=== PATIENT | female | born 1965 | race Caucasian/White ===

== ENCOUNTER 2023-03-13 06:22 | Outpatient (OUT) | payer OTHER, SELFPAY ==
[2023-03-13 07:55] LABS: INR 0.93; Partial Thromboplastin Time 28.5 sec (22.3-36.2); Prothrombin Time 9.9 sec (9.0-11.6)
[2023-03-13 08:41] LABS: Alanine Aminotransferase 38 U/L (14-59); Albumin Globulin Ratio 0.9; Albumin Level 3.8 g/dL (3.4-5.0); Alkaline Phosphatase 109 U/L (46-116); Anion Gap 8.1; Aspartate Amino Transferase 30 U/L (15-37); BUN Creatinine Ratio 15.8; Bilirubin Total 0.5 mg/dL (0.2-1.0); Calcium 9.6 mg/dL (8.5-10.1); Carbon Dioxide 31.3 mmol/L (21.0-32.0); Chloride 104 mmol/L (98-107); Cholesterol 208 mg/dL (<=200); Estimated GFR (African America >60 (>=60); Estimated GFR (Non-African Ame >60 (>=60); Free T3 3.13 pg/mL (2.18-3.98); Globulin 4.2 g/dL; Glucose 91 mg/dL (74-106); HDL Cholesterol 64 mg/dL (40-60); Potassium 4.4 mmol/L (3.5-5.1); Sodium 139 mmol/L (136-145); Thyroid Stimulating Hormone 0.858 uIU/mL (0.358-3.740); Triglycerides 60 mg/dL (<=150)
[2023-03-13 08:44] LABS: Chol HDL Ratio 3.3
[2023-03-13 09:00] LABS: Estimated Average Glucose 94 mg/dL; Glycohemoglobin A1C 4.9 % (4.5-6.2)
[2023-03-13 15:51] LABS: Occult Blood Negative
[2023-03-14 11:09] LABS: Insulin 5.7 uIU/mL (2.6-24.9)
== END 2023-03-13 06:23 | disposition home or self-care (01) ==
LOC: LAB 06:27
PROVIDERS: PCP Family Medicine; Visit Provider Family Medicine
DX: E78.5 Hyperlipidemia, unspecified (principal); R73.09 Other abnormal glucose; Z12.12 Encounter for screening for malignant neoplasm of rectum; D64.9 Anemia, unspecified; E55.9 Vitamin D deficiency, unspecified; R23.8 Other skin changes; M25.50 Pain in unspecified joint
CPT/HCPCS: 36415; 80053; 80061; 82306; 83036; 83525; 83540; 84436; 84443; 84481; 85002; 85610; 85730; G0328

== ENCOUNTER 2023-05-07 10:40 | Outpatient (OUT) | payer OTHER, SELFPAY ==
[2023-05-07 11:00] LABS: Bilirubin Urine NEGATIVE (NEGATIVE); Blood Urine NEGATIVE (NEGATIVE); Clarity Urine CLEAR (CLEAR); Color Urine DK. YELLOW (YELLOW); Glucose Urine UA NEGATIVE (NEGATIVE); Ketones Urine NEGATIVE (NEGATIVE); Leukocyte Esterase Urine NEGATIVE (NEGATIVE); Nitrite Urine NEGATIVE (NEGATIVE); Protein Urine NEGATIVE (NEG/TRACE); Specific Gravity Urine 1.015 (1.005-1.025); Urobilinogen Urine 0.2 EU/dL (0.2-1.0)
== END 2023-05-07 10:41 | disposition home or self-care (01) ==
LOC: LAB 10:43
PROVIDERS: PCP Family Medicine; Visit Provider Family Medicine
DX: R30.0 Dysuria (principal)
CPT/HCPCS: 81003; 87086

== ENCOUNTER 2023-05-20 15:07 | Outpatient (OUT) | payer OTHER, SELFPAY ==
[2023-05-20 15:30] LABS: Bilirubin Urine NEGATIVE (NEGATIVE); Blood Urine TRACE-I (NEGATIVE); Clarity Urine CLEAR (CLEAR); Color Urine LT. YELLOW (YELLOW); Glucose Urine UA NEGATIVE (NEGATIVE); Ketones Urine NEGATIVE (NEGATIVE); Leukocyte Esterase Urine NEGATIVE (NEGATIVE); Nitrite Urine NEGATIVE (NEGATIVE); Protein Urine NEGATIVE (NEG/TRACE); Specific Gravity Urine <=1.005 (1.005-1.025); Urobilinogen Urine 0.2 EU/dL (0.2-1.0)
[2023-05-20 15:36] LABS: WBC Urine NONE SEEN #/HPF (NONE SEEN)
[2023-05-20 15:37] LABS: Bacteria Urine NONE SEEN #/HPF (NONE SEEN); Cast Seen? NONE SEEN #/LPF (NONE SEEN); Crystals Seen? None Seen #/HPF (None Seen); Mucus Urine NONE SEEN (NONE SEEN); RBC Urine 0-2 #/HPF (0-2); Squamous Epithelial Cell Urine RARE #/LPF (NONE/RARE)
== END 2023-05-20 15:08 | disposition home or self-care (01) ==
PROVIDERS: PCP Family Medicine; Visit Provider Family Medicine
DX: R35.0 Frequency of micturition (principal)
CPT/HCPCS: 81001; 87086

== ENCOUNTER 2023-10-21 10:37 | Outpatient (OUT) | payer OTHER, SELFPAY ==
--- OUTSIDE RECORDS SUMMARY | 2023-10-21 10:47 | XMS_ITS | CCD ---
Author Organization [facility] Care Team Providers Care Measuring Machine Tender Name Role Phone Joycelyn Elena Unavailable Unavailable Donald Obando Unavailable Unavailable Denise Atkinson Unavailable Unavailable Donald Obando Unavailable Unavailable Unavailable DR DONALD OBANDO Attending Unavailable DR DONALD OBANDO Consulting Unavailable DR DONALD OBANDO Admitting Unavailable Maikol Roca Unavailable Natdeara, Louann Admitting Unavailable Holly, Louann Attending Unavailable DONALD OBANDO Primary Care Unavailable Nataprlulara, DO Louann Attending Provider MD Donald Obando Primary Care Provider [phone] Donald Obando MD Primary Care Provider [phone] MEÑO GILLESPIE Attending Unavailable DONALD OBANDO Primary Care Unavailable HOLLY, LOUANN Oconnor Attending Unavailable HOLLY, LOUANN Oconnor Attending Unavailable HOLLY, LOUANN Oconnor Attending Unavailable Donald Obando MD Primary Care Provider Donald Obando Primary Care Unavailable Nataprawira, Louann Attending Unavailable Nataprawira, Louann Admitting Unavailable Nataprawira, Louann Attending Unavailable Nataprawira, Louann Admitting Unavailable YANETH, ALEJANDRA Attending Unavailable DONALD OBANDO Referring Unavailable DONALD OBANDO Primary Care Unavailable VARGHESE SHARMA Attending Unavailable DONALD OBANDO Referring Unavailable DONALD OBANDO Primary Care Unavailable YANETH, ALEJANDRA Attending Unavailable DONALD OBANDO Referring Unavailable DONALD OBANDO Primary Care Unavailable YANETH, ALEJANDRA Attending Unavailable DONALD OBANDO Referring Unavailable DONALD OBANDO Primary Care Unavailable Allergies Allergy Classification Reported Allergen(s) Allergy Type Date of Onset Reaction(s) Facility Sulfamethoxazole / Trimethoprim (1 source) Sulfamethoxazole / Trimethoprim; Translations: [Bactrim] Drug Allergy DM-Dss[facility] [place] [address] Work Phone: (6 sources) Sulfamethoxazole / Trimethoprim; Translations: [Bactrim] Drug Allergy 013 [facility] Repository (6 sources) Erythromycin Derivatives; Translations: [Erythromycin Derivatives] drug allergy MG-Otolaryngol ogyLety Work Phone: (3 sources) Codeine; Translations: [codeine] Drug Allergy 013 [facility] Repository (2 sources) Erythromycin; Translations: [ERYTHROMYCIN BASE] Drug Allergy 013 [facility] Repository (2 sources) predniSONE; Translations: [PREDNISONE] Drug Allergy 013 [facility] Repository (1 source) Corticosteroids Propensity to adverse reactions agitation, severe Performance Indicator Other (6 sources) Erythromycin; Translations: [erythromycin] Drug Allergy 023 Unknown [facility] Repository (4 sources) Sulfamethoxazole / Trimethoprim Drug Allergy 023 Unknown Performance Indicator Other (3 sources) Corticosteroids; Translations: [corticosteroids] Propensity to adverse reactions to drug (disorder) [facility] Repository (3 sources) Sulfamethoxazole / Trimethoprim; Translations: [sulfamethoxazole-t rimethoprim] Drug Allergy 019 [facility] Repository (1 source) Corticosteroids Drug allergy (disorder) [facility] Repository (1 source) Erythromycin Drug Allergy [address] [facility] Repository (1 source) Sulfamethoxazole Drug Allergy [address] [facility] Repository (1 source) Trimethoprim Drug Allergy [address] [facility] Repository Medications Current Medications Medication Drug Class(es) Dates Sig (Normalized) Sig (Original) cetirizine hydrochloride 10 mg disintegrating oral tablet (9 sources) Histamine-1 Receptor Antagonist Start: 09-04-2017 cetirizine (ZyrTEC) 10 mg tablet,disintegra ting Take by mouth. 0 09/04/2017 Active cetirizine (ZyrT EC ALLERGY) 10 MG tablet 1 (one) time each day at the same time. 0 Active citalopram 10 mg oral tablet (6 sources) Serotonin Reuptake Inhibitor Start: 11-28-2022 take 1 tablet by mouth once daily citalopram (CeleXA) 10 mg tablet Take 1 tablet (10 mg) by mouth once daily. 0 11/28/2022 Active Start: 01-05-2019 CeleXA 10 MG O ral Tablet Quantity: 0 Refills: 0 Ordered: 05-Jan-2019 DO Start : 05-Jan-2019 Active Start: 01-05-2019 CeleXA 10 MG O ral Tablet Refills: 0 Start : 05-Jan-2019 Active citalopram (Marielena XA) 10 MG tablet 15 mg 0 Active CeleXA Active fluticasone propionate 0.05 mg/actuat metered dose nasal spray (6 sources) Corticosteroid Start: 06-23-2023 take 2 spray(s) nasal route once daily fluticasone (Flonase) 50 mcg/actuation nasal spray Indications: Nasal drainage Administer 2 sprays into each nostril once daily. 16 g 1 06/23/2023 Active Start: 01-05-2019 take 1 spray(s) nasa l route once daily Flonase Allergy Relief 50 MCG/ACT Nasal Suspension USE 1 SPRAY IN EACH NOSTRIL ONCE DAILY. Quantity: 0 Refills: 0 Ordered: 05-Jan-2019 DO Start : 05-Jan-2019 Active fluticasone (Kodi nase Allergy Relief) 50 MCG/ACT nasal spray every 12 (twelve) hours. 0 Active take 1 spray(s) nasa l route twice daily Flonase Allergy Relief 50 MCG/ACT 1 spray in each nostril Nasally bid Not-Taking meclizine hydrochloride 12.5 mg oral tablet (8 sources) Antiemetic Start: 02-26-2018 End: 06-23-2023 meclizine (Antivert) 12.5 mg tablet Indications: Dizziness and giddiness Take 1 tablet every 8 hours as needed for dizziness. 30 tablet 0 06/23/2023 Active Completed/Discontinued Medications Medication Drug Class(es) Dates Sig (Normalized) Sig (Original) ALPRAZolam 0.5 mg oral tablet (6 sources) Benzodiazepine Start: 10-14-2018 ALPRAZolam 0.5 MG Oral Tablet Quantity: 90 Refills: 0 Ordered: 14-Oct-2018 DO Start : 14-Oct-2018 Active Start: 10-14-2018 ALPRAZolam 0.5 MG Oral Tablet Quantity: 90 Refills: 0 Start : 14-Oct-2018 Active Start: 06-11-2018 take 0.5-1 tablets b y mouth three times daily as needed ALPRAZolam (Xanax) 0.25 mg tablet 1/2-1 tablet Orally 3 times a day prn 0 06/11/2018 Active temazepam 15 mg oral capsule (1 source) Benzodiazepine take 1-2 capsules by mouth at bedtime as needed Restoril 15 mg 1-2 capsules at bedtime as needed Orally Not-Taking Problems Active Problems Problem Classification Problem Date Documented Da te Episodic/Chronic Abdominal pain (1 source) Pelvic and perineal pain; Translations: [Pelvic and perineal pain] Onset: 07-04-2023 Episodic Anxiety disorders (14 sources) Anxiety; Translations: [Anxiety state, unspecified] Onset: 12-21-2018 06-17-2023 Chronic Conditions associated with dizziness or vertigo (10 sources) Dizziness; Translations: [Dizziness and giddiness] Onset: 06-20-2023 06-23-2023 Episodic Osteoarthritis (2 sources) Osteoarthritis of finger joint; Translations: [Primary osteoarthritis, unspecified hand] Onset: 06-17-2023 06-17-2023 Chronic Other aftercare (2 sources) Surgical follow-up; Translations: [Encounter for follow-up examination after completed treatment for conditions other than malignant neoplasm] 08-07-2023 Episodic Other connective tissue disease (6 sources) H/O: musculoskeletal disease; Translations: [Personal history of other musculoskeletal disorders] Episodic Other connective tissue disease (2 sources) Hand pain; Translations: [Pain in unspecified hand] Onset: 06-17-2023 06-17-2023 Episodic Other connective tissue disease (2 sources) Pain of left hand; Translations: [Pain in left hand] Onset: 06-17-2023 06-17-2023 Episodic Other ear and sense organ disorders (1 source) Mixed conductive AND sensorineural hearing loss; Translations: [Mixed conductive and sensorineural hearing loss of left ear with unrestricted hearing of right ear] Chronic Other ear and sense organ disorders (11 sources) Conductive hearing loss, unilateral, left ear, with unrestricted hearing on the contralateral side; Translations: [Conductive hearing loss of left ear with unrestricted hearing of right ear] Onset: 06-17-2023 06-20-2023 Chronic Other ear and sense organ disorders (8 sources) Conductive hearing loss; Translations: [Conductive hearing loss, unspecified] Onset: 06-20-2023 06-20-2023 Chronic Other ear and sense organ disorders (5 sources) Mixed conductive and sensorineural hearing loss, unilateral, left ear, with unrestricted hearing on the contralateral side; Translations: [Mixed conductive and sensorineural hearing loss of left ear with unrestricted hearing of right ear] Chronic Other ear and sense organ disorders (2 sources) Bilateral hearing loss; Translations: [Conductive hearing loss, unilateral, left ear with restricted hearing on the contralateral side] Onset: 06-17-2023 06-17-2023 Chronic Other ear and sense organ disorders (4 sources) Otorrhea; Translations: [Otorrhea, unspecified] Episodic Other female genital disorders (4 sources) Polyp of corpus uteri; Translations: [Polyp of corpus uteri] Onset: 06-17-2023 06-17-2023 Episodic Other gastrointestinal disorders (1 source) Irritable bowel syndrome; Translations: [Irritable bowel syndrome] Chronic Other gastrointestinal disorders (1 source) Swollen abdomen; Translations: [Bloating] Episodic Other gastrointestinal disorders (1 source) Constipation; Translations: [Constipation] Episodic Other gastrointestinal disorders (1 source) Diarrhea; Translations: [Diarrhea] Episodic Other nutritional; endocrine; and metabolic disorders (3 sources) Body mass index 25-29 - overweight; Translations: [Body Mass Index 29.0-29.9, adult] Episodic Other upper respiratory disease (1 source) Nasal discharge; Translations: [Other specified disorders of nose and nasal sinuses] 06-23-2023 Episodic Other upper respiratory disease (2 sources) Other specified disorders of nose and nasal sinuses; Translations: [Other specified disorders of nose and nasal sinuses] Onset: 06-23-2023 Episodic Otitis media and related conditions (7 sources) Otosclerosis; Translations: [Otosclerosis, unspecified] Onset: 06-20-2023 3 Episodic Prolapse of female genital organs (3 sources) Herniation of rectum into vagina; Translations: [Rectocele] Onset: 06-17-2023 06-17-2023 Chronic Residual codes; unclassified (2 sources) History of bilateral salpingo-oophorectomy ; Translations: [Acquired absence of ovaries, bilateral] 08-07-2023 Episodic Screening and history of mental health and substance abuse codes (6 sources) H/O: depression; Translations: [Personal history of other mental disorders] Episodic Superficial injury; contusion (1 source) Abrasion of left forearm, initial encounter Episodic Unclassified (3 sources) COUGH, UNSPECIFIED; Translations: [COUGH, UNSPECIFIED] Onset: 06-26-2022 Unclassified (1 source) Encounter for other preprocedural examination; Translations: [Encounter for other preprocedural examination] Onset: 06-20-2023 Viral infection (1 source) COVID-19; Translations: [COVID-19] Onset: 06-26-2022 Past or Other Problems Problem Classification Problem Date Documented Da te Episodic/Chronic Blindness and vision defects (2 sources) Amblyopia of right eye; Translations: [Unspecified amblyopia, right eye] Onset: 12-21-2018 06-17-2023 Episodic Other eye disorders (2 sources) Tear film insufficiency; Translations: [Dry eye syndrome of bilateral lacrimal glands] Onset: 12-21-2018 06-17-2023 Episodic Residual codes; unclassified (1 source) Preoperative state; Translations: [Preoperative clearance] Episodic Unclassified (1 source) COUGH, UNSPECIFIED; Translations: [COUGH, UNSPECIFIED] Onset: 06-24-2022 Unclassified (1 source) Onset: 06-23-2023 06-23-2023 NEGATED: Highlighted row has not occurred!Residual codes; unclassified (9 sources) Disease Episodic Results Test Name Value Interpretation Reference Range [facility] 07-04-2023 --- Specimen: [id number] Received: 07/04/23 Status: PRASANTH Moramary Num: [id number] Spec Type: Surgical Subm Dr: LOUANN BARRERA DO Tissues: A Uterus w/ or w/o tubes ovaries except neoplastic or prolap (CERVIX, DOC TU Procedures: , Gross/Micro L5 Age/ Patient Sex Location Account Attending Physician Reba Kendrick 57/F DC [id number] LOUANN BARRERA DO SPEC NUM: [id number] RECD: 07/04/23 STATUS: PRASANTH GATO NUM: [id number] DELMAR: 07/04/[address]: LOUANN BARRERA DO ENTERED: 07/04/[address]: Param [facility] SPEC TYPE: Surgical DEPT: S ORDERED: Gross/Micro L5 ORDERED: , Gross/Micro L5 Pathological Diagnosis Uterus, Bilateral Ovaries and Tubes, Hystrectomy: Uterus: Adenomyosis. Cervix: Unremarkable. Ovaries: Unremarkable. Fallopian Tubes: Paratubal cysts. Clinical Information Pelvic pain, abdominal pain, 50 g Gross Description Received in formalin labeled with the patient's name, date of and uterus, cervix, bilateral fallopian tubes and ovaries is a 50 g, 5.7 x 4.7 x 2.3 cm uterus with attached bilateral adnexa. The uterine serosa is mantilla garza, focally hyperemic with purple-hancock fibrous adhesions along the anterior aspect. The exocervix is purple-hancock with a central 0.5 cm patent os. The endocervix is mantilla-red, glistening. Sectioning reveals multiple smooth-walled mucus filled cysts measuring up to 0.6 cm. The mantilla-red endometrium averages 0.1 cm in thickness and displays scarring. The pink-mantilla, trabecular myometrium measures up to 1.2 cm in thickness. No myometrial lesions are identified. The right mantilla-hancock, rubbery ovary measures 3.0 x 1.2 x 1.0 cm and has a rubbery, mantilla-hancock, focally hyperemic cut surface. The right fimbriated fallopian tube measures 4.5 x 0.4 cm and has attached paratubal cyst measuring up to 0.3 cm. Sectioning reveals a pinpoint lumen the left mantilla- Specimen: [id number] Received: 07/04/23 Status: PRASANTH Malik Num: [id number] Spec Type: Surgical Subm Dr: LOUANN BARRERA DO Tissues: A Uterus w/ or w/o tubes ovaries except neoplastic or prolap (CERVIX, DOC TU Procedures: , Gross/Micro L5 Patient: Reba Kendrick [id number] (Continued) Specimen: [id number] Received: 07/04/23 (Continued) Gross Description (Continued) Signed (signature on file) Bobbi Burton MD 07/08/232202 Specimen: [id number] Received: 07/04/23 Status: PRASANTH Malik Num: [id number] Spec Type: Surgical Subm Dr: LOUANN BARRERA DO Tissues: A Uterus w/ or w/o tubes ovaries except neoplastic or prolap (CERVIX, DOC TU Procedures: , Gross/Micro L5 Patient: Reba Kendrick [id number] (Continued) Specimen: [id number] Received: 07/04/23 (Continued) Gross Description (Continued) hancock, rubbery ovary measures 3.2 x 1.3 x 0.7 cm and has a rubbery, mantilla-pink, focally hyperemic cut surface. The left fimbriated fallopian tube measures 4.5 x 0.5 cm and has a pinpoint lumen on cut section. There is an attached paratubal cyst measuring 0.3 cm. Lead Web Application Developer sections are submitted in 7 cassettes as follows: A1 - Anterior cervix A2 - Posterior cervix A3 - Anterior endomyometrium A4 - Posterior endomyometrium A5 - Serosal adhesions and hyperemia A6 - Right adnexa A7 - Left adnexa Microscopic Description Seven H E slides reviewed. The microscopic examination confirms the diagnosis. CPT Codes 60845 Specimen: [id number] Received: 07/04/23 Status: PRASANTH Malik Num: [id number] Spec Type: Surgical Subm Dr: NATAPRAWIRA,LOUANN DO Tissues: A Uterus w/ or w/o tubes ovaries except neoplastic or prolap (CERVIX, DOC TU Procedures: , Gross/Micro L5 (more content not included)... Normal [facility] Alanine aminotransferase [En zymatic activity/volume] in Serum or PlasmaOrdered By: LOUANN BARRERA on 06-20-2023 ALT [Catalytic activity/Vol] 27 U/L 7-[address] [facility] Albumin [Mass/volume] in Ser um or Plasma by Bromocresol green (BCG) dye binding methoOrdered By: LOUANN BARRERA on 06-20-2023 Albumin BCG dye [Mass/Vol] 4.4 g/dL 3.5-5.[address] [facility] Alkaline phosphatase [Enzyma tic activity/volume] in Serum or PlasmaOrdered By: LOUANN BARRERA on 06-20-2023 ALP [Catalytic activity/Vol] 124 U/L 34-[address] [facility] Aspartate aminotransferase [ Enzymatic activity/volume] in Serum or PlasmaOrdered By: LOUANN BARRERA 06-20-2023 AST [Catalytic activity/Vol] 22 U/L 13-[address] [facility] Basophils Auto (Bld) [#/Vol] Ordered By: LOUANN BARRERA on 06-20-2023 Basophils (Bld) [#/Vol] 0.1 10*3/uL 0.0-0.[address] [facility] Basophils/100 WBC Auto (Bld) Ordered By: LOUANN BARRERA on 06-20-2023 Basophils/100 WBC (Bld) 0.6 % . F [facility] Bilirubin.total [Mass/volume ] in Serum or PlasmaOrdered By: LOUANN BARRERA on 06-20-2023 Bilirubin [Mass/Vol] 0.6 mg/dL 0.3-1.0 [facility] Calcium [Mass/volume] in Ser um or PlasmaOrdered By: LOUANN BARRERA on 06-20-2023 Calcium [Mass/Vol] 9.9 mg/dL 8.6-10.3 [facility] Carbon dioxide, total [Moles /volume] in Serum or PlasmaOrdered By: LOUANN BARRERA on 06-20-2023 CO2 [Moles/Vol] 31.5 mmol/L 21.0-31.0 [facility] [place] [facility] Chloride [Moles/volume] in S sheri or PlasmaOrdered By: LOUANN BARRERA on 06-20-2023 Chloride [Moles/Vol] 103 mmol/L 98-107 [facility] Complete Blood Count Auto Di ffon 06-20-2023 Basophils (Bld) [#/Vol] 0.1 10*3/uL Normal 0.0-0.[address] [facility] Comment on above: Result Comment: PERF ORMED BY: [place] [id number] PATHOLOGIST GROOVING MACHINE OPERATOR STANFORD ESTRELLA M.D. Performed By: #### C MP, CBC #### [address] Basophils/100 WBC (Bld) 0.6 % Normal . [facility] Comment on above: Performed By: #### C MP, CBC #### [address] Eosinophils (Bld) [#/Vol] 0.0 10*3/uL Normal 0.0-0.[address] [facility] Comment on above: Performed By: #### C MP, CBC #### [address] Eosinophils/100 WBC (Bld) 0.2 % Normal . [facility] Comment on above: Performed By: #### C MP, CBC #### [address] Erythrocyte distribution width (RBC) [Ratio] 12.9 % Normal 11.9-15.[address] [facility] Comment on above: Performed By: #### C MP, CBC #### [address] Hematocrit (Bld) [Volume fraction] 41.4 % Normal 34.0-46.[address] [facility] Comment on above: Performed By: #### C MP, CBC #### [facility] [address] Hemoglobin (Bld) [Mass/Vol] 14.7 g/dL Normal 11.8-15.[address] [facility] Comment on above: Performed By: #### C MP, CBC #### [facility] [address] Lymphocytes (Bld) [#/Vol] 1.4 10*3/uL Normal 1.00-4.[address] [facility] Comment on above: Performed By: #### C MP, CBC #### [facility] [address] Lymphocytes/100 WBC (Bld) 12.8 % Normal . [facility] Comment on above: Performed By: #### C MP, CBC #### [facility] [address] MCH (RBC) [Entitic mass] 32.4 pg Normal 24.7-34.[address] [facility] Comment on above: Performed By: #### C MP, CBC #### [facility] [address] MCV (RBC) [Entitic vol] 91.2 fL Normal 80-100 F [facility] Comment on above: Performed By: #### C MP, CBC #### [facility] [address] Mean Corpuscular HGB Conc 35.5 g/dL High 32.0-35.[address] [facility] Comment on above: Performed By: #### C MP, CBC #### [facility] [address] [place] [address] [place] Monocytes (Bld) [#/Vol] 0.7 10*3/uL Normal 0.0-0.[address] [facility] Comment on above: Performed By: #### C MP, CBC #### [facility] [address] [place] [address] [place] Monocytes/100 WBC (Bld) 6.6 % Normal . [facility] Comment on above: Performed By: #### C MP, CBC #### [facility] [address] [place] [address] [place] Neutrophils (Bld) [#/Vol] 8.8 10*3/uL High 1.8-7.[address] [facility] Comment on above: Performed By: #### C MP, CBC #### [facility] [address] [place] [address] [place] Neutrophils/100 WBC (Bld) 79.8 % Normal . [facility] Comment on above: Performed By: #### C MP, CBC #### [facility] [address] NRBC% 0.1 /100{WBC} Normal 0-0.[address] [facility] Comment on above: Performed By: #### C MP, CBC #### [facility] [address] Platelet mean volume (Bld) [Entitic vol] 7.9 fL Normal 6.3-10.[address] [facility] Comment on above: Performed By: #### C MP, CBC #### [facility] [address] [place] [address] [place] Platelets (Bld) [#/Vol] 323 10*3/uL Normal 150-[address] [facility] Comment on above: Performed By: #### C MP, CBC #### [facility] [address] [place] [address] [place] RBC (Bld) [#/Vol] 4.54 10*6/uL Normal 3.60-5.00 [facility] Comment on above: Performed By: #### C MP, CBC #### [facility] [address] [place] [address] [place] WBC (Bld) [#/Vol] 11.0 10*3/uL Normal 3.8-11.6 [facility] Comment on above: Performed By: #### C MP, CBC #### [facility] [address] Comprehensive Metabolic Pane kristy 12-15-2023 Albumin [Mass/Vol] 4.4 g/dL Normal 3.5-5.7 [facility] Comment on above: Performed By: #### C MP, CBC #### [facility] [address] Albumin/Globulin [Mass ratio] 1.5 {ratio} Normal [facility] Comment on above: Performed By: #### C MP, CBC #### [facility] [address] ALP [Catalytic activity/Vol] 124 U/L High 34-[address] [facility] Comment on above: Result Comment: PERF ORMED BY: [place] [address] PATHOLOGIST GROOVING MACHINE OPERATOR STANFORD ESTRELLA M.D. Performed By: #### C MP, CBC #### [address] ALT [Catalytic activity/Vol] 27 U/L Normal 7-[address] [facility] Comment on above: Performed By: #### C MP, CBC #### [address] Anion gap [Moles/Vol] 10.9 mmol/L Normal 6.0-15.0 [facility] Comment on above: Performed By: #### C MP, CBC #### [address] AST [Catalytic activity/Vol] 22 U/L Normal 13-[address] [facility] Comment on above: Performed By: #### C MP, CBC #### [facility] [address] [place] [address] [place] Bilirubin [Mass/Vol] 0.6 mg/dL Normal 0.3-1.0 [facility] Comment on above: Performed By: #### C MP, CBC #### [address] Calcium [Mass/Vol] 9.9 mg/dL Normal 8.6-10.3 [facility] Comment on above: Performed By: #### C MP, CBC #### [facility] [address] Chloride [Moles/Vol] 103 mmol/L Normal 98-107 [facility] Comment on above: Performed By: #### C MP, CBC #### [facility] [address] CO2 [Moles/Vol] 31.5 mmol/L High 21.0-31.0 [facility] Comment on above: Performed By: #### C MP, CBC #### [address] Creatinine [Mass/Vol] 0.46 mg/dL Low 0.60-1.20 [facility] Comment on above: Performed By: #### C MP, CBC #### [place] [address] [place] GFR/1.73 sq M.predicted MDRD (S/P/Bld) [Vol rate/Area] mL/min/{1.73_m2} Normal [facility] Comment on above: Performed By: #### C MP, CBC #### [address] Globulin (S) [Mass/Vol] 2.9 g/dL Normal [facility] Comment on above: Performed By: #### C MP, CBC #### [address] Glucose [Mass/Vol] 98 mg/dL Normal 70-100 [facility] Comment on above: Result Comment: [facility] Glucose Reference Range is dependent on time and content of last meal. Glucose of more than 200 mg/dL in a nonstressed, ambulatory subject supports the diagnosis of Diabetes Mellitus. ADA recommended reference range Performed By: #### C MP, CBC #### [place] [address] [place] Potassium [Moles/Vol] 4.4 mmol/L Normal 3.5-5.1 [facility] Comment on above: Performed By: #### C MP, CBC #### [place] [address] [place] Protein [Mass/Vol] 7.3 g/dL Normal 6.4-8.9 [facility] Comment on above: Performed By: #### C MP, CBC #### [facility] [address] Sodium [Moles/Vol] 141 mmol/L Normal 136-145 [facility] Comment on above: Performed By: #### C MP, CBC #### [facility] [address] [place] [address] [place] Urea nitrogen [Mass/Vol] 6 mg/dL Low 7-25 [facility] Comment on above: Performed By: #### C MP, CBC #### [facility] [address] Creatinine [Mass/volume] in Serum or PlasmaOrdered By: LOUANN BARRERA on 06-20-2023 Creatinine [Mass/Vol] 0.46 mg/dL 0.60-1.20 [facility] ECG 12 lead ECGon 06-20-2023 ECG 12 lead ECG [facility] Main [place] [address] [place] [address] Electrocardiograph Report Signed Patient: Reba Kendrick MR#: [id number] 2 : 1965 Acct:[id number] Age/Sex: 57 / F ADM Date: 06/20/23 Loc: Room: Type: [facility] Attending Dr: Louann Barrera DO Ordering Provider: LOUANN BARRERA DO Date of Service: 06/20/23 ECG/ECG 12 lead ECG: pst Copies to: Test Reason : Blood Pressure : / mmHG Vent. Rate : 083 BPM Atrial Rate : 083 BPM P-R Int : 156 ms QRS Dur : 086 ms QT Int : 364 ms P-R-T Axes : 063 089 058 degrees QTc Int : 427 ms Normal sinus rhythm Normal ECG No previous ECGs available Confirmed by CHANDLER KONG MD ([id number]) on 06/20/2023 9:40:31 PM Referred By: Electronically Signed By:CHANDLER KONG MD Transcribed By: MUS Signed By Chandler Kong MD [id number] [facility] Eosinophils Auto (Bld) [#/Vo l]Ordered By: LOUANN BARRERA on 06-20-2023 Eosinophils (Bld) [#/Vol] 0.0 10*3/uL 0.0-0.[address] [facility] Eosinophils/100 WBC Auto (Bl d)Ordered By: LOUANN BARRERA on 06-20-2023 Eosinophils/100 WBC (Bld) 0.2 % . [facility] Erythrocyte distribution wid th Auto (RBC) [Ratio]Ordered By: LOUANN BARRERA on 06-20-2023 Erythrocyte distribution width (RBC) [Ratio] 12.9 % 11.9-15.[address] [facility] Globulin Calc (S) [Mass/Vol] Ordered By: LOUANN BARRERA on 06-20-2023 Globulin (S) [Mass/Vol] 2.9 g/dL F [facility] Glucose [Mass/volume] in Ser um or PlasmaOrdered By: LOUANN BARRERA on 06-20-2023 Glucose [Mass/Vol] 98 mg/dL 70-100 [facility] Comment on above: ADA recommended refe rence rangeRandom Glucose Reference Range is dependent on time and content of last meal. Glucose of more than 200 mg/dL in a nonstressed, ambulatory subject supports the diagnosis of Diabetes Mellitus. Hematocrit Auto (Bld) [Volum e fraction]Ordered By: LOUANN BARRERA on 06-20-2023 Hematocrit (Bld) [Volume fraction] 41.4 % 34.0-46.[address] [facility] Hemoglobin [Mass/volume] in BloodOrdered By: LOUANN BARRERA 06-20-2023 Hemoglobin (Bld) [Mass/Vol] 14.7 g/dL 11.8-15.[address] [facility] Leukocytes [#/volume] correc wendy for nucleated erythrocytes in Blood by Automated counOrdered By: LOUANN BARRERA on 06-20-2023 WBC corrected for nucl RBC Auto (Bld) [#/Vol] 11.0 10*3/uL 3.8-11.[address] [facility] Lymphocytes Auto (Bld) [#/Vo l]Ordered By: LOUANN BARRERA on 06-20-2023 Lymphocytes (Bld) [#/Vol] 1.4 10*3/uL 1.00-4.[address] [facility] Lymphocytes/100 WBC Auto (Bl d)Ordered By: LOUANN BARRERA on 06-20-2023 Lymphocytes/100 WBC (Bld) 12.8 % . [facility] MCH Auto (RBC) [Entitic mass ]Ordered By: LOUANN BARRERA on 06-20-2023 MCH (RBC) [Entitic mass] 32.4 pg 24.7-34.[address] [facility] MCHC Auto (RBC) [Mass/Vol]Or dered By: LOUANN BARRERA on 06-20-2023 MCHC (RBC) [Mass/Vol] 35.5 g/dL 32.0-35.0 Fir [facility] MCV Auto (RBC) [Entitic vol] Ordered By: LOUANN BARRERA on 06-20-2023 MCV (RBC) [Entitic vol] 91.2 fL 80-100 F [facility] Monocytes Auto (Bld) [#/Vol] Ordered By: LOUANN BARRERA on 06-20-2023 Monocytes (Bld) [#/Vol] 0.7 10*3/uL 0.0-0.[address] [facility] Monocytes/100 WBC Auto (Bld) Ordered By: LOUANN BARRERA on 06-20-2023 Monocytes/100 WBC (Bld) 6.6 % . F [facility] Neutrophils Auto (Bld) [#/Vo l]Ordered By: LOUANN BARRERA on 06-20-2023 Neutrophils (Bld) [#/Vol] 8.8 10*3/uL 1.8-7.[address] [facility] Neutrophils/100 WBC Auto (Bl d)Ordered By: LOUANN BARRERA on 06-20-2023 Neutrophils/100 WBC (Bld) 79.8 % . [facility] No Panel InformationOrdered By: LOUANN BARRERA on 06-20-2023 Estimated GFR (CKD-EPI) > 60.0 mL/Min [facility] Creatinine Clearance (Chem N/A [facility] Nucleated erythrocytes [Pres ence] in Blood by Automated countOrdered By: LOUANN BARRERA on 06-20-2023 Nucleated RBC Auto Ql (Bld) 0.1 /100{WBC} 0-0.[address] [facility] Platelet mean volume Auto (B ld) [Entitic vol]Ordered By: LOUANN BARRERA on 06-20-2023 Platelet mean volume (Bld) [Entitic vol] 7.9 fL 6.3-10.[address] [facility] Platelets Auto (Bld) [#/Vol] Ordered By: LOUANN BARRERA on 06-20-2023 Platelets (Bld) [#/Vol] 323 10*3/uL 150-[address] [facility] Potassium [Moles/volume] in Serum or PlasmaOrdered By: LOUANN BARRERA on 06-20-2023 Potassium [Moles/Vol] 4.4 mmol/L 3.5-5.1 [facility] Protein [Mass/volume] in Ser um or PlasmaOrdered By: LOUANN BARRERA on 06-20-2023 Protein [Mass/Vol] 7.3 g/dL 6.4-8.9 [facility] RBC Auto (Bld) [#/Vol]Ordere d By: LOUANN BARRERA on 06-20-2023 RBC (Bld) [#/Vol] 4.54 10*6/uL 3.60-5.00 [facility] Serum or plasma albumin/glob ulin mass ratioOrdered By: LOUANN BARRERA on 06-20-2023 Albumin/Globulin [Mass ratio] 1.5 {ratio} [facility] Serum or plasma anion gap de terminationOrdered By: LOUANN BARRERA on 06-20-2023 Anion gap [Moles/Vol] 10.9 mmol/L 6.0-15.0 [facility] Sodium [Moles/volume] in Ser um or PlasmaOrdered By: LOUANN BARRERA on 06-20-2023 Sodium [Moles/Vol] 141 mmol/L 136-145 [facility] Type and Screenon 06-20-2023 ABO and Rh group Nom (Bld) Blood group O Rh(D) negative Normal [facility] Comment on above: Result Comment: PERF ORMED BY: [facility] [place] [address] PATHOLOGIST GROOVING MACHINE OPERATOR STANFORD ESTRELLA M.D. Urea nitrogen [Mass/volume] in Serum or PlasmaOrdered By: LOUANN BARRERA on 06-20-2023 Urea nitrogen [Mass/Vol] 6 mg/dL 01-[address] [facility] WBC Auto (Bld) [#/Vol]Ordere d By: LOUANN BARRERA on 06-20-2023 WBC (Bld) [#/Vol] 11.0 10*3/uL 3.8-11.6 [facility] Coding Summaryon 05-28-2023 Coding Summary HTMLBase 64 ZhaoyhopSVx2nTx+PGhlYWQ +YM3DSCIyW04whWZfoU1gH1 NMTElOSywgQVBQTElOSyIgb fQmSU4ebLLlDCCb IC8+OF3pOXKlIyjkqAWiv3Z 9kXV8I66usj4oBHsznJI6IM DwSgWlzdfnn5yawSz9BUwdX mluOyBt KCLumX86TZZ4cP95Ob87dFP ckLTjx0sklUf0ScOpSCUlQH R4yJfkSAhao8RmAAGjK41xi AObs3U7 MOCfySlvuNByGxSfzHY5vQ6 hAScelxexu6feqfgvZut1eb 87jNDty8T0uFW8M1BxpdM0B GJvbGQg ExbpbTUEoV1veqvoh1tsyup gAzMdUXYvCKu1QLk6MXZnfO scCwBbLQ53IZS3IRUmvpHgU 2FsLWFs rUrzVbW7b4M1Zs9JU3RLAjx bZ2BHDKVFBKewhAG+PC90cj 12O8CmUlhvBrn1FPGdHVC5d DM6xT4v MPSpIBbwg1H5hDB7F1ZltcN uzu2jw5wvMDIlKYsoM20haS Rtq8H4SBWgyWO4ESIpmDfxH iBzaG93 Oyc+FKMimXjpx9GnZrhjs7r zr0qbuOl0AvhjMMZfvhZppB dmNWI8l1XtDv5nGHZigNE4g FR7lJ8y AsLcOfK7CAesA062DlCpsDC kHjrlX43hI5XdyMQ+PHRyPj g3AREzvDsgMW3mM8ZsJEIjf mctbGVm qUdcEK2rKOQjzsciCNJcmY8 kJJTqA0b0KhHxAhT8NBpqM3 VwAZPkqaeyRw97xM1zEbJnU bF3NQkw S7VfihK2BAVrfJAeZKkwYFN 4I86aw0W2BEOgMIVmMAO9pB X0aU5kgHrpnhskmBEauYhvl mVydGlj CAxwVXorZ210DLMjvKbhXzF vZGluZyBEYXRlOiAgMTEvMj IvMjAyMzwvdGQ+FFLxGGE6i WxlPSAn yMMwSEjrOp0lpZmxsNmqEG4 wYNCqlxiiPSCqlE3pZKJvtM QawEagGK3kGDOrewtjh387V iAxMHB0 MBKwsSYwV3JybL2sQqFtQVA sVHDfV1ArwDYvIBvcF501UN iqNbG9URQbclTvH5BvXGGbe WduOiB0 w8Y3Hc3Nc3ObbolhY6AowXE nAbHcJjyxMAa9N9JhYwmvwN I+KX66SMEoBG98QWl2CMM0i WxlPSdi KIWxV9TewI2vQzQuQYXsANS kOyc+PHRhYmxlIHdpZHRoPS heWGSiWsZbsWjyZV2eNd1eB GVyLWNv fSseoVZiOjGoc0usENQhYEe wFO0mqLvoJ6CsyXL4TXYfe1 d8Pl62P08xT5DkhOI+PGNvb NT3mUO6 mE3nGeCvOdN2IVrwZ543AuJ yyEHfBsxkh6eom8hiaXx3Rj K5KXMeykPnkQgxERY4o6DhA s46V09r IHdpZHRoPSIxNSUiIHZhbGl bhr0cmE6aUl5+RRUfqKZ0qX U5wU5yQzDlXrI1IZxxI471J nRvcCIv Qcdos4xmo1nagNv1IwCtMPZ ueuReiIkeGDB4b8ZxBm62Z8 SuuFzpb3LjGuj8fh56hIGjd 7S8gJV6 U4AyZDIkirnszJTvpXyjND9 zLGPrzrxgKZIlkB9xURTgV9 j6TiTpTqA7IUfcQ8FefgX7Q GJvbGQg DCWfkQEKcQ3wgivqn8ycljo kEeDkAPXdZDg6BKj3SEEsqX uoLsVfUND9UaQ0SKN2eIBde A2rcUru ljlrsW6iWos+CAB7tSMdyPA TFE3sQcojbDL+ECJiMTT1cZ xdHVfnCPHejD5tWYHfH5w8O iAwLjA1 TTcnN1VzwdD1OAEhpMJtKNF ubPCIuP6qqvags2hxcsbwBf AaQALwMSm9HHs4SHTsuUdkQ iBsZWZ0 DnO8IWX5cAOvnK1gsGkxmem jiA7tPmn+RigvkUbiQBN9KY d5Q1NgQzw0TERaxFjqYG6yg GFkZGlu Re7noClbnMflNA0qKORoawa mm975LqIky7teVICpyLBaCO waERA8T55hi9K0HTHeZSUeU UG2sKE7 iP9oxSdwgnhspSWqzKwxzcF zdAlgVGnsPDqlH823RIWojO pdCzVvRXs2B1QyYjt3GVRrn NbmYB3n pXVtDMneQf2pzLeegJtgEK0 lFIVnbtdcy268ZeFnc1gbYK VzsYXjQEwmYDS5E15sk5B8W CMwMDAw DJS4mRB1iO3sfOpwwagxtJJ mdDsgdmVydGljYWwtYWxpZ2 73ZGDyqLyzVqKmrOl7W9AjE qu8RQLe pSsjQE2yfNUiEHjrSc5zpFk cyVcrQX1fEDWznvzju270In Ddt3viHIJkvKEcIJvpNGN8K 39cg6W9 WSOnAMOeVHQ1mAP5lR8quVy nbjogbGVmdDsgdmVydGljYW hbXGmjN265LDCsqOevAiFqt GllbnQg GGlzMNx2U7ByQuqmbSA+PC9 4YIFrHU42uKLfnIZep6wwoC r3FqQqKOFdSOV1tNmdPJvao 3JkZXIt G21ycCWrk0N7CSLmxMjhgBS vQbHqrPF2sW8fJFjcbgznf8 vdljikRbbbu4wgmo41sP10P 29sIHdp ZHRoPSIzMCUiIHZhbGlnbj0 rrA9jDs1+GJZvuQN6lRS2pA 9rUOHmAwB4OYjnC643AdYoi CIvPjxj w3wgm4qooDt8TzB6WCDjgiT gwZesOCU0z1WqEp29Y24zSV dpZHRoPSIyMCUiIHZhbGlnb p7nmF4e Ii8+XVInbRJ5dLY0fI4rThH eSeK9TTsxE876PhArxXPaLm gdT21bG0JqwII+HVBaDlq8W CBzdHls JT8baUUsGMinBw8tQAP5AsV rXvNnUKgnR7ExWGUmokinfl rglNK2LTJjBKWjsD40Zu6kf DogMTBw kGKRpV4esmred3ksmxhwJsR sMWKbHVr1RAm4ZDAzxKbjPj OdVDO7ZaM7HDX6hERzwT5su Glnbjog iG7bX6OzRXFqzlycPe77yN1 zEiPhDzR4WYwjEqn+Rk9STk PDRDAEUCLTXMFZLRXTMY45A J32gMPd a1B8vGS7V6TcNDAmemaldvq cgBQ9JWHbIQMjwV63fDWsZZ pgKk0kd3V0s454ZHOqDFCvn B29Oq3h pCkvMXUboJBAkA8tdgjpj8b chunyMtWnTTOmYVd9TYi9TP TszAhlRyImAKR4JpX2WPR3c UXffV1a aCgjufomtN5vZko+MDMvMTI oNTw3XwnpdOG+WPHpWSC0eX yjFQwfTSCzpY6dSVNcM8n9L iAwLjA1 TKqtO2DeYSOgcqylIr23pW4 aBvQyQsT8MAruR5HjoqN4EC FzmXPeUAcaRMO6I59rz5G2X CMwMDAw GXM3wDG7oX1hcGpqvyhveIK mdDsgdmVydGljYWwtYWxpZ2 20FQMrhJglMyI3YMmtFNEcQ S82WC62 lZYtb5G8aFY3P6CtOBPurpf dcavkwGK0VGDzUQSdzX45mH IwRCjyCu3tm9E4c520XUNoW DUwaW47 An6pxGhoNRIpuCKDhC6pfrv su3aeippyRvXwFAJxGKq4NP j9YAAumIbrTbZnDOM4KmG7P UH3xOQi fF7uwDasuvippJ4dYyw+RkV RHOmFBC89GI26bEKke9N4sG P9D2EoWEEsrczcsewsvMS4N DAuMDUw tR92mLReCBrbXx4gv1N2x08 5SPMwNLVxaW66Fd1fbPfqGF NenWABtW2pbhomf7zpdcfjA zAwMDAw UVq8FBk3LZWvzRfxJxUoXHW 4JzD0CVR4fUCfxZ0wpYdfvz cwiZ4cTra+V6A6I5DkXixhn HI+PC90 JWOfTA56lOUgrVVtt6kqzQk 4NsTvLGCwKOV8cKqeDQeha2 DrPOVdB45qqLPek6B3JHHyj GxhcHNl IrUefCE2uO2tUZuawwhbp3h ftvxuEisbz1mrzj49iT29N6 9sIHdpZHRoPSIzMCUiIHZhb Waokb7q kY7tKq2+FPVsdIJ4lXP9nW9 mNxPvKeO9OUnfQ171ToNejP DlNiyvq3eop7yppZf4VoRhX SIgdmFs zMtlMDQ0u1RrTz31F08wEIp pZHRoPSIyMCUiIHZhbGlnbj 6ciB4qJf0+KK5pb7ogpk28x D48dHI+ JSEtUIG1rBeyXRwkNSBmbZ5 tGJivBlR9ZZFtHgIuyV39kP JkUYzgIm1mmCeldOvkQL8aB TBpbjtm a437RkEvt0wmPWZmbGUtTEd oXFN6H83hd2W7XNQfDNDqXB G7fGZ1bE8hgTdxxlauvKDmc DsgdmVy hKdfLRbiSCqlX099AGOegNm bWuFoqNVrY5hnmlRLGA5nQv wvdGQ+FCOaFWZ5bHevOXfkB PWkwO9p HHYzM0t9MrLbRtM4LRazE1J itfY9KNLegEJvGIFrqOBOaC 3ppmzpm4ukuyfrCeAyBVRgI Eq4LUs1 DWIbyLirYiZfOKU4JsC8PVK 6pKNdxG1qbAkyxcusvZ4zEa c+RklOOjwvdGQ+STVpKSG8g WxlPSdw SVXaiD9bBGXfR1o6LjJzTyL 5MCkjU6HnfsY6LJXewJMvDU QndYZNwQ5slnjzx7nrxihyW zAwMDAw MVk3TJq0ZYWwjVkxLbAbZQT 1WvJ3XDB0rDTqaQ8wsAswrg cytG6aTxo+TVJOOjwvdGQ+P HRkIHN0 eLdkVSybFEGwvP1hEPZgO9d 8GlZyMhS7GDqfM4RvtkF3PF BrqUKbUEQdhBGUhC2nvbevs 2xvcjog GoSkJLAjOWa7YEs2RTUbbKj yQvWhTDU7PaI9DZI5qXRcoS 0ccGbvwbdheD0oPdu+UGF5Z FJ5CM69 BV48E0RaOtfdnGMgeFR+PHR hYmxlIHdpZHRoPScxMDAlJy WwyMxcBK4iGq2rJATiLAMiz GxhcHNl OiB (more content not included)... Normal [facility] Mammo Screening 3D Bilate ral.on 05-23-2023 [place] Mammo Screening 3D Bilateral. CLINICAL HISTORY: Screening. COMPARISONS: 07/12/2021. TECHNIQUE: Routine full-field digital mammograms and 3D breast tomosynthesis of both breasts were obtained. FINDINGS: Density: Scattered tissue. There are no developing masses, suspicious microcalcifications, or areas of architectural distortion identified on the current study. No significant changes are identified from the prior studies, given differences in technique and positioning. IMPRESSION: BI-RADS 1 - NEGATIVE, NORMAL INTERVAL FOLLOW-UP. CAD analysis was performed and used in the interpretation. Board Certified Radiologists. Accredited by the ACR and FDA. MAMMOGRAPHY IS VERY IMPORTANT TO YOUR HEALTH. THE CURRENT [employer] GUIDELINES RECOMMENDS ANNUAL MAMMOGRAPHY BEGINNING AT AGE 40. THIS FACILITY UTILIZES A REMINDER SYSTEM TO ENSURE ALL PATIENTS RECEIVE REMINDER NOTIFICATIONS AT THE APPROPRIATE TIME BASED ON THE RECOMMENDATIONS OF THIS EXAM. Final Signed (Electronic Signature): Darrell Wang MD 05/24/23 5:23 am Technologist: EM Assessment: 1-Negative Recommendation: Normal interval follow-up Normal [facility] Provider Orderson 05-14-2023 Provider Orders [id number] [facility] [id number] TGTIFF Normal [facility]on 06-06 SARS-CoV-2 (COVID-19) RNA CHASE+probe Ql (Unsp spec) Detected Critically abnormal NOT DETECTED [facility] Comment on above: Result Comment: This test is not yet approved or cleared by the [place] FDA. When there are no FDA-approved or cleared tests available, and other criteria are met, FDA can make tests available under an emergency access mechanism called an Emergency Use Authorization (EUA). The EUA for this test is supported by the [employer] of Health and Human Service's (HHS's) declaration that circumstances exist to justify the emergency use of in vitro diagnostics for the detection and/or diagnosis of the virus that causes COVID-19. This EUA will remain in effect (meaning this test can be used) for the duration of the COVID-19 declaration justifying emergency of IVDs, unless it is terminated or revoked by FDA (after which the test may no longer be used). Performed By: #### C VDTBH #### [facility] [address] [place] [address] Dr. Karen Rangel INFLUENZA A AND B AGon 06-24 [facility] SEE BELOW Normal [facility] Comment on above: Result Comment: Nega tive for Flu A protein angiten. Infection due to Flu A cannot be ruled out. Flu A angiten in the sample may be below the detection limit of the test. Performed By: #### I NFLUAB #### [facility] [address] [place] [address] Dr. [facility] SEE BEL[facility] Normal [facility] Comment on above: Result Comment: Nega tive for Flu B protein antigen. Infection due to Flu B cannot be ruled out. Flu B antigen in the sample may be below the detection limit of the test. Performed By: #### I NFLUAB #### [facility] [address] [place] [address] Dr. Karen Rangel INFLUENZA A AG Negative Normal NEGATIVE SEE COMMENT [facility] Comment on above: Performed By: #### I NFLUAB #### [facility] [address] [address] [address] Karen Rangel INFLUENZA B AG Negative Normal NEGATIVE SEE COMMENT [facility] Comment on above: Performed By: #### I NFLUAB #### [facility] [address] [address] [address] Karen Rangel INTERNAL CONTROLS Within Normal Limits Normal Wi thin Normal Limits [facility] Comment on above: Performed By: #### I NFLUAB #### [facility] [address] [address] [address] Karen Rangel Established Visit (Otolaryng ology)on 11-14-2021 Established Visit (Otolaryngology) Diagnoses/Problems Conductive hearing loss of left ear with unrestricted hearing of right ear (389.05) (H90.12) Otosclerosis of left ear (387.9) (H80.92) Dizziness (780.4) (R42) Chief Complaint Follow-up visit for dizziness History of Present IllnessUPDATE: The patient is a 56-year-old female presenting in clinic for a follow-up visit for dizziness. She was previously seen by Dr. Meño Gillespie for her condition. The patient is s/p left stapedectomy in 2018. She states that a few weeks ago, she experienced an off-balance dizzy sensation that lasted for one week straight. She denies experiencing a spinning sensation associated with her dizziness. She also denies experiencing aural fullness or hearing a humming noise. She reports to experiencing on-and-off throbbing headaches that causes her to have light sensitivity, which she attributes to fibromyalgia and seasonal allergies. She states that she suffered from a silent migraine once over 10 years ago, which slightly took away partial vision in one of her eyes. The patient states that she feels a heaviness on her left side at times, which is the side where she had surgery in the past. She had to miss one week of work due to her condition, but she states that she has slightly improved. She works at [employer], and states that she gets overwhelmed at times. The patient?s current medications, active allergies and list of medical problems were reviewed in the EHR and confirmed electronically. RECALL 11/02/18: 52 y/o female with left otosclerosis now s/p stapedectomy 12/10/17. Here today for follow up. She has been having panic attacks. She has intermittent aural fullness associated with change in weather. She states she has seasonal allergies. Dizziness is significantly improved. Taste disturbance resolved. Audiogram today showed normal hearing on the right and mild conductive hearing loss on the left with 100% WRS, type A tympanograms bilaterally. Physical Examination: CONSTITUTIONAL: No acute distress VOICE: No hoarseness or other abnormality RESPIRATION: Breathing comfortably, no stridor CV: No clubbing/cyanosis/edema in hands EYES: EOM intact, sclera clear NEURO: Alert and oriented times 3, Cranial nerves II-XII grossly intact and symmetric bilaterally HEAD AND FACE: Symmetric facial features, no masses or lesions RIGHT EAR: Normal external ear and post auricular area, no visible lesions, external auditory canal patent, tympanic membrane intact, no retraction no signs of mass, effusion, or infection within the middle ear LEFT EAR: Normal external ear and post auricular area, no visible lesions, external auditory canal patent, tympanic membrane intact, no retraction, no signs of mass, effusion, or infection within the middle ear NOSE: External nose midline, anterior rhinoscopy is normal with limited visualization to the anterior aspect of the interior turbinates, no bleeding or drainage, no lesions ORAL CAVITY/OROPHARYNX/LIPS: Normal mucous membranes, normal floor of mouth/tongue/OP, no masses or lesions PHARYNGEAL GOMEZ: No masses or lesions NECK/LYMPH: No LAD, no thyroid masses, trachea midline SKIN: Neck and facial skin is without scar or injury PSYCH: Alert and oriented with appropriate mood and affect Audiogram from September 2021 essentially stable, left moderate CHL, excellent SD. Type A tympanograms. Impression: Conductive hearing loss, left Otosclerosis, left s/p L stapedectomy 12/10/2017 Intermittent imbalance Possible vestibular migraine versus cochlear hydrops. Recommendation: -Recommended for the patient to monitor her sodium intake, hydration, and caffeine consumption. If her condition persists, we will introduce water pills in the future. If not improved should consider referral to neurologist for migraine management. No active issues with left middle ear and prosthesis. I discussed with the patient the complexity of my medical decision making including the treatment and testing rational, indications of their elective procedure and possible adverse effects and/or complications. Based on the provided documentation and my professional assessment of this patient?s medical condition, the complexity of evaluation and treatment is moderate. This note was created using speech recognition financial writer software/or [employer] financial writer services. Despite proofreading, several typographical errors might be present that might affect the meaning of the content. Please call with any questions. By signing my name below, I, Abdiel Mathur, attest that this documentation has been prepared under the direction and in the presence of Dr. Hoffman. All medical record entries made by the Scribe were at my direction and personally dictated by me. I have reviewed the chart and agree that the record accurately reflects my personal performance of the history, physical exam, discussion, and plan. Active Problems BMI 29.0-29.9,adult (V85.25) (Z68.29) Conductive hearing loss (389.00) (H90 (more content not included)... 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 Clinical exam, right ear is clear and TM is intact with no evidence of infection or effusion. The left ear canals clear. Left TM is monomeric, but appears intact with no evidence of infection or effusion. We reviewed reviewed audiogram in detail which shows normal hearing in the right ear and a mixed hearing loss in the left ear. Tympanograms are normal bilaterally. Reassurance given I do not see evidence of infection or cerumen impaction on exam today. Patient feels better after knowing this. At this time, I am unsure where her dizziness is coming from. She has a follow-up with Dr. Hoffman in December, I have reached out to his team to see if she can be seen sooner. All questions answered to patient satisfaction. This note was created using speech recognition financial writer software. Despite proofreading, several typographical errors might be present that might affect the meaning of the content. Please call with any questions. Patient Complexity: Low Chief Complaint follow up, BMI 29.07, non-smoker Adult Risk ScreeningAdult Risk Screening_: There are no spiritual/cultural practices/values/needs that are important to know Initial Fall Risk Screening: REBA has not fallen in the last 6 months. REBA does not have a fear of falling. She does not need assistance with sitting, standing or walking. Does not need assistance walking in her home. She does not need assistance in an unfamiliar setting. The patient is not using an assistive device. Fall Risk Screening: Patient is identified as a fall risk. Care Plan: Moderate Risk: Low risk interventions plus: do not leave patient on exam table unattended, supervised activity, educate patient/family on falls prevention, review safety initiatives with patient/family, family at bedside as allowed, yellow falls risk band, focus rounding attention, locate patient in area of high visibility, wheelchair, bed, or personal alarm, bedside commode, elevated toilet seat and pharmacy consult for medication concerns. Altered Mobility: none. Alteration in Mental Status: no. Relevant Medical History/Diagnosis: Multiple Dx: . Altered Elimination: no. Medications That May Alter Equilibrium: psychotropics. Sensory Deficit: no. Unable or Unwilling to Follow Directions: no. Moderate: medications that might alter equilibrium/cognitive judgment/severity of injury. Pain Scale: On a scale of 0 to 10, the patient rates the pain at 4. Please identify location of pain: left ear. Pain Quality: aching. The pain makes it hard for the patient to do these things: walking and work. Living Will. Living Will: No living will on file. Healthcare POA: No healthcare proxy on file. Declaration of Mental Health Treatment: No mental health treatment on file. Tobacco Screening: REBA does not use tobacco. Has not used tobacco in the past 6 months. Domestic Violence Screen: Does not feel threatened or abused physically, emotionally or sexually. Do you feel UNSAFE? The patient feels safe in the home. Depression/Suicide Screening: During the past 2 weeks, the patient has not felt down, depressed or hopeless. During the past 2 weeks, the patient has not felt little interest or pleasure in doing things. She does not have a risk of suicide. She has not had thoughts of harming others. [place]-SUICIDE SEVERITY RATING SCALE 1. Have you wished you were or wished you could go to sleep and not wake up? -NO Was this within the past three months? - NO 6. Have you done anything, started to do anything, or prepared to do anything to end your life? - YES. Single substance abuse screening question: In the past year the patient has used a recreational drug or used a prescription drug for non-medical reasons? 0 time(s). Procedure or Sedation Areas: Not Applicable Nutrition Screening: In the past month, there was not a day when I or anyone in my family went hungry because there was not enough food. Patient Education: The patient denies that they or the person with them has problems with hearing, speaking, seeing, moving around or learning The patient is comfortable filling out medical forms. Food Insecurity: 1. Within the past 12 months, you worried that your food would run out before you got money to buy more: No 2. Within the past 12 months, the food you bought just didn't last and you didn't have money to get more: No History of Present Illness Reba Kendrick is a 56 year-old female here for evaluation of her left ear. She is accompanied by her . Symptoms started of last week and she felt woozy. No change (more content not included)... 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 Word recognition abilities were measured to be excellent, bilaterally. Tympanograms were consistent with normal middle ear function in both ears. The patient was informed that she is a candidate for a hearing aid in the left ear, as this could be contributing to her imbalance. She was encouraged to contact his insurance provider to inquire about a possible hearing aid benefit and where it can be used. If she does not have a hearing aid benefit or wishes to obtain hearing aids through our center, she was encouraged to schedule a hearing aid consult appointment at her convenience. Treatment Plan: 1) Continue medical follow up with Meño Gillespie CNP 2) Consider the use of a hearing aid in the left ear. 3) Re-test hearing annually. Time: [id number] Chief Complaint hearing evaluation Adult Risk ScreeningThere are no spiritual/cultural practices/values/needs that are important to know Initial Fall Risk Screening: REBA has not fallen in the last 6 months. REBA does not have a fear of falling. She does not need assistance with sitting, standing or walking. Does not need assistance walking in her home. She does not need assistance in an unfamiliar setting. The patient is not using an assistive device. Domestic Violence Screen: Does not feel threatened or abused physically, emotionally or sexually. Do you feel UNSAFE? The patient feels safe in the home. Depression/Suicide Screening: During the past 2 weeks, the patient has not felt down, depressed or hopeless. During the past 2 weeks, the patient has not felt little interest or pleasure in doing things. She does not have a risk of suicide. She has not had thoughts of harming others. Reference Documentation See scanned note Procedure Note: Audiogram. History of Present Illness Reba Kendrick, age 56 years, was seen for a hearing evaluation in a conjunction visit with Meño Gillespie CNP. Recall, she has a history of left stapedectomy and left conductive hearing loss. Today, she reports significant concerns for imbalance that came on suddenly when she turned to the left at work on . She reported muffled hearing and otalgia in the left ear only. She noted aural fullness and tinnitus bilaterally. Patient's preferred language: Singaporean Preferred language of the parent, legal guardian or surrogate decision-maker of this minor or incapacitated patient: Singaporean No overt signs of domestic violence/neglect/abuse. No referral made to Scale Adjuster. Pain not interfering with optimal level of function or ability to assess and/or treat. Pain Scale rank: 0/10 Pain Scale used: Numeric No referral made to primary care provider (PCP). Factors/Barriers influencing patient's ability to complete assessment or learn: none. Person taught: patient. Readiness to learn: no barriers. Results of Teaching/Counseling: verbalize recall / understanding and teaching complete. Procedure OTOSCOPY Clear ear canals bilaterally. TYMPANOMETRY RIGHT EAR: Type A tympanogram, normal ear canal volume and compliance LEFT EAR: Type A tympanogram, normal ear canal volume and compliance ACOUSTIC REFLEXES RIGHT EAR: Ipsilateral and contralateral (probe right, stimulus left) acoustic reflexes present at 500 Hz - 4000 Hz. Contralateral acoustic reflex decay was negative at 500 Hz and 1000 Hz. LEFT EAR: high stimulus artifact. AUDIOMETRIC EVALUATION: RIGHT EAR: hearing sensitivity within normal limits with word recognition ability estimated to be excellent (100%) at 50 dB HL based on an NU-6 recorded ordered by difficulty 10-word list. LEFT EAR: mild through 2000 Hz sloping to moderately-severe conductive hearing loss with word recognition ability estimated to be excellent (100%) at 70 dB HL based on an NU-6 recorded ordered by difficulty 10-word list. When compared to previous test results of , thresholds are stable. The test results were discussed with the patient and she was returned to Meño Gillespie CNP for completion of the office visit. Signatures Electronically signed by : Inna Villa, ; Sep 19 2021 12:05PM EST (Author) Electronically signed by : Cody Grayson [facility]; Sep 19 2021 12:51PM EST (Author) Normal [employer] Tobacco Screening.on 022 Adult depression screening assessment No [facility] [address] [place] Work Phone: Fall risk assessment a) No falls within the last year [facility] [address] [place] Work Phone: Tobacco use status [facility] b) No [facility] [address] [place] Work Phone: Established Visit (Otolaryng ology)on 12-07-2020 Established Visit (Otolaryngology) Diagnoses/Problems Conductive hearing loss of left ear with unrestricted hearing of right ear (389.05) (H90.12) Otosclerosis of left ear (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 Dunn's clinic. We are here to assist you through your ENT care at [facility]. Dr. Dunn is an Ear surgeon. This means that he specializes in taking care of patients with complex ear, hearing and balance problems. Dr. Dunn's office number is [phone]. While you may see him at a satellite office ([place]), he has a team committed to help meet your healthcare needs at [facility]. This number is the most direct way to communicate with the office. Tali is Dr. Dunn's stenographer secretary and she answers the office phone from 7:30am-4pm Mon-Fri. She can help you with many general questions and information. Questions that she cannot answer will be directed to the appropriate staff. You may need to leave a message. In this case, someone from the team will call you back. Kassidy is Dr. Dunn's primary nurse and can be reached by calling the office. Kassidy is in clinic with Dr. Dunn on most days and can help you with more specific questions related to your healthcare needs from our office. Sometimes, other team members will also be involved in your care. These people may include film technician, speech therapists, vestibular therapists, neurologist, and neurosurgeon. Dr. Dunn will provide these referrals as needed. Please let us know if you would like to request a specific referral. For your convenience, Dr. Dunn sees patients at several [facility] locations including [facility] and [facility] Office at the [facility] of [facility]. While we try to make your appointments as convenient as possible, occasionally a visit to another location may be necessary to provide the best care for you. We look forward to working with you to meet your healthcare goals. Dr. Dunn makes every effort to run on time for your appointments. Therefore, if you are more than 15 minutes late unrelated to a scan or another appointment such therapy or audiology , your appointment will need to be rescheduled to another day. We appreciate your understanding. Provider Impressions Left-sided mixed hearing loss Left otosclerosis status post stapes procedure. I discussed with the patient that overall her hearing is still in excellent range. She does have some progression of conductive hearing loss in that left ear. Probably her eustachian tube dysfunction on that side is contributing to it. I recommended continued use of Flonase and allergy medications. At present there is no indication to do any more invasive procedure in that ear and be careful of course because of the presence of prosthesis in that ear. As such I recommended close observation and she will follow-up with Dr. Hoffman for her next appointment. Continue medical treatment for eustachian tube dysfunction Chief Complaint Follow up hearing loss History of Present IllnessThijaguar is a 55 yr old who is a patient of one of my partner's Dr. Hoffman. She has left-sided otosclerosis and had a stapedectomy procedure about couple of years ago. Postoperatively she had excellent outcomes with the closure of air-bone gap up to the mild level. She has done well over the years. More recently she started noticing some fullness in that ear. She also had some accompanying URI kind of symptoms. She is currently managing her allergies with Zyrtec as well as use of Flonase. No significant dizziness or tinnitus or drainage from the left ear. Review of Systems A comprehensive 10-point review of systems was obtained including constitutional, neurological, HEENT, pulmonary, cardiovascular, genito-urinary, and other pertinent systems and was negative except as noted in the HPI. *Active Problems Conductive hearing loss (389.00) (H90.2) Dizziness (780.4) (R42) Mixed conductive and sensorineural hearing loss of left ear with unrestricted hearing of right ear (389.21) (H90.72) Preoperative clearance (V72.84) (Z01.818) Otosclerosis of left ear (387.9) (H80.92) Conductive hearing loss of left ear with unrestricted hearing of right ear (389.05) (H90.12) Past Medical History History of Anxiety (300.00) (F41.9) History of depression (V11.8) (Z86.59) History of fibromyalgia (V13.59) (Z87.39) Surgical History History of Uterine Myomectomy Laparoscopic Ablation Family History No pertinent family history No pertinent family history Social History Currently working Former smoker (V15.82) (Z87.891) Lives with family Allergies Bactrim Recorded By: Tequila Alonzo; 09/04/2017 11:36:32 AM Erythromycin Derivatives Recorded By: Tequila Alonzo; 09/04/2017 11:36:32 AM Current Meds Medication NameInstruction ALPRAZolam 0.5 MG Oral Tablet CeleXA 10 MG Oral Tablet Flonase Allergy Relief 50 MCG/ACT Nasal SuspensionUSE 1 SPRAY IN EACH NOSTRIL ON (more content not included)... [facility] (Audiology)on 0 12-07-2020 Follow-up visit Diagnoses/Problems Conductive hearing loss of left ear with unrestricted hearing of right ear (389.05) (H90.12) Otosclerosis of left ear (387.9) (H80.92) Patient Discussion/Summary Stable results from previous hearing tests indicating normal hearing in the right ear and a mild to moderate conductive hearing loss in the left ear. Treatment plan: 1. Follow-up with Dr. Dunn 2. Retest hearing as directed [id number] Chief Complaint routine hearing test Reference Documentation See scanned note Procedure Note: Audiogram. History of Present Illness Reba Kendrick, age 55 years, was seen today for a hearing test in conjunction with a follow-up visit with Dr. Dunn. 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 Today she reports that her left ear will intermittently seem congested. She denies changes in hearing in her right ear. Patient's preferred language: Singaporean Preferred language of the parent, legal guardian or surrogate decision-maker of this minor or incapacitated patient: Not Applicable No overt signs of domestic violence/neglect/abuse. No referral made to Scale Adjuster. Pain not interfering with optimal level of function or ability to assess and/or treat. Pain Scale rank: 0/10 Pain Scale used: Numeric No referral made to primary care provider (PCP). Factors/Barriers influencing patient's ability to complete assessment or learn: none. Person taught: patient. Readiness to learn: no barriers. Results of Teaching/Counseling: verbalize recall / understanding and teaching complete. There are no spiritual/cultural practices/values/needs that are important to know Initial Fall Risk Screening: REBA has not fallen in the last 6 months. Her fall did not result in injury. REBA does not have a fear of falling. She does not need assistance with sitting, standing or walking. Does not need assistance walking in her home. She does not need assistance in an unfamiliar setting. The patient is not using an assistive device. Depression/Suicide Screening: During the past 2 weeks, the patient has not felt down, depressed or hopeless. During the past 2 weeks, the patient has not felt little interest or pleasure in doing things. Results/Data Clear otoscopy bilaterally. Normal Type A tympanograms in the right ear, consistent with normal middle ear function. Abnormal Type C tympanograms in the left ear, consistent with significant negative middle ear pressure. Acoustic stapedial reflexes are present on the right upon ipsilateral stimulation. Acoustic reflexes are were unable to be obtained on the left due to significant negative middle ear pressure. Hearing thresholds on the right are consistent with normal hearing sensitivity 250-8000 Hz. Hearing thresholds on the left are consistent with a mild to moderate conductive hearing loss. Excellent word recognition ability bilaterally. Stable hearing compared to previous hearing test. Signatures Electronically signed by : Cody Martinez; Dec 07 2020 10:24AM EST (Author) Normal [employer] Tobacco Screening.on 021 Fall risk assessment a) No falls within the last year [facility] [employer] Work Phone: Tobacco Screening. b) No [facility] -[address] Work Phone: PROGRESSon 12-21-2018 Protein mass conc HNO ID: [id number] Author: Reba Augustine Service: ? Author Type: Physician Type: Progress Notes Filed: 12/21/2018 5:57 PM Note Text: Reviewed Epic, chart, labs, imaging studies. 1. Monocular diplopia due dry eye. 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 Extensive discussion with patient and regarding Diagnosis, Natural History of disease, pathophysiology, treatment options. Gave handout. She may benefit from Restasis or Xidra in the future. I started her on an aggressive drops and gel regimen. 2. Amblyopia Right eye. She was patched and placed in bifocals when she was young. She feels the vision Right eye is stable. I have confirmed and edited as necessary the relevant ophthalmic history, ROS, and the neuro exam findings as obtained by others. I have seen and examined Reba Kendrick. I have discussed the case and the management of this patient's care with the Resident/Fellow, if applicable. I also have reviewed and agree with the assessment and plan as stated above and agree with all of its relevant components.The nature of the patient's eye disease, its relationship to systemic health, and its prognosis have been explained to the patient/family. The treatment options/risks/benefits have been discussed. Questions answered. Normal [facility] History and Physical - Surge ry > 30 dayson 12-10-2017 History and Physical - Surgery > 30 days History of Present Illness: /Lactating: ? Are You no (1) ? Are You Currently Breastfeedingno (1) History Present Illness: Reason for surgery: left stapedectomy HPI: left stapedectomy for chl Allergies: Allergies: ? predniSONE: Psychosis ? erythromycin: Hives/Urticaria ? Bactrim: Hives/Urticaria ? Dilaudid: Other Home Medication Review: Home Medications Reviewed: yes Impression/Procedure: Impression and Planned Procedure: left stapes Vital Signs: Temperature C: 36 degrees C Temperature F: 96.8 degrees F Heart Rate: 75 beats per minute Respiratory Rate: 16 breath per minute Blood Pressure Systolic: 133 mm/Hg Blood Pressure Diastolic: 60 mm/Hg Physical Exam: Constitutional: Well developed, awake/alert/oriented x3, no distress, alert and cooperative Eyes: PERRL, EOMI, clear sclera ENMT: mucous membranes moist, no apparent injury, no lesions seen Respiratory/Thorax: chest rise symmetric no stridor Cardiovascular: regular rate Musculoskeletal: ROM intact, no joint swelling, normal strength Extremities: normal extremities, no cyanosis edema, contusions or wounds, no clubbing Lymphatic: No significant lymphadenopathy Psychological: Appropriate mood and behavior Skin: Warm and dry, no lesions, no rashes Signatures/Attestation/ Certification: Attending AttestationI saw and evaluated the patient. I personally obtained the guzman and critical portions of the history and physical exam or was physically present for guzman and critical portions performed by the resident/fellow. I reviewed the resident/fellow?s documentation and discussed the patient with the resident/fellow. I agree with the resident/fellow?s medical decision making as documented in the resident?s note. I personally evaluated the patient (as noted in the above attestation) on 10-Dec-2017 Attending Provider ? Inpatient Certification StatementN/A - observation patient/other outpatient visits Electronic Signatures: Eric Krishnamurthy (Resident)) (Signed 10-Dec-2017 11:08) Authored: History of Present Illness, Allergies, Home Medication Review, Impression/Procedure, Physical Exam, Signatures/Attestation/ Certification Shukri Hoffman) (Signed 11-Dec-2017 08:53) Authored: Signatures/Attestation/ Certification Co-Signer: History of Present Illness, Allergies, Home Medication Review, Impression/Procedure, Physical Exam, Signatures/Attestation/ Certification Last Updated: 11-Dec-2017 08:53 by Shukri Hoffman) References: 1. Data Referenced From Patient Profile - Preop v2 10-Dec-2017 09:51 AM Normal [facility] OPERATIVE [place] [address] Patient Name: REBA KENDRICK : 1965 Date of Service: 12/10/2017 Patient Location: [place] [address] Patient Type: O Surgeon: Shukri Hoffman MD Report Type: Operative Reports PREOPERATIVE DIAGNOSIS: Left conductive hearing loss. POSTOPERATIVE DIAGNOSIS: 1. Left conductive hearing loss. 2. Left otosclerosis. OPERATION/PROCEDURE: Left stapedectomy with CO2 laser. SURGEON: Shukri Hoffman MD APARTMENT COORDINATOR(S): 1. Allen Peralta MD 2. Eric Krishnamurthy MD ANESTHESIA: General endotracheal anesthesia. COMPLICATIONS: None. SPECIMENS: None. ESTIMATED BLOOD LOSS: 2 mL. OPERATIVE INDICATIONS: Reba Kendrick is a 52-year-old woman, who is referred with a history of left hearing loss. This was consistent with a conductive hearing loss. Of note, she did have a history of dizziness. VEMP testing and VNG testing were performed and appeared to be consistent with otosclerosis. We discussed the risks, benefits, and alternatives of the procedure including bleeding, infection, injury to the hearing or balance areas of the inner ear. Tympanic membrane perforation, dysgeusia as well as the possibility of no improvement in her hearing. She understood these risks and elected to proceed. OPERATIVE FINDINGS: Successful stapedectomy with placement of a 0.6 x 4.5 mm Bulb Eclipse Piston prosthesis. There was fixation of the stapes footplate, however, the incus and malleus were mobile at the time of the procedure. OPERATIVE PROCEDURE: The patient was identified in the preoperative area. The risks, benefits, and alternatives were explained to the patient. The patient was brought to the operating room and anesthesia was induced. The patient was kept supine on the operating room table. The bed was rotated to 180 degrees. Following this, the patient was prepped and draped in the usual fashion. A timeout procedure was performed. Following this, the operating room microscope was brought in and was used for the duration of the procedure. We began by injecting 1:100,000 lidocaine with epinephrine into the posterior and superior canal gomez. Following this, the external auditory canal was irrigated with saline and suctioned free of any remaining Betadine. A small amount of wax was removed using a curette and alligator. Following this, we did visualize some tympanosclerosis. We made our tympanomeatal flap using a large Trivedi round knife. This was extended superiorly up over the scutum. A Bellucci scissors was used to divide the skin superiorly to aid in exposure. Of note, there was some dissection of the lidocaine with epinephrine through a superficial tract which did make raising the tympanomeatal flap somewhat more challenging. Once the anulus was identified, we did enter the middle ear space with a Trivedi needle over the chorda tympani which was identified along the posterior aspect of the canal. A flap knife was then used to raise the tympanomeatal flap. This was pressed against the anterior wall to keep out of our view. Once this was completed, we used the curved Trivedi needle to skeletonize the chorda tympani which was then mobilized anteriorly. A very small amount of curetting was done in this area along the superior aspect near the scutum. Once this was completed, a joint knife was used to divide the incudostapedial joint. This was done in the direction of the stapedial tendon. Once we had the joint, we used the CO2 laser on settings of 4 fuller with a single pulse to divide the tendon. Once this was completed, we continued to use the laser to divide the posterior bi. A right angle hook was then used to scrape off any joint in the area and eventually, the stapes superstructure was down fractured off the stapes footplate. Of note, we did notice some whitish areas of otosclerosis along the footplate. The stapes superstructure was removed. The laser was then used to create a Jemma in the footplate. The Intrinsic-ID S2 mini drill was used to carefully drill the stapes footplate to create stapodotomy or small fenestra. Once this was completed, our Cuffed and [employer] 0.6 mm x 4.5 mm Eclipse Piston Prosthesis was then placed into the middle ear space using an alligator. This was finally positioned using a right angle pick. The CO2 laser was then used to crimp the Nitinol [place] of the prosthesis over the incus. We then used a curved Trivedi needle to palpate the ossicular chain to ensure that the prosthesis was moving freely and in good position. With the help of our anesthesia colleagues, a sterile blood patch was then applied into the middle ear space. Our tympanomeatal flap was laid down and carefully positioned over the area of the curetted scutum. Gelfoam was placed over the incision, and bacitracin ointment was placed into the ear canal. A cotton ball and Band-Aid dressing were applied. Following this, the patient was turned back over to Anesthesia for extubation, apparently tolerating the procedure well. Allen Peralta III, MD for Shukri Hoffman MD EST TT: 12/11/2017 00:10 AM EST DICTATION NUMBER: [id number] LINDA JOB NUMBER: [id number] CC: Shukri Hoffman MD, Donald Obando, [id number] Edited by Shukri Hoffman 12/23/2017 09:58:40 AM Electronically Signed by Dr. Shukri Hoffman 12/23/2017 09:58:40 AM Normal [facility] Patient Profile - Preop v2on 12-10-2017 Protein mass conc Profile: Initial Info: How to be Addressedlisa Spoken Language PreferredEnglish Are you currently using the Personal Electronic Health Record or TellyoSaaSMAXno Are you interested in learning more about [employer] for the management of your healthnot at this time Stated Reason for Admissionleft stapedectomy Primary Contact Name and [id number] Patient Belongingsnone Medications Brought to Hospitalno General Health: Weight in kg81.6 kilogram(s) Weight in tic819 pound(s) Weight Methodstated Height in cm153.9 centimeter(s) Height in feet5 feet Height in inches0.6 inch(es) Height Methodstated BMI (kg/m2)34.451 square meter Patient or Family Member Reaction to Anesthesiapatient reaction Patient Reaction to Anesthesianausea and vomiting Blood Avoidance/Restrictionsn one Previous Transfusion Reactionno Health Mgmt: Symptoms/Conditions Managed at Homemusculoskeletal; behavioral health Are You Currently Breastfeedingno Behavioral Health Symptoms/Conditionsanxi ety Musculoskeletal Symptoms/Conditionsfibr omyalgia Are You no Barriers to Managing Healthnone Relationship/Environ: Lives Withspouse Living Arrangementshouse Resource/Environmental Concernsnone [facility] Anticipated at Transitionnone Substance: Current or Former Substance Use never: Cigarette/Tobacco, e-Cigarette/Vaping, Alcohol, Street Drugs Risk Screens: Advance Directive Medicalno During the past month, have you often been bothered by feeling down, depressed or hopeless?no During the past month, have you often had little interest or pleasure in doing things?no Have you had any thoughts of harming yourself?no Have you had any thoughts of harming anyone else?no Patient is Able to be Assessed for Learningyes Factors Influencing Readiness to Learnacuteness of illness Factors that Impact Ability to Learnnone Devices/Methods Used to Communicatenone Learning Preferencesverbal instruction; written material Cultural Considerationsnone Developmental Considerationsnone Episcopalian Considerationsnone Other learner availableno [place] RiskPatient location auto qualifies him/her for HIGH RISK. Are there any cultural, spiritual, samaritan practices/values/needs that are important for us to know?no Pain Scalenumerical 0-10 Pain Scale Educationteaching provided Current Pain Level0 = None Acceptable Pain Level0 = None Chronic Painyes fibromyalgia neck, shoulders, hips Information Review: ? Allergies, Home Meds and Significant Events have been Reviewed and Verified with Patient/Familyyes Allergy, Intolerance, Adverse Event: Allergies: ? predniSONE: Drug, Psychosis, Active ? erythromycin: Drug, Hives/Urticaria, Active ? Bactrim: Drug, Hives/Urticaria, Active ? Dilaudid: Drug, Other, Active Significant Events: 10-Dec-2017 ? uterine ablation: Past Surgical History, Active 10-Dec-2017 ? hysteroscopy: Past Surgical History, Active Electronic Signatures: Elo New (QUYEN) (Signed 10-Dec-2017 10:04) Authored: Profile, Additional Information Last Updated: 10-Dec-2017 10:04 by Elo New (QUYEN) Normal [facility] Preop Checkliston 12-10-2017 Preop Checklist Preop Checklist: Preop Checklist: ? Arrival [id number] ? Arrival Time10:06 ? Procedure Typeleft ear surgery ? NPO [id number] 21:00 ? ID Band Onyes ? Allergy Bandyes ? Consent Signedpending ? H&P Completepending ? Anesthesia Assessment Completedpending ? SCD's Appliedno ? Glasses / Contactswith pt Neurological Assessment: ? Level of Consciousnessalert ? Mobilitymoves all extremities ? Able to Express Selfyes ? Age Appropriateyes ? Emotional Statuscalm Language / Communication: ? Language / CommunicationEnglish Electronic Signatures: Elo New (QUYEN) (Signed 10-Dec-2017 10:07) Authored: Preop Checklist Last Updated: 10-Dec-2017 10:07 by Elo New (QUYEN) Normal [facility] Vital Signs Date Time Vital Sign Value Performing Clinician Nathan blackmon 08-11-2023 10:20-0500 Body mass index (BMI) [Ratio] 28.08 kg/m2 Louann Nataprawira DO Work Phone: [facility] 08-11-2023 10:20-0500 Body weight 78.93 kg Louann Nataprawira DO Work Phone: [facility] 08-11-2023 10:20-0500 Diastolic blood pressure 84 mm[Hg] Louann Nataprawira DO Work Phone: [facility] 08-11-2023 10:20-0500 Systolic blood pressure 142 mm[Hg] Louann Nataprawira DO Work Phone: [facility] 06-23-2023 13:43-0500 Body height 167.6 cm Meño Gillespie APRN-BOX WORKER Work Phone: [facility] 06-23-2023 13:43-0500 Body mass index (BMI) [Ratio] 26.95 kg/m2 Meño Gillespie HEARING INSTRUMENT SPECIALIST-BOX WORKER Work Phone: [facility] 06-23-2023 13:43-0500 Body temperature 97.7 [degF] Meño Gillespie HEARING INSTRUMENT SPECIALIST-BOX WORKER Work Phone: [facility] 06-23-2023 13:43-0500 Body weight 75.75 kg Meño Hortonka HEARING INSTRUMENT SPECIALIST-BOX WORKER Work Phone: [facility] 06-23-2023 13:43-0500 Diastolic blood pressure 84 mm[Hg] Meño Hortonka HEARING INSTRUMENT SPECIALIST-BOX WORKER Work Phone: [phone] [place] [address] 06-23-2023 13:43-0500 Heart rate 85 /min Meño Hortonka HEARING INSTRUMENT SPECIALIST-BOX WORKER Work Phone: [facility] 06-23-2023 13:43-0500 Respiratory rate 16 /min Meño Hortonka HEARING INSTRUMENT SPECIALIST-BOX WORKER Work Phone: [facility] 06-23-2023 13:43-0500 SaO2% (BldA) [Mass fraction] 97 % Meño Gillespie HEARING INSTRUMENT SPECIALIST-BOX WORKER Work Phone: [facility] 06-23-2023 13:43-0500 Systolic blood pressure 131 mm[Hg] Meño Gillespie HEARING INSTRUMENT SPECIALIST-BOX WORKER Work Phone: [facility] 03-04-2023 11:30-0400 Body height 167.64 cm Maikol Roca Other [employer] Other 03-04-2023 11:30-0400 Body mass index (BMI) [Ratio] 25.34 kg/m2 Maikol Roca Other [employer] Other 03-04-2023 11:30-0400 Body temperature 98.4 [degF] Maikol Roca Other [employer] Other 03-04-2023 11:30-0400 Body weight 71.22 kg Maikol Abelino Other [employer] Other 03-04-2023 11:30-0400 Diastolic blood pressure 78 mm[Hg] Maikol Abelino Other [employer] Other 03-04-2023 11:30-0400 SaO2% (BldA) [Mass fraction] 78 % Maikol Roac Other [employer] Other 03-04-2023 11:30-0400 Systolic blood pressure 132 mm[Hg] Maikol Abelino Other [employer] Other 11-14-2021 12:54-0400 Body height 167.64 cm Donald Aden [employer] Work Phone: RC-Tasqckumbmaghs-Uw [employer] Work Phone: 11-14-2021 12:54-0400 Body mass index (BMI) [Ratio] 28.84 kg/m2 Donald Aden [employer] Work Phone: NR-Gfcxnwrzlxuydu-Ew [place] Work Phone: 11-14-2021 12:54-0400 Body surface area Derived from formula 1.91 m2 Donald Aden [employer] Work Phone: DZ-Mnphpxnencrbfb-Lf [place] Work Phone: 11-14-2021 12:54-0400 Body temperature 97.5 [degF] Donald Aden [employer] Work Phone: FL-Uwiofhbcdtpceo-Ko [place] Work Phone: 11-14-2021 12:54-0400 Body weight 81.06 kg Donald Samaniego [employer] Work Phone: AK-Mtrzkhmpkzrkyc-Zr [place] Work Phone: 09-19-2021 10:21-0400 Body height 167.64 cm Donald Samaniego [place] Work Phone: RD-Pioyyigikfawuz-Fo rma [address] [place] Work Phone: 09-19-2021 10:21-0400 Body mass index (BMI) [Ratio] 29.07 kg/m2 Donald Orellanay Work Phone: XQ-Nljifjhcaawbxf-Ni rma [address] [place] Work Phone: 09-19-2021 10:21-0400 Body surface area Derived from formula 1.91 m2 Donald Obando Work Phone: FA-Kikvftsjkfcsgz-Bj rma [address] [place] Work Phone: 09-19-2021 10:21-0400 Body temperature 96.5 [degF] Donald Orellanay Work Phone: UT-Mlovdjfcvjorcj-Nb rma [address] [place] Work Phone: 09-19-2021 10:21-0400 Body weight 81.71 kg Donald Oerllanay Work Phone: PK-Sajnnbzqjcfhky-Kd rma [address] [place] Work Phone: 09-19-2021 10:21-0400 Heart rate 70 /min Donald Samaniego [place] Work Phone: NT-Fgbdmhtqrfdhzr-Yz rma [address] [place] Work Phone: 09-19-2021 10:21-0400 Respiratory rate 16 /min Donald Samaniego [place] Work Phone: CP-Kjiybjnkbudobs-Nb rma [address] [place] Work Phone: 09-19-2021 10:21-0400 SaO2% (BldA) [Mass fraction] 99 % Donald Samaniego [place] Work Phone: QJ-Mdmlkbzkfyreqf-Pb rma [address] [place] Work Phone: 12-07-2020 10:19-0400 Body height 167.64 cm Donald M Hoy Work Phone: TO-Nfemwexet-Cebnabo e [address] Work Phone: 12-07-2020 10:190400 Body mass index (BMI) [Ratio] 29.61 kg/m2 Donald M Hoy Work Phone: LM-Dvicuqyik-Orehxja e [address] Work Phone: 12-07-2020 10:19-0400 Body surface area Derived from formula 1.93 m2 Donald M Hoy Work Phone: UQ-Bnhaixbod-Obzztgq e [address] Work Phone: 12-07-2020 10:190400 Body temperature 97.1 [degF] Donald M Hoy Work Phone: BH-Vieuncxtf-Imbrxza e [address] Work Phone: 12-07-2020 10:190400 Body weight 83.2 kg Donald M Hoy Work Phone: JQ-Czrecgfvb-Vtttjor e 24[address] Work Phone: 12-07-2020 10:190400 Respiratory rate 16 /min Donald M Hoy Work Phone: GI-Xsqoqkmlx-Qrywdon e [address] Work Phone: Encounters Encounter Date Encounter Type Care Provider Facility Start: 09-08-2023 End: 09-08-2023 ambulatory [facility] Start: 08-28-2023 End: 08-28-2023 ambulatory [facility] Start: 08-14-2023 End: 08-14-2023 [facility] Start: 08-11-2023 End: 08-11-2023 ambulatory LOUANN BARRERA Not Available Start: 08-11-2023 End: 08-11-2023 Postop follow up visit related to original px Louann Barrera DO Work Phone: [facility] Comment on above: Follow-up examinatio n after gynecological surgery (Primary Dx); Status post laparoscopic hysterectomy; Status post bilateral salpingo-oophorectomy (BSO) Start: 08-06-2023 End: 08-06-2023 ambulatory VARGHESE Oconnor ZACHARY [facility] Start: 07-04-2023 End: 07-04-2023 ambulatory Louann Barrera Facility:[facility] Start: 07-04-2023 End: 07-04-2023 ambulatory MD Donald Obando Work Phone: [facility] Work Phone: Start: 07-04-2023 End: 07-04-2023 Departed Referred MD Donald Obando Work Phone: [facility]-Lab [facility] [place] Work Phone: Start: 06-23-2023 End: 06-23-2023 ambulatory [facility] Start: 06-23-2023 End: 06-23-2023 Office outpatient visit 15 minutes [facility] HEARING INSTRUMENT SPECIALIST-BOX WORKER Work Phone: [facility] 1 Comment on above: Dizziness and giddin ess (Primary Dx); Nasal drainage Start: 06-20-2023 End: 06-20-2023 ambulatory Donald Obando Facility:[facility] Start: 06-20-2023 End: 06-20-2023 ambulatory MD Donald Obando Work Phone: [facility] Work Phone: Start: 06-20-2023 End: 06-20-2023 Patient encounter procedure MD Donald Obando Work Phone: [facility]-Electrodiagnostics Work Phone: Start: 06-17-2023 End: 06-17-2023 ambulatory LOUANN BARRERA Not Available Start: 05-23-2023 End: 11-18-2023 ambulatory Louann Barrera Facility:[facility] Start: 05-19-2023 End: 05-19-2023 ambulatory LOUANN Oconnor EYALROZINA Not Available Start: 03-04-2023 End: 03-04-2023 ambulatory Maikol Roca Other [place] [employer] Other Start: 03-04-2023 Office outpatient ne w 20 minutes Maikol Roca [facility] Start: 06-24-2022 End: 06-24-[address] DONALD OBANDO Facility: Start: 11-14-2021 Office outpatient vi sit 15 minutes Dnoald Obando Work Phone: UW-Mrongmqneehwbn-Xkuc [place] Work Phone: Start: 09-19-2021 Current tobacco non- user cad cap copd pv dm Donald Obando Work Phone: YG-Apfukrmtkrrzvu-Ycgl a [address] [place] Work Phone: Start: 09-17-2021 AUDIT Donald Obando Work Phone: JY-Djawggyuaypdlq-Oczs [place] Work Phone: Start: 12-07-2020 Follow-up encounter Donald Obando Work Phone: YF-Awgkiusnp-Wuoeeufe 24[address] Work Phone: Start: 01-05-2019 Patient encounter procedure Joycelyn Means KN-Djrycfvaylqsbb-Wpoe [place] Work Phone: Start: 11-02-2018 Patient encounter procedure Joycelyn Means NF-Vlmnlqvhhwgooz-Fhyb [place] Work Phone: Start: 02-26-2018 Patient encounter procedure Joycelyn Means JH-Tcjhifrjnrlyot-Qysj [place] Work Phone: Start: 01-08-2018 Patient encounter procedure Joycelyn Means SD-Kuncdrpskxkxxu-Wlqs [place] Work Phone: Start: 10-14-2017 Patient encounter procedure Joycelyn Means RM-Mfvouxrfwcpzfp-Ndbx [place] Work Phone: Start: 10-06-2017 Patient encounter procedure Joycelyn Elena DW-Gjftkwgflowewb-Evhs [place] Work Phone: Start: 09-04-2017 Patient encounter procedure Joycelyn Elena LQ-Shvhykjscntbzo-Ioim [place] Work Phone: Preoperative state Donald Obando Work Phone: PG-Hfdrkuhhd-Vpngwfdw [facility] Work Phone: Procedures Date Procedure Procedure Detail Performing Clinician Start: 06-20-2023 Antibody screen Donald Obando Comment on above: Result Comment: PERF ORMED BY: [facility] [address] [place] [address] PATHOLOGIST GROOVING MACHINE OPERATOR STANFORD ESTRELLA M.D. Start: 05-26-2023 Mammography Meño Pa rtyka HEARING INSTRUMENT SPECIALIST-BOX WORKER Work Phone: H/O: hysterectomy Status post laparoscopic hysterectomy Louann Barrera DO Work Phone: History of Uterine Myomectomy Laparoscopic Ablation Joycelyn Elena Plan of Treatment Date Care Activity Detail Author Start: 05-26-2024 Screening for malignant neoplasm of breast Mammogram [facility] Start: 05-25-2024 End: 05-25-2024 Patient encounter procedure 05/25/2024 11:15 AM EST Office Visit [facility] [address] [address] Louann Barrera, DO [address] [facility] [address] [place] [address] [facility] Start: 12-12-2021 FUV, Provider: Shukri Hoffman, Status: Pen, Time: 1:15 PM FUV, Provider: Shukri Hoffman, Status: Pen, Time: 1:15 PM SO-Rshrfwpdh-Mfzjjcnv 2460 Work Phone: Start: 11-14-2021 FUV, Provider: Shukri Hoffman, Status: Pen, Time: 1:00 PM FUV, Provider: Shukri Hoffman, Status: Phillip, Time: 1:00 PM ZI-Ugwuvfugoearuq-Ycq tlana Work Phone: Start: 09-16-2015 Zoster Vaccines (1 of 2) Zoster Vaccines (1 of 2) [facility] Start: 09-16-1987 DTaP/Tdap/Td Vaccines (1 - Tdap) DTaP/Tdap/Td Vaccines (1 - Tdap) [facility] Start: 1986 Screening for malignant neoplasm of cervix [facility] Start: 09-16-1983 Diabetes mellitus screening Diabetes Screening [facility] Start: 09-16-1983 Hepatitis C screening Hepatitis C Screening [facility] Start: 1966 MMR Vaccines (1 of 1 - Standard series) MMR Vaccines (1 of 1 - Standard series) [facility] Start: 03-18-1966 COVID-19 Vaccine (#1) COVID-19 Vaccine (#1) [facility] Start: 1965 Hepatitis B Vaccines (1 of 3 - 3-dose series) Hepatitis B Vaccines (1 of 3 - 3-dose series) [facility] Start: 1965 HIV screening HIV Screening [facility] Start: 1965 Lipid panel Lipid Panel [facility] Start: 1965 Screening for malignant neoplasm of colon [facility] Start: 1965 Yearly Adult Physical Yearly Adult Physical [facility] MG-Otolaryngolo gy-[employer] Work Phone: NEGATED: Highlighted row has been ruled out! Planned Goals not documented [place]-Ewvecvcovuxgjp-Snc tlana Work Phone: Immunizations Immunization Date Immunization Notes Care Provider Mercedes perez 05-22-2017 influenza, high dose seasonal, preservative-free Maikol Roca Other [employer] Other Payers Date Payer Category Payer Self-pay 2022 Unknown 1965 Unknown [id number] 2.16.84 [id number] 1965 Unknown [id number] 2.16.8 [id number] 1965 Unknown [id number] 2.16.84 [id number] 1965 Unknown [id number] 2.16.84 [id number] 1965 Unknown [id number] 2.16.840 .[id number] 1965 Unknown [id number] 2.16.840. [id number] 1965 Unknown [id number] 2.16.840. [id number] 1965 Unknown [id number] 2.16.8 [id number] 1965 Unknown [id number] 2.16.8 [id number] 1965 Unknown [id number] 2.16.8 [id number] 1965 Unknown [id number] 2.16.8 [id number] 1959 Unknown [id number] Unknown [id number] 2. [id number] Unknown [id number] 2.16.8 [id number] Unknown [id number] 2.16.8 [id number] Social History Date Type Detail Facility Start: 06-17-2023 End: 06-23-2023 Former smoker Former smoker JA-Mebqhesxy-Dmusxkc e [address] Work Phone: Start: 06-17-2023 End: 06-23-2023 Sex Assigned At [employer] Other Start: 1965 Sex Assigned At Female [facility] Start: 06-23-2023 Tobacco smoking status NHIS Never smoked tobacco [facility] Start: 06-19-2023 End: 06-23-2023 Tobacco use and exposure Smokeless tobacco non-user [facility] Work Phone: Start: 06-23-2023 Alcohol intake Lifetime non-d jerry (finding) [facility] Work Phone: Start: 1965 Sex Assigned At Not on file [facility] Work Phone: Start: 06-13-2023 End: 06-23-2023 Exposure to SARS-CoV-2 (event) Not sure [facility] Start: 06-19-2023 Tobacco smoking status NHIS Ex-smoker [facility] End: 07-07-2003 History of tobacco use Current smoker [facility] End: 07-07-2003 History of tobacco use Cigarette Smoker [facility] Start: 08-11-2023 Alcohol intake Current drinke r of alcohol (finding) [facility] Start: 06-19-2023 Tobacco Comment Last smoked : > 10 years [facility] Start: 06-19-2023 Alcohol Comment occasionally; caffeine intake : 1-2 cups per day [facility] NEGATED: Highlighted row - - VN-Dqbxnlsstjxrug-Fr stl ana Work Phone: NEGATED: Highlighted rowStart: NINF History of tobacco use Passive smoker [facility] Work Phone: Medical Equipment Procedure Code Equipment Code Equipment Origin al Text Equipment Identifier Dates Darrell, Radha 0.6mm Yoanna X 4.5mm Nitinol Fluoroplastic Case [id number] Start: 12-10-2017 Comment on above: Description: Convert ed from [facility]. Please see archived information for full log information. Functional Status Date Assessment Result Facility NEGATED: Highlighted row Functional performance Functional status health issues are not documented Disease NG-Arxmhcrrhjksyb-G [place] Work Phone: Mental Status Date Assessment Result Facility NEGATED: Highlighted row Cognitive function [Interpretation] Cognitive status health issues are not documented Disease LT-Yryfhvkhmvblgb-T [place] Work Phone: History of Present illness Narrative 08-11-2023 Louann Barrera, DO - 08/11/2023 10:15 AM EST Note Date & Type Note Facility 08-11-2023 History of Presen t illness Narrative Subjective Reba Kendrick is a 57 y.o. female Chief Complaint Patient presents with Post-op Visit Patient here for 5 weeks post op. She underwent TLH/BSO at [facility] on 07/04/23 due to pelvic pain, abdominal pain and postmenopausal. Patient states that she is feeling well and denies any bowel or bladder issues. Would like a 1 more week of healing. Wants RTW note starting on the 08/18. Past Medical History: Diagnosis Date Abdominal pain Achilles tendonitis Allergic rhinitis Anxiety Cystitis Depression (CMS/HCC) Fibromyalgia History of tinnitus Panic disorder (CMS/HCC) Pelvic pain Post-menopausal Sinusitis Vestibular neuronitis Past Surgical History: Procedure Laterality Date COLONOSCOPY ENDOMETRIAL ABLATION HYSTERECTOMY 07/04/2023 TLH/BSO OTHER SURGICAL HISTORY pelvic laproscopy, r/o cysts VAGINAL DELIVERY x5 Family History Problem Relation Name Age of Onset Colon cancer Maternal Grandmother Heart disease Maternal Grandfather Diabetes Paternal Grandmother OB History Para Term AB Living 5 5 5 SAB IAB Ectopic Multiple Live Births # Outcome Date GA Lbr Nitin/2nd Weight Sex Delivery Anes PTL Lv 5 Para Vag-Spont 4 Para Vag-Spont 3 Para Vag-Spont 2 Para Vag-Spont 1 Para Vag-Spont BP 142/84 Wt 174 lb BMI 28.08 kg/m Review of Systems Constitutional: Negative for chills and fever. Respiratory: Negative for shortness of breath. Cardiovascular: Negative for chest pain. Gastrointestinal: Negative for nausea and vomiting. Genitourinary: Negative for dysuria, pelvic pain and vaginal discharge. Neurological: Negative for dizziness and headaches. Objective Physical Exam Constitutional: Appearance: Normal appearance. Genitourinary: No lesions in the vagina. Right Labia: No lesions. Left Labia: No lesions. Perineal sutures intact. No vaginal discharge or erythema. Right Adnexa: not tender and no mass present. Left Adnexa: not tender and no mass present. Cervix is absent. Uterus is absent. Cardiovascular: Rate and Rhythm: Normal rate and regular rhythm. Pulmonary: Breath sounds: Normal breath sounds. Abdominal: General: Bowel sounds are normal. Palpations: Abdomen is soft. Tenderness: There is no abdominal tenderness. Neurological: Mental Status: She is alert. Skin: General: Skin is warm and dry. Comments: Laparoscopic skin incision well healed without erythema or tednerness Psychiatric: Mood and Affect: Mood normal. 1. Follow-up examination after gynecological surgery Doing well. Reviewed and discussed benign pathology results and intraoperative images. Return to work on 08/18/23 without restrictions letter written and given to patient. To wait 2 more weeks for intercourse. Patient to contact the office with any concerns or questions 2. Status post laparoscopic hysterectomy 3. Status post bilateral salpingo-oophorectomy (BSO) documented in this encounter [facility] History of Present illness Narrative 06-23-2023 Meño Gillespie APRN-BOX WORKER - 06/23/2023 2:20 PM EST Note Date & Type Note Facility 06-23-2023 History of Present illness Narrative Subjective Patient ID: Reba Kendrick is a 57 y.o. female who presents for Follow-up (Sinus drainage/Bilateral ear issues ). HPI INITIAL VISIT WITH MYSELF 09/19/2021: Reba Kendrick is a 56 year-old female here for evaluation of her left ear. She is accompanied by her . Symptoms started of last week and she felt woozy. No changes in her hearing. She is having some pain. No drainage. She has tinnitus bilaterally. She is off balance all of the time right now. She had left stapedectomy done in December 2017. 06/23/2023: Drainage down the back of her throat and filling it up her ears. This started about 2 weeks ago. Tried sinus rinses and sprays but has anxiety so can't do it. PCP gave her Augmentin that she started Friday. Some tenderness on her cheeks. The ear had been bubbling on the left side. No ear pain or hearing loss. Patient Active Problem List Diagnosis Otosclerosis of left ear Conductive hearing loss Conductive hearing loss of left ear with unrestricted hearing of right ear Dizziness Past Surgical History: Procedure Laterality Date OTHER SURGICAL HISTORY 09/04/2017 Uterine Myomectomy Laparoscopic Ablation Review of Systems All other systems have been reviewed and are negative for complaints except for those mentioned in history of present illness, past medical history and problem list. Objective Physical Exam Constitutional: No fever, chills, weight loss or weight gain General appearance: Appears well, well-nourished, well groomed. No acute distress. Communication: Normal communication Psychiatric: Oriented to person, place and time. Normal mood and affect. Neurologic: Cranial nerves II-XII grossly intact and symmetric bilaterally. Head and Face: Head: Atraumatic with no masses, lesions or scarring. Face: Normal symmetry. No scars or deformities. TMJ: Normal, no trismus. Eyes: Conjunctiva not edematous or erythematous. Right Ear: External inspection of ear with no deformity, scars, or masses. EAC is clear. TM is intact with no sign of infection, effusion, or retraction. No perforation seen. Left Ear: External inspection of ear with no deformity, scars, or masses. EAC is clear. TM is monomeric, but appears intact with no sign of infection, effusion, or retraction. No perforation seen. Nose: External inspection of nose: No nasal lesions, lacerations or scars. Anterior rhinoscopy with limited visualization past the inferior turbinates. No tenderness on frontal or maxillary sinus palpation. Oral Cavity/Mouth: Oral cavity and oropharynx mucosa moist and pink. No lesions or masses. Dentition normal. Tonsils appear normal. Uvula is midline. Tongue with no masses or lesions. Tongue with good mobility. The oropharynx is clear. Neck: Normal appearing, symmetric, trachea midline. Cardiovascular: Examination of peripheral vascular system shows no clubbing or cyanosis. Respiratory: No respiratory distress increased work of breathing. Inspection of the chest with symmetric chest expansion and normal respiratory effort. Skin: No head and neck rashes. Lymph nodes: No adenopathy. Assessment/Plan Diagnoses and all orders for this visit: Complete your course of Augmentin. Reassurance given I do not see evidence of ear infection today. Nasal drainage - fluticasone (Flonase) 50 mcg/actuation nasal spray; Administer 2 sprays into each nostril once daily. Dizziness and giddiness - meclizine (Antivert) 12.5 mg tablet; Take 1 tablet every 8 hours as needed for dizziness. Follow up with me as needed, or if symptoms worsen or do not improve. All questions answered. DAVIS Price 06/23/23 2:19 PM documented in this encounter [facility] Work Phone: Evaluation note 03-04-2023 Note Date & Type Note Facility 03-04-2023 Evaluation note Encounter Date Diagnosis Assessment Notes Feb, Abrasion of left forearm, initial encounter (ICD-10 - S50.812A) Wound healing well. Follow wound care instructions. Cleanse area BID. Small amount of abx ointment topically, and may leave CONTENT DIRECTOR unless open and draining. Monitor for sx of infection - redness, warmth, drainage, fever, chills, swelling, pain. F/u immediately if these sx present. Monitor for new or worsening bruising. RTW with restrictions per medco-14. Copies provided to pt. Pt to f/u with [facility] as sched (03/12/23 830AM), sooner for new or worsening sx. Pt understood and agreed to tx plan. Performance Indicator Other Evaluation note Note Date & Type Note Facility Evaluation note [facility] Evaluation note Note Date & Type Note Facility Evaluation note Diagnosis Dizziness and giddiness- Primary Nasal drainage documented in this encounter [facility] Work Phone: Evaluation note Note Date & Type Note Facility Evaluation note Diagnosis Follow-up examination after gynecological surgery- Primary Status post laparoscopic hysterectomy Acquired absence of both cervix and uterus Status post bilateral salpingo-oophorectomy (BSO) documented in this encounter [facility] History general Narrative - Reported Note Date & Type Note Facility History general Narrative - Reported Type Medical History fibromyalgia Medical History anxiety/depression Medical History panic disorder Medical History tinnitis Medical History vestibular neuronitis Medical History sinusitis Medical History allergic rhinitis Medical History achilles tendonitis Surgical History pelvic laproscopy, r/o cysts Surgical History ablation, uterine Performance Indicator Other History of Present illness Narrative Note Date & Type Note Facility History of Present illness Narrative Reba Kendrick, age 55 years, was seen today for a hearing test in conjunction with a follow-up visit with Dr. Dunn. 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 Today she reports that her left ear will intermittently seem congested. She denies changes in hearing in her right ear.Patient's preferred language: EnglishPreferred language of the parent, legal guardian or surrogate decision-maker of this minor or incapacitated patient: Not ApplicableNo overt signs of domestic violence/neglect/abuse.No referral made to Scale Adjuster.Pain not interfering with optimal level of function or ability to assess and/or treat.Pain Scale rank: 0/10Pain Scale used: NumericNo referral made to primary care provider (PCP).Factors/Barriers influencing patient's ability to complete assessment or learn: none.Person taught: patient.Readiness to learn: no barriers.Results of Teaching/Counseling: verbalize recall / understanding and teaching complete.There are no spiritual/cultural practices/values/needs that are important to knowInitial Fall Risk Screening:REBA has not fallen in the last 6 months. Her fall did not result in injury. REBA does not have a fear of falling. She does not need assistance with sitting, standing or walking. Does not need assistance walking in her home. She does not need assistance in an unfamiliar setting. The patient is not using an assistive device.Depression/Suicide Screening:During the past 2 weeks, the patient has not felt down, depressed or hopeless.During the past 2 weeks, the patient has not felt little interest or pleasure in doing things. [id number] Work Phone: Summary Purpose Family History No Family History Records Found Mother Name Dates Details No pertinent family history( V49.89, Z78.9) Status:Active Father Name Dates Details No pertinent family history( V49.89, Z78.9) Status:Active Unknown Family Member Name Dates Details No pertinent family history: Mother, Father(V49.89, Z78.9) Status:Active Unknown Family Member Name Dates Details No pertinent family history: Mother, Father(V49.89, Z78.9) Status:Active Unknown Family Member Name Dates Details No pertinent family history: Mother, Father(V49.89, Z78.9) Status:Active Unknown Family Member Name Dates Details No pertinent family history: Mother, Father(V49.89, Z78.9) Status:Active Unknown Family Member Name Dates Details No pertinent family history: Mother, Father(V49.89, Z78.9) Status:Active Advance Directives No Advanced Directives Records Found Advance Directive Response Recorded Date/ Time Advance Directives No June 11:31am Procedure Findings Note Post Operative Note: PreOp D iagnosis: left conductive hearing loss Post- Procedure Diagnosis: same Procedure: 1. left stapedectomy with placement of prosthetic Surgeon: Dalton Resident/Fellow/Other Babbitt Spinner: paulo krishnamurthy Anesthesia: general Estimated Blood Loss (mL): 15 Specimen: no Complications: none Findings: 4.5 x 0.6 mm Eclipse stapes prosthesis Patient Returned To/Condition: pacu / stable Implants: 4.5 x 0.6 mm Eclipse stapes prosthesis Signature/Cosignature/Attestation: Attending AttestationI was present for the entire procedure Electronic Signatures: Eric Krishnamurthy (Resident)) (Signed 11-Dec-2017 08:56) Authored: Post Operative Note, Signature/Cosignature/Attestation Shukri Hoffman) (Signed 11-Dec-2017 08:57) Authored: Signature/Cosignature/Attestation Co-Signer: Post Operative Note, Signature/Cosignature/Attestation Last Updated: 11-Dec-2017 08:57 by Shukri Hoffman) Chief Complaint routine hearing test Chief Complaint and Reason for Visit Chief Complaint z01.818 Additional Source Comments INFORMATION SOURCE (unrecogn ized section and content) DATE CREATED AUTHOR 11/25/2018 [facility] DATE CREATED AUTHOR AUTHOR'S ORGANIZ ATION 12/22/2018 [facility] DATE CREATED AUTHOR AUTHOR'S ORGANIZ ATION 11/16/2021 [employer] DATE CREATED AUTHOR AUTHOR'S ORGANIZ ATION [facility]/2022 [facility] DATE CREATED AUTHOR AUTHOR'S ORGANIZ ATION 05/31/2023 [facility] DATE CREATED AUTHOR AUTHOR'S ORGANIZ ATION 06/24/2023 [facility] DATE CREATED AUTHOR AUTHOR'S ORGANIZ ATION 08/11/2023 [facility] DATE CREATED AUTHOR AUTHOR'S ORGANIZ ATION 08/15/[address] [facility] DATE CREATED AUTHOR AUTHOR'S ORGANIZ ATION 09/09/2023 [facility] REASON FOR VISIT (unrecogniz ed section and content) Reason Comments Follow-up Sinus drainageBilate ral ear issues Reason Comments Post-op Visit Patient here for 5 w eeks post op. She underwent TLH/BSO at [facility] on 07/04/23 due to pelvic pain, abdominal pain and postmenopausal. Patient states that she is feeling well and denies any bowel or bladder issues. Would like a 1 more week of healing. Wants RTW note starting on the 08/18. Care Teams (unrecognized sec tion and content) Team Status: Active Member Role Status Dates Donald Obando MD Primary Care Provider Active Team Status: Inactive Member Role Status Dates Louann Barrera DO Attending Provider Active Donald Obando MD Primary Care Provider Active Measuring Machine Tender Relationship Specialty Start Date End Date Donald Obando MD [address] [place] [address] PCP - General 10/06/17 Team Status: Inactive Member Role Status Dates Louann Barrera DO Attending Provider Active Measuring Machine Tender Relationship Specialty Start Date End Date Donald Obando MD [address] [place] [address] PCP - General Family Medicine 05/12/23 Goals (unrecognized section and content) Goals may be documented in a n alternate section FOR RECORDS PERTAINING TO PATIENTS WHO ARE OR HAVE BEEN ENROLLED IN A CHEMICAL DEPENDENCY/SUBSTANCEABUSE PROGRAM, SOME INFORMATION MAY BE OMITTED. This clinical summary was aggregated from multiple sources. Caution should be exercised in using it in the provision of clinical care. This summary normalizes information from multiple sources, and as a consequence, information in this document may materially change the coding, format and clinical context of patient data. In addition, data may be omitted in some cases. CLINICAL DECISIONS SHOULD BE BASED ON THE PRIMARY CLINICAL RECORDS. [employer] provides no warranty or guarantee of the accuracy or completeness of information in this document.
[2023-10-21 11:09] LABS: Basophils Absolute Auto 0.1 10^3/uL (0.0-0.1); Basophils Percent Auto 0.6 % (0.2-2.0); Eosinophils Absolute Auto 0.3 10^3/uL (0.0-0.7); Eosinophils Percent Auto 2.2 % (0.9-7.0); Hematocrit 40.1 % (36.0-48.0); Hemoglobin 13.5 g/dL (12.0-16.0); Immature Granulocytes Abs Auto 0.05 10^3/uL (0.00-0.03); Immature Granulocytes Pct Auto 0.4 % (0.0-0.5); Lymphocytes Absolute Auto 1.7 10^3/uL (1.2-3.8); Lymphocytes Percent Auto 14.8 % (20.5-60.0); Mean Corpuscular HGB Conc 33.7 g/dL (29.9-35.2); Mean Corpuscular Hemoglobin 31.5 pg (26.7-34.0); Mean Corpuscular Volume 93.7 fL (81.0-99.0); Mean Platelet Volume 9.1 fL (9.5-13.5); Monocytes Absolute Auto 1.1 10^3/uL (0.3-0.8); Monocytes Percent Auto 9.4 % (1.7-12.0); Neutrophils Absolute Auto 8.4 10^3/uL (1.4-6.5); Neutrophils Percent Auto 72.6 % (43.0-75.0); Platelet Count 338 10^3/uL (150-450); Red Blood Count 4.28 10^6/uL (4.20-5.40); Red Cell Distribution Width 12.4 % (11.0-15.0); White Blood Count 11.5 10^3/uL (4.0-11.0)
[2023-10-21 11:42] LABS: Erythrocyte Sedimentation Rate 55 mm/hr (<=30)
[2023-10-21 11:43] LABS: Alanine Aminotransferase 57 U/L (14-59); Albumin Globulin Ratio 0.8; Albumin Level 3.3 g/dL (3.4-5.0); Alkaline Phosphatase 138 U/L (46-116); Anion Gap 9.4; Aspartate Amino Transferase 27 U/L (15-37); BUN Creatinine Ratio 24.1; Bilirubin Total 0.4 mg/dL (0.2-1.0); C Reactive Protein 1.54 mg/dL (<=0.50); Calcium 9.5 mg/dL (8.5-10.1); Carbon Dioxide 29.5 mmol/L (21.0-32.0); Chloride 103 mmol/L (98-107); Estimated GFR (African America >60 (>=60); Estimated GFR (Non-African Ame >60 (>=60); Globulin 3.9 g/dL; Glucose 98 mg/dL (74-106); Potassium 3.9 mmol/L (3.5-5.1); Sodium 138 mmol/L (136-145); Total Protein 7.2 g/dL (6.4-8.2); Uric Acid 4.3 mg/dL (2.6-6.0)
[2023-10-22 06:12] LABS: Antistreptolysin O Ab 65.1 IU/mL (0.0-200.0); Rheumatoid Factor (RF) <10.0 IU/mL (<14.0)
[2023-10-23 10:10] LABS: Antinuclear Antibodies, IFA Negative (.)
== END 2023-10-21 10:38 | disposition home or self-care (01) ==
LOC: LAB 10:39
PROVIDERS: PCP Family Medicine; Visit Provider Family Medicine
DX: M54.9 Dorsalgia, unspecified (principal)
CPT/HCPCS: 36415; 80053; 84550; 85025; 85652; 86038; 86060; 86140; 86431

== ENCOUNTER 2025-02-09 09:53 | Outpatient (OUT) | payer OTHER, SELFPAY ==
--- OUTSIDE RECORDS SUMMARY | 2025-01-27 23:59 | XMS_ITS | Continuity of Care Document ---
Author Organization [facility] Address Unknown Care Team Providers Care Destination Sign Repairer Name Role Phone DONALD PATE Primary Care Physician Encounter [facility] [id number] Date(s): 01/27/25 - 01/27/[address] [address] Discharge Disposition: Home Attending Physician: DONALD PATE Admitting Physician: DONALD PATE Encounter Type: OP Allergies, Adverse Reactions, Alerts Substance Criticality Severity Reaction Reaction Severity Status codeine Active erythromycin Active sulfamethoxazole-trimethop rim Active corticosteroids Low criticality Mild Active Medications meloxicam 15 mg oral tablet 1 tab(s) ( 15 mg ), PO, Daily, # 30 tab(s), 2 Refill(s), Pharmacy: [facility]/pharmacy #[id number], 1 tab(s) PO Daily Start Date: 06/11/18 Status: Ordered Medication Dispense Status: Completed Quantity: 30.0 Unit: tab(s) Total Allowed Fills: 3 Fills Dispensed: 0 Indications: Pain in left hand; sertraline 25 mg oral tablet 1 tab(s) ( 25 mg ), PO, Daily, # 30 tab(s), 0 Refill(s) Start Date: 06/11/18 Status: Ordered Medication Dispense Status: Completed Quantity: 30.0 Unit: tab(s) Total Allowed Fills: 1 Fills Dispensed: 0 Xanax 0.25 mg oral tablet 1 tab(s) ( 0.25 mg ), PO, TID, PRN: for anxiety, 0 Refill(s) Start Date: 06/11/18 Status: Ordered Medication Dispense Status: Completed Total Allowed Fills: 1 Fills Dispensed: 0 Problem List Condition Confirmation Course Effective Dates Status Health St atus Informant Anxiety Confirmed Active Hand pain, left Confirmed Active 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, uterus corpus Confirmed Active 1PIP joints of left middle finger, left ring finger Procedures Procedure Date Related Diagnosis Body Site Status Ear, nose and throat surgery 11/2017 Completed Ablation Completed Removal of ovarian cyst C ompleted Results Laboratory List Name Date .Auto Diff 1 01/27/25 CBC w/ Auto Diff 01/27/25 Comprehensive Metabolic Panel Standard Estradiol LC 01/27/25 FSH and LH LC 01/27/25 Hemoglobin A1c Standard 01/27/25 Insulin LC 01/27/25 Iron Level 01/27/25 Lipid Panel Standard 01/27/25 Procalcitonin 01/27/25 Progesterone LC 01/27/25 T4, Total 01/27/25 Thyroid Stimulating Hormone 01/27/25 Triiodothyronine,Free,Serum LC 01/27/25 Vitamin D 25 Hydroxy Level 01/27/25 Most recent to oldest [Reference Range]: 1 Hgb A1c % [4.6-6.2 %] 4.9 % (01/27/25 8:18 AM) Estradiol LC <5.0 pg/mL 1 *NA* (01/27/25 8:18 AM) LH LC 36.0 mIU/mL 2 *NA* (01/27/25 8:18 AM) FSH LC 62.4 mIU/mL 3 *NA* (01/27/25 8:18 AM) Insulin LC [2.6-24.9 uIU/mL] 5.2 uIU/mL 4 *NA* (01/27/25 8:18 AM) Triiodothyronine,Free,Serum LC [2.0-4.4 pg/mL] 3.3 pg/mL 5 *NA* (01/27/25 8:18 AM) Creatinine Level [0.60-1.30 mg/dL] 0.63 mg/dL (01/27/25 8:18 AM) Chol/HDL Ratio [0.0-4.5] 5.0 *HI* (01/27/25 8:18 AM) LDL [1-100 mg/dL] 160 mg/dL *HI* (01/27/25 8:18 AM) Trig [0.0-150.0 mg/dL] 83.0 mg/dL (01/27/25 8:18 AM) TSH [0.45-5.33 mcIU/mL] 1.35 mcIU/mL (01/27/25 8:18 AM) Albumin Level [3.5-5.0 gm/dL] 4.0 gm/dL (01/27/25 8:18 AM) Alk Phos [32-91 IU/L] 118 IU/L *HI* (01/27/25 8:18 AM) Bili Total [0.3-1.2 mg/dL] 0.8 mg/dL (01/27/25 8:18 AM) BUN [8-26 mg/dL] 8 mg/dL (01/27/25 8:18 AM) Chloride Level [101-111 mmol/L] 106 mmol /L (01/27/25 8:18 AM) CO2 [21-32 mmol/L] 28 mmol/L (01/27/25 8:18 AM) Glucose Level [74.0-118.0 mg/dL] 94.0 mg /dL (01/27/25 8:18 AM) Hct [33.7-40.4 %] 41.4 % *HI* (01/27/25 8:18 AM) HDL [40-71 mg/dL] 44 mg/dL (01/27/25 8:18 AM) Hgb [11.3-15.9 gm/dL] 14.7 gm/dL (01/27/25 8:18 AM) MCH [24-34 pg] 32 pg (01/27/25 8:18 AM) MCHC [26-37 gm/dL] 36 gm/dL (01/27/25 8:18 AM) MCV [81-100 fL] 90 fL (01/27/25 8:18 AM) MPV [6.3-10.2 fL] 7.6 fL (01/27/25 8:18 AM) Osmolality 281 mOsm/L *NA* (01/27/25 8:18 AM) Platelet [138-427 x10^3/mcL] 293 x10^3/m cL (01/27/25 8:18 AM) Potassium Level [3.6-5.1 mmol/L] 4.0 mmo l/L (01/27/25 8:18 AM) RBC [3.70-5.30 x10^6/mcL] 4.62 x10^6/mcL (01/27/25 8:18 AM) RDW [11.5-15.0 %] 13.2 % (01/27/25 8:18 AM) Sodium Level [136.0-144.0 mmol/L] 142.0 mmol/L (01/27/25 8:18 AM) T4 [6.09-12.23 mcg/dL] 13.43 mcg/dL *HI* (01/27/25 8:18 AM) Protein Total [6.5-8.1 gm/dL] 7.5 gm/dL (01/27/25 8:18 AM) WBC [3.5-10.5 x10^3/mcL] 6.4 x10^3/mcL (01/27/25 8:18 AM) Vitamin D 25 [place] [30-100 ng/mL] 40 ng/mL (01/27/25 8:18 AM) Iron Level [28.0-170.0 mcg/dL] 83.0 mcg/ dL (01/27/25 8:18 AM) Anion Gap [5.0-19.0 mmol/L] 12.0 mmol/L (01/27/25 8:18 AM) Calcium Level [8.9-10.3 mg/dL] 9.5 mg/dL (01/27/25 8:18 AM) ALT/SGPT [14.0-54.0 IU/L] 23.0 IU/L (01/27/25 8:18 AM) AST/SGOT [15-41 IU/L] 31 IU/L (01/27/25 8:18 AM) Cholesterol [66.0-200.0 mg/dL] 221.0 mg/ dL *HI* (01/27/25 8:18 AM) Auto Eos % [0.9-4.0 %] 3.6 % (01/27/25 8:18 AM) Auto Lymph % [14-48 %] 18 % (01/27/25 8:18 AM) Auto Neut % [44-88 %] 65 % (01/27/25 8:18 AM) Eos Abs# [0.0-0.4 x10^3/mcL] 0.2 x10^3/m cL (01/27/25 8:18 AM) Lymph Abs# [1.3-2.9 x10^3/mcL] 1.2 x10^3 /mcL *LOW* (01/27/25 8:18 AM) [place] Abs# [0.0-0.8 x10^3/mcL] 0.8 x10^3/ mcL (01/27/25 8:18 AM) Auto Baso % [0.2-2.0 %] 1.0 % (01/27/25 8:18 AM) Auto [place] % [1-12 %] 12 % (01/27/25 8:18 AM) Baso Abs# [0.0-0.2 x10^3/mcL] 0.1 x10^3/ mcL (01/27/25 8:18 AM) Neut Abs# [1.5-9.2 x10^3/mcL] 4.1 x10^3/ mcL (01/27/25 8:18 AM) Progesterone LC 0.4 ng/mL 6 *NA* (01/27/25 8:18 AM) BUN/Creat Ratio [4.6-16.2] 12.6 (01/27/25 8:18 AM) Globulin [1.5-4.3 gm/dL] 3.5 gm/dL (01/27/25 8:18 AM) A/G Ratio [1.4-2.6] 1.1 *LOW* (01/27/25 8:18 AM) eGFR AA >60 mL/min/1.73m2 *NA* (01/27/25 8:18 AM) eGFR Non AA >60 mL/min/1.73m2 *NA* (01/27/25 8:18 AM) Estimated Avg Glucose 94 mg/dL *NA* (01/27/25 8:18 AM) VLDL. [5-40 mg/dL] 17 mg/dL (01/27/25 8:18 AM) Procalcitonin [0.500-1.000 ng/mL] 0.070 ng/mL *LOW* (01/27/25 8:18 AM) 1Result Comment: Adult Female Range Follicular phase 12.5 - 166.0 Ovulation phase 85.8 - 498.0 Luteal phase 43.8 - 211.0 Postmenopausal <6.0 - 54.7 1st trimester 215.0 - >4300.0 Huong ECLIA methodology Performed At: [address] [id number] [facility] Ph:[phone] 2Result Comment: Adult Female Range Follicular phase 2.4 - 12.6 Ovulation phase 14.0 - 95.6 Luteal phase 1.0 - 11.4 Postmenopausal 7.7 - 58.5 3Result Comment: Adult Female Range Follicular phase 3.5 - 12.5 Ovulation phase 4.7 - 21.5 Luteal phase 1.7 - 7.7 Postmenopausal 25.8 - 134.8 Performed At: [address] [id number] [facility] Ph:[phone] 4Result Comment: Performed At: [address] [id number] [facility] Ph:[phone] 5Result Comment: Performed At: [address] [id number] [facility] Ph:[phone] 6Result Comment: Follicular phase 0.1 - 0.9 Luteal phase 1.8 - 23.9 Ovulation phase 0.1 - 12.0 First trimester 11.0 - 44.3 Second trimester 25.4 - 83.3 Third trimester 58.7 - 214.0 Postmenopausal 0.0 - 0.1 Performed At: [address] [id number] [facility] Ph:[phone] Social History Social History Type Response Smoking Status Former smoker, quit more than 30 days ago entered on: 06/11/18 Sex Female Sex Representation Female (finding) Patient Care team information Care Team Personnel Name: DONALD PATE Position: [facility] No Access Member Role: Primary Care Physician Address: [address] [place] [address] Telecom: Care Team Related Persons Name: VEENA VASQUEZ Name: CRISTA VASQUEZ Insurance Providers Guarantor name: RUBIA VASQUEZ Health Plan Information #: 1 Payer: [employer] Payer Identifier: NA Member Number: [id number] Group Number: [id number] Subscriber Identifier: [id number] Relationship to Subscriber: spouse Coverage Type: PRIVATE HEALTH INSURANCE Coverage Verification Date: 01/27/25 Telecom: [phone] Address: [address] Health Plan Information #: 2 Payer: NEIL EMPLOYEE/FAMILY Payer Identifier: NA Member Number: NA Group Number: NA Subscriber Identifier: [id number] Relationship to Subscriber: self Coverage Type: Self-pay (Includes applicants for insurance and Medicaid applicants) Coverage Verification Date: Telecom: Address: Health Plan Information #: 3 Payer: [employer] Payer Identifier: NA Member Number: [id number] Group Number: [id number] Subscriber Identifier: [id number] Relationship to Subscriber: self Coverage Type: PRIVATE HEALTH INSURANCE Coverage Verification Date: 01/27/25 Telecom: [phone] Address: [address] Health Plan Information #: 4 Payer: SELF PAY AFTER INSURANCE Payer Identifier: NA Member Number: NA Group Number: NA Subscriber Identifier: [id number] Relationship to Subscriber: self Coverage Type: Self-pay (Includes applicants for insurance and Medicaid applicants) Coverage Verification Date: Telecom: Address: [address] [place] [address]
--- OUTSIDE RECORDS SUMMARY | 2025-02-01 23:59 | XMS_ITS | Continuity of Care Document ---
Author Organization [facility] Address Unknown Care Team Providers Care Perfect Bind Machine Operator Name Role Phone DONALD PATE Primary Care Physician Encounter [facility] [id number] Date(s): 02/01/25 - 02/01/[address] [address] Discharge Disposition: Home Attending Physician: DONALD PATE Admitting Physician: ODNALD PATE Encounter Type: OP Allergies, Adverse Reactions, Alerts Substance Criticality Severity Reaction Reaction Severity Status codeine Active erythromycin Active sulfamethoxazole-trimethop rim Active corticosteroids Low criticality Mild Active Assessment and Plan Future Appointments Diagnostic Tests Pending * Thyroid Antibodies LC 02/01/25 Future Scheduled Tests Radiology* CT Upper Extremity w/ Contrast Right 02/04/25 Medications meloxicam 15 mg oral tablet 1 tab(s) ( 15 mg ), PO, Daily, # 30 tab(s), 2 Refill(s), Pharmacy: [facility]/pharmacy #[id number], 1 tab(s) PO Daily Start Date: 06/11/18 [...] C ompleted Results Laboratory List Name Date Hepatic Function Panel Standard 02/01/25 Lipid Panel Standard 02/01/25 Most recent to oldest [Reference Range]: 1 Chol/HDL Ratio [0.0-4.5] 4.7 *HI* (02/01/25 10:15 AM) LDL [1-100 mg/dL] 142 mg/dL *HI* (02/01/25 10:15 AM) Trig [0.0-150.0 mg/dL] 107.0 mg/dL (02/01/25 10:15 AM) Albumin Level [3.5-5.0 gm/dL] 3.9 gm/dL (02/01/25 10:15 AM) Alk Phos [32-91 IU/L] 122 IU/L *HI* (02/01/25 10:15 AM) Bili Direct [0.10-0.50 mg/dL] 0.10 mg/dL (02/01/25 10:15 AM) Bili Total [0.3-1.2 mg/dL] 0.9 mg/dL (02/01/25 10:15 AM) HDL [40-71 mg/dL] 43 mg/dL (02/01/25 10:15 AM) Protein Total [6.5-8.1 gm/dL] 7.8 gm/dL (02/01/25 10:15 AM) Bili Indirect [0.2-0.8 mg/dL] 0.8 mg/dL (02/01/25 10:15 AM) ALT/SGPT [14.0-54.0 IU/L] 24.0 IU/L (02/01/25 10:15 AM) AST/SGOT [15-41 IU/L] 31 IU/L (02/01/25 10:15 AM) Cholesterol [66.0-200.0 mg/dL] 206.0 mg/ dL *HI* (02/01/25 10:15 AM) Globulin [1.5-4.3 gm/dL] 3.9 gm/dL (02/01/25 10:15 AM) A/G Ratio [1.4-2.6] 1.0 *LOW* (02/01/25 10:15 AM) VLDL. [5-40 mg/dL] 21 mg/dL (02/01/25 10:15 AM) Social History Social History Type Response Smoking Status Former smoker, quit more than 30 days ago entered on: 06/11/18 Sex Female Sex Representation Female (finding) Patient Care team information Care Team Personnel Name: DONALD PATE Position: [facility] No Access Member Role: Primary Care Physician Address: [address] [place] [address] Telecom: Care Team Related Persons Name: VEENA VASQUEZ Name: CRISTA VASQUEZ Insurance Providers Guarantor name: RUBIA VASQUEZ Health Plan Information #: 1 Payer: [employer] Payer Identifier: NA Member Number: [id number] Group Number: [id number] Subscriber Identifier: [id number] Relationship to Subscriber: spouse Coverage Type: PRIVATE HEALTH INSURANCE Coverage Verification Date: 02/01/25 Telecom: [phone] Address: [place] [address]- Health Plan Information #: 2 Payer: NEIL EMPLOYEE/FAMILY Payer Identifier: NA Member Number: NA Group Number: NA Subscriber Identifier: [id number] Relationship to Subscriber: self Coverage Type: Self-pay (Includes applicants for insurance and Medicaid applicants) Coverage Verification Date: NA Telecom: NA Address: Health Plan Information #: 3 Payer: [employer] Payer Identifier: NA Member Number: [id number] Group Number: [id number] Subscriber Identifier: [id number] Relationship to Subscriber: self Coverage Type: PRIVATE HEALTH INSURANCE Coverage Verification Date: 02/01/25 Telecom: [phone] Address: [place] [address]- Health Plan Information #: 4 Payer: SELF PAY AFTER INSURANCE Payer Identifier: NA Member Number: NA Group Number: [id number] Subscriber Identifier: [id number] Relationship to Subscriber: self Coverage Type: Self-pay (Includes applicants for insurance and Medicaid applicants) Coverage Verification Date: [employer] Telecom: [employer] Address: [address] [place] [address]
--- OUTSIDE RECORDS SUMMARY | 2025-02-04 23:59 | XMS_ITS | Continuity of Care Document ---
Author Organization [facility] Address Unknown Care Team Providers Care Wallpaperer Helper Name Role Phone DONALD PATE Primary Care Physician [phone] Encounter [facility] [id number] Date(s): 02/04/25 - 02/04/[address] [address] Discharge Disposition: Home Attending Physician: DONALD PATE Admitting Physician: DONALD PATE Encounter Type: OP Allergies, Adverse Reactions, Alerts Substance Criticality Severity Reaction Reaction Severity Status codeine Active erythromycin Active sulfamethoxazole-trimethop rim Active corticosteroids Low criticality Mild Active Medications meloxicam 15 mg oral tablet 1 tab(s) ( 15 mg ), PO, Daily, # 30 tab(s), 2 Refill(s), Pharmacy: [facility]/pharmacy #[id number], 1 tab(s) PO Daily Start Date: 06/11/18 [...] Completed Removal of ovarian cyst C ompleted Social History Social History Type Response Smoking Status Former smoker, quit more than 30 days ago entered on: 06/11/18 Sex Female Sex Representation Female (finding) Patient Care team information Care Team Personnel Name: NOE PATELAS Position: [facility] No Access Member Role: Primary Care Physician Address: [address] [place] [address] [place] [address]- Telecom: Care Team Related Persons Name: VEENA VASQUEZ Name: CRISTA VASQUEZ Insurance Providers Guarantor name: RUBIA VASQUEZ Health Plan Information #: 1 Payer: [employer] Payer Identifier: NA Member Number: [id number] Group Number: [id number] Subscriber Identifier: [id number] Relationship to Subscriber: spouse Coverage Type: PRIVATE HEALTH INSURANCE Coverage Verification Date: 02/04/25 Telecom: [phone] Address: [place] [address]- Health Plan Information #: 2 Payer: NEIL EMPLOYEE/FAMILY Payer Identifier: NA Member Number: NA Group Number: NA Subscriber Identifier: [id number] Relationship to Subscriber: self Coverage Type: Self-pay (Includes applicants for insurance and Medicaid applicants) Coverage Verification Date: Telecom: Address: Health Plan Information #: 3 Payer: [employer] Payer Identifier: NA Member Number: [id number] Group Number: [id number] Subscriber Identifier: [id number] Relationship to Subscriber: self Coverage Type: PRIVATE HEALTH INSURANCE Coverage Verification Date: 02/04/25 Telecom: [phone] Address: [address] Health Plan Information #: 4 Payer: SELF PAY AFTER INSURANCE Payer Identifier: NA Member Number: NA Group Number: NA Subscriber Identifier: [id number] Relationship to Subscriber: self Coverage Type: Self-pay (Includes applicants for insurance and Medicaid applicants) Coverage Verification Date: Telecom: [employer] Address: [address] [place] [address]
--- OUTSIDE RECORDS SUMMARY | 2025-02-07 16:27 | XMS_ITS ---
Author Organization [facility] in [place] Address [address] [place] [address] Care Team Providers Care Manifest/Order Organizer Print Orders Name Role Phone Nico Obando Primary Care Provider [phone] result Encounters Encounter Location Date Provider Diagnosis [facility] [address] [place] [address] 02/07/2025 Nico Obando Plan Of Treatment No Information Progress Notes * Reba KENDRICK EDOB:1965 (59 yo F)Acc No.[id number]:02/07/2025 Patient: Reba STORY :1965 A ge:59 Y S ex:Female Address:[address] [place], [address] * true * Date: Generated for Ginna lui/Terence/eTransmitting on: 0 02/09/2025 09:58 AM EDT
--- OUTSIDE RECORDS SUMMARY | 2025-02-09 05:00 | XMS_ITS ---
Author Organization The [facility] in [place] Address [address] [place] [address] Care Team Providers Care Thermodynamic Physicist Name Role Phone Nico Obando Primary Care Provider Allergies Allergen (clinical drug ingredient) Drug/Non Drug Allergy documented on EMR Reaction Allergy Type Onset Date Status Steroids steroids (uncoded) anxiety Allergy A ctive sulfamethoxazole / trimethoprim Bactrim rash Drug Allergy Active erythromycin Erythromycin rash Drug Allergy A ctive Results Component Value Reference Range Notes UA DIP NONAUTO WO MICRO (810 02) - IN OFFICE (Not yet reviewed by provider) Interpretation: Performing Lab: Notes/Report: COLOR yellow CLARITY clear GLUCOSE n BILIRUBIN n KETONE 5 SPECIFIC GRAVITY 1.010 BLOOD 5-10 PH 6.5 PROTEIN 15 UROBILINOGEN n NITRITE n LEUKOCYTE ESTERASE 15+ REASON FOR VISIT recheck arm- lump, Patient said that it has grown- if bumps it, does have some pain, Doesnt think UTI has resolved- still with pelvic pressure, some burning with urination at times Medications Medication SIG (Take, Route, Fr equency, Duration) Notes Start Date End Date Status tiZANidine HCl 4 MG 1 tablet Orally tid for 30 days PRN 10/20/2023 Active Cetirizine HCl 10 MG 1 tablet Orally Onc e a day for 30 PRN 12/29/2023 Active Meclizine HCl 25 MG 1 tablet as needed O rally Q 6 hours PRN 02/11/2024 Active levoFLOXacin 500 MG 1 tablet Orally Once a day for 10 day(s) 02/09/2025 Active ALPRAZolam 0.5 MG 1 tablet Orally Twice a day PRN Active CeleXA 10 MG 0.5 tablet Orally Once a day Active Social History Tobacco Use: Social History Observation Description Date Details (start date - stop date) Never Smoker NA - NA Tobacco Use/Smoking Question Answer Notes Patient is a nonsmoker Vital Signs Blood pressure systolic 136 mm Hg 02/10/20 25 Blood pressure diastolic 84 mm Hg 025 Height 65 in 02/09/2025 Weight 163.2 lbs 02/09/2025 BMI 27.15 kg/m2 02/09/2025 Encounters Encounter Location Date Provider Diagnosis [facility] [address] [facility] [place] [address] 02/09/2025 Nico Obando Pelvic pressure in female R10.2 and Mass R22.9 Assessments Encounter Date Diagnosis (ICD Code) Assessment Notes Treatment Notes Treatment Clinical Notes Section Notes 02/09/2025 Pelvic pressure in female (ICD-10 - R10.2) 02/09/2025 Mass (ICD-10 - R22.9) seting up with Ortho Plan Of Treatment Medication Medication Name Sig Start Date Stop Date Notes levoFLOXacin 500 MG 1 tablet Orally Once a day for 10 day(s) 02/09/2025 Treatment Notes Assessment Notes Mass seting up with Ortho Pending Test Test Name Order Date Urinalysis Microscopic 02/09/2025 UA DIP NONAUTO WO MICRO (14144) - IN OFF ICE 02/09/2025 CULTURE URINE 02/09/2025 Progress Notes * Reba KENDRICK EDOB:1965 (59 yo F)Acc No.[id number]:02/09/2025 UNLOCKED PROGRESS NOTE Progress Note Patient: Reba STORY Provider: Ignacio Obando ([facility])MD :1965 A ge:59 Y S ex:Female Date:02/09/2025 Address:[facility] [address] [place], [id number] Check In:08:51 AM ESTCheck O ut:09:43 AM EST Subjective: * Chief Complaints: * 1 . Recheck arm- lump. 2. Patient said that it has grown- if bumps it, does have some pain. 3. Doesnt think UTI has resolved- still with pelvic pressure, some burning with urination at times. * HPI: G eneral: uti symtoms persintnig - yulissa bruce ab and do cx R forearma ihwt swelling area - some pain with using fingers as well. * Medical History: O tosclerosis of left ear, Conductive hearing loss in left ear, Arthralgia, Allergic rhinitis, Dry eye syndrome, Palpitations, Fibromyalgia, Anemia, unspecified, Insomnia, unspecified, Dysthymic disorder, Panic disorder [episodic paroxysmal anxiety], Tachycardia, unspecified, Vestibular neuronitis, bilateral, Over weight, Acute bronchitis, Acute pelvic pain, Acute recurrent frontal sinusitis, Fatigue, Conductive hearing loss, unilateral, left ear with restricted hearing on the contralateral side, Back pain, Depression, Anxiety, Former smoker, Depressive disorder. * Surgical History: S tapedectomy 12/10/17, Exp Lap , Female Ablation , Total Hysterectomy 07/2023. * Hospitalization/Major Diagno stic Procedure: A nxiety . * Family History: F ather: alive, Very little contact with him. Does not know of any medical issues. M other: alive, Fibromyalgia, Osteoporosis, Partial Colon Resection, Colon Polyps. B rother(s): , Suicide around 29 years old. S ister(s): alive. 1 brother(s) , 3 sister(s) - healthy. 2 son(s) , 3 daughter(s) - healthy. . * Social History: T obacco Use: T obacco Use/Smoking P atient is a n onsmoker * Medications: T aking ALPRAZolam 0.5 MG Tablet 1 tablet Orally Twice a day , Notes to Pharmacist: PRN, Taking CeleXA(Citalopram Hydrobromide) 10 MG Tablet 0.5 tablet Orally Once a day , Taking Cetirizine HCl 10 MG Tablet 1 tablet Orally Once a day , Notes to Pharmacist: PRN, Taking Meclizine HCl 25 MG Tablet 1 tablet as needed Orally Q 6 hours , Notes to Pharmacist: PRN, Taking tiZANidine HCl 4 MG Tablet 1 tablet Orally tid , Notes to Pharmacist: PRN, Discontinued Amoxicillin-Pot Clavulanate 875-125 MG Tablet 1 tablet Orally every 12 hrs , Discontinued Pyridium(Phenazopyridine HCl) 200 MG Tablet 1 tablet after meals Orally Three times a day , Medication List reviewed and reconciled with the patient * Allergies: B actrim: rash, Erythromycin: rash, steroids: anxiety. Objective: * Vitals: W t:163.2lbs, Ht: 65 in, BP:136/84mm Hg, BMI:27.15Index, Ht-cm: 165.1 cm, Wt-k.03 kg. * Physical Examination: R foream ith swelling - revieded ct scah. Assessment: * Assessment: 1. P elvic pressure in female - R10.2 (Primary) 2 . M ass - R22.9 ? Plan: * Treatment: 2. M ass Notes: seting up with Ortho * Labs: * L ab: UA DIP NONAUTO WO MICRO (22855) - IN OFFICE (Collection Date & Time - 02/09/2025) Value Reference Range C OLOR yellow * C LARITY clear * G LUCOSE n * B ILIRUBIN n * K ETONE 5 * S PECIFIC GRAVITY 1.010 * B LOOD 5-10 * P H 6.5 * P ROTEIN 15 * U ROBILINOGEN n * N ITRITE n * L EUKOCYTE ESTERASE 15+ * Procedure Codes: 8 1002 URINALYSIS WO MICRO * Preventive Medicine: Screenings/Counseling: B [place] ACTION PLAN Above Normal BMI Follow-up D ietary management education, guidance, and counseling * * Electronic signature of Nico Obando MD, [id number] on 02/09/2025 at 09:57 AM EDT Sign off status: Pending Visit Status: C HK (Check Out) * Provider: Ignacio Obando ([facility])MD Date: 0 02/09/2025 Generated for Samrai ng/Fafernandog/eTransmitting on: 0 02/09/2025 09:57 AM EDT History and Physical Notes * HPI (History of Present Illness) Category Sub-Category Detail Notes Category Not es General uti symtoms persintnig - yulissa bruce ab and do cx R forearma ihwt swelling area - some pain with using fingers as well Physical Examination Category Sub-Category Detail Notes Section Note s R foream ith sw elling - revieded ct scah
--- OUTSIDE RECORDS SUMMARY | 2025-02-09 05:36 | XMS_ITS ---
Author Organization The [facility] in [place] Address [address] [place] [address] Care Team Providers Care Transitional Kindergarten Teacher Name Role Phone Nico Obando Primary Care Provider [phone] Reason For Referral Diagnosis 1 Arm mass (R22.30) Referral Organization [facility] Referring Provider First Name Nico Referring Provider Last Name Gisella Referring Provider [facility] icine Referred Provider Bradley Lu Referred Provider Specialty Orthopedic S urgery Referral Priority Routine REASON FOR VISIT Referral Ortho Encounters Encounter Location Date Provider Diagnosis [facility] [address] [place] [address] 02/09/2025 Nico Hoignacio Arm mass R22.30 Assessments Encounter Date Diagnosis (ICD Code) Assessment Notes Treatment Notes Treatment Clinical Notes Section Notes 02/09/2025 Arm mass (ICD-10 - R22.30) Plan Of Treatment Referrals Referral Date Details 02/09/2025 02/09/2025, Bradley farley Progress Notes * CHRISTINA Reba EDOB:1965 (59 yo F)Acc No.[id number]:02/09/2025 Patient: Reba STORY :1965 A ge:59 Y S ex:Female [address] [place], [address] Subjective: * Chief Complaints: * R eferral Ortho * Medical History: * Surgical History: * Hospitalization/Major Diagno stic Procedure: * Medications: Objective: * Vitals: * Physical Examination: Assessment: * Assessment: 1. A rm mass - R22.30 (Primary) Plan: * Treatment: * Procedure Codes: * true * Date: Generated for Ginna lui/Terence/Phuc on: 0 02/09/2025 09:57 AM EDT Consultation Request Notes Referral Date Referring Provider Referred Provider Not es 02/09/2025 Nico Obando Justin
--- OUTSIDE RECORDS SUMMARY | 2025-02-09 09:57 | XMS_ITS | Clinical Summary ---
Author Organization [facility] Address [address] [place] [address] Phone Care Team Providers Care Grinder Needle Tip Name Role Phone Donald Obando MD Primary Care Provider [phone] Allergies Active Allergy Reactions Criticality Noted Date Comments Erythromycin Unknown 06/20/2023 Sulfamethoxazole-Trimethoprim Unknown 2022 Medications cetirizine (ZyrTEC) 10 mg tablet,disinteg rating Take by mouth. 8 Active citalopram (CeleXA) 10 mg tablet Take 1 tablet (10 mg) by mouth once daily. 3 Active ALPRAZolam (Xanax) 0.25 mg tablet 1/2-1 tablet Orally 3 times a day prn 8 Active fluticasone (Flonase) 50 mcg/actuation nasal sprayIndication s:Nasal drainage Administer 2 sprays into each nostril once daily. 16 g 1 3 Active meclizine (Antivert) 12.5 mg tabletIndicatio ns:Dizziness and giddiness Take 1 tablet every 8 hours as needed for dizziness. 30 tablet 3 Active Active Problems Problem Noted Date Diagnosed Date Otosclerosis of left ear 06/20/2023 Conductive hearing loss 06/20/2023 Conductive hearing loss of l eft ear with unrestricted hearing of right ear 06/20/2023 Dizziness 06/20/2023 Social History Tobacco Use Types Packs/Day Years Used Date Smoking Tobacco: Never Passive Smoke Exposure: Never Smokeless Tobacco: Never Tobacco Cessation:Counseling Given: Not Answered Alcohol Use Standard Drinks/Week Comments Never 0 (1 standard drink = 0.6 oz pur e alcohol) Comments Unknown Sex and Gender Information Value Date Recorded Sex Assigned at Not on file Legal Sex Female 6:30 PM EST Gender Identity Not on file Sexual Orientation Not on file Last Filed Vital Signs Vital Sign Reading Time Taken Comments Blood Pressure 131/84 06/23/2023 1:43 PM EST Pulse 85 06/23/2023 1:43 PM EST Temperature 36.5 C (97.7 F) 06/23/2023 1:43 PM EST Respiratory Rate 16 06/23/2023 1:43 PM EST Oxygen Saturation 97% 06/23/2023 1:43 PM EST Inhaled Oxygen Concentration - - Weight 75.8 kg (167 lb) 06/23/2023 1:43 PM EST Height 167.6 cm (5' 6 ) 06/23/2023 1:43 PM EST Body Mass Index 26.95 06/23/2023 1:43 PM EST Plan of Treatment Health Maintenance Due Date Last Done Comments CT Colonography 1965 Colonoscopy 1965 Colorectal Cancer Screening 1965 FIT-DNA (Cologuard) 1965 FIT 1965 HIV Screening 1965 Lipid Panel 1965 Sigmoidoscopy 1965 MMR Vaccines (1 of 1 - Standard series) 1966 Diabetes Screening 09/16/1983 Hepatitis C Screening 09/16/1983 Hepatitis B Vaccines (1 of 3 - 19+ 3-dose series) 1984 Cervical Cancer Screening 1986 HPV/Cotest 1986 Pap Smear 1986 DTaP/Tdap/Td Vaccines (1 - Tdap) 09/16/1987 Pneumococcal Vaccine (1 of 1 - PCV) 09/16/2015 Zoster Vaccines (1 of 2) 09/16/2015 COVID-19 Vaccine (1 - season) 2024 Yearly Adult Physical 05/13/2024 05/12/2023 Mammogram 05/26/2024 05/26/2023 Influenza Vaccine (#1) 2025 , 05/23/2022, 05/01/2021, Additional history exists HIB Vaccines Aged Out No longer eligi ble based on patient's age to complete this topic HPV Vaccines Aged Out No longer eligi ble based on patient's age to complete this topic Hepatitis A Vaccines Aged Out No long er eligible based on patient's age to complete this topic IPV Vaccines Aged Out No longer eligi ble based on patient's age to complete this topic Meningococcal Vaccine Aged Out No kristy cherelle eligible based on patient's age to complete this topic Rotavirus Vaccines Aged Out No longer eligible based on patient's age to complete this topic Medical Devices Implanted Type Area Transport Medic Device Identifier Shelf Expiration Date Model / Serial / Lot Radha Ramírez 0.6mm Yoanna X 4.5mm Nitinol Fluoroplastic Case [id number] Implanted:Qty: 1 on 12/10/2017 by Shukri Hoffman MD ENT Implant Left: Ear JUSTEN 10/01/2022 [id number] / / [id number] Description:Converted from [employer]. Please see archived information for full log information. Insurance Care Teams Grinder Needle Tip Relationship Specialty Start Date End Date Donald Obando MD [address] [place] [address] PCP - General 10/06/17
--- OUTSIDE RECORDS SUMMARY | 2025-02-09 09:57 | XMS_ITS | Patient Health Record ---
Author Organization [facility] in [place] Address [address] [place] [address] Care Team Providers Care Commercial Manager Name Role Phone Nico Obando Primary Care [...] UROBILINOGEN n NITRITE n LEUKOCYTE ESTERASE 15+ UA DIP NONAUTO WO MICRO (810 02) - IN OFFICE (Not yet reviewed by provider) Interpretation: Performing Lab: Notes/Report: COLOR straw CLARITY clear GLUCOSE n BILIRUBIN 1 KETONE 5 SPECIFIC GRAVITY 1.010 BLOOD n PH 5 PROTEIN 15 UROBILINOGEN n NITRITE n LEUKOCYTE ESTERASE 70+ Reason For Referral Diagnosis 1 Well adult (Z00.00) Referral Organization [facility] Referring Provider First Name Nico Referring Provider Last Name Gisella Referring Provider [facility] moody Referred Provider Edwin Cheng Referred Provider Specialty General Surg sandra Referral Priority Routine Diagnosis 1 Arm mass (R22.30) Referral Organization [facility] Referring Provider First Name Nico Referring Provider Last Name Gisella Referring Provider [facility] moody Referred Provider Bradley Lu Referred Provider Specialty Orthopedic S urgery Referral Priority Routine Medications Medication SIG (Take, Route, Fr equency, Duration) Notes Start Date End Date Status tiZANidine HCl 4 MG 1 tablet Orally tid for 30 days PRN 10/20/2023 Active Cetirizine HCl 10 MG 1 tablet Orally Onc e a day for 30 PRN 12/29/2023 Active Meclizine HCl 25 MG 1 tablet as needed O rally Q 6 hours PRN 02/11/2024 Active ALPRAZolam 0.5 MG 1 tablet Orally Twice a day PRN Active CeleXA 10 MG 0.5 tablet Orally Once a day Active levoFLOXacin 500 MG 1 tablet Orally Once a day for 10 day(s) 02/09/2025 Active Social History Tobacco Use: Social History Observation Description Date Details (start date - stop date) Never Smoker NA - NA Tobacco Use/Smoking Question Answer Notes Patient is a nonsmoker Alcohol Screen (Audit-C) Question Answer Notes Did you have a drink containing alcohol in the p ast year? No Points 0 Interpretation Negative AUDIT-C (Standard) Question Answer Notes Did you have a drink containing alcohol in the p ast year? No Points 0 Interpretation Negative Problems Problem Type SNOMED Code ICD Code Onset Dates Problem Status W/U Status Risk Notes Problem Anemia (941306318) Anemia, unspecified (D64.9) Active confirmed Problem Dysthymia (07364504) Dysthymic disorder (F34.1) Active confirmed Problem Insomnia (405675521) Insomnia, unspecified (G47.00) Active confirmed Problem 129159807 Unspecified cataract (H26.9) Active confirmed Problem Vestibular neuronitis (660079940) Vestibular neuronitis, bilateral (H81.23) Active confirmed Problem Acute frontal sinusitis (37803227) Acute recurrent frontal sinusitis (J01.11) Active confirmed Problem 763945145 Fibromyalgia (M79.7) Active confirmed Problem Tachycardia (5967253) Tachycardia, unspecified (R00.0) Active confirmed Problem Palpitations (21631914) Palpitations (R00.2) Active confirmed Problem Fatigue (98048092) Fatigue (R53.83) Active confirmed Problem Anxiety (82397612) Anxiety (F41.9) Active confirmed Problem Dysuria (60564776) Burning with urination (R30.0) Active confirmed Problem Depression (147629115) Depression (F32.9) Active confirmed Problem Back pain (001499896) Back pain (M54.9) Active confirmed Problem Arthralgia (83134459) Arthralgia (M25.50) Active confirmed Problem Allergic rhinitis (17430927) Allergic rhinitis (J30.9) Active confirmed Problem Acute bronchitis (28377033) Acute bronchitis (J20.9) Active confirmed Problem Well adult (685639318) Well adult (Z00.00) Active confirmed Problem Former smoker (9129049) Former smoker (Z87.891) Active confirmed Problem Depressive disorder (17453551) Depressive disorder (F32.9) Active confirmed Problem Overweight (602226682) Over weight (E66.3) Active confirmed Problem Conductive hearing loss of left ear (disorder) (1513734914) Conductive hearing loss in left ear (H90.12) Active confirmed Problem Dry eye syndrome (60024586) Dry eye syndrome (H04.129) Active confirmed Problem Easy bruising (153027748) Easy bruising (R23.8) Active confirmed Problem Otosclerosis (46806921) Otosclerosis of left ear (H80.92) Active confirmed Problem Pain in pelvis (58531699) Pelvic pain (R10.2) Active confirmed Problem Conductive hearing loss, unilateral, left ear with restricted hearing on the contralateral side (H90.A12) Active confirmed Problem Acute pelvic pain (977093596) Acute pelvic pain (R10.2) Active confirmed Problem Panic disorder (198802389) Panic disorder [episodic paroxysmal anxiety] (F41.0) Active confirmed Vital Signs Blood pressure diastolic 84 mm Hg 02/09/2025 Height 65 in 02/09/2025 Blood pressure systolic 136 mm Hg 02/09/2025 Weight 163.2 lbs 02/09/2025 BMI 27.15 kg/m2 02/09/2025 Encounters Encounter Location Date Provider Diagnosis [facility] [address] [place] [address] 02/12/2024 Nico Obando Unspecified cataract H26.9 [facility] [address] [place] [address] 02/17/[address] [facility] [address] [place] [address] 01/26/[address] [facility] [address] [place] [facility] [place] [place] [address] 01/27/2025 Nico Hoy High cholesterol E78 [address] [facility] [address] [place] [place] [place] [address] 02/01/[address] [address] [facility] [place] [address] 02/01/2025 Nico Hoy Arm mass, right R22. 31 and Calcified nodule R22.9 [facility] [address] [place] [place] [place] [address] 02/07/[address] [facility] [address] [place] [place] [place] [address] 02/09/2025 Nico Hoy Arm mass R22.30 [place] [address] [place] [place] [address] 01/30/2025 Nico Hoy Hyperthyroidism E05. 90 [facility] [address] [place] [place] [address] 01/26/2025 Nico Hoy Pelvic pain R10.2 ; Burning with urination R30.0 ; Well adult Z00.00 ; Fatigue R53.[address] [facility] [address] [place] [place] [place] [address] 02/09/2025 Nico Hoy Pelvic pressure in f emale R10.2 and Mass R22.9 [place] [address] [place] [place] [place] [address] 02/11/2024 Nico Hoy Acute non-recurrent sinusitis, unspecified location J01.90 and Nasal congestion R09.81 [place] [address] [place] [place] [place] [address] 12/03/2024 Nico Hoy Fatigue R53.83 and Arthralgia M25.50 Assessments Encounter Date Diagnosis (ICD Code) Assessment Notes Treatment Notes Treatment Clinical Notes Section Notes 02/11/2024 Acute non-recurrent sinusitis, unspecified location (ICD-10 - J01.90) Rest and drink more liquids, especially water. You may use a humidifier or vaporizer to help keep the drainage moist. Gppj-zzs-atztxzd Nasal Saline may help the stuffy and runny nose. Use Ibuprofen and or Tylenol as needed for fever, chills, body aches or pain. Children 5 years old should not be given zdpm-sqc-gcmmfdx cough and cold medications such as guaifenesin and dextromethorphan. If you're over age 5, you may try ldga-bfk-yrrnbbz cold medications such as guaifenesin and dextromethorphan, or multi-symptom cold reliever such as Dayquil to help reduce the symptoms. Antibiotics have been prescribed. You should take these until completed and follow the directions. Antibiotics can sometimes cause upset stomach, and in rare cases, serious allergic reactions or serious gastrointestinal problems. If you start having severe abdominal pain, severe vomiting, or bloody diarrhea, you should be reevaluated by your physician or urgent care immediately. Follow up with your Primary Care Provider or return to clinic if symptoms do not improve within 3-5 days 12/03/2024 Fatigue (ICD-10 - R53.83) 12/03/2024 Arthralgia (ICD-10 - M25.50) 01/26/2025 Pelvic pain (ICD-10 - R10.2) 01/26/2025 Burning with urination (ICD-10 - R30.0) 02/09/2025 Pelvic pressure in female (ICD-10 - R10.2) 02/09/2025 Mass (ICD-10 - R22.9) seting up with Ortho 02/12/2024 Unspecified cataract (ICD-10 - H26.9) 01/27/2025 High cholesterol (ICD-10 - E78.00) 01/27/2025 Hyperthyroidism (ICD-10 - E05.90) 02/01/2025 Arm mass, right (ICD-10 - R22.31) 02/01/2025 Calcified nodule (ICD-10 - R22.9) 02/09/2025 Arm mass (ICD-10 - R22.30) 01/30/2025 Hyperthyroidism (ICD-10 - E05.90) 01/26/2025 Well adult (ICD-10 - Z00.00) 02/11/2024 Nasal congestion (ICD-10 - R09.81) 01/26/2025 Fatigue (ICD-10 - R53.83) 01/26/2025 Mass (ICD-10 - R22.9) Plan Of Treatment Pending Test Test Name Order Date CMP (COMPLETE METABOLIC PANEL) UA (URINALYSIS, COMPLETE) 05/06/2023 UA (URINALYSIS, COMPLETE) 05/20/2023 HEMOGLOBIN A1C (GLYCO) 03/12/2023 HEMOGLOBIN A1C (GLYCO) 01/26/2025 IRON, TOTAL 01/26/2025 IRON, TOTAL 03/12/2023 LIPID PANEL (CHOL/TRIG/HDL/LDL) 03/12/20 LIPID PANEL (CHOL/TRIG/HDL/LDL) 01/27/20 25 CBC WITH DIFF 03/12/2023 VITAMIN D, 25 LEVEL (TOTAL) 03/12/2023 VITAMIN D, 25 LEVEL (TOTAL) 01/26/2025 Urinalysis Microscopic 02/09/2025 UA DIP NONAUTO WO MICRO (99440) - IN OFF ICE 02/09/2025 UA DIP NONAUTO WO MICRO (82920) - IN OFF ICE 01/26/2025 Urine Culture 05/06/2023 RHEUMATOID PANEL 10/20/2023 URINE CULTURE 05/20/2023 Insulin Level 01/26/2025 Insulin Level 03/12/2023 FSH+LH+Prog+E2 01/26/2025 STOOL OCCULT BLOOD 03/12/2023 BLEEDING TIME 03/12/2023 CULTURE URINE 02/09/2025 GLYCOHEMOGLOBIN A1C 02/12/2024 LIPID PROFILE 01/27/2025 LIVER PROFILE 01/27/2025 PROF 14(COMP METB) 02/12/2024 PROLACTIN 01/26/2025 PROTIME 03/12/2023 PTT 03/12/2023 SED RATE WESTERGREN 10/20/2023 THYROID ANTIBODIES 01/27/2025 URINE MICROSCOPIC ONLY 05/20/2023 THYROID PANEL (T4/TSH/FREE T3) THYROID PANEL (T4/TSH/FREE T3) 3 CT UPPER EXTREMITY RIGHT W IV CONTRAST 0 01/26/2025 CT UPPER EXTREMITY RIGHT W IV CONTRAST 0 02/01/2025 CMP (COMP MET SHAFER) w/eGFR CKD-EPI 2024 CBC WITH DIFF 01/26/2025 Insurance Providers Payer Name Payer Address Payer Phone Subscriber Number Group Number Insured Name Patient Relationship to Insured Coverage Start Date Coverage End Date MMO [address] [place], [place] [id number] Joseph Kendrick Spouse - patient is the spouse of the insured Medications Administered Medication Instructions Date of Administration Dosage Notes Kenalog-40 10/10/2022 80 mg Kenalog-40 05/05/2023 60 mg 60 Kenalog-40 09/04/2023 120 mg 120 Kenalog-40 10/06/2023 80 mg 80 Kenalog-40 10/09/2023 80 mg Kenalog, 80 mg/mL (40mg/mL x 2 units) 11/21/2022 80 mg Ketorolac Tromethamine 10/10/2022 60 mg Ketorolac Tromethamine 11/21/2022 60 mg 6o mg Ketorolac Tromethamine 05/05/2023 60 mg 60 Ketorolac Tromethamine 09/04/2023 60 mg 60 Ketorolac Tromethamine 10/06/2023 60 mg 60 Ketorolac Tromethamine 10/09/2023 60 mg Ketorolac Tromethamine 10/20/2023 60 mg Ketorolac Tromethamine 12/03/2024 60 mg Norflex 11/21/2022 60 mg 60 mg Orphenadrine Citrate 10/10/2022 60 mg Orphenadrine Citrate 05/05/2023 60 mg 60 Orphenadrine Citrate 09/04/2023 60 mg 60 Orphenadrine Citrate 10/06/2023 60 mg 60 Orphenadrine Citrate 10/09/2023 60 mg Orphenadrine Citrate 10/20/2023 60 mg Orphenadrine Citrate 12/03/2024 60 mg Triamcinolone 40 mg/ml 12/03/2024 80 mg Medical (General) History Medical History History ICD Code Otosclerosis of left ear H80.92 Conductive hearing loss in left ear H90. 12 Arthralgia M25.50 Allergic rhinitis J30.9 Dry eye syndrome H04.129 Palpitations R00.2 Fibromyalgia M79.7 Anemia, unspecified D64.9 Insomnia, unspecified G47.00 Dysthymic disorder F34.1 Panic disorder [episodic paroxysmal anxi ety] F41.0 Tachycardia, unspecified R00.0 Vestibular neuronitis, bilateral H81.23 Over weight E66.3 Acute bronchitis J20.9 Acute pelvic pain R10.2 Acute recurrent frontal sinusitis J01.11 Fatigue R53.83 Conductive hearing loss, uni lateral, left ear with restricted hearing on the contralateral side H90.A12 Back pain M54.9 Depression F32.9 Anxiety F41.9 Former smoker Z87.891 Depressive disorder F32.9 Surgical History Surgery Date(Month/Year) Total Hysterectomy 07/2023 Female Ablation Exp Lap Stapedectomy 12/10/17 Hospitalization History Reason Date(Month/Year) Anxiety
--- OUTSIDE RECORDS SUMMARY | 2025-02-09 09:57 | XMS_ITS | Encounter Summary ---
Author Organization [facility] Address [address] [place] [address] Phone Care Team Providers Care Resource Development Manager Name Role Phone Donald Obando MD Primary Care Provider [phone] Encounter Details Date Type Department Care Team ([facility] st Contact Info) Description 07/23/2017 Orders Only [facility] [address] [place] [address] Conversion, Onbase Social History Tobacco Use Types Packs/Day Years Used Date Smoking Tobacco: Never Assessed Comments Unknown Sex and Gender Information Value Date Recorded Sex Assigned at Not on file Legal Sex Female 6:30 PM EST Gender Identity Not on file Sexual Orientation Not on file documented as of this encounter Plan of Treatment Scheduled Orders Name Type Priority Associated Diagnoses Orde r Schedule AUDIOLOGY REPORT - ONBASE SCAN Audiology Ordered: 018 documented as of this encounter Visit Diagnoses Not on filedocumented in this encounter Care Teams Resource Development Manager Relationship Specialty Start Date End Date Donald Obando MD [address] [facility] [place] [address] PCP - General 10/06/17 documented as of this encounter
--- OUTSIDE RECORDS SUMMARY | 2025-02-09 09:57 | XMS_ITS | Clinical Summary ---
Author Organization [facility] Address [id number] [address] [place] [address] Care Team Providers Care Car Rental Deliverer Name Role Phone Donald Obando MD Primary Care Provider [phone] Allergies Active Allergy Reactions Criticality Noted Date Comments Codeine 12/16/2018 Other reaction(s): Other: See Comments Erythromycin Base Rash Medium 12/16/2018 Prednisone Other (See Comments) High 12/16/2018 Sulfamethoxazole-Trimet hoprim 12/16/2018 Other reaction(s): Unknown Medications * This document contains information received from the source organization and may not represent a complete record from that organization. ALLERGY RELIEF, CETIRIZINE, 10 mg tablet Take 10 mg by mouth daily. 11 11/24/2018 Active ALPRAZolam (XANAX) 0.5 mg tabletIndicatio ns:Generalized anxiety disorder Take 1 tablet (0.5 mg total) by mouth 2 (two) times a day as needed for anxiety. 20 tablet 12/31/2023 Active citalopram (CeleXA) 10 mg tabletIndicatio ns:Generalized anxiety disorder Take 1.5 tablets (15 mg total) by mouth nightly. 135 tablet 3 01/22/2024 Active Active Problems Problem Noted Date Diagnosed Date Generalized anxiety disorder 12/21/2018 Post traumatic stress disorder (PTSD) 12/21/2018 Family History Medical History Relation Name Comments Depression Brother Suicide Attempts Brother Depression Mother Relation Name Status Comments Brother suicide Mother Social History Tobacco Use Types Packs/Day Years Used Date Smoking Tobacco: Former Cigarettes Passive Smoke Exposure: Past Smokeless Tobacco: Never Tobacco Cessation:Counseling Given: Not Answered Alcohol Use Standard Drinks/Week Comments Yes 0 (1 standard drink = 0.6 oz pur e alcohol) rare use Childcare Answer Date Recorded Childcare Unknown 12/16/2018 Employment Answer Date Recorded Employment Unknown 12/16/2018 Purpose - Life Answer Date Recorded Purpose and direction in life Unknown Comments Unknown Sex and Gender Information Value Date Recorded Sex Assigned at Female 08/25/2023 11:32 AM EST Legal Sex Female 4:58 PM EDT Gender Identity Female 08/25/2023 11:32 AM EST Sexual Orientation Straight 08/25/2023 11 :32 AM EST Last Filed Vital Signs Vital Sign Reading Time Taken Comments Blood Pressure 104/70 01/14/2019 11:12 AM EDT Pulse 80 01/14/2019 11:12 AM EDT Temperature - - Respiratory Rate - - Oxygen Saturation - - Inhaled Oxygen Concentration - - Weight 67.1 kg (148 lb) 01/14/2019 11:12 AM EDT Height - - Body Mass Index - - Plan of Treatment Health Maintenance Due Date Last Done Comments Depression Screening 1977 Adult BMI Screening 09/16/1983 DTaP,Tdap and Td Vaccines (1 - Tdap) 1984 Pap Smear 1986 Zoster (Shingles) Vaccine (1 of 2) 09/16/2015 Influenza Vaccine 03/07/2025 05/01/2024, , 05/23/2022, Additional history exists Tobacco Screening 07/21/2025 07/21/2024 Medical Devices Not on file Insurance [employer] Care Teams Car Rental Deliverer Relationship Specialty Start Date End Date Donald Obando MD PCP - General Family Medicine 03/11/19
--- OUTSIDE RECORDS SUMMARY | 2025-02-09 09:58 | XMS_ITS | Clinical Summary ---
Author Organization [facility] Address [address] [place] [address] Care Team Providers Care Fence Gate Assembler Name Role Phone Santiago Obando MD Primary Care Provider [phone] Allergies Active Allergy Reactions Criticality Noted Date Comments Codeine Other: See Comments 12/16/2018 Erythromycin Base Rash Medium 12/16/2018 Prednisone Unknown High 12/16/2018 Sulfamethoxazole-Trimethoprim Unknown 2018 Medications ALPRAZolam (XANAX) 0.5 mg tablet Take 1 tablet by mouth as needed. 11/17/2018 Active ALLERGY RELIEF, CETIRIZINE, 10 mg tablet Take 10 mg by mouth once daily. 11 11/24/2018 Active citalopram hydrobromide (CELEXA ORAL) Take by mouth. Active carboxymethyl/gly /poly80/PF (REFRESH OPTIVE SANTA-3, PF, OPHTHALMIC) Use in eyes. Active Active Problems Problem Noted Date Diagnosed Date Posterior vitreous detachment of right eye 08/17 After-cataract of left eye with vision obscured 08/13/2024 Pseudophakia of both eyes 08/13/2024 Regular astigmatism of right eye 03/09/2024 Combined forms of age-related cataract of right eye 03/05/2024 Combined forms of age-related cataract of left e ye 03/05/2024 Amblyopia of eye, right 12/21/2018 Dry eye syndrome of both eyes 12/21/2018 Generalized anxiety disorder 12/21/2018 Assessment & Plan (03/15/2024 2:51 PM EDT): Assessment: stable on medication Denies any suicidal ideation Family History Medical History Relation Comments Hypertension Daughter Heart Maternal Grandfather Blindness Paternal Grandmother Relation Status Comments Daughter Maternal Grandfather Paternal Grandmother Social History Tobacco Use Types Packs/Day Years Used Date Smoking Tobacco: Former Cigarettes 1 2 2 007 - 2009 Smokeless Tobacco: Never Tobacco Cessation:Counseling Given: Not Answered Alcohol Use Standard Drinks/Week Comments Yes 0 (1 standard drink = 0.6 oz pur e alcohol) Social Area Deprivation Index Answer Date Alfredo rded National Score (1-100), lower number is lower ri sk 86 03/17/2024 State Score (1-10), lower number is lower risk 8 03/17/2024 Data from: https://www.neighborhoodatlas.medicine.[facility]/. Last address used for calculation [address] 03/17/2024 Comments No Sex and Gender Information Value Date Recorded Sex Assigned at Not on file Legal Sex Female 4:45 PM EST Gender Identity Not on file Sexual Orientation Not on file Last Filed Vital Signs Vital Sign Reading Time Taken Comments Blood Pressure 128/75 04/07/2024 2:24 PM EDT Pulse 81 04/07/2024 2:24 PM EDT Temperature 36.3 C (97.4 F) 04/07/2024 2:19 PM EDT Respiratory Rate 16 04/07/2024 2:24 PM EDT Oxygen Saturation 97% 04/07/2024 2:24 PM EDT Inhaled Oxygen Concentration - - Weight 76 kg (167 lb 8.8 oz) 03/17/2024 7:01 AM EDT Height 167.6 cm (5' 6 ) 03/17/2024 7:01 AM EDT Body Mass Index 27.04 03/17/2024 7:01 AM EDT Plan of Treatment Health Maintenance Due Date Last Done Comments Anxiety Screening 09/16/1983 Depression Screening 09/16/1983 HIV Screening 09/16/1983 Hepatitis C Screening 09/16/1983 DTaP,Tdap,Td Vaccine (1 - Tdap) 1984 Cervical Cancer Screening 1986 CT Colonography 2010 Cologuard (FIT-DNA) 2010 Colonoscopy 2010 Colorectal Cancer Screening 2010 Fecal Occult Blood 2010 Lipid Screening 2010 Sigmoidoscopy 2010 Pneumococcal Vaccine: 50+ (1 of 1 - PCV) 09/16/2015 Shingrix Vaccine (1 of 2) 09/16/2015 Mammogram Screening 05/13/2019 05/13/2018 Influenza Vaccine (#1) 2025 , 05/31/2023, 05/23/2022, Additional history exists Diabetes Screening 06/20/2026 06/20/2023 Medical Devices Implanted Type Area Water Conservation Specialist Device Identifier Shelf Expiration Date Model / Serial / Lot [id number] [employer]va - [id number] Implanted:Qty : 1 on 03/24/2024 at [facility] Intraocular Lens Right: Eye [employer] 12/08/2026 [id number] / [id number] / [id number] [employer] - [id number] Implanted:Qty : 1 on 04/07/2024 by Jenny Wetzel MD at [facility] Intraocular Lens Left: Eye [employer] 06/15/2027 [id number] 0 / [id number] / Insurance [facility] PPO Care Teams Fence Gate Assembler Relationship Specialty Start Date End Date Santiago Obando MD [address] [facility] [address] PCP - General Family Medicine 03/11/24
[2025-02-09 11:01] LABS: Glucose Urine UA NEGATIVE (NEGATIVE)
[2025-02-09 13:19] LABS: Cast Seen? NONE SEEN #/LPF (NONE SEEN); Crystals Seen? None Seen #/HPF (None Seen)
== END 2025-02-09 09:54 | disposition home or self-care (01) ==
PROVIDERS: PCP Family Medicine; Visit Provider Family Medicine
DX: R10.2 Pelvic and perineal pain (principal)
CPT/HCPCS: 81001; 87086

== ENCOUNTER 2025-03-15 08:46 | Outpatient (OUT) | payer OTHER, SELFPAY ==
--- OUTSIDE RECORDS SUMMARY | 2025-03-15 08:50 | XMS_ITS | Encounter Summary ---
Author Organization [facility] Address [address] [place] [address] Care Team Providers Care Flatwork Tier Name Role Phone Donald Obando MD Primary Care Provider [phone] Encounter Details Date Type Department Care Team (Late st Contact Info) Description 05/22/2023 Orders Only [facility] [address] [place] [address] Nataliia Sapp MA Social History Tobacco Use Types Packs/Day Years Used Date Smoking Tobacco: Former Cigarettes Smokeless Tobacco: Never Alcohol Use Standard Drinks/Week Comments Yes 0 (1 standard drink = 0.6 oz pur e alcohol) occasionally Comments No Sex and Gender Information Value Date Recorded Sex Assigned at Not on file Legal Sex Female 7:14 PM EDT Gender Identity Not on file Sexual Orientation Not on file documented as of this encounter Plan of Treatment Not on file documented as of this encounter Visit Diagnoses Not on filedocumented in this encounter Care Teams Flatwork Tier Relationship Specialty Start Date End Date Donald Obando MD PCP - General Family Medicine 05/12/23 documented as of this encounter
--- OUTSIDE RECORDS SUMMARY | 2025-03-15 08:50 | XMS_ITS | Encounter Summary ---
Author Organization [facility] Address [address] [facility] [place] [address] Care Team Providers Care Microwave Radio Technician Name Role Phone Donald Obando MD Primary Care Provider [phone] Encounter Details Date Type Department Care Team (Late st Contact Info) Description 08/13/2023 Abstract [facility] [address] [facility] [address] [place] [address] Shannan Weiss LPN Social History Tobacco Use Types Packs/Day Years Used Date Smoking Tobacco: Former Cigarettes Q uit: 07/07/2003 Smokeless Tobacco: Never Comments:Last smoked : > 10 years Alcohol Use Standard Drinks/Week Comments Yes 2 (1 standard drink = 0.6 oz pure alcohol) occasionally; caffeine intake : 1-2 cups per day PHQ-2 Answer Date Recorded Patient Health Questionnaire-2 Score 0 06/17/2023 Comments No Sex and Gender Information Value Date Recorded Sex Assigned at Not on file Legal Sex Female 7:14 PM EDT Gender Identity Not on file Sexual Orientation Not on file documented as of this encounter Plan of Treatment Not on file documented as of this encounter Visit Diagnoses Not on filedocumented in this encounter Care Teams Microwave Radio Technician Relationship Specialty Start Date End Date Donald Obando MD PCP - General Family Medicine 05/12/23 documented as of this encounter
--- OUTSIDE RECORDS SUMMARY | 2025-03-15 08:50 | XMS_ITS | Clinical Summary ---
Author Organization [facility] Healthcare Address [address] [place] [address] Care Team Providers Care Agricultural Equipment Salesperson Name Role Phone Donald Obando MD Primary Care Provider [phone] Allergies Active Allergy Reactions Criticality Noted Date Comments Corticosteroids 05/08/2023 Other Reaction(s): agitation, severe Erythromycin 05/08/2023 Other Reaction(s): Unknown Sulfamethoxazole-Trimethoprim 2022 Other Reaction(s): Unknown Medications ALPRAZolam (Xanax) 0.25 MG tablet 1/2-1 tablet Orally 3 times a day prn Active cetirizine (ZyrTEC ALLERGY) 10 MG tablet 1 (one) time each day at the same time. Active citalopram (CeleXA) 10 MG tablet 15 mg Active fluticasone (Flonase Allergy Relief) 50 MCG/ACT nasal spray every 12 (twelve) hours. 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 Overview (06/17/2023): PIP joints of left middle finger, left ring finger Pain of hand 06/17/2023 Polyp of corpus uteri 06/17/2023 Rectocele 06/17/2023 Hand pain, left 06/17/2023 Polyp, uterus corpus 06/17/2023 Amblyopia of eye, right 12/21/2018 Dry eye syndrome of both eyes 12/21/2018 Generalized anxiety disorder 12/21/2018 Post traumatic stress disorder (PTSD) 12/21/2018 Family History Medical History Relation Name Comments Heart disease Maternal Grandfather Colon cancer Maternal Grandmother Diabetes Paternal Grandmother Relation Name Status Comments Daughter 3 daughters Father Alive Maternal Grandfather Maternal Grandmother Mother Alive Paternal Grandmother Sister 3 sisters Son 2 sons Social History Tobacco Use Types Packs/Day Years Used Date Smoking Tobacco: Former Cigarettes Q uit: 07/07/2003 Smokeless Tobacco: Never Tobacco Cessation:Counseling Given: Not Answered Comments:Last smoked : > 10 years Alcohol [...] Sign Reading Time Taken Comments Blood Pressure 142/84 08/11/2023 10:20 AM EST Pulse - - Temperature - - Respiratory Rate - - Oxygen Saturation - - Inhaled Oxygen Concentration - - Weight 78.9 kg (174 lb) 08/11/2023 10:20 AM EST Height 167.6 cm (5' 6 ) 04/29/2018 12:00 PM EDT Body Mass Index 28.08 04/29/2018 12:00 PM EDT Plan of Treatment Not on file Insurance [employer] Care Teams Agricultural Equipment Salesperson Relationship Specialty Start Date End Date Donald Obando MD PCP - General Family Medicine 05/12/23
--- OUTSIDE RECORDS SUMMARY | 2025-03-15 08:50 | XMS_ITS | Clinical Summary ---
Author Organization [facility] Address [address] [place] [id number] Care Team Providers Care Button Tufter Name Role Phone Santiago Obando MD Primary Care Provider [phone] Allergies Active Allergy Reactions Criticality Noted Date [...] is lower risk 8 03/17/2024 Data from: https://www.[email or web address].[email or web address]/. Last address used for calculation [address] [...] 06/20/2026 06/20/2023 Medical Devices Implanted Type Area Pai Gow Manager Device Identifier Shelf Expiration Date Model / Serial / Lot [id number] Clareon Toric Uva - [id number] Implanted:Qty : 1 on 03/24/2024 at [facility] Intraocular Lens Right: Eye [employer] [facility] 12/08/2026 [id number] / [id number] / [id number] Clareon Uva - [id number] Implanted:Qty : 1 on 04/07/2024 by Jenny Wetzel MD at [facility] Intraocular Lens Left: Eye [employer] 06/15/2027 [id number] 0 / [id number] / Insurance [facility] PPO Care Teams Button Tufter Relationship Specialty Start Date End Date Santiago Obando MD [address] [facility] [place] [address] PCP - General Family Medicine 03/11/24
--- OUTSIDE RECORDS SUMMARY | 2025-03-15 08:50 | XMS_ITS | Clinical Summary ---
Author Organization [facility] Address [address] [place] [address] Phone Care Team Providers Care Coat Hanger Shaper Machine Operator Name Role Phone Donald Obando MD Primary Care Provider [phone] Allergies Active Allergy Reactions Criticality Noted Date [...] 09/16/2015 Zoster Vaccines (1 of 2) 09/16/2015 Yearly Adult Physical 05/13/2024 05/12/2023 Mammogram 05/26/2024 05/26/2023 COVID-19 Vaccine (1 - 2023- season) 2025 Influenza Vaccine (#1) 2025 , 05/23/2022, 05/01/2021, [...] this topic Medical Devices Implanted Type Area Chip Tester Device Identifier Shelf Expiration Date Model / Serial / Lot Radha Ramírez 0.6mm Yoanna X 4.5mm Nitinol Fluoroplastic Case [id number] Implanted:Qty: 1 on 12/10/2017 by Shukri Hoffman MD ENT Implant Left: Ear [employer] 10/01/2022 [id number] / / [id number] Description:Converted from [facility]. Please see archived information for full log information. Insurance Care Teams Coat Hanger Shaper Machine Operator Relationship Specialty Start Date End Date Donald Obando MD [address] [place] [address] PCP - General 10/06/17
--- OUTSIDE RECORDS SUMMARY | 2025-03-15 08:50 | XMS_ITS | Encounter Summary ---
Author Organization [facility] Address [address] [place] [address] Phone Care Team Providers Care Landscape Painter Name Role Phone Donald Obando MD Primary Care Provider [phone] Encounter Details Date Type Department Care Team ([facility] st Contact Info) Description 07/23/2017 Orders Only [facility] [address] [place] [address] Conversion, Onbase Social History Tobacco Use Types [...] on filedocumented in this encounter Care Teams Landscape Painter Relationship Specialty Start Date End Date Donald Obando MD [address] [facility] [place] [address] PCP - General 10/06/17 documented as of this encounter
--- OUTSIDE RECORDS SUMMARY | 2025-03-15 08:50 | XMS_ITS | Encounter Summary ---
Author Organization [facility] Address [address] [place] [address] Care Team Providers Care Migration Agent Name Role Phone Donald Obando MD Primary Care Provider [phone] Encounter Details Date Type Department Care Team (Late st Contact Info) Description 07/09/2023 Abstract [facility] [address] [place] [id number] Louann Barrera, DO [address] [address] Social History Tobacco Use Types Packs/Day Years [...] on file Sexual Orientation Not on file COVID-19 Exposure Response Date Recorded In the last 10 days, have yo u been in contact with someone who was confirmed or suspected to have Coronavirus/COVID-19? No / Unsure 06/10/2023 9:35 AM EST documented as of this encounter Plan of Treatment Not on file documented as of this encounter Visit Diagnoses Not on filedocumented in this encounter Care Teams Migration Agent Relationship Specialty Start Date End Date Donald Obando MD PCP - General Family Medicine 05/12/23 documented as of this encounter
--- OUTSIDE RECORDS SUMMARY | 2025-03-15 08:50 | XMS_ITS | Clinical Summary ---
Author Organization [facility] Address [id number] [address] [place] [address] Care Team Providers Care Practice Business Asst Name Role Phone Donald Obando MD Primary Care Provider [phone] Allergies Active Allergy Reactions Criticality Noted Date [...] Devices Not on file Insurance [employer] Member Subscriber Plan / Payer (Ef fective 2018-Present) Name:Reba Kendrick Relation to Subscriber:Spouse Name:VEENA KENDRICK Date of :1961 (Home) Address: [address] [place] [id number] Payer ID:Not on file Type:Not on file Address: [facility] [address] [id number] Care Teams Practice Business Asst Relationship Specialty Start Date End Date Donald Obando MD PCP - General Family Medicine 03/11/19
--- OUTSIDE RECORDS SUMMARY | 2025-03-15 08:54 | XMS_ITS | CCD ---
Author Organization [facility] Care Team Providers Care Accountant Budget Name Role Phone Joycelyn Elena Unavailable Unavailable Donald Pate Unavailable Unavailable Denise Atkinson Unavailable Unavailable Donald Pate Unavailable Unavailable Unavailable DR DONALD PATE Attending Unavailable RIO, DR BENNETT Consulting Unavailable DR DONALD PATE Admitting Unavailable Maikol Roca Unavailable DO Louann Barrera Attending Provider MD Donald Pate Primary Care Provider [phone] Donald Pate MD Primary Care Provider [phone] DESTINEE PERLA Attending Unavailable DONALD PATE Primary Care Unavailable LOUANN BARRERA Attending Unavailable LOUANN BARRERA Attending Unavailable LOUANN BARRERA Attending Unavailable Donald Pate MD Primary Care Provider Unavailable Primary Care Provider UnavailDonald Mcdaniel MD Primary Care Provider [phone] ALEJANDRA WOLFE Attending Unavailable AHSANY DONALD M Primary Care Unavailable HOY DONALD M Referring Unavailable HOY DONALD M Primary Care Unavailable AHSANY DONALD M Referring Unavailable VARGHESE SHARMA Attending Unavailable DONALD PATE Primary Care Unavailable DONALD PATE M Referring Unavailable VARGHESE SHARMA Attending Unavailable ALEJANDRA WOLFE Attending Unavailable AHSANYDONALD M Primary Care Unavailable HOY, DONALD M Referring Unavailable ALEJANDRA WOLFE Attending Unavailable DONALD PATE M Primary Care Unavailable AHSANYNOEDONALD M Referring Unavailable HOYDONALD M Referring Unavailable HOY, DONALD M Primary Care Unavailable VARGHESE SHARMA Attending Unavailable EL, REYES A Admitting Unavailable EL, REYES A Attending Unavailable EL, REYES A Referring Unavailable EL, REYES A Attending Unavailable EL, REYES A Referring Unavailable HOY, DONALD M Primary Care Unavailable HOY, DONALD M Primary Care Unavailable EL, REYES A Attending Unavailable HOY, DONALD M Primary Care Unavailable EL, REYES A Admitting Unavailable EL, REYES A Attending Unavailable EL, REYES A Referring Unavailable Donald Pate MD Attending Provider [phone] Donald Pate Attending Unavailable Hoy, Donald M Admitting Unavailable Hoy, Donald Primary Care Physician Edwin SOUSA Attending Unavailable Bradley Cruz DO Attending Provider [phone] Donald Pate MD Primary Care Provider [phone] HOY, DONALD Attending Unavailable HOY, DONALD Admitting Unavailable HOY, DONALD Primary Care Unavailable HOY, DONALD Attending Unavailable HOY, DONALD Primary Care Unavailable HOY, DONALD Admitting Unavailable HOY, DONALD Attending Unavailable HOY, DONALD Admitting Unavailable HOY, DONALD Primary Care Unavailable HOY, DONALD Attending Unavailable HOY, DONALD Admitting Unavailable HOY, DONALD Primary Care Unavailable Allergies Allergy Classification Reported Allergen(s) Allergy Type Date of Onset Reaction(s) Facility Sulfamethoxazole / Trimethoprim (1 source) Sulfamethoxazole / Trimethoprim; Translations: [Bactrim] Drug Allergy [id number] 2460 Work Phone: (8 sources) Sulfamethoxazole / Trimethoprim; Translations: [Bactrim] Drug Allergy 013 Eruption of skin (disorder) [facility] (6 sources) Erythromycin Derivatives; Translations: [Erythromycin Derivatives] drug allergy -Otolaryngol [facility] Work Phone: (4 sources) Codeine; Translations: [CODEINE] Drug Allergy 013 [facility] (5 sources) Erythromycin; Translations: [ERYTHROMYCIN BASE] Drug Allergy 013 [facility] (3 sources) predniSONE; Translations: [PREDNISONE] Drug Allergy 013 [facility] (1 source) Corticosteroids Propensity to adverse reactions agitation, severe flux - neutrinity [facility] Other (12 sources) Erythromycin; Translations: [ERYTHROMYCIN] Drug Allergy Unknown, Rash, Eruption of skin (disorder) [facility] (8 sources) Sulfamethoxazole / Trimethoprim Drug Allergy Unknown [facility] Other (4 sources) Sulfamethoxazole / Trimethoprim; Translations: [SULFAMETHOXAZOLE-T RIMETHOPRIM] Drug Allergy [facility] (3 sources) Corticosteroids and derivatives; Translations: [corticosteroids] Drug Intolerance [facility] (4 sources) Codeine Drug Allergy Other: See Comments [facility] (4 sources) predniSONE Drug Allergy Unknown [facility] (3 sources) Corticosteroids; Translations: [Corticosteroids (Glucocorticoids)] Allergy to substance agitation, severe [facility] (3 sources) Sulfamethoxazole; Translations: [sulfamethoxazole] Drug Allergy [facility] (3 sources) Trimethoprim; Translations: [trimethoprim] Drug Allergy [facility] (1 source) Erythromycin Drug Allergy [facility] Repository Medications Current Medications Medication Drug Class(es) Dates Sig (Normalized) Sig (Original) ALPRAZolam 0.5 mg oral tablet (11 sources) Benzodiazepine Start: 02-07-2025 take 1 tablet by mouth twice daily as needed for anxiety alprazolam 0.5 mg Tab 0.5 mg = 1 tab(s), Oral, BID, PRN for anxiety, Refills(s) 0 Start Date: 02/07/25 Status: Ordered Repeat number: 1 Start: 10-14-2018 ALPRAZolam (XA NAX) 0.5 mg tablet Take 1 tablet by mouth as needed. 11/17/2018 Active Start: 10-14-2018 ALPRAZolam 0.5 MG Oral Tablet Quantity: 90 Refills: 0 Ordered: 14-Oct-2018 DO Start : 14-Oct-2018 Active Start: 06-11-2018 take 0.5-1 tablets b y mouth three times daily as needed ALPRAZolam (Xanax) 0.25 mg tablet 1/2-1 tablet Orally 3 times a day prn 0 06/11/2018 Active benoxinate hydrochloride 4 mg/ml / fluorescein sodium 3 mg/ml ophthalmic solution (2 sources) Diagnostic Dye Start: 08-17-2024 End: 08-18-2024 fluorescein-benoxinate 0.3-0.4 % 1 Drop (FLURESS) Start: 03-09-2024 End: 03-09-2024 fluorescein-benoxinate 0.3-0 .4 % 1 Drop (FLURESS) carboxymethyl/gly/poly80/PF (REFRESH OPTIVE SANTA-3, PF, OPHTHALMIC) (4 sources) carboxymethyl/gl y/poly80/PF (REFRESH OPTIVE SANTA-3, PF, OPHTHALMIC) Use in eyes. Active cetirizine hydrochloride 10 mg oral tablet (14 sources) Histamine-1 Receptor Antagonist Sta rt: take 1 tablet by mouth once daily cetirizine 10 mg Tab 10 mg = 1 tab(s), Oral, Daily, Refills(s) 0 Start Date: 02/07/25 Status: Ordered Repeat number: 1 Start: 11-24-2018 take 1 tablet by taz th once daily ALLERGY RELIEF, CETIRIZINE, 10 mg tablet Take 10 mg by mouth once daily. 11 11/24/2018 Active Start: 09-04-2017 cetirizine (Zy rTEC) 10 mg tablet,disintegrating Take by mouth. 0 09/04/2017 Active cholecalciferol 0.05 mg oral capsule (1 source) Vitamin D Start: 03-11-2025 Cholecalciferol (Vitamin D3) 50 mcg (2,000 unit) capsule Active PO March 11, 2025 12:00am Complies with drug therapy citalopram 10 mg oral tablet (11 sources) Serotonin Reuptake Inhibitor Start: 02-07-2025 take 5 mg by mouth once daily CeleXA 10 mg Tab 5 mg = 0.5 tab(s), Oral, Daily, Refills(s) 0 Start Date: 02/07/25 Status: Ordered Repeat number: 1 Start: 11-28-2022 take 1 tablet by taz th once daily citalopram (CeleXA) 10 mg tablet Take 1 tablet (10 mg) by mouth once daily. 0 11/28/2022 Active Start: 01-05-2019 CeleXA 10 MG O ral Tablet Quantity: 0 Refills: 0 Ordered: 05-Jan-2019 DO Start : 05-Jan-2019 Active Start: 01-05-2019 CeleXA 10 MG O ral Tablet Refills: 0 Start : 05-Jan-2019 Active citalopram hydro bromide (CELEXA ORAL) Take by mouth. Active citalopram (Marielena XA) 10 MG tablet 15 mg 0 Active CeleXA Active Fish Oils (1 source) Start: 03-02-2025 Fish Oil Refil l(s) 0 Start Date: 03/02/25 Status: Ordered Repeat number: 1 fluticasone propionate 0.05 mg/actuat metered dose nasal [...] spray in each nostril Nasally bid Not-Taking levoFLOXacin 500 mg oral tablet (1 source) Quinolone Antimicrobial Start: 03-11-2025 Levofloxacin 500 mg tablet Active MG PO March 11, 2025 12:00am Complies with drug therapy meclizine hydrochloride 25 mg oral tablet (9 sources) Antiemetic Start: 02-07-2025 take 1 tablet by mouth every six hours as needed for dizziness meclizine 25 mg Tab 25 mg = 1 tab(s), Oral, q6hr, PRN Dizziness, Refills(s) 0 Start Date: 02/07/25 Status: Ordered Repeat number: 1 Start: 02-26-2018 End: 06-23-2023 meclizine (Antivert) 12.5 mg tablet Indications: Dizziness and giddiness Take 1 tablet every 8 hours as needed for dizziness. 30 tablet 0 06/23/2023 Active ofloxacin 3 mg/ml ophthalmic solution (3 sources) Quinolone Antimicrobial Start: 03-09-2024 End: 06-07-2024 take 1 drop(s) into the eye(s) four times daily, then take 1 drop(s) into the eye(s) four times daily ofloxacin (OCUFLOX) 0.3 % ophthalmic solution 1 Drop four times daily. One drop in the OPERATIVE EYE only four times a day starting the day before surgery 10 mL 1 03/09/2024 06/07/2024 Active phenazopyridine hydrochloride 200 mg oral tablet (1 source) Start: 03-11-2025 Phenazopyridine 200 mg tablet Active MG PO March 11, 2025 12:00am Complies with drug therapy phenylephrine hydrochloride 25 mg/ml ophthalmic solution (2 sources) alpha-1 Adrenergic Agonist Start: 08-17-2024 End: 08-18-2024 PHENYLephrine 2.5 % 1 Drop (AK-DILATE, PARI-SYNEPHRINE) Start: 03-09-2024 End: 03-09-2024 PHENYLephrine 2.5 % 1 Drop ( AK-DILATE, PARI-SYNEPHRINE) tiZANidine 4 mg oral tablet (1 source) Central alpha-2 Adrenergic Agonist Start: 02-07-2025 take 1 tablet by mouth three times daily as needed for pain tiZANidine 4 mg Tab 4 mg = 1 tab(s), Oral, TID, PRN Pain, Refills(s) 0 Start Date: 02/07/25 Status: Ordered Repeat number: 1 tropicamide 10 mg/ml ophthalmic solution (2 sources) Anticholinergic Start: 08-17-2024 End: 08-18-2024 tropicamide 1 % 1 Drop (MYDRIACYL) Start: 03-09-2024 End: 03-09-2024 tropicamide 1 % 1 Drop (MYDR IACYL) Completed/Discontinued Medications Medication Drug Class(es) Dates Sig (Normalized) Sig (Original) ketorolac tromethamine 5 mg/ml ophthalmic solution (2 sources) Nonsteroidal Anti-inflammatory Drug, Cyclooxygenase Inhibitor Start: 03-24-2024 End: 08-17-2024 keTORolac (ACULAR) 0.5 % ophthalmic solution Use one drop in operative eye as directed by Dr. Wetzel starting tomorrow. 5 mL 04/07/2024 08/17/2024 Discontinued (Course of therapy completed) prednisoLONE acetate 10 mg/ml ophthalmic suspension (2 sources) Corticosteroid Start: 03-24-2024 End: 08-17-2024 prednisoLONE acetate (PRED FORTE) 1 % ophthalmic suspension Use one drop in operative eye as directed by Dr. Wetzel starting tomorrow. 04/07/2024 08/17/2024 Discontinued (Course of therapy completed) temazepam 15 mg oral capsule (1 source) Benzodiazepine take 1-2 capsules by mouth at bedtime as needed Restoril 15 mg 1-2 capsules at bedtime as needed Orally Not-Taking traZODone hydrochloride 50 mg oral tablet (2 sources) Serotonin Reuptake Inhibitor Start: 12-07-2018 End: 03-15-2024 take 1 tablet by mouth once daily, then take 0.5 tablet by mouth once daily traZODone (DESYREL) 50 mg tablet Take 1 tablet by mouth once daily. Down to 2 tab qd 12/07/2018 03/15/2024 Discontinued Problems Active Problems Problem Classification Problem Date Documented Da te Episodic/Chronic Anxiety disorders (20 sources) Anxiety; Translations: [Anxiety state, unspecified] Onset: 12-21-2018 06-17-2023 Chronic Blindness and vision defects (13 sources) Amblyopia of right eye; Translations: [Unspecified amblyopia, right eye] Onset: 12-21-2018 06-17-2023 Episodic Cataract (20 sources) Nuclear senile cataract; Translations: [Age-related nuclear cataract, right eye] Onset: 03-05-2024 03-09-2024 Chronic Conditions associated with dizziness or vertigo (11 sources) Dizziness; Translations: [Dizziness and giddiness] Onset: 06-20-2023 06-23-2023 Episodic Mood disorders (1 source) Depressive disorder 02-07-2025 Chronic Osteoarthritis (2 sources) Osteoarthritis of finger joint; [...] left hand] Onset: 06-17-2023 06-17-2023 Episodic Other connective tissue disease (2 sources) Fibromyalgia; Translations: [Fibromyalgia] 02-07-2025 Episodic Other ear and sense organ disorders (1 source) Mixed conductive AND sensorineural hearing loss; Translations: [Mixed conductive and sensorineural hearing loss of left ear with unrestricted hearing of right ear] Chronic Other ear and sense organ disorders (12 sources) Conductive hearing loss, unilateral, left ear, [...] ear and sense organ disorders (4 sources) Bilateral hearing loss; Translations: [Conductive hearing loss, unilateral, left ear with restricted hearing on the contralateral side] Onset: 06-17-2023 06-17-2023 Chronic Other ear and sense organ disorders (4 sources) Otorrhea; Translations: [Otorrhea, unspecified] Episodic Other ear and sense organ disorders (1 source) Bilateral tinnitus; Translations: [Tinnitus, bilateral] 03-11-2025 Episodic Other eye disorders (2 sources) Posterior vitreous detachment of right eye; Translations: [Vitreous degeneration, right eye] Onset: 08-17-2024 08-17-2024 Chronic Other female genital disorders (4 sources) Polyp of corpus uteri; Translations: [Polyp of corpus uteri] Onset: 06-17-2023 06-17-2023 Episodic Other gastrointestinal disorders (2 sources) Irritable bowel syndrome; Translations: [Irritable bowel syndrome] 03-11-2025 Chronic Other gastrointestinal disorders (1 source) Swollen abdomen; Translations: [Bloating] Episodic Other gastrointestinal disorders (2 sources) Constipation; Translations: [Constipation] 03-11-2025 Episodic Other gastrointestinal disorders (2 sources) Diarrhea; Translations: [Diarrhea] 03-11-2025 Episodic Other gastrointestinal disorders (1 source) Abdominal bloating; Translations: [Abdominal distension (gaseous)] 03-11-2025 Episodic Other nutritional; endocrine; and metabolic disorders (3 sources) Body mass index 25-29 - overweight; Translations: [Body Mass Index 29.0-29.9, adult] Episodic Other nutritional; endocrine; and metabolic disorders (1 source) Overweight 02-07-2025 Episodic Other nutritional; endocrine; and metabolic disorders (1 source) Overweight in adulthood with body mass index of 25 or more but less than 30 03-02-2025 Episodic Other screening for suspected conditions (not mental disorders or infectious disease) (1 source) Screening for malignant neoplasm of colon done; Translations: [Encounter for screening for malignant neoplasm of colon] Onset: 03-02-2025 Episodic Other skin disorders (2 sources) Mass of forearm; Translations: [Localized swelling, mass and lump, right upper limb] 03-11-2025 Episodic Other upper respiratory disease (1 source) Allergic rhinitis 02-07-2025 Chronic Other upper respiratory disease (1 source) Nasal discharge; Translations: [Other specified disorders of nose and nasal sinuses] 06-23-2023 Episodic Other upper respiratory disease (2 sources) Other specified disorders of nose and nasal sinuses; Translations: [Other specified disorders of nose and nasal sinuses] Onset: 06-23-2023 Episodic Other upper respiratory infections (1 source) Sinusitis; Translations: [Chronic sinusitis, unspecified] 03-11-2025 Chronic Otitis media and related conditions (7 sources) Otosclerosis; Translations: [Otosclerosis, unspecified] Onset: 06-20-2023 06-20-2023 Episodic Prolapse of female genital organs (4 sources) Herniation of rectum into vagina; Translations: [Rectocele] Onset: 06-17-2023 06-17-2023 Chronic Residual codes; unclassified (2 sources) History of bilateral salpingo-oophorectomy ; Translations: [Acquired absence of ovaries, bilateral] 08-07-2023 Episodic Screening and history of mental health and substance abuse codes (7 sources) H/O: depression; Translations: [Personal history of other mental disorders] 02-07-2025 Episodic Superficial injury; contusion (1 source) Abrasion of left forearm, initial encounter Episodic Unclassified (3 sources) COUGH, UNSPECIFIED; Translations: [COUGH, UNSPECIFIED] Onset: 06-26-2022 Unclassified (1 source) Patient encounter status 03-02-2025 Viral infection (1 source) COVID-19; Translations: [COVID-19] Onset: 06-26-2022 Past or Other Problems Problem Classification Problem Date Documented Da te Episodic/Chronic Other eye disorders (6 sources) Tear film insufficiency; Translations: [Dry eye syndrome of bilateral lacrimal glands] Onset: 12-21-2018 06-17-2023 Episodic Residual codes; unclassified (1 source) Preoperative state; Translations: [Preoperative clearance] Episodic Unclassified (1 source) COUGH, UNSPECIFIED; Translations: [COUGH, UNSPECIFIED] Onset: 06-24-2022 Unclassified (1 source) Onset: 06-23-2023 06-23-2023 NEGATED: Highlighted row has not occurred!Residual codes; unclassified (9 sources) Disease Episodic Results Test Name Value Interpretation Reference Range Facility Coding Queryon 03-11-2025 Coding Query [id number] [id number] Normal [facility] Miscellaneous Testing LCon 0 03-09-2025 Misc. Test Result LC COMMENT Invalid Interpretation Code [facility] Comment on above: Result Comment: Test Ordered: 802019 Pregnenolone, MS Pregnenolone, MS <10 ng/dL ES This test was developed and its performance characteristics determined by [facility]. It has not been cleared or approved by the Food and Drug Administration. Reference Range: Adults: <151 Performed At: [facility] [id number] [place] PhD Ph:[phone] Performed At: [employer] [facility] [facility] [address] [place] [id number] Mariposa Castle MD Ph:[phone] Performed By: #### 1 [id number] ####[place] [address] Coding Summaryon 03-08-2025 Coding Summary HTMLBase 64 AdtgporpXJl5eYd+PGhlYW Q+CI0YSMGmX31brCBhrF6a V6CVCImRFknfYYPDRPxMWc RbwkIkHM0dnATeHDKw IC8+VI0aQKYaMhfcoQYnl2 N4qAT7Q99mpp6dZVwrlTD1 OCZsFmTnuzrnc4qexIj9WI cuNmluOyBt VUPsfV43QHQ8wG26Ns08xM WevTMtl4xkyXx5ZeBgNSLn ILW5tOweBOlge8VtHHUbI4 9tmMFuw3X2 QXBbdEscvEHtZwTgaXQ5lI 8gEWnhmxvue9noguejBcd3 so17hSDin3K9gQV3H4Tjbe V7KGWhaLNo BkxixWKWzL0yhfwng9nhff evNwEwJOCnTVu5TGj3HKXp bLcqQqWlEA06KNX3DXVkhb DgJ0BgYHAn qMauVtH9a0H2Lj2DU8RVOg ohZ7CWRVDMUPvptWU+PC90 ld06V8LjMaehQgi4NEAuNS F8gOG9iY0h RQBcDNjln4X1zVB0T9Wrsq Hdqq9fj8pdRKZmVIlnH88i oESmb6K1PSJzlTR3QSLojT piFeDclX00 Oyc+OPFivWgti8BxDadoi1 dmx4bxeOw6HvdnTVHluvCl iXjmAWN7w7OiOk2sWRVfoR R0bFJ5zV5x OvKoIxY4MPlcU125PlZnmT JzYbomC26kM7GdeVK+PHRy Syc6CRCufDbsCV2wO3PaGW RpbmctbGVm lWdmXG1vTIKmnqwoPJCmtO 3rKINlD1n9VdHiKlI4MPuw L9XsIDKxclopPm50kP8sPe MiYeA7QCkm D8WnzuE4CJQjaXSwIMivKE U5S38ca7E1WLUyTXPkEII9 qYG6hE3dqAxgyhmwdJDfgF sgdmVydGlj AFngXYsmX440VUAajNxrMj NvZGluZyBEYXRlOiAgMDkv MDIvMjAyNTwvdGQ+PHRkIH K2qJaxGETa sPTbVNpqPe0csTfbrXolLB 8bJBYlbsyiWQLbqJ1rIXPr gNXfkPayBG4mWJCadikqg0 48LxRuQWH5 LXWqwLPtF3HbeJ3pOmAiLR CmIYFuH2TisWQaPPdyS942 XWquDjZ5YDUhvdBuL0TtWG FsaWduOiB0 m8P5Hw5Me5QyzcbgK5WlpE OuVrWeOobaHQf1F8PaMerg dHI+SZ31FCMaXP82SAk5GL B6wMuySDtu KECqJ4TnaY4yCcXaKMPyLW RkOyc+PHRhYmxlIHdpZHRo OPifPDZcVdHxiKgjUW6dXr 9yZGVyLWNv eNiqxBRzCdSzy1svAKVuAR ilZY0tvKgoP8ZvhGT1CXNk u1i7It31H52wJ3DtuTE+PG PayQA2sRS9 wN2fSvIyIkU6RJbmJ168Wv EowWGsNtmiv1rdq7denSb2 WfD6HJNlllUfrLljEQV5h8 YuUr30P73k IHdpZHRoPSIxNSUiIHZhbG oqhi5ddB1rTi7+PGNvbCB3 cYD8aH5yGhPpYwL7VEuoP9 49InRvcCIv Cmzxp8fqt5bduCh6BaErFD ShjaYrqXdfGPU5u6AmKk55 O6HwrYutj9AgOgh2if28aI Fls3S4nPQ4 Y5BhAVIffikngSIhuHfsYZ 2pUTVrwgozJRZxjP8aZSDw I2z8PcRrWuT2DTulI5Dfkb H7QKCewRHh NQGzuMNEpU0ftpdyu2vgky zaYyPzSPUxENe4AWg1KMVx vYmqLzQkXVE2DcZ0PQH2iC JveU3soSrx cqyoaF0mQcx+NRV5bYKpcX RBLK7cEyxdlRF+PHRkIHN0 eSsbQJrqVMTylK4lAEPsI9 a8XiLuDdU7 OYnbB6HxwaS1DQUavGFaNS IuyDQUnP2qitddr3fjizkr HmMbQNFfGZg9DLv5QKMzoB duOiBsZWZ0 DuF8QOR5zARuzH9htRiqjd sukW2mYuk+QmlydGggRGF0 IFd0W7RjUys8PLVhlUkbSO 0ncGFkZGlu Av0ytIamwGtoGR7tSSLdbv xiw819CdFxc1nlSTQnrMGv MUgtVFL4R87kj4D3OQNwIR CoGJZ0pEH8 vC1kwQrljmhtmHBkbPmmyg XvpMhxTTgyOHgnR927FAHf sIqgGfQaOJy4G3GuUjo3PH TaeShhUK3x yBVcSGygLa1orNchxKjcLZ 3fTOTlvpohj163TsCqg9el EQQrfLMtYAndMUO9J73fm3 O8ZQApWNTd GOB9hYN4oT7grTqcfrnrdX VmdDsgdmVydGljYWwtYWxp O074QIEheKohUfFraEj8L0 BvHfu0BMSf aUcgMS2ycWBlHGrxAw6bnD hmmNisYW6cKEJvymuwl741 QqGyb0gtEZTsdMPzMHebLL C2H98wt7J7 USUuVHAkJZF2cQF6vW4qeC lnbjogbGVmdDsgdmVydGlj OXhfZKfvY139KLIirAxoFi BhdGllbnQg RJvaNUg4S0IeUcuxlTJ+PC 37IVDgTJ60jGDfnOMhz1ph kSy7PdYyMPJvBHW0uCwoGD ikh2QyTSJc E75pxCHxe0C6IYSpnLevgD XeMyZfeTP7eO0fFDtfrkwz o0qwfdsxKjsdz8dpgv82cU 69P72lJBin ZHRoPSIzMCUiIHZhbGlnbj 8kzT0nGe4+GGTxgKP3eDG4 nB9jMRYyQiF4YQbjI439Zt RvcCIvPjxj t5ipm6locZh2OaK1ANYjys WegAqgVJY4z7RyDa55F61n IHdpZHRoPSIyMCUiIHZhbG xcxi7pkL9h Ii8+HBQhlHN8lJY8zN6qXk QbLeU8KJbaZ338RpCwdKXq SydrO30nE7DwuXF+PHRyPj h0KXFcbTxf UK1xmQStSGlgQc4xUXG6Lx UwKhSqWAhjK4FuSLUabfsn soqkuRK4VLKgBCPjgP99Wt 9udDogMTBw pBFPrA5osoobw3aezukuVp CaXTCvXZl4NSa6APIrcBnb KrHoUCJ6FzG7AYX3qNSerP 1hbGlnbjog nA2pS7OyQKCoiynxEa54cL 4aXgWhUqQ3MBiqBeg+Rk9S TkVZLCBMSVNBIEVMTEVOPC 41QW93bYLh w2X4qQX3P2UnITDcluyuvg wvvEN6UEOnOLWvmY98vHCs DYaiVt8sp1J4t551BWTmOP IesA53Fy1e dSqrYIUisWHIvN2valirk2 pvyqypXsSqLDLiOZc6OCq0 AYPdlCxfGgZhEGB4LkZ0IC R7eIZqdC3v vJouudbmrU4fJhj+MDMvMT JxMJo7ArigsFX+PHRkIHN0 cMmwPYimERHblU5tHDHnH8 a7HmEeNzH8 RGaiD7SyJVTiozskCe30vM 1yKfKfKwQ5XAuvK0OkgvU3 UOVabTCoURtbPOK3B68il9 C4KGLwUBMh NNA6yIO6mT8pjUaxstbfjT VmdDsgdmVydGljYWwtYWxp S815WJEkaOuiUsB7FCfwJN AnGM72GP12 bRLdl2F2sBX7F1SpKPAjqn pbwxwtpSH3NNWmAAZagI45 wGCeKPmsHg9rp9J2l919XJ FiBPIcqV36 Vw4ikTvlMVNsrEXFsO0axi zrb5itudiqPkKbYBAqQMo2 HRn0PWUwrLjrUxCmXZH8Zv U5UGX2jCTh rL3koAlfjimfyL9eUws+Rk AMSXfDWD01XX00qUIot6B0 qUQ0K7ZsBJZodwyuqcgyiE I4LTTpXSAn uC30gTNhISbhWm7hq5F8l0 73GGVfNVFxnU46Tf1vbHyk VSCzrNKVqN4jbrauq5jzrc ogIzAwMDAw QPb5BJw9AVUggIuwXaQqKA Z5NoV6BSZ3yRXfjS6svKld bdgroX7lZbm+F0P0X2YhRv wvdHI+PC90 YXHkFN40xCVxqRQrz6aiqC m1BnLvAOAsZKV1vVlkSNgq w9AyRDAlJ00jrBUio3B1TK NvbGxhcHNl GfDzbIJ3jV5xGYbrdkbwk6 uympmvNnxlh3kqny49iO97 A35zYFsiBUQvDVCeZESaEI TmqZzipq0j rY5qIc6+VHMftUP9bPU2cJ 6oWeEgUzN3OFxrK634XxEe kDDbAefgm7hho3ussEt2Pe IwJSIgdmFs pStiFZU9d8AfJv70O43jXC dpZHRoPSIyMCUiIHZhbGln br0fyL9cZs6+QN8hv3idgp 82tD47dZT+ VJCaYMH6bNbvBFjoTPUhxL 1zZDpzQkT7GRVeDqSvlX46 xSOgAPkfIc5bhUychRybKW 4wNTBpbjtm w643BeAnd7ugHBBtiAUrDO skZYD9E00sf6O9YKFbYPZn PFK6jBC3sK3spFoolmasaD VmdDsgdmVy uXuzTMfyOQckB596YTAfaV fzTlHztQZbJ0nhjlKRGA1d OjwvdGQ+ENCgXYA0xDsdWH nqSBJpaE9m NTYgT9g7XjAgEeO3NYlkB3 GdviK2BGCsdLXwRNUtiZXB pM2drnxyb5rgzqpbAfPkTY AiTEx5QWb1 PGSawRmjPwKiQEK7FzH9OU B1ePWvyB4kiYfykfhhsR0t Oyc+RklOOjwvdGQ+PHRkIH R5eFzgPFdi OFOfeR6jWESjJ8v6QdAkLx Q3AAgqJ2BsygQ9ZVQuvKIk SMIpqXELtI2sxlgow7iqbc ogIzAwMDAw TSj8YQc8DVNosQlmMkXwGN I1DqM0DHV5zUKixR9bsQdz npphhS1dPvr+TVJOOjwvdG Q+PHRkIHN0 rCegTPtsQKPbaU1lCEPuY1 u7QkGzXbG6IUbdQ6RbfpL3 FYWmyVBoVVGcjDJWmY8kbf lhe9udlmpl CtTuTMZcILw4GIq0TXRxiC iaBzOwSME6OdL4AQK7qVYq kB4fjNcctxseqV1tDxi+UG V6MHK3PJ17 DO17M2NyNotytTKanQH+PH RhYmxlIHdpZHRoPScxMDAl EyEjkJqpTZ5eOg5uXVBtLQ NvbGxhcHNl OiB (more content not included)... Normal [facility] F+T Testo LCon 03-08-2025 Free Testosterone(Direct) <0.2 Invalid Interpretation Code 0.0-4.2 [facility] Comment on above: Result Comment: Perf ormed At: [facility] [id number] Juan Fink MD Ph:[phone] Performed At: [facility] [id number] [facility] Ph:[phone] Performed By: #### 3 [id number] ####[facility] (DEFAULT)[address] [place] [address] Testosterone, Serum LC <3 Low [address] [facility] Comment on above: Performed By: #### 3 [id number] ####[facility] (DEFAULT)[address] [place] [address] Miscellaneous Testing LCon 0 03-05-2025 [facility] [place]. Test Result LC COMMENT Invalid Interpretation Code [facility] Comment on above: Result Comment: Test Ordered: [id number] 25-Hydroxyvitamin D LCMS D2+D3 25-Hydroxy, Vitamin D 29 [L ] ng/mL ES Reference Range: All Ages: Target levels 30 - 100 25-Hydroxy, Vitamin D-2 <1.0 ng/mL ES This test was developed and its performance characteristics determined by [facility]. It has not been cleared or approved by the Food and Drug Administration. 25-Hydroxy, Vitamin D-3 29 ng/mL ES This test was developed and its performance characteristics determined by [facility]. It has not been cleared or approved by the Food and Drug Administration. Performed At: [facility] [address] [id number] [facility] Ph:[phone] Performed At: ES [employer] [address] [place] [address] [id number] Mariposa Castle MD Ph:[phone] Performed By: #### 1 [id number] #### [facility] (DEFAULT) [address] [place] [address] Ambulatory Visit Summaryon 0 03-02-2025 Ambulatory Visit Summary Ambulatory Visi t Summary REBA VASQUEZ :1965 Visit Date:03/02/2025 Ambulatory Visit Instructions Your Diagnosis Screening for malignant neoplasm of colon Your Care Team Attending Physician - LARS SALMERON, Edwin Davies Primary Care Physician - Donald Pate MD This Is Your Medications List omega-3 polyunsaturated fatty acids (Fish Oil) Contact prescribing physician if questions or concerns alprazolam (alprazolam 0.5 mg Tab) cetirizine (cetirizine 10 mg Tab) citalopram (CeleXA 10 mg Tab) meclizine (meclizine 25 mg Tab) tizanidine (tiZANidine 4 mg Tab) Procedures Performed Cataract extraction, Colonoscopy, Endometrial ablation, Laparoscopy, Ovarian cystectomy, Stapedectomy, VH - Vaginal hysterectomy. Discharge Vitals Heart Rate (Peripheral) 72 Respiratory Rate 16 Blood Pressure 138/84 Height 165 cm Height 65 in Weight 74.9 kg Weight 165.126 lb BMI 27.51 Medications What How Much When Instructions Unchanged omega-3 polyunsaturated fatty acids (Fish Oil) Unchanged alprazolam (alprazolam 0.5 mg Tab) 1 Tablets By Mouth 2 times a day as needed for for anxiety Contact prescribing physician if questions or concerns Unchanged cetirizine (cetirizine 10 mg Tab) 1 Tablets By Mouth Every day Contact prescribing physician if questions or concerns Unchanged citalopram (CeleXA 10 mg Tab) 0.5 Tablets By Mouth Every day Contact prescribing physician if questions or concerns Unchanged meclizine (meclizine 25 mg Tab) 1 Tablets By Mouth Every 6 hours as needed for Dizziness Contact prescribing physician if questions or concerns Unchanged tizanidine (tiZANidine 4 mg Tab) 1 Tablets By Mouth 3 times a day as needed for Pain Contact prescribing physician if questions or concerns Allergies Bactrim (Rash) erythromycin (Rash) Problems Ongoing - Any problem that you are currently receiving treatment for. Allergic rhinitis Anxiety Bilateral hearing loss BMI 27.0-27.9,adult Depressive disorder Fibromyalgia Former smoker Overweight Screening for malignant neoplasm of colon Patient Survey You may receive a survey via text or e-mail asking about your office visit. Please share your experience with us by completing your survey. We appreciate your feedback and thank you for choosing us for your care. Patient Portal You may access all of your results and other medical record information on our secure patient portal. If you are not signed up for this yet, please contact [employer] at [phone] to get signed up today. Language Information Language assistance services are available as needed. Normal [facility] Cortisol LCon 03-02-2025 Cortisol LC 12.3 ug/dL Invalid Interpretation Code 6.2-19.4 [facility] Comment on above: Result Comment: Sharri wu Note: The reference interval and flagging for this test is for an AM collection. If this is a PM collection please use: Cortisol PM: 2.3-11.9 Performed At: [employer] [address] [id number] [facility] Ph:[phone] Performed By: #### 3 [id number] ####[facility] (DEFAULT)[address] [place] [address] Dehydroepiandrosterone Sulfa te LCon 03-02-2025 DHEA-Sulfate LC 23.2 ug/dL Low 29.4-220.5 [facility] Comment on above: Result Comment: Perf ormed At: [employer] [id number] [facility] Ph:[phone] Performed By: #### 3 [id number] ####[facility] (DEFAULT)[address] [place] [address] Miscellaneous Testing LCon 0 03-01-2025 Test Code LC 092775 Invalid Interpretation Code [facility] Comment on above: Performed By: #### 1 [id number] #### [facility] (DEFAULT) [address] [place] [address] Test Name LC 25-Hydroxy Vitamin D2+D3 Invalid Interpretation Code [facility] Comment on above: Performed By: #### 1 [id number] #### [facility] (DEFAULT) [address] [place] [address] Test Code LC 021890 Invalid Interpretation Code [facility] Comment on above: Performed By: #### 1 [id number] ####[facility] (DEFAULT)[address] [place] [address] Test Name LC pregnenalone Invalid Interpretation Code [facility] Comment on above: Performed By: #### 1 [id number] ####[facility] (DEFAULT)[address] [place] [address] Provider Orderson 03-01-2025 Provider Orders [id number] Coding Summaryon 02-09-2025 Coding Summary HTMLBase 64 OzffwwtrDTx2dOz+PGhlYW Q+LG4NVUOvD29hxPVgfE4l D7CHZRbDHhhjVSVMIQtRMl MezxUaHN7vuYMpDKEg IC8+KB5fMQPxYxjbjXHvu9 J5iQG4X15ytm6aXBgsfLV6 CJQiQaBhoaipw2jogQe1WE cuNmluOyBt IQKxfH25COO8zU46Rh17yJ DtaHCso3hujCi9PkJrTOEs HAT6kKlkNLvob2NyQDLuV6 3haNBpn7K2 SMUcpQckjDOmUmHaeVX3dI 2hTOnkxdkor6dseotwJuq2 ov34cNUkw4E4jAH0W3Teta A9PCLfwHFh ItzvtPCGxI3txgzwd0hlvt dkMxAnHQLgPDw6CCt9TWQu rTkuNxHaGA64TLU5YWIoic LfS2AqZMYv dHmtKoU6w7E8Wq5FZ6KYDf guF0ZXPRTXXKdgwST+PC90 wo24O8JjVcddQhw4XDHkQC P6fJJ7gW9e KWUkDLqfb9Q6gTI1U0Mdyp Wwqt6ob9tlTABrERvnG27f iCCae7R4SDYsaBF5IUTbwN xeVqUyeF71 Oyc+ESHyfGtdb6FqPwhov0 vay9kglNq6HbwoXOKgrcAw lUyeCIG9z9HqUs3dEMRxyE K9qWP0sD8p CgOlMiL6HGqwC654BeSlcH BcSzumU51vI6AdsBO+PHRy Dzm1AEIvsUsiWQ5yL5KtZG RpbmctbGVm jEjwWK2mEDHabdkmXTYfiJ 7gANFgF1i7AgAuJjC8MTyx V1BjFAHbgnwcZx06jU9yCs JqEvP0ICsb B6CzznB2XTTrwDQzMBlsLJ L8W65xo3J6ZFPcCQMoBEW6 qSB8fN2ifZgfpdjbxNSoiI sgdmVydGlj OSjjVYgvO221DVDdbBuvLs NvZGluZyBEYXRlOiAgMDgv MDYvMjAyNTwvdGQ+PHRkIH T6pNabBCOg lEKqLGuhDp8hmQyrjIndFP 3aAKAqylzlDOUdfT5nYXRr jMPliWmnYA2uTWQhviesc5 37MnLeIKO2 ZIAphRChJ7DdeZ8qZxMfWF RbEUCtQ1RjmKCoHWeoK619 NMdkHeH6MIGqbwGaO4RuCR FsaWduOiB0 z2Q5Do9Sd7LhgfluL7VboX UcKqWaUrihRMx4C3RhDfpt dHI+HA80AMMeDS17TBk9MZ J3zAsfDRez SILeI7NduX3qMqVdHGAvCV RkOyc+PHRhYmxlIHdpZHRo PDthCMYcCdUlnSkcOU8oCv 9yZGVyLWNv qDvckTSdNmJll0yvMUTxOU diBH3veYqcA7MkxHA5PTEv z7s2Ei57D20uK7VkuVB+PG UnmIZ5oTU8 uQ8dXaWjQuF0AImuA677Pm JpgUTsLcycc1nzd1sylTx7 OqN6JCBpnuPvbRuhWVT5y4 NgHw58Z31h IHdpZHRoPSIxNSUiIHZhbG pten3svM4rUd6+PGNvbCB3 cOW5rP5kOwAkXoZ3XDpgD3 49InRvcCIv Bxyzg6jgb7pyqCc9UdHuXF PachPgcAtjZPF7z6NqGb42 T7FtkQron9HiNfw2xc09yT Rjn2B6kMQ5 L1NeBTLhgxtjpCOabEcbML 7wDTWnhxwiNDQtzN4bVQZy W3t1AcBsBaB9YUcqW0Xogy W8KAPwjGTs GRIrpLWKnW1vsvguo7txub aaMuHoBIHaDNs8ARg3VDCg oYtxHuGzGAG3IpI1TYK7sT VyxR1clWts ofejrI9wYam+GVB5sNTuhS CUIU3iUtzdtMF+PHRkIHN0 aCrtAPtiJDEofA5zPGSpU8 k8GxKzXmL5 TGoyQ0HxaqT3GMMziFRmCH SghYVDmD5lendfz0dzkwsv EsVmVPCeDKd7LRr3VSOrwP duOiBsZWZ0 VaT0LRT0kOAnuF5cmSakzp zltP0bXtk+QmlydGggRGF0 UPp7X5UiNcv9BRPqqSwdGQ 0ncGFkZGlu Nx7znLkbxEctWT1oTXUakx toq041HdFet2fbDTQhrXTr QQxuFHM1I84gf0Z7REOsIH HvPTD0dDJ4 nG8yhMtqpgmmrFVjgWpzjk IqjCsxMTlaYZntV064TEVo uIbmEcFzQYs0K4JdJri8PF EhiZjcQQ3c oNPqLUfyDc6vwZocgXjrVK 5fJMYwdprre938UpYow8iw RMSqxKPuWFuoWDI1W00xg6 B1DYAhSKRf SPD2lWW3gF8osLqluzzhfW VmdDsgdmVydGljYWwtYWxp E723QLPusWxdBzMmpWs7T5 ZtXeo7UVRl eZaaOZ2yeUQbQOoaKd4jhI hjzUsuKF7tHAQqcoudb667 UtRdq8dnSKKrnQIdREubKZ C1H29go8R8 ZKIqMVCfFXI5gFQ1dG9yyF lnbjogbGVmdDsgdmVydGlj KEabSXlaQ387IPFcsNagWw BhdGllbnQg TYvwLJm5S8RkQtvghIO+PC 19LBUyAL08kQFinTLoa1dc mDv5ZkLkAPEfUZY0eXruXE qgd8FuJAYh F97uoTOyn4Z1KEPoyQkkrG ThVwMkhDI9jS1nUIcmnxmg p7guezzwKnncr4ufwk75wR 77Q63hGLdj ZHRoPSIzMCUiIHZhbGlnbj 8kbN5jFy3+GGOniYA0jVQ0 xJ1gHCVjFbZ2QRagT049Va RvcCIvPjxj k0hfi7lvrKq0FmS9ZSZklw UfxIeuXVV0t3JrOc35S82d IHdpZHRoPSIyMCUiIHZhbG bfqw0uvJ7z Ii8+WLMexID9bRT8bV7dSm WeGdD2YHhuS257XvCbzETo LzfuP41rY4CroZJ+PHRyPj v5JUWejLbk PL3loJVsVJxhOq8cHJY5Mu UyXvUmOLfeD1FsWLBvoqvx mcnvnKO8AKIoTPHmoS02Yi 9udDogMTBw vNWOmJ2gtcllo7dhnoxiWg YeTEYxUOw9SIa8FGZhuWkp WsUnQDG1IkP2DLC6qUUngV 1hbGlnbjog hQ9uP8HmPWSeibhzOz03aO 8nGjNxYkU7RMqdCns+Rk9S TkVZLCBMSVNBIEVMTEVOPC 77WE62iIDn u7V7vQZ6F6TeEAGvhgmcic gazSQ6QUZpUPSsyN73rPSh CBzkLc4hy3U9i943BZAzRT HknL83Wt9b bQdyXQJwpGRVrN2nxarqg5 fgyuqmDoKtVSPyDZu5UDo8 BJMxjGahMnXbZVB2TeP9CJ H1cTTvcT3k fRuexgngpK6mAlr+MDMvMT ImNLh7CzmqnSJ+PHRkIHN0 wMatBLilVVHudZ4gIITyS7 i6PzRuTxW7 IAqkI7NmTUOaprksIu44gN 1lGzWsArF4JPugG0MlphY1 QJPujTCmMBmeGNC3P89bd8 K3EBBnNQYb TAB1xVL2kD9rbXagwnskpN VmdDsgdmVydGljYWwtYWxp Q645YBLjzHrbEiD2JRslHB JcHT01YH37 jYXgk9R3tVH8Q4WrJLCzfd tpeofyiIT5UPAmWUPvqB43 xMGvBXwwYt8xd4E0h518AO FyKJScrX38 Ie2yoRsxXOMhtPACcQ6qjg rlk2qmfdleLnOlDCVjHWt6 NSq8URSzbHydExDzTKZ2Wx Z5ZYZ6pEAy xZ5xzVqpgyhexD2lEtb+Rk HCQWtYOZ92HI47vJWxs8S3 jRL1E6YcXSXsjvfsnqjywZ M5STRvTANz xM79iTFzOMyxUc3jj4O0e3 24SZUfLJXaoF70Xd1xiGkv QQHsoJQBdQ2cbxvis8pxtg ogIzAwMDAw IBb9VSe6ZKPznTxlVjSrOG J6PiW7IML6rDKrqQ7isZqi oblteH8fYgv+A4S1O2NkNa wvdHI+PC90 DECcIN58hZSaaEUye4cexX a1XqFySRNuMZF7aXvqGMyk m9EvUKWbA13qaPLdz9N7GA NvbGxhcHNl RgRatBN9oX5zUIujbskju7 klsjpbHytin6jkkd91yN29 M54zLOwwIDCgAKZdESZjCT VjdOzafw9j zN3tNp2+LGGpcRI1pES9oV 5pJhNoNoH3RUixI182OnTh xDJjQylxg8zpg0alcRq8Zx IwJSIgdmFs sKxgJFW7n9HrNz04W50rYQ dpZHRoPSIyMCUiIHZhbGln ts2wxX1iEn9+CL9jm3jvcq 92wI37fQQ+ NETyMBQ4aAxoYQnnPDOzoD 9vOVrnObH1ONSjMsEcpQ81 iHRfEHhmPb6nhEkivEibZR 4wNTBpbjtm b104WrPrs4kdHVWdaBKvWZ lwPPP8C66jn2X6NHAnMVJq XPO1sMG9xP7ajBhamdxwmK VmdDsgdmVy gFroRZyhWAjnR512COFuzM hzZgGvsGPsO2durgEQSN3q OjwvdGQ+SXAwPKI5tKzbOS enHYTbmH2v RDDdZ5y1CgMlVzN6MZrnO3 WwmxO9QFUvlYExPHHbyLEM qM7yrljhs5fykhycBtSyBU UvKBh7ZJx5 CVMmoTbjKbGiJNB8RaW6RR F6cZKpiL5pmVsdrziriQ4o Oyc+RklOOjwvdGQ+PHRkIH U9bBphHClg RGQhlB6iMCSbQ6d8UvTfMh T2AOokX2UgvlZ1AWIkhAXe WDDqdXJYxG3fdpmwh8msdp ogIzAwMDAw JAq2YRc8TAEkwSkjOvDhMJ N2FfC1VUI7iZXvpD7fmGms qbaojQ6hHtr+TVJOOjwvdG Q+PHRkIHN0 yPygIQdfSNDnvG2iIVLhT7 x6NtQrVuO1SNfkD4BnqoZ2 LIDitNEcXDXelMIEwH1ajh irg3vodwya XoFgKMOjIWm6LKz0ZUYajS wjSnVyUTY5WgD5LSH4iATw kL2paVuxexyilB1oVcr+UG R5FOL4LS53 FL41B7HhTdgosOXoeUD+PH RhYmxlIHdpZHRoPScxMDAl TnXleGrwCS5eCy0sPYTdEL NvbGxhcHNl OiB (more content not included)... Normal [facility] Urine Cultureon 02-09-2025 Bacteria identified Cx Nom (U) No Growth 2 Days PERFORMED BY: [facility] [address] [place] [address] PATHOLOGIST [employer] PUNCHER CARLITOS LAUGHLIN M.D. Normal [facility] Comment on above: Performed By: #### C UU #### [address] Urine cultureOrdered By: Heather Pate on 02-09-2025 Bacteria identified Cx Nom (U) No Growth 2 Days [facility] Coding Summaryon 02-08-2025 Coding Summary HTMLBase 64 OuvbbhkuGVj1xZb+PGhlYW Q+JZ6CHCKwZ90gdIOdpQ3w O1CFHJaLXrauFWFTOJfKXp DfpaMvLO1qaKJfLJGz IC8+WW4vUSReRamfkWYrz3 R8iLX0D83qdb0gLHzflZN8 DTLaDaUaxkcwn8hegDy1HT cuNmluOyBt MMOfbA46PTK7nA95Zw70oL XusOMck8vqpSx2IdDkOMWm NGC8gVgwSHzhs4YuFMFwL5 8zwLPel5A4 VZCxlZjvcRLzDsNlwGR7fA 7bORoutxvzy3bzlwcoZqj9 pe98lKGjh7U4xAN8B8Jzpi L2DCUdbJHv TixkvMOWaP3qvariy0qcqq cwJsTzTPTjAWs5SVq4UZHd oDvhSgLjDQ22XGS4XQUqag YdZ6UuLGUo bTfdNzY7j0X8Hw4UO2RWMv azS5YEVLKQTIovwVS+PC90 lz34Z0BnYejrImu8MRFfPQ Q7oTL7iJ8f ATYcGWrps2U1mRB3H8Brrb Feoy8qw7ueLUIjWLhfP05l wHYku7G5QVSsvHN6CLSwcQ gjLmPrcW62 Oyc+MLZmnKhon4MbKndpg1 yeo4wyuPr1XampAJAurfMi rRdvUIF8h0FtHi1yPURwtQ O6rIA7gD5k RgTmIaW2ERsaN418GmVdsH MyXeiuE87pL5TezGG+PHRy Nlg8YHAskPlrUI3lM2AqDG RpbmctbGVm bZqfFK9aXETmprtmYADfyL 3bZAEjA0t2SdHhDgU0DCdv C1DjRNUmymrbZh52pY2wQq XmKyM9XOvx A8CeduN3CUBrzKSrPYtnVK Q0V13qz5G5CEHpFJFwBAW3 mHE2aS7abGrhqhhzwUZdvX sgdmVydGlj GHkgAFthC091FCUqiAvkXt NvZGluZyBEYXRlOiAgMDgv MDUvMjAyNTwvdGQ+PHRkIH U4lDbeQWVb vXQqLQefYz9tpUblnBovNS 6aJODudtwbJZUchM2vENXb oUQafYyxTU9fQXBetfkxv8 93ZbHcZOH4 PGMaxKLoE3KbiZ7sCcVhYY UaERUpJ0FntCRxFJohF706 YQivSqA8WANavkXyT6JfWY FsaWduOiB0 n5B7Tn6Gd8NehzdlT2TevO DkHxXpMcujHPe4O3KnWjiu dHI+TH32KRCzHQ46CUg3RR T7mZngIMhk NFHbD1CzdF1iAxEpJWBlGF RkOyc+PHRhYmxlIHdpZHRo BRuoQGKrLvUyhJjdRD6wXr 9yZGVyLWNv iSyygGUzCcFse3sqDWNtCU dxJK7tzThsK1CfySC9CDZa g6w1St42A84dL9GbeNN+PG PjpYA1gVN9 kK2mWnFjEuR9APhmV442Rz WuqRZzXuaem4rca0twzPp8 NyD8UFZgqbTqrTqrPAZ2n2 YjCh55W22p IHdpZHRoPSIxNSUiIHZhbG pnkg8ndT9wIk6+PGNvbCB3 nII4qR4oRnQqIsE1PEzvE0 49InRvcCIv Tbypz8wlk8kgwFz2PjFkFZ LnqcRztDcvXDJ1f2XxQi28 E4MovKktk9UbXwk1ia81aT Zoh9X5iFB9 E8ViSEWlbojvwHNehJuvNI 5nCPLdalswCCIljM9tABId R2w3ObYiJnR5BXcwQ4Eyzf F6CGMwoXHe UGHudTBCrY7wushuw6qteo roQoTjAOZlMRj2QOb6CQEv iAefPsAzBGH5GrT4AHE1vT OdcC6soIxm bckrfJ7eCco+EJY0dQNtfT BCUL0uApjwjUA+PHRkIHN0 eGmhGDccELBmlF7rZBThL4 f2NdHbThB3 ELxzJ8ZvnlJ9KHDktNYwLY UctQXQcJ3qkcaob8esshcv JrQmCQTePXa4EYa8BUTigU duOiBsZWZ0 GpK4CXW0nGDwsQ9xzGobsn gqmB4nWlm+QmlydGggRGF0 ZMx5J1FgVnj3VFBijBqyCG 0ncGFkZGlu Yl3beHantXrvWZ9qEJLxos zdx039YmYws8lkPLMryVGt CCdcWNH3H17fs9M9KXAkJB XuUZY4vPZ2 uC6yxEvcdebgiLChyXttlr NzkZsfEHltHCkhM877KBFd tVurIqMjKAv6D6AkIqb0FM BfhLniFY8y hQPaLVbpOj9nyOakaMtsPA 9tPUYvlvvxm516LxWur6mo RMCipZGvPPxqVDD9A62xe9 F4QDQbPMRn GNT6fHE9aC0crQqrncjbkM VmdDsgdmVydGljYWwtYWxp U471DLYadVcaDsUaaDy1M1 BtMir4PORd jSsvKZ5cvHLuCNohGl9ioK flyUckQC5dPYXpnlzoh573 AcRma7mdUMFhtHQnRYzsOH F2Q88xv2H8 TJAdRIOxLLS2eVT7bD6pfM lnbjogbGVmdDsgdmVydGlj OKvwONhwL430VNBtcMgiOm BhdGllbnQg YTytFVw3Q3TlJtjzwYN+PC 88WLStQZ71bPOamZPlw8xy cGi8KxBtOROyZNP3bTnxGT zpt6AgWUBx M74cbUUlf0C6OOIaxAhdnC YoJcStpJY0lQ6rCNuxcqei k9pczaywCsfxr5qovc06cM 32E29pYNjt ZHRoPSIzMCUiIHZhbGlnbj 3yjX3hNc8+HEQgwLI6tGI7 qO6cKIJeNaC0GEczI706Yc RvcCIvPjxj q1cjw0gbeWa5KnR2XEDfys AjfNalDGV2p0CeDk53H15o IHdpZHRoPSIyMCUiIHZhbG qxip6teK4u Ii8+AQGnnBM5iDL1aG3lGj FzUdG8NWiyN782IhPafXTp AcwgT53nO1CmpJX+PHRyPj f0GJUfwLgy OI7isULaDPxnWw6wXPQ5Xl QnChNkVGhiU6SlHYVexwcu hctbaHT6XYEbJUBliM67Lv 9udDogMTBw qGNAyF5qxliiv7tmotivEl TpXHHsQFy3KKg4YZBwzHai JmCfHOZ2OuS9EFO3dXQfsU 1hbGlnbjog pT1jQ7BgWAUdzttcMl56bX 7yDoNlMbM7ADywCiw+Rk9S TkVZLCBMSVNBIEVMTEVOPC 32WD43tOOj o8B5eRE2M2HeKAGityvmup kwqOL1HJRdFCYzhU13hPJc DDriXd6gm2G3q722ZXWyAX PfoD60Uj2r wUrqAHFdcVUZgE6xvonrb3 qxdbmrYgGbSNJqRRc1DDr8 FVIiiSdiAlGsFFL1CxZ1HI J2bNYmxO7y pQqcgcbpyN3vSaz+MDMvMT BvWPk2FwgntYS+PHRkIHN0 wNeaPAomHVRedN4tDBSuO1 u7HkQyNkV9 XXkaW9YcGLTjeuisYa84pP 6nBoXeWkR9HJbvN6KtlgT9 KALxjWYyAAmyOIW4D32lu1 H2OPNsGXXm PCJ6nZW7qA4yyZchpzspsR VmdDsgdmVydGljYWwtYWxp H507ZXWcnHkzEaB1HRlaJF MuWL79YB74 oDNpm9D4vWG7B0MhYFJots gykzgegGT1UJIrHZUrdG71 tXAmPOzvGr3ix4E4b676FA SdMTVwtO57 Vr6wiEukMQGleWBNaS4bby iwf1bqqejlAsXvQROpUWu8 MQn0UDTmxCyxBgEaFKE7Ty M1EHE4iMQs hY0haEvnzjgbwU8sVmu+Rk FUHLrXVW55UK43oNEmz0B6 rVU8K6JrBZBvbhgicgdmhB I4BNJyHSFr qX02pNOgGSjeCa5kf5N5h7 62YGJiTHWkpD49Pd1hbVvj OXClxRMZpT7ofwlso9jzwk ogIzAwMDAw KAm0POx2RSIkxIprFbQiNR L2CoP8CXA2jDZgoP9bcXgc ueiwvV5dCtf+A4N6J0NrOh wvdHI+PC90 KDFnWI87yXMluEYwm4oqjK m0AxPtXFEfYFH3bRqiOPlq h9GiXOBxI87zlHYki8T8YC NvbGxhcHNl IdZyjWU0iF9eAYqzcjcur6 dmrytrNicwy3rtad48hL41 F80wOHtcJPWeQYBpZLWhHY ApcEwxkp0q oY0iPa8+GNYsxKR3zEO7kQ 9kXkQwMaZ5FGqqP378MyJl aMYrDaaav5laa6xziVa5Sf IwJSIgdmFs pXlnNBX3l1FvAj06K01sCW dpZHRoPSIyMCUiIHZhbGln bm1frF0aDx7+GF9wx4cagp 51kX51iPI+ ZLUpNSF4dMvfJZgvYFVcxJ 4jDMwsCpC0TPMbRkAgnV49 cCFmHAqjBx3erNkrkCskRU 4wNTBpbjtm w297GoMbb7wwUCWtiHEtNA yvZRW2C33nd8D0EBZyBSMc ZJR8dLO2vS7nhZngirtmcQ VmdDsgdmVy dSgtVNdgVPteF071BOQmoA czQxYwjTNrO6xvzlUTDZ3f OjwvdGQ+GFCsTNE1aDarBQ xhLPRceZ5p PYXdA9i2LmOuMzD7WXnpN8 EhcyW6ZQZwlPLtZIEqySXL vO7nedqwd3abcaekBkCqCU PbSJp7KBa5 PDLclOtrVwPeGQQ8CbU9IH B2lHCjhZ5moJiyphixgX4b Oyc+RklOOjwvdGQ+PHRkIH K5sDqgGFpe HPBmrG8fQATaE6y9MeUnIw K7UXbfQ3IzvqA4YIOsrAIg DHKroEUUzR5jexeof1ilny ogIzAwMDAw JIk6PXv8GXAdnIqrDjNqFJ G1VzM4RIB9dTEufK2feHnc vbokwI6xApf+TVJOOjwvdG Q+PHRkIHN0 dLfsJTqwFLOqdD0wBFBsY6 t2KrQcGtC8DMxkQ1KpztV7 DUIadWRbLQYmvHYAoC5ajb rxj8qyzolg VzIjGQTfYVr0DRc5DGNptR ncGxDlMCB8TnM8KMM2rCJw xT8roYcpffrxfJ6hIue+UG H9DZD8AP10 GB75W2EnMniqnXMqeND+PH RhYmxlIHdpZHRoPScxMDAl JiEdbVacJH6bDu4fPDXgEH NvbGxhcHNl OiB (more content not included)... [facility] Consent Formson 02-07-2025 Consent Forms [id number] 02 [id number] OTGTIFF [facility] CT Upper Extremity w/ Contra st [place] 02-04-2025 CT Upper Extremity w/ Contrast Right EXAMINATION: CT Upper Extremity w/ Contrast Right HISTORY: Localized swelling, mass and lump, right upper limb, Localized swelling, mass and lump, unspecified COMPARISON: None. TECHNIQUE: Helical CT images of the right upper extremity were obtained with contrast Dose reduction techniques were achieved by using automated exposure control and/or adjustment of mA and/or kV according to patient size and/or use of iterative reconstruction technique. FINDINGS: No acute displaced fracture or dislocation is evident. The elbow joint appears congruent. Common extensor and enthesophytes are present. Mild osteoarthritis of the elbow. No joint effusion. Radiocarpal and intercarpal alignments appear maintained. No bony erosive or surgical changes identified. Along the ulnar aspect of the mid forearm, there is subcutaneous edema and skin thickening. A discrete soft tissue mass is not evident. A discrete drainable fluid collection or abscess is not evident. The regional soft tissues are otherwise unremarkable. IMPRESSION: 1. Nonspecific skin thickening and subcutaneous edema at the palpable area concern. Discrete drainable fluid collection or abscess is not evident. 2. Degenerative changes without acute osseous abnormality. Final Dictated by: Fausto Masters MD Dictated DT/TM: 02/07/25 12:55 Signed (Electronic Signature): Fausto Masters MD 02/07/25 12:57 p Technologist: VENKAT ZIMMER [facility] Coding Summaryon 02-03-2025 Coding Summary HTMLBase 64 JjpetnufKCq4wVf+PGhlYW Q+FU8FPLFxP84rpVKfsJ4r D9HXLSdVTvqaWEDJTPwCXk WwujAhRV4riIYeWXEp IC8+ID0vTRYoXndfiNWwf9 E4kGC1A23ydo4yLNwaxNJ5 QMPkDgSbeqllr0yylAq6GU cuNmluOyBt QWVdwE42ABO1mI76Qw71bX QdcLQyp6bmkHm1ZbRmARHt DFN0fRkoONjfw1HdFPVfD4 2dlXFaq4M8 PYKeqVdikSEuUdEicOY9zV 5uEHksxxokm7lkvzubQth4 qx41tAIui4C9nGG2C5Xtax V8ZZKrjEJo HgolfIRBhX1rmqpxv1xyan kyWmAyGIBxTAh5ZEa3SYOu pJumViRiKF07HJN6BRTekj EdS5VnKCUu fAagWlD0m4A9Cj1HC0SDSd nlA7BJENKNCXbnpBL+PC90 co31V8FeAprhDfg2OSMaEP H7tYM4eC1t DHQqANomt9U7sZN0G0Xeri Tbxk0rq8aaESDtWIhkW18c sCPtc4N6MBUwcZC9TFFimR chGdZabX75 Oyc+UDJonZqvx1EkQqnmb7 cui2wrfAk3ViliTKXhbbKm oGvzXAG2l9WwRq5fSVDsxF F4gKT8iX9a IaKeCqT2UFjvV628YrXhqB WtPrrzC29dF6BffJM+PHRy Mjn0BFTtsYhkDQ9wG6HlIT RpbmctbGVm yIyeBB7xVHJvqbbwRPChyX 1qBBIxF1b1OxKsOpY8FVgj A7DjXHXrychzKc87oP7wKr VhYfR1QWoj Q6GileP4RJSvkRUjUFyvHI S0L54lc2V9NGMrDKSaCBJ1 vTW0kU8mhDpijsymlLFxeQ sgdmVydGlj UKinBCvcN906CJVjeSooNh NvZGluZyBEYXRlOiAgMDcv MzEvMjAyNTwvdGQ+PHRkIH Y7sCtyHYHg cEZtWWjdWu8kuXeyeCfzXR 9uANZtrcwcEOJtdU0rVNXb wFDrqOcnLW2sCEBjnbwwp6 46HoTwOOP6 VSUgkXEfT0YpgX3jVtFyZW BzUYMbP1DxzZGySVjxR506 ITqhDvL8BJQzxyNgA4ReQU FsaWduOiB0 b4T6Df9Mi8JbzxhdA2CxdZ ZiFoMaCrymOAp9Y2EwYqyi dHI+WM42OLOkUN06YOk0UV X6eIymYRul ZLMcA8FkxB6tGfUhVNDnZR RkOyc+PHRhYmxlIHdpZHRo AYkqGKBpXbXgfQgfIM9xHg 9yZGVyLWNv jVgixGKeBpNdb9qaUGKkRE vtZN8fvGyaJ7BjmGR3TTXz y6t0Qy31F07nP5UfdXR+PG VikOZ0hNM5 bL6zZqFaVsV9UPduZ335Mv XisPBdYmygc2zlk7sgeWh5 NhC4CRKqapXnfJsoVLY5p9 GcLf63Z21y IHdpZHRoPSIxNSUiIHZhbG zamx6svX0nAm4+PGNvbCB3 wMO6aQ9kVrDiJmN4KXruV6 49InRvcCIv Ujxxd7cop5tgbJe8BvTtGI ZcfkQrwVppNJA4p7NtAz62 N0NhiTzpt4LhGba0su82cS Zrq6I7nWS2 N9BwYVNdpafakGBiuEpeHV 2lVTKamddxALMdkV8xSSNe O9r2IqEzZxQ5QZkeQ2Ekpc D7YXTcfRBo AKSkcCTVmM5jqqslr9dwuj vcVgYyTSOmPRq5OYt4SHHd vTyfEgWwKLA4RsW6XRO8kC VyqO9jbOcu pouefD7aKwf+JEN0tOVuuJ VMQA1cKfrzcQW+PHRkIHN0 iYrcQIhvUZVywA8aSRBoE8 z5WqFqJtX2 XQdgW0SrrnO8KIFncHGpFS WbeAWAmU8zeerxi5mluzrd KsJxCFDcWOi7XLi4UXQshJ duOiBsZWZ0 XuL9MHO4kPGfyI3rzOsotq ijpR2iGbf+QmlydGggRGF0 TCv8T0RnZmw3SFJgbGmqQG 0ncGFkZGlu Kc9ghRquaLhqUV4ySWMflt dty541KgRfd5iaQAFspIQj LUneHVH2M81pq0R1LPPmZH WkYQX0uTW9 bB4fiRmzprmlbVRcrNntkj RnkHwgSOdpCMnbF722DPQy fBsqNaZvBHz0V1RhCah6XI ZnyIitEA6s rIJtBMfwNp0tyNnfyKcnHT 3tWMWxhulom466ZoUtn5ln LOEpyXBgMMopMYB6H29fz3 D7LYViCGOu PMC8hGS3tV8jcWsfkxkfeC VmdDsgdmVydGljYWwtYWxp E004VMNtcSwbDwJtvLh0F6 PaHfg9IRUv zSyqYR5fxMKqMAudWi5iqS ilyAasCI8cSFEopdcxq691 CeOab7oaHTRufQRoHXgvNR F0Z73kz3G2 IDZgFAGdVNJ4jOH0hT1zuO lnbjogbGVmdDsgdmVydGlj GQtiGCmsX407FICkdKsbJv BhdGllbnQg TDquTCu0V7LsMtybzCL+PC 38GVGnEI97eSOdvXPdb3wg jXv6KdAoRVQgRDD8zUnbLW sfa1DaDKGp R83wsVDsk9K9PTDduCylzL YmJnImpKK3wZ7nBPmfsyny u9lepckhKbbkw7oawq29qR 97Z18oZUtl ZHRoPSIzMCUiIHZhbGlnbj 8rbK2kPa0+KPKkqHJ1dOH0 cH9rYNOzXbG3NMdeN192Zq RvcCIvPjxj d2qte3rolJk3PkA4APMgza HbjYxrNVU8g7TeJp14C77z IHdpZHRoPSIyMCUiIHZhbG oqgu4yrQ7v Ii8+TVRsmZP6sIJ8tW5mJd TcJiN8VRumL861GjItnVDp FsrpB36jX2MqdWD+PHRyPj z2VQVogOvq TD0oxQVsLEzzIt1uDLW5Mx TiVxGuRDzmH6FhIUHulqmc ibwenPV3XWSkLYPmoJ17Mq 9udDogMTBw mLGLtW5rkqisk8ktkpvyTm EhQMXmMIl8INv6SKZdmHbb QiXtELA3IcM9OKJ2iWJmmX 1hbGlnbjog mB8lK1LmDGBvtldiEe51eY 0uTaJzEuM4RNsbYdx+Rk9S TkVZLCBMSVNBIEVMTEVOPC 24ZS79hCEv n7V0kFS7D0SvIUMeuyzovb xfhUJ4WQLsGFNxpR41hJLl VMhhTm5go7G3g185MBJdLC ZisY49Up8s vHryEZIpgKKGeC8bzaike4 loattdNlMvGCVaXBi8KJf1 AZDnyWeoVzEhWUV1CjP6QR C9eZPskX9t eGjyeqnfrY7xRcg+MDMvMT GbKUh8GbxsvKE+PHRkIHN0 yQyiXXryZRWxqC2gSGLvJ1 z6FuQbXcX0 OCjqK0WhAOQbvfucOc52dM 8hCaNzZoA4GUokL0JnurC4 ISIqwMEjAShdBXR3F47an7 I3WKWzPQPw BZR7bST0bS5qgJeodznpeY VmdDsgdmVydGljYWwtYWxp U443KXWazRysVlV7TIfpQH ZqZC53WI74 xNFyd1C7iPC4P4SeWLVslu xvctgduJP4YGDiCNZfsW55 nLUoXUbnFr4xm6F4b417AC QpARYioV08 Jk4uuZgnLQImlAQVdA3oqq hvb3djuyesLjLrMZWbJOk4 PGe1FNHcdTxoMjYtYFI3Vg X2FJI7dRMf cR7zhHlvunynsG4qJhu+Rk KZBKaDOK40AG69dYOsl3I7 sTZ5J0SrIAFbbtubxmugaJ E5KVIgCCFa lW68lINcNJtaCv3wb0K1j3 62ZIUbMPIznJ11Eb9pqHkq QENazJFTbS9odzubz2ofqo ogIzAwMDAw HCj2HMi6IAVohXbsXmOgNS Q1TiF8RRX3jXCkqH4rjMcb lzxjtS8oInq+V4B3E4WyGu wvdHI+PC90 DPNjZD85iZZxjXOwy5deoC x1WqMcRDRqOBJ2bKezFGem m4ZaTQBoP03ngCPuv5D7QE NvbGxhcHNl UuOsuZI0nM1yYFrzgwodi1 hlhfymBohoo3fmky54pI86 U16sPMltECSmMTGjBQVmKZ BzrLugem8y gO7xYr9+MDGqdIT9iSS3eJ 6xYiRzHfI8HOslA973BmKq gVHbLgogn9pzk4dlvAg9Re IwJSIgdmFs bDbcFCQ0g9MyVa76I96wUH dpZHRoPSIyMCUiIHZhbGln pf3idS2cIq1+MG8gf6wiki 33gE91iPF+ IONaKHQ2xGslRHoaUYZoxA 3aLCqeBeY7LYMrPlZvnX50 bWAeLJsoQo8akNydeRkmXF 4wNTBpbjtm b944ZmJpk6kdQVNarDWeIT ybAWQ4Z51nz2F9FDPyNYLl FXT6rXA6aC5ssLyjxewnnF VmdDsgdmVy sHhgYUjqDUxeN775YIMdfC qgCyBniMHfB6hwqbMQXR4v OjwvdGQ+IEBqTQM3fXzkNX nvUYXadO5g KRTrW8m6GgLzXxX0CPseU9 DvvqJ6JOXimQKoORXrnPOY mW2qugdcl6okhsrlGbJdHE RwPTv0UPw1 TCZplNodLwFaWYF5LkP1JJ T1aVMqmF3eeMnddporhV6b Oyc+RklOOjwvdGQ+PHRkIH Q1eCihFZlv BQTrjM4tYQMqA5i2VoIyGr G4HVvuC1PnenV0KKNhmUJg FZMupGRHcR6foxbza2dvvf ogIzAwMDAw IAg7WRr3SCNqgKvgUsXiZE M1HhN3XOO5jIDykU7bdVwx offtgF2cYvb+TVJOOjwvdG Q+PHRkIHN0 dVxtDAvcDQSglV2uYRRuT3 m6ElFgYfA4PPlgH4FjyoF2 XWOksYYdTSVyoNTOpM5ocx sbs3ghjllz BiWyJSAvUQy8ILi2FKKvnK wtAvLnTFT2IxQ8OXF4lMIx uC0luVygugaeoE8aXxj+UG H7RNX5CH91 SY51D5SxTozgpTYoiEC+PH RhYmxlIHdpZHRoPScxMDAl YeYvgJjmHC4gYf6xIOTkKG NvbGxhcHNl OiB (more content not included)... Normal [facility] Thyroid Antibodies LCon 01-06 Thyroglobulin Antibody LC <1.0 Invalid Interpretation Code 0.0-0.9 [facility] Comment on above: Result Comment: Thyr oglobulin Antibody measured by [employer] It should be noted that the presence of thyroglobulin antibodies may not be pathogenic nor diagnostic, especially at very low levels. The assay manufacturing engineer has found that four percent of individuals without evidence of thyroid disease or autoimmunity will have positive TgAb levels up to 4 IU/mL. Performed At: [address] [id number] [facility] Ph:[phone] Performed By: #### 1 [id number] ####[facility] (DEFAULT)[address] [place] [id number] Thyroid Peroxidase (TPO) Ab LC <9 Invalid Interpretation Code 0-34 [facility] Comment on above: Performed By: #### 1 [id number] ####[facility] (DEFAULT)[address] [place] [id number] Hepatic Function Panel Stand constanza 02-01-2025 Albumin [Mass/Vol] 3.9 g/dL Normal 3.5-5.0 [facility] Comment on above: Performed By: #### 1 [id number] #### [facility] (DEFAULT) [address] [place] [address] Albumin/Globulin [Mass ratio] 1.0 {ratio} Low 1.4-2.6 [facility] Comment on above: Performed By: #### 1 [id number] #### [facility] (DEFAULT) [address] [place] [address] Alk Phos 122 IU/L High 32-91 [facility] Comment on above: Performed By: #### 1 [id number], 3000556184, 31658860 #### [facility] (DEFAULT) [address] [place] [address] 46652 ALT [Catalytic activity/Vol] 24.0 U/L Normal 14.0-54.0 [facility] Comment on above: Performed By: #### 1 [id number], [id number], 26614414 #### [facility] (DEFAULT) [address] [place] [address] 37919 AST [Catalytic activity/Vol] 31 U/L Normal 15-41 [facility] Comment on above: Performed By: #### 1 [id number], 7751233360, 57545047 #### [facility] (DEFAULT) [address] [place] [address] Bili Direct 0.10 mg/dL Normal 0.10-0.50 [facility] Comment on above: Performed By: #### 1 [id number], 5886767787, 30286273 #### [facility] (DEFAULT) [address] [place] [address] Bili Indirect 0.8 mg/dL Normal 0.2-0.8 [facility] Comment on above: Performed By: #### 1 [id number], 3721411491, 03550833 #### [facility] (DEFAULT) [address] [place] [address] Bili Total 0.9 mg/dL Normal 0.3-1.2 [facility] Comment on above: Performed By: #### 1 [id number], 6117507485, 64182332 #### [facility] (DEFAULT) [address] [place] [address] 98680 Globulin (S) [Mass/Vol] 3.9 g/dL Normal 1.5-4.3 [facility] Comment on above: Performed By: #### 1 [id number], 0085299142, 19351831 #### [facility] (DEFAULT) [address] [place] [address] 63441 Protein [Mass/Vol] 7.8 g/dL Normal 6.5-8.1 [facility] Comment on above: Performed By: #### 1 [id number], 6549008334, 41624289 #### [facility] (DEFAULT) [address] [place] [address] 76996 Lipid Panel Standardon 02-01 Cholesterol [Mass/Vol] 206.0 mg/dL High 66.0-200.0 [facility] Comment on above: Performed By: #### 1 [id number], 6054309766, 68641319 #### [facility] (DEFAULT) [address] [place] [address] 44945 Cholesterol in HDL [Mass/Vol] 43 mg/dL Normal 40-71 [facility] Comment on above: Performed By: #### 1 [id number], 1761743032, 34508619 #### [facility] (DEFAULT) [address] [place] [address] 42207 Cholesterol in LDL [Mass/Vol] 142 mg/dL High 1-100 [facility] Comment on above: Performed By: #### 1 601934031, 6076221612, 28981003 #### [facility] (DEFAULT) [address] [place] [address] 03243 Cholesterol.total/Choles terol in HDL [Mass ratio] 4.7 {ratio} High 0.0-4.5 [facility] Comment on above: Performed By: #### 1 053306443, 4928063152, 06704716 #### [facility] (DEFAULT) [address] [place] [address] 42979 Triglyceride [Mass/Vol] 107.0 mg/dL Normal 0.0-150.0 [facility] Comment on above: Performed By: #### 1 [id number], 8591115623, 54132404 #### [facility] (DEFAULT) [address] [place] [address] 64346 VLDL. 21 mg/dL Normal 5-40 [facility] Comment on above: Performed By: #### 1 522229828, 3956758023, 30701690 #### [facility] (DEFAULT) [address] [place] [address] 58981 Provider Orderson 02-01-2025 Provider Orders [id number]#1. 00OTGTIFF Normal [facility] Provider Orders [id number]. [facility] [id number]#1.00 [facility] E[facility]adiol LCon 01-28-2025 Estradiol LC <5.0 Invalid Interpretation Code [facility] Comment on above: Result Comment: Adul t Female Range Follicular phase 12.5 - 166.0 Ovulation phase 85.8 - 498.0 Luteal phase 43.8 - 211.0 Postmenopausal <6.0 - 54.7 1st trimester 215.0 - >4300.0 Huong ECLIA methodology Performed At: [address] [id number] [facility] Ph:[id number] Performed By: #### 1 [id number], 11356629, 007115089, 09296283, 8052495, 92942226, 05163528, 6244984, 29388196, 1776945649, 9555075136, 82722712, 3969433, 21861211, 1653750 ####[facility] (DEFAULT)[address] [place] [address] 13219 FSH and LH LCon 01-28-2025 FSH LC 62.4 mIU/mL Invalid Interpretation Code [facility] Comment on above: Result Comment: Adul t Female Range Follicular phase 3.5 - 12.5 Ovulation phase 4.7 - 21.5 Luteal phase 1.7 - 7.7 Postmenopausal 25.8 - 134.8 Performed At: [address] [id number] [facility] Ph:[id number] Performed By: #### 1 038844955, 24863802, 418537576, 42375538, 3959827, 72320214, 49461616, 6421911, 15106197, 1527361228, 1072899029, 81317068, 7057334, 97181414, 5701643 ####[facility] (DEFAULT)[address] [place] [address] 19426 LH LC 36.0 mIU/mL Invalid Interpretation Code [facility] Comment on above: Result Comment: Adul t Female Range Follicular phase 2.4 - 12.6 Ovulation phase 14.0 - 95.6 Luteal phase 1.0 - 11.4 Postmenopausal 7.7 - 58.5 Performed By: #### 1 493932511, 17043105, 473904259, 54240033, 7365111, 95180829, 31433833, 7611028, 20994517, 2059315643, 6877700599, 35854137, 7566299, 40847856, 1521617 ####[facility] (DEFAULT)[address] [place] [address] Insulin LCon 01-28-2025 Insulin LC 5.2 uIU/mL Invalid Interpretation Code 2.6-24.9 [facility] Comment on above: Result Comment: Perf ormed At: [address] [id number] [facility] Ph:[phone] Performed By: #### 1 300663533, 75118679, 148005780, 57352022, 5201103, 94918389, 89329625, 0272309, 40804354, 3866900593, 6011380428, 11682728, 4720594, 96190848, 0892819 ####[facility] (DEFAULT)[address] [place] [address] 07154 Progesterone on 01-28-2025 Progesterone LC 0.4 ng/mL Invalid Interpretation Code [facility] Comment on above: Result Comment: Foll icular phase 0.1 - 0.9 Luteal phase 1.8 - 23.9 Ovulation phase 0.1 - 12.0 First trimester 11.0 - 44.3 Second trimester 25.4 - 83.3 Third trimester 58.7 - 214.0 Postmenopausal 0.0 - 0.1 Performed At: [address] [id number] [facility] Ph:[phone] Performed By: #### 1 036192889, 87648139, 309362396, 02670948, 4689534, 77134693, 63677662, 8417959, 90923525, 8600359767, 8298151766, 93236820, 5956314, 16975127, 3458082 ####[facility] (DEFAULT)[address] [place] [address] 78086 T3 Free LCon 01-28-2025 Triiodothyronine,Free,Se rum LC 3.3 pg/mL Invalid Interpretation Code 2.0-4.4 [facility] Comment on above: Result Comment: Perf ormed At: [facility] [address] [id number] [facility] Ph:[phone] Performed By: #### 1 224823655, 95411820, 910978445, 45711867, 3342337, 84772307, 07297330, 9517874, 20016099, 3806867038, 5342389997, 62269168, 0396105, 97335774, 6084572 ####[facility] (DEFAULT)[address] [place] [address] .Auto Diff 1on 01-27-2025 Auto Cotton % 12 % Normal 1-12 [facility] Comment on above: Performed By: #### 1 669582068, 00621753, 559390449, 93047029, 1954858, 95363662, 85592830, 6450444, 70482203, 3495341533, 7343166324, 80673776, 4052114, 76473494, 8033182 ####[facility] (DEFAULT)[address] [place] [address] 92502 Baso Abs# 0.1 x10 Normal 0.0-0.2 [facility] Comment on above: Performed By: #### 1 238182910, 55471584, 069140843, 95534067, 6374999, 20998171, 15276931, 0999681, 63509370, 6046666847, 7414358204, 96642817, 8389760, 16395001, 3298136 ####[facility] (DEFAULT)[address] [place] [address] 23341 Basophils/100 WBC (Bld) 1.0 % Normal 0.2-2.0 [facility] Comment on above: Performed By: #### 1 290644004, 32353413, 854394766, 32576926, 7644715, 09436867, 42800528, 8785886, 25776212, 1498092813, 7504921915, 90787312, 8390131, 03176459, 1789879 ####[facility] (DEFAULT)[address] [place] [address] 10677 Eos Abs# 0.2 x10 Normal 0.0-0.4 [facility] Comment on above: Performed By: #### 1 327960296, 88785871, 428881435, 63475026, 2975620, 78846976, 92449012, 9373695, 23713173, 4032935003, 0281238168, 82062803, 1569550, 20085835, 3601105 ####[facility] (DEFAULT)[address] [place] [address] 19048 Eosinophils/100 WBC (Bld) 3.6 % Normal 0.9-4.0 [facility] Comment on above: Performed By: #### 1 191147763, 93680199, 410867114, 42057633, 7940564, 89411114, 70171692, 8919304, 57173675, 3142962688, 7096576137, 09377075, 5552841, 02323969, 8053034 ####[facility] (DEFAULT)[address] [place] [address] 60787 Lymph Abs# 1.2 x10 Low 1.3-2.9 [facility] Comment on above: Performed By: #### 1 021484515, 66664313, 811149830, 77073954, 9487396, 42119166, 92808388, 3219574, 94053214, 6346996902, 0344002719, 82033165, 2493573, 84602675, 4638245 ####[facility] (DEFAULT)[address] [place] [address] 23799 Lymphocytes/100 WBC (Bld) 18 % Normal 14-48 [facility] Comment on above: Performed By: #### 1 916265937, 80541575, 223160002, 24926632, 4334885, 39125817, 48646034, 0451954, 27300912, 5331974732, 7043090857, 37769680, 0500611, 55513793, 2876000 ####[facility] (DEFAULT)[address] [place] [address] Cotton Abs# 0.8 x10 Normal 0.0-0.8 [facility] Comment on above: Performed By: #### 1 255886741, 37101091, 048792349, 35409021, 1927057, 57249246, 45106530, 8239339, 86577053, 6967210542, 8700619247, 53902905, 7173427, 33799376, 5102886 ####[facility] (DEFAULT)[address] [place] [address] Neut Abs# 4.1 x10 Normal 1.5-9.2 [facility] Comment on above: Performed By: #### 1 712208831, 47572010, 090904919, 32408296, 9648109, 26498860, 71157182, 2442321, 26413185, 4471602017, 3373876048, 89248756, 2791506, 61531990, 4589527 ####[facility] (DEFAULT)[address] [place] [address] 63107 Neutrophils/100 WBC (Bld) 65 % Normal 44-88 [facility] Comment on above: Performed By: #### 1 556010103, 47937992, 753491250, 64301599, 2135315, 47239212, 55638777, 5773051, 48311430, 3866907298, 4261789808, 22337983, 2740109, 49999562, 0267422 ####[facility] (DEFAULT)[address] [place] [address] 92485 CBC w/ Auto Diffon 5 Erythrocyte distribution width (RBC) [Ratio] 13.2 % Normal 11.5-15.0 [facility] Comment on above: Performed By: #### 1 335191376, 79991694, 596174614, 41466248, 8295463, 69237779, 08614398, 9105844, 53189922, 5924891952, 6074969821, 04177123, 7941557, 35813385, 5892587 ####[facility] (DEFAULT)[address] [place] [address] Hematocrit (Bld) [Volume fraction] 41.4 % High 33.7-40.4 [facility] Comment on above: Performed By: #### 1 854108906, 36057002, 116257058, 60191344, 4428250, 66690663, 15899510, 2968753, 65110296, 5876331178, 1083280723, 80277942, 5320407, 98124659, 9707519 ####[facility] (DEFAULT)[address] [place] [address] Hemoglobin (Bld) [Mass/Vol] 14.7 g/dL Normal 11.3-15.9 [facility] Comment on above: Performed By: #### 1 472427905, 86122063, 425789247, 73693101, 4365257, 18201001, 07257012, 3829036, 73568589, 0913169656, 6838585061, 55042890, 4698315, 99282870, 1453102 ####[facility] (DEFAULT)[address] [place] [address] Man Diff? Auto Invalid Interpretation Code [facility] Comment on above: Performed By: #### 1 093170666, 17405577, 842265071, 86806265, 6524464, 54516119, 54879404, 7138880, 32515233, 9167162145, 9546914571, 57352060, 6872516, 79791179, 7981015 ####[facility] (DEFAULT)[address] [place] [address] 95204 MCH (RBC) [Entitic mass] 32 pg Normal 24-34 [facility] Comment on above: Performed By: #### 1 594203877, 49682895, 413732512, 73527502, 8907393, 28949202, 40505641, 9242710, 08521314, 0490263523, 0050410662, 76589709, 9643686, 93228975, 4243464 ####[facility] (DEFAULT)[address] [place] [address] 17988 MCHC (RBC) [Mass/Vol] 36 g/dL Normal 26-37 [facility] Comment on above: Performed By: #### 1 573828382, 93256785, 457486855, 83544980, 5134700, 15282257, 71500933, 6773049, 47327882, 0899355080, 7109227855, 31449188, 1035370, 14858994, 0663175 ####[facility] (DEFAULT)[address] [place] [address] 93292 MCV (RBC) [Entitic vol] 90 fL Normal 81-100 [facility] Comment on above: Performed By: #### 1 593866942, 67090114, 755670715, 23320723, 3192299, 10452332, 10416604, 9056233, 70639884, 7118399513, 9831387679, 21641162, 3461744, 69989189, 4110169 ####[facility] (DEFAULT)[address] [place] [address] 48718 Platelet 293 x10 Normal 138-427 [facility] Comment on above: Performed By: #### 1 178200053, 66578836, 215970896, 68815681, 5726217, 36010699, 54591697, 3513263, 75126840, 6313421884, 5765773302, 52124897, 2524522, 19750211, 9541998 ####[facility] (DEFAULT)[address] [place] [address] 18589 Platelet mean volume (Bld) [Entitic vol] 7.6 fL Normal 6.3-10.2 [facility] Comment on above: Performed By: #### 1 665193021, 41294813, 426487571, 72642233, 9355700, 71734291, 40336725, 4968857, 82275706, 3909417309, 8859411348, 37357375, 7779529, 02634496, 9391893 ####[facility] (DEFAULT)[address] [place] [address] 43574 RBC 4.62 x10 Normal 3.70-5.30 [facility] Comment on above: Performed By: #### 1 715735905, 29386308, 489667332, 46125338, 0101052, 11651466, 14218453, 6158034, 29848918, 5476383874, 1290905874, 65960662, 7174626, 82160450, 4309787 ####[facility] (DEFAULT)[address] [place] [address] 00373 WBC 6.4 x10 Normal 3.5-10.5 [facility] Comment on above: Performed By: #### 1 455943515, 52413701, 424780954, 43627728, 4418475, 31527514, 55390275, 4076434, 32600800, 0390650057, 7489757286, 54837986, 6442106, 82728222, 7315059 ####[facility] (DEFAULT)[address] [place] [address] 71405 [facility] 01-27-2025 eGFR Non AA >60 Invalid Interpretation Code [facility] Comment on above: Performed By: #### 1 524828326, 91773023, 352483621, 01511221, 8663011, 05057075, 51907720, 3466692, 71484273, 4404588100, 9532020725, 50366581, 2960999, 98554245, 9622433 ####[facility] (DEFAULT)[address] [place] [address] 53992 eGFR AA >60 Invalid Interpretation Code [facility] Comment on above: Performed By: #### 1 456236463, 28600507, 041834099, 16148680, 0081315, 66110614, 94111372, 8637912, 95626613, 5112314351, 3752661057, 22268360, 8367799, 59575102, 6892788 ####[facility] (DEFAULT)[address] [place] [address] 62885 Albumin [Mass/Vol] 4.0 g/dL Normal 3.5-5.0 [facility] Comment on above: Performed By: #### 1 942275197, 95316487, 120363263, 69810911, 7490094, 86446253, 74496847, 9870724, 65710155, 0678021100, 4949712214, 80949343, 5231687, 49494972, 5284446 ####[facility] (DEFAULT)[address] [place] [address] 28061 Albumin/Globulin [Mass ratio] 1.1 {ratio} Low 1.4-2.6 [facility] Comment on above: Performed By: #### 1 684242331, 39226166, 475219456, 45982898, 4306662, 24324956, 57934431, 9982042, 48515514, 9928051742, 2442908554, 34215821, 9334905, 04529564, 3965130 ####[facility] (DEFAULT)[address] [place] [address] 24788 Alk Phos 118 IU/L High 32-91 [facility] Comment on above: Performed By: #### 1 337116500, 23334843, 161447595, 74747103, 5745458, 97150242, 53717085, 3937716, 76827535, 1008637170, 4306896246, 77708282, 0960336, 74680067, 7463180 ####[facility] (DEFAULT)[address] [place] [address] 27240 ALT [Catalytic activity/Vol] 23.0 U/L Normal 14.0-54.0 [facility] Comment on above: Performed By: #### 1 967326518, 07155420, 722460405, 52633391, 9751545, 34070446, 69269210, 4221316, 63169602, 1939360783, 8295303239, 53994077, 4624854, 81240292, 5895155 ####[facility] (DEFAULT)[address] [place] [address] 34143 Anion gap [Moles/Vol] 12.0 mmol/L Normal 5.0-19.0 [facility] Comment on above: Performed By: #### 1 219223370, 99538038, 552137034, 35172017, 9490569, 58525546, 95952016, 8795973, 30043751, 3876573583, 6018776442, 09892522, 2849691, 60725490, 0135307 ####[facility] (DEFAULT)[address] [place] [address] 46500 AST [Catalytic activity/Vol] 31 U/L Normal 15-41 [facility] Comment on above: Performed By: #### 1 138502277, 59326988, 560039268, 41182718, 5383860, 96131325, 08567512, 2182550, 20772117, 5319919257, 8545265058, 45260613, 5200848, 28143963, 5147702 ####[facility] (DEFAULT)[address] [place] [address] 42378 Bili Total 0.8 mg/dL Normal 0.3-1.2 [facility] Comment on above: Performed By: #### 1 717038981, 58546346, 687308156, 98183931, 8395906, 43778603, 44807605, 8829471, 12410098, 7495545682, 4218297736, 55467429, 4470383, 48529360, 7098839 ####[facility] (DEFAULT)[address] [place] [address] 17185 Calcium [Mass/Vol] 9.5 mg/dL Normal 8.9-10.3 [facility] Comment on above: Performed By: #### 1 004081492, 57142186, 697953982, 01410510, 1397876, 46426433, 56606968, 8843908, 90055745, 0821322043, 6048887933, 83825912, 7869250, 64966371, 2270860 ####[facility] (DEFAULT)[address] [place] [address] 39071 Chloride [Moles/Vol] 106 mmol/L Normal 101-111 [facility] Comment on above: Performed By: #### 1 001030347, 74282124, 656554627, 25923180, 2519206, 59535274, 92229609, 0239254, 18900727, 6843106413, 6677229439, 44053585, 9879254, 96286659, 6213144 ####[facility] (DEFAULT)[address] [place] [address] 50375 CO2 [Moles/Vol] 28 mmol/L Normal 21-32 [facility] Comment on above: Performed By: #### 1 724779697, 95585136, 404208364, 74083569, 3550061, 18546033, 85860441, 6067489, 12978918, 6793121581, 5029716360, 41589697, 2497251, 56233258, 2417820 ####[facility] (DEFAULT)[address] [place] [address] 30566 Creatinine [Mass/Vol] 0.63 mg/dL Normal 0.60-1.30 [facility] Comment on above: Performed By: #### 1 906855630, 97347579, 562478008, 91088157, 2170692, 85006212, 81851396, 2634412, 72938936, 6184888348, 6660057972, 65816293, 7073629, 87133657, 3095783 ####[facility] (DEFAULT)[address] [place] [address] 00028 Globulin (S) [Mass/Vol] 3.5 g/dL Normal 1.5-4.3 [facility] Comment on above: Performed By: #### 1 961721711, 91522812, 448997911, 43026721, 9794758, 51547554, 77922133, 8708012, 99628054, 1632950637, 7065695511, 39004962, 5354081, 47151644, 4924080 ####[facility] (DEFAULT)[address] [place] [address] 28812 Glucose [Mass/Vol] 94.0 mg/dL Normal 74.0-118.0 [facility] Comment on above: Performed By: #### 1 836275817, 68023016, 056524194, 03369622, 7772436, 66786920, 01012673, 1875217, 83515965, 1189506173, 0895242753, 34931703, 5046582, 74733665, 8925361 ####[facility] (DEFAULT)[address] [place] [address] 35204 Osmolality 281 mOsm/L Invalid Interpretation Code [facility] Comment on above: Performed By: #### 1 874537378, 66883603, 995909330, 52718963, 8326029, 56480617, 22671887, 5441750, 30881161, 9530297871, 5173436428, 20604098, 9446535, 49332281, 8842345 ####[facility] (DEFAULT)[address] [place] [address] 99367 Potassium [Moles/Vol] 4.0 mmol/L Normal 3.6-5.1 [facility] Comment on above: Performed By: #### 1 433078264, 18309417, 969634165, 01780954, 9274859, 73607253, 86199930, 4290324, 91092477, 2849816820, 0229859675, 25972631, 0736078, 20244664, 9754742 ####[facility] (DEFAULT)[address] [place] [address] 39179 Protein [Mass/Vol] 7.5 g/dL Normal 6.5-8.1 [facility] Comment on above: Performed By: #### 1 008885338, 67454082, 913489957, 08712290, 7795630, 12121562, 41274931, 8438739, 64600064, 1356829897, 7206473424, 99907216, 4354409, 14612710, 9265723 ####[facility] (DEFAULT)[address] [place] [address] 06783 Sodium [Moles/Vol] 142.0 mmol/L Normal 136.0-144.0 [facility] Comment on above: Performed By: #### 1 506710967, 12666515, 615877048, 58128953, 9908592, 14379519, 55980539, 4389165, 27932768, 7245214880, 2849270712, 59668349, 2096900, 73022087, 9370384 ####[facility] (DEFAULT)[address] [place] [address] 91672 Urea nitrogen [Mass/Vol] 8 mg/dL Normal 8- [facility] Comment on above: Performed By: #### 1 698990535, 63859647, 017077947, 77281048, 9919089, 87727956, 65524419, 5423870, 02095993, 2377415720, 9417781601, 40340774, 3582962, 30415255, 1314509 ####[facility] (DEFAULT)[address] [place] [address] 20916 Urea nitrogen/Creatinine [Mass ratio] 12.6 mg/mg Normal 4.6-16.2 [facility] Comment on above: Performed By: #### 1 157366306, 39796772, 739010897, 37082689, 9051477, 65409842, 24366228, 0471938, 07874113, 2430214746, 6558690453, 89098225, 7974723, 98981775, 8043583 ####[facility] (DEFAULT)[address] [place] [address] 33237 HgbA1c Standardon 01-27-2025 .Hb 15.0 Invalid Interpretation Code [facility] Comment on above: Performed By: #### 1 313744798, 97731088, 252327391, 39731552, 7827663, 69441975, 96999732, 3986238, 32965544, 5918719999, 1123597025, 64223447, 0092780, 38915911, 3888397 ####[facility] (DEFAULT)[address] [place] [address] .Hgb A1c 0.46 g/dL Invalid Interpretation Code [facility] Comment on above: Performed By: #### 1 [id number], [id number], [id number], 62008051, 9477539, 08070030, 24225527, 3226846, 63275536, [id number], 7204091131, 48834446, 1885898, 45199862, 6867816 ####[facility] (DEFAULT)[address] [place] [address] Glucose [Mass/Vol] 94 mg/dL Invalid Interpretation Code [facility] Comment on above: Performed By: #### 1 [id number], 57222667, 660956102, 03712157, 2326464, 86161394, 63434021, 4895458, 88566976, 6201038872, 1394269243, 72422110, 4495476, 76946042, 3902773 ####[facility] (DEFAULT)[address] [place] [address]2274 HbA1c (Bld) [Mass fraction] 4.9 % Normal 4.6-6.2 [facility] Comment on above: Performed By: #### 1 [id number], 83067201, 604590053, 63719941, 4174477, 33308081, 15450236, 4154666, 06841156, 6861409787, 4852250537, 34630433, 0995887, 03118026, 7213962 ####[facility] (DEFAULT)[address] [place] [address] 49345 Iron Levelon 01-27-2025 Iron [Mass/Vol] 83.0 ug/dL Normal 28.0-170.0 [facility] Comment on above: Performed By: #### 1 [id number], 62048149, 993229597, 89091481, 7594542, 94928424, 87094391, 8391629, 94978654, 4994949720, 0719809776, 20757359, 4434546, 49465709, 7347520 ####[facility] (DEFAULT)[address] [place] [address] 39392 Lipid Panel Standardon 01-27 Cholesterol [Mass/Vol] 221.0 mg/dL High 66.0-200.0 [facility] Comment on above: Performed By: #### 1 [id number], 20562670, 248221549, 36218018, 3184798, 56230352, 79467256, 9796103, 71964025, 6535607143, 9288486110, 35304251, 0075081, 69772623, 7630659 ####[facility] (DEFAULT)39 [place] [address] 77352 Cholesterol in HDL [Mass/Vol] 44 mg/dL Normal 40-71 [facility] Comment on above: Performed By: #### 1 [id number], [id number], [id number], 20390204, 7793617, 89607293, 56905309, 9541053, 74286059, [id number], 0101444459, 00081955, 7313265, 45955100, 0227870 ####[facility] (DEFAULT)[address] [place] [address] 46760 Cholesterol in LDL [Mass/Vol] 160 mg/dL High 1-100 [facility] Comment on above: Performed By: #### 1 [id number], [id number], 320365255, 02251283, 5673485, 67928621, 10542239, 7014089, 91844025, [id number], 9151036271, 35830428, 6344554, 45408864, 9210427 ####[facility] (DEFAULT)[address] [place] [address] 11289 Cholesterol.total/Choles terol in HDL [Mass ratio] 5.0 {ratio} High 0.0-4.5 [facility] Comment on above: Performed By: #### 1 [id number], 95229504, 099173334, 39868360, 1395117, 02824964, 51841659, 2094739, 94906183, 3427351663, 1123526045, 90493325, 7571296, 49751656, 7393674 ####[facility] (DEFAULT)[address] [place] [address] Triglyceride [Mass/Vol] 83.0 mg/dL Normal 0.0-150.0 [facility] Comment on above: Performed By: #### 1 [id number], 55872421, 665666553, 57733546, 8784271, 50593889, 75372117, 2558766, 51302352, 1456193320, 9276469303, 15353365, 6041074, 63565478, 3942602 ####[facility] (DEFAULT)[address] [place] [address] 55852 VLDL. 17 mg/dL Normal 5-40 [facility] Comment on above: Performed By: #### 1 [id number], 42540549, 659927038, 01760940, 4378211, 44798762, 10706563, 9243665, 69748876, 4098294536, 8539122711, 75174392, 9297523, 47428707, 1334545 ####[facility] (DEFAULT)[address] [place] [address] 32270 Procalcitoninon 01-27-2025 Procalcitonin 0.070 ng/mL Low 0.500-1.000 [facility] Comment on above: Performed By: #### 1 [id number], 84197976, 907275046, 28231839, 7046537, 88269478, 25730594, 8936591, 77147256, 1557877308, 2675203500, 42689461, 5438957, 46467536, 2428040 ####[facility] (DEFAULT)[address] [place] [address] 28973 Provider Orderson 01-27-2025 Provider Orders [id number] 0OTGTIFF Normal [facility] T4, Totalon 01-27-2025 T4 [Mass/Vol] 13.43 ug/dL High 6.09-12.23 [facility] Comment on above: Performed By: #### 1 [id number], 75843031, 600279502, 27651792, 9891752, 44651582, 35731003, 2548538, 21113903, 8541796689, 4006746634, 85167585, 3878951, 09586382, 7402483 ####[facility] (DEFAULT)[address] [place] [address] 62067 TSHon 01-27-2025 TSH Qn 1.35 m[IU]/L Normal 0.45-5.33 [facility] Comment on above: Performed By: #### 1 [id number], 12185402, 800864406, 18933125, 2293036, 88093004, 50262002, 3546466, 15372332, 2671222897, 0647600708, 80273626, 0171004, 16943645, 4989130 ####[facility] (DEFAULT)[address] [place] [address] 58873 Vit D25 OHon 01-27-2025 Vitamin D 25 OH 40 ng/mL Normal 30-100 [facility] Comment on above: Performed By: #### 1 [id number], 01588469, 275648901, 79453917, 9087085, 27032197, 97133458, 2777702, 40430202, 8193583679, 2174127016, 26244150, 2004736, 66104338, 7733395 ####[facility] (DEFAULT)[address] [place] [address] 40455 YAG CAPSULOTOMY OD (RIGHT EY E)on 08-17-2024 [facility] YAG CAPSULOTOMY OS (LEFT EYE )on 08-17-2024 [facility] ANES POSTPROC EVALon 024 ANES POSTPROC EVAL HNO ID: [id number] Author: ARIEL DILLON II, DO Service: Anesthesiology Author Type: Anesthesiologist Type: Anesthesia Postprocedure Evaluation Filed: 04/07/2024 14:45 Note Text: POST ANESTHESIA EVALUATION NOTE : 1965 Procedure Summary Date: 04/07/24 Room / Location: [address] Anesthesia Start: 1357 Anesthesia Stop: 1419 Procedures: PHACOEMULSIFICATION CATARACT IMPLANT INTRAOCULAR LENS W/O ENDOSCOPIC CYCLOPHOTOCOAGULATION (Left: Eye) OPHTHALMIC BIOMETRY BY PARTIAL COHERENCE INTERFEROMETRY W/INTRAOCULAR LENS POWER CALCULATION (Left: Eye) Diagnosis: Combined forms of age-related cataract of left eye (Combined forms of age-related cataract of left eye [H25.812]) Surgeons: Reyes Wetzel MD Responsible Provider: Ariel Dillon II, DO Anesthesia Type: MAC ASA Status: 2 Anesthesia Type: MAC Last Vitals Vitals Value Taken Time BP 128/75 04/07/24 1424 Temp 36.3 ?C (97.4 ?F) 04/07/24 1419 Pulse 81 04/07/24 1424 Resp 16 04/07/24 1424 SpO2 97 % 04/07/24 1424 Post Anesthesia Patient Status Patient Evaluation: PACU. PACU/ICU Patient Condition: stable. Neurological Status: aware and responsive. Pulmonary Status: breathing comfortably on room air Airway Control: returned to baseline unsupported. Cardiovascular Status: stable. Pain Management: clinically adequate Postoperative Hydration: acceptable. Intraoperative Events: no significant anesthesia events Post Operative Nausea/Vomiting Status: no significant post operative nausea or vomiting Recommendation: continue current plan of care. Anesthesia Observations No Documentation SIGNATURE: Ariel Dillon II, DO PATIENT NAME: Reba Vasquez DATE: April 07, 2024 TIME: 2:45 PM CSN: [id number] Normal [facility] ANES PRE-OPon 04-07-2024 ANES PRE-OP HNO ID: [id number] Author: ARIEL DILLON II, DO Service: Anesthesiology Author Type: Anesthesiologist Type: Anesthesia Preprocedure Evaluation Filed: 04/07/2024 13:06 Note Text: ANESTHESIOLOGY DAY OF SURGERY NOTE : 1965 Procedure Information Date/Time: 04/07/24 1300 Procedures: PHACOEMULSIFICATION CATARACT IMPLANT INTRAOCULAR LENS W/O ENDOSCOPIC CYCLOPHOTOCOAGULATION (Left: Eye) OPHTHALMIC BIOMETRY BY PARTIAL COHERENCE INTERFEROMETRY W/INTRAOCULAR LENS POWER CALCULATION (Left: Eye) Location: [address] Surgeons: Reyes Wetzel MD Estimated body mass index is 27.04 kg/m? as calculated from the following: Height as of 03/17/24: 167.6 cm (5' 6 ). Weight as of 03/17/24: 76 kg (167 lb 8.8 oz). Most recent hematocrit and potassium results: No results found for this basename: HCT,HEMATOCRIT,K,POTAS SIUM Relevant Problems No relevant active problems I - PHYSICAL EVALUATION AIRWAY Patient intubated: No. Tracheostomy tube not present Mallampati: II. TM distance: >3 FB. Neck ROM: full ROM without neurological symptoms. Mouth opening: adequate. Short neck: no. Thick neck: no DENTAL Additional comments: cap. Additional exam findings: yes. CARDIOVASCULAR Rhythm: regular Rate: normal PULMONARY Breath sounds clear to auscultation. II - ANESTHESIA PLAN ASA Score: 2 Anesthetic Plan: MAC The patient is not a current smoker. NPO Status: adequate Beta Krysta Monitoring Plan Monitoring plan: standard ASA. Post Procedure Analgesic Plan Postoperative analgesic plan: parenteral or oral opioids. Informed Consent Anesthetic risks, benefits, alternatives, personnel and consent discussed: yes. Patient / Responsible [employer] agrees to proceed: yes Patient / Surrogate agrees to blood products: Yes Vitals Value Taken Time BP 146/78 04/07/24 1302 Pulse 92 04/07/24 1302 Resp 16 04/07/24 1302 Temp 36.2 ?C (97.2 ?F) 04/07/24 1302 SpO2 98 % 04/07/24 1302 Facility-Administered Medications as of 04/07/2024 Medication Dose Route Frequency - [COMPLETED] tetracaine (PF) 0.5 % 2 Drop (OPTICAINE) 2 Drop RIGHT EYE EVERY 5 MINUTES X 3 DOSES - [COMPLETED] PHENYLephrine 2.5 % 1 Drop (AK-DILATE, PARI-SYNEPHRINE) 1 Drop RIGHT EYE EVERY 5 MINUTES X 3 DOSES - [COMPLETED] tropicamide 1 % 1 Drop (MYDRIACYL) 1 Drop RIGHT EYE EVERY 5 MINUTES X 3 DOSES - [COMPLETED] keTORolac 0.5 % 1 Drop (ACULAR) 1 Drop RIGHT EYE q 5 MIN - [COMPLETED] Povidone-Iodine 5 % 30 mL ophth soln (BETADINE) 30 mL RIGHT EYE ONCE - [COMPLETED] balanced salts 15 mL (BSS) 15 mL RIGHT EYE ONCE Outpatient Medications as of 04/07/2024 Medication Sig - prednisoLONE acetate (PRED FORTE) 1 % ophthalmic suspension Use one drop in operative eye as directed by Dr. Wetzel starting tomorrow. - keTORolac (ACULAR) 0.5 % ophthalmic solution Use one drop in operative eye as directed by Dr. Wetzel starting tomorrow. - ALPRAZolam (XANAX) 0.5 mg tablet Take 1 tablet by mouth as needed. - ALLERGY RELIEF, CETIRIZINE, 10 mg tablet Take 10 mg by mouth once daily. I have interviewed and examined the patient. I have reviewed the medical record and/or the pre-anesthesia evaluation, pertinent labs, and test results. This contains updated information obtained within 48 hours of Surgery/Procedure. SIGNATURE: Ariel Dillon II, DO PATIENT NAME: Reba Vasquez DATE: April 07, 2024 TIME: 1:04 PM CSN: [id number] Normal [facility] OPERATIVE NOon 04-07-2024 OPERATIVE NO HNO ID: [id number] Author: REYES WETZEL MD Service: Ophthalmology Author Type: Physician Type: Operative Report Filed: 04/07/2024 14:19 Note Text: OPERATIVE/PROCEDURE REPORT LOG ID: [id number] Surgery/Procedure Date: 04/07/2024 Incision/Procedure Start Time: 2:07 PM Incision Close/Procedure End Time: 2:15 PM Surgeon(s)/Procedurali st(s) and Collection Analyst(s): Surgeons and Role: * Reyes Wetzel MD - Primary Collection Analyst: None. Any nurse listed as assisting or otherwise participating in this case has performed only the duties of a circulating nurse. 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 An IV was in place, as well as EKG, and BP monitoring. Nasal oxygen was administered. A Time Out was conducted confirming the correct patient, correct eye, correct surgery, correct implant and all allergies. The [employer] Eye Lens verification Policy was meticulously followed as previously approved with both an initial lens verification by myself in the presence of the Nurse Coordinator and the composite technician and a secondary full lens verification as part of the Time Out, with patient identity, laterality, and lens choice confirmed against the source document by myself, the Bedspread Cutter Hand Nurse, and the composite technician. Topical lidocaine gel 2% was placed in a small ribbon in the lower cul-de-sac. The patient was prepped and draped in the usual sterile manner and a wire lid speculum was used to keep the eyelids open. A scleral groove was created at the superotemporal limbus and a keratome blade was used to tunnel forward from the groove approximately 1 mm into clear cornea before the anterior chamber was entered. The blade was used to shah the central anterior lens capsule. After the anterior chamber was filled with viscoelastic, the Utrata forceps were used to create a continuous curvilinear capsulorrhexis of approximately 5.5 mm round. Gentle hydrodissection was accomplished using preservative-free lidocaine on a 27-guage cannula. Using the Alfonso phacoemulsification unit with the Kelman curved tip, the anterior chamber was entered and the nucleus was removed while it was in the bag. The epinuclear ring was dissected into several segments, then removed using the phacoemulsification unit set to the desired aspiration flow rate and ultrasound parameters. Great care was taken not to violate the posterior capsule. The phaco CDE was 26.31. The irrigation/aspiration (I and A) device was then used to remove residual cortex. At the conclusion of the I and A, the posterior capsule was polished and then noted to be clean and intact. The lens capsule was filled with viscoelastic and the foldable 23.0 diopter lens was inserted atraumatically into the capsular bag (see implants below for lens information). The lens was observed to center nicely. The I and A device was again used to remove residual viscoelastic. Intracameral Cefuroxime 0.1 cc was injected. The wound was tested and found to be watertight. The speculum was removed. Drops of ketorolac (if not allergic), timolol and prednisolone were instilled. A shield was applied and the patient left the operating room in stable condition without complications. Estimated Blood Loss: 0 ml Specimens: None. I have reviewed the images and report from the Ophthalmic Biometry April 07, 2024 to determine the Intraocular lens Power Calculation for the IOL lens implant. I have interpreted and agree with the calculation of the IOL as listed below. Implants: Implant Name Type Inv. Item Serial No. Potline Monitor Lot No. LRB No. Used Action Model No. [id number].230 [employer] - [id number] Intraocular Lens [id number].230 [employer] [id number] [employer] Left 1 Implanted [id number].230 Drains: None. Complications: None. I performed the entire procedure. Comanage with Dr. Plummer; [facility] POD #1. SIGNATURE: Reyes Wetzel MD PATIENT NAME: Reba Vasquez DATE: April 07, 2024 TIME: 2:18 PM PAGER/CONTACT #: Disha [facility] Coding Summaryon 04-06-2024 Coding Summary HTMLBase 64 CrvwyywfZKh3iIw+PGhlYW Q+SA4KPELxN82zcFXjaV6o R7AQAJjDNaqyCTSVCPeBLe AvpgNnDH6tpFPqAJCi IC8+TP0nZGAuDlznuKQhg8 W9pER0J44dmf3yDMhskGH7 EIBlSoHogmmcx7fktDa8UA cuNmluOyBt CYZljX86HNJ5jS07Gv43tC NupOBux5sbnUc5XhStFUSd NGK0bVexOMcif0LsHEYhU5 5lzCIyt5B5 KWPblOkkwWAzAtWjdMF2pP 0nGKvrwartq6dybehnMjy5 ej11yLLtg1L7mNZ0F5Mrhl L9ZUEprCSx ShcsrHZCuD4evjsbl1qdon vySxIeAKVaAVk2NZn9YHQf bQqaSfVyKY67CIR6VRFtmv GzJ7MkJUGx tQukRzX1k5E2Ea2OR9CXVy nxB8VITZRKTVmhsEB+PC90 kt05G6KtMfmoOdd1ITOuKN E9qBG8cY1i CXKpJDsgb0Q7wJM0G6Kwuz Fgfc4kk4uwTSHhFXumS18q vKRsp6U2XHOzyIO2DYVmzL bfTqOuwV45 Oyc+THCuuXpzl4CqXoxrg8 umq0cspWt0QfijEBLfpgZg oGbgABJ5w5IsAx8wJLVmjH G2kOC5zK0q QfGqQkQ6SCkuW213MfYxaS YkBfseJ93kW7QlbMT+PHRy Udk0MZKomBnzBO0oO9WvOT RpbmctbGVm vLolUI4sBIZkvgipBYKybJ 6wGJMjF8r2VyOyBlJ1GGin M8WwRLCrbbezPa73zG7bPj QoOuJ9JRtj O8FyubR9ZTEkiCGaKSaoEF Q8Z45er7K7LXKoTACkLLQ3 dDB2aS3jtZoaotjbdJEsuS sgdmVydGlj UJtxWEmkT638MZFlyLfaXi NvZGluZyBEYXRlOiAgMTAv MDEvMjAyNDwvdGQ+PHRkIH E8tZzbOBIb wBUbPFgbHr0fvLnehQrpQP 6lUIYjzfteGKDyoV5kEVAz rNGizDasNU4xZMZcvwvhp7 87BrXlILX5 AKDfaBJcL9GygT4lYyDdBF TzDPNkU1XyyGZhGIvjL776 AVeuNoI2OCImvpPdC7LfAL FsaWduOiB0 q3L7Lb1Ww6UcvimiN0VioD JiFcThMipjDNf9H3KaEgky dHI+WA01WIUwHB76ILx8IV T9sLhzMFbt VLDhP1GfmS5hTkKbKVHeNH RkOyc+PHRhYmxlIHdpZHRo LZegURBbLoBxlPrmGV1wWx 9yZGVyLWNv bFksvHTgNzFty0usVVWkYM znFF7maSicJ1RqhUS2SFNe u4l0Xe20I78eB8RhuOQ+PG AzdGU1vQZ6 aI1kOeFoOyX5YUviX156Eb RrbEQbKeyus6dzo7uqyXk8 XfE4FZSoeqUfkSurWWS6n1 SvZn44I33v IHdpZHRoPSIxNSUiIHZhbG opiu4qcB5yXv2+PGNvbCB3 oST5uB0wWrBsJuY2KQewO9 49InRvcCIv Blkbj8ndk7oesLn0GpOjNB YmntAzcTepKPZ3m0TtVv93 S8MsmYjol2WhJyp0ft40gW Hby2U5sWG4 N0VzNUGycgrtpSAzcVliIE 2aLLXcbrolDPVbyU6uESHm A6q3VbVoMeU3KGhtA4Fvzk J3TSLbfBBr GQPexCVGaE1acpmwc1uzzz cmYjEgLNBjSPc9VVd7OMPt jHohShBxBZM7MdY5RUB8yO EmnD3idPcr lyjqeX4xRrj+GUO9iVOsoI KPTJ8gHzbkdQJ+PHRkIHN0 fWbcSMunQVSsrB8tASOdE9 t7AhAaSaE2 GUpnB0WvzqY5PNVkpPBlMM YgoOAUyY1ikfwpy5kjqnjx IeMcFGGnDYy2QXc0EYGrlH duOiBsZWZ0 CcO2OYQ5bKBmeH9tmKwvnd jybN1wSns+QmlydGggRGF0 ZFt4O4VhYkw0WMQmlOcwCI 0ncGFkZGlu Yd5wcUoftLkzYT7aIRQaua qxh783PuLci0cbUGEsoQKk CVhtILN4H76lp0P4IUVwES LpHCT2cSO0 gR0haOlcwfspsRSlpUmdgs LpwYkdTNtfZMngI339AKAk xLwkLtFsBRk2D4XzYfq5SQ YltTbvWO5c cPTaUUtwRy4pxIasuXzpPN 2bCNCjhbayt106AaVay2li PYQyrKBgSHatUBJ0E96ju7 T3XNMnBMCm TFE2aUF3rA1yrLtilpajqM VmdDsgdmVydGljYWwtYWxp X187BOShhXonCzUgaIf2Y9 WrRgw4YVVj nYsuXD0izUUgINxcBe6ysI hewJwuGZ1yEMZybhpuv128 WeTob7puCEIauLDbPQavSC O8J67wx3X5 YOUgHIAfZTP6zEX7iX2igB lnbjogbGVmdDsgdmVydGlj LVniDKgrN896LOVtfBmfCb BhdGllbnQg XPxxUNt2D4NqPlnxeDP+PC 23FVOiKY49zLMffNLbr8su dVy9CkQaOUCfCJC2dLuvKJ tvm1ZuISOx X13hlOXgs1L4WPNeuJpzhD OhFtHmoIV6wH2aKIxymnlv z2ysmujuXktfu5fziq90oG 26A08gBZxa ZHRoPSIzMCUiIHZhbGlnbj 7wqR4xJc5+RZYneME0rVR7 wN4fHQSrUsT8VVadS434Bf RvcCIvPjxj t9cao5olwHa4UtQ0RQXvwu SfaPboUZN0m8VfBm29T77r IHdpZHRoPSIyMCUiIHZhbG mafz9sqI1u Ii8+BIClqNP2rTY7uU8tZg AuRjI4IMzzK718RxOfoESe RnyeU48bH5ZkbGO+PHRyPj j3PXLszDjh UZ8fnKGqMCveJq8hPFN3Ty FbXrAjTDlhV1HpHMRdahmy zmmjuNV1TWFmFUHdhO10Yk 9udDogMTBw pFGNrG5ufneou8birfzxGh MmPMYqLTx4GRc3EKWtnNud WsBaABT2TbS7JSA6kCMbyK 1hbGlnbjog pX8jC8WfZXDelytoXx19uU 4rKwIhPkW8PLciXdy+Rk9S TkVZLCBMSVNBIEVMTEVOPC 75JE86tCQd y5Y2eWE8M4KmFWYjgstycw xyvZY6CHSjGOOzyK43kEBr MMsvYn7pb1A4p198SCGlPY EpiO57Me7m pQsyZIMhmMUVhY6uykihm8 mcjbyxPxAxMUDsOEw4DYm3 HVZxgZkpXaNrAWA9QbZ0NN W0eBZsbX3a tXisjiyabE1xWap+MDMvMT PsDVc4ZyotjQZ+PHRkIHN0 zWaqCGvmRBLbuU6oWVCjR2 u0VeJoYwZ8 MFdvM2BtAFKvwziwSh63zG 8jMbFwObD4AHtmX7JajaQ4 CINjtCGmFCcgOER3K72vq7 P1SCFhLNPc BZM4tWU0eM2mxAzkpsjukU VmdDsgdmVydGljYWwtYWxp Y320XSIajLcuOgX0WZfkHG TrMF82QG67 bVQpy8I4oEG1O5ZqTPSmwi pmnjusfGN1KDJrYZAsjY88 yWGtWOhaDu5ex1F9k779IN DpTWApkE36 Ky3pgXxaEOImqXLSjO8zkd gmo5jqnggaLqNpRFRiWKa3 CEy4NDIzmLjaSiOqCYZ4Mx R6KHE3gIJw wD1uoBegikqdkB9dWfo+Rk MYROxMOY56SB58iWEju5U2 eDA1R1EmUNDpqaaewsjvdA K0XFHnLWRe jE80yLLgMSppEj6jt4O8q6 72UNXgTDIheA50Fk7ecBqn HZCxqKPRqI7nwqbwe3yjfc ogIzAwMDAw NMi0LPd3FWHugEdaLbJiWD E1XuB5XRU3cTLhhS8axWcp ucgrrZ6eHsf+H2G9I9GtEp wvdHI+PC90 NPXxBE24kTAsdZAbp6dweR k1HsXwOOGoAZG1cOvdQRhc f2YyFUCbE49lbMEaz2C1HD NvbGxhcHNl LfFvqXU0rD2lGQpvnorif8 wcrzkgJlnnd4xqaj55fH23 F90hJKyrRHErXCEaRLJmWY OcmZbltk3s kF3gKo9+RKFnrDF3xXO0aX 3tBpShUjD2MJjhO629YvEx vNFkDlsee9htp4cjwYd1Uj IwJSIgdmFs yAtaSFY9g5XmIr48R50gHY dpZHRoPSIyMCUiIHZhbGln sc2vkW1rCx5+XW9jd7nkrb 86fV06gQV+ AYHtLBD8zFmnKQzeYRGdoL 6vLAkzWuX3ZAIaOtSevL23 pHArGPzqAh0gdIafdSllTF 4wNTBpbjtm h849HgJwo3gnLPZbhCUkDR gyOQX8X39zh3A1KJFfGLOz QUH9cHC0pE4txQzakrcfaD VmdDsgdmVy iBgdHFyiUSezF219IEMdjC wjKjKcnIGcQ3mxrwDPTH7z OjwvdGQ+QEEmUDT9hNssYE kaXFUrfJ8d LNXgE1s6YmUgPxU3UKciL2 QznfT5IAUdhSSwDLJfzAYG xD0pzzirg3tougmsEoHiKT YbAAf3MUp4 TDAshAetHsCmRQA2SuP8JQ S8lPKngI6ojVnjqryzkX6z Oyc+RklOOjwvdGQ+PHRkIH F5jZwiKGdx YZMorD2eJHYsC1x3KlDsAe L4TWjzF1LjupQ0INUdpJJu BEEghEAMcS0twertq9rbzn ogIzAwMDAw CZk8JRe9ITVpgGjuJuJsZT W4FeE5VXI1zPDbyJ2ypJtg twabgB5hIgv+TVJOOjwvdG Q+PHRkIHN0 mRlvRSdjJTUjfI5iXZJwN5 j0DyRaAeC9SNmlX8WopeG0 JMMwpIYkKXWddLKZcO8mqa iod7ehsals GfSaYXXpIKe2ZFj3GKGxkJ erGuYlTNQ4GqH9QPH7uWVr jJ7klElnqvmgfA7rGjk+UG Z5PJL2NU38 CY23X5XgBuxxkBGsnMM+PH RhYmxlIHdpZHRoPScxMDAl RuThhYksDA7yHt0bNMIlXM NvbGxhcHNl OiB (more content not included)... [facility] ANES POSTPROC EVALon 024 ANES POSTPROC EVAL HNO ID: [id number] Author: ARIEL DILLON II, DO Service: Anesthesiology Author Type: Anesthesiologist Type: Anesthesia Postprocedure Evaluation Filed: 03/24/2024 15:42 Note Text: POST ANESTHESIA EVALUATION NOTE : 1965 Procedure Summary Date: 03/24/24 Room / Location: [place] [address] / [facility] Anesthesia Start: 1455 Anesthesia Stop: 1518 Procedures: PHACOEMULSIFICATION CATARACT IMPLANT INTRAOCULAR LENS W/O ENDOSCOPIC CYCLOPHOTOCOAGULATION (Right: Eye) OPHTHALMIC BIOMETRY BY PARTIAL COHERENCE INTERFEROMETRY W/INTRAOCULAR LENS POWER CALCULATION (Right: Eye) Diagnosis: Combined forms of age-related cataract of right eye (Combined forms of age-related cataract of right eye [H25.811]) Surgeons: Reyes Wetzel MD Responsible Provider: Ariel Dillon II, DO Anesthesia Type: MAC ASA Status: 2 Anesthesia Type: MAC Last Vitals Vitals Value Taken Time BP 140/65 03/24/24 1530 Temp 36.4 ?C (97.5 ?F) 03/24/24 1520 Pulse 83 03/24/24 1530 Resp 15 03/24/24 1530 SpO2 98 % 03/24/24 1530 Post Anesthesia Patient Status Patient Evaluation: PACU. PACU/ICU Patient Condition: stable. Neurological Status: aware and responsive. Pulmonary Status: breathing comfortably on room air Airway Control: returned to baseline unsupported. Cardiovascular Status: stable. Pain Management: clinically adequate Postoperative Hydration: acceptable. Intraoperative Events: no significant anesthesia events Post Operative Nausea/Vomiting Status: no significant post operative nausea or vomiting Recommendation: continue current plan of care. Anesthesia Observations No Documentation SIGNATURE: Ariel Dillon II, DO PATIENT NAME: Reba Vasquez DATE: March 24, 2024 TIME: 3:42 PM CSN: [id number] Normal [facility] ANES PRE-OPon 03-24-2024 ANES PRE-OP HNO ID: [id number] Author: ARIEL DILLON II, DO Service: Anesthesiology Author Type: Anesthesiologist Type: Anesthesia Preprocedure Evaluation Filed: 03/24/2024 13:54 Note Text: ANESTHESIOLOGY DAY OF SURGERY NOTE : 1965 Procedure Information Date/Time: 03/24/24 1355 Procedures: PHACOEMULSIFICATION CATARACT IMPLANT INTRAOCULAR LENS W/O ENDOSCOPIC CYCLOPHOTOCOAGULATION (Right: Eye) OPHTHALMIC BIOMETRY BY PARTIAL COHERENCE INTERFEROMETRY W/INTRAOCULAR LENS POWER CALCULATION (Right: Eye) Location: [address] Surgeons: Reyes Wetzel MD Estimated body mass index is 27.04 kg/m? as calculated from the following: Height as of 03/17/24: 167.6 cm (5' 6 ). Weight as of 03/17/24: 76 kg (167 lb 8.8 oz). Most recent hematocrit and potassium results: No results found for this basename: HCT,HEMATOCRIT,K,POTAS SIUM Relevant Problems No relevant active problems I - PHYSICAL EVALUATION AIRWAY Patient intubated: No. Tracheostomy tube not present Mallampati: III. TM distance: >3 FB. Neck ROM: limited extension. Mouth opening: adequate. Short neck: no. Thick neck: no DENTAL Additional comments: crown. Additional exam findings: yes. CARDIOVASCULAR Rhythm: regular Rate: normal PULMONARY Breath sounds clear to auscultation. II - ANESTHESIA PLAN ASA Score: 2 Anesthetic Plan: MAC The patient is not a current smoker. NPO Status: adequate Beta Krysta Monitoring Plan Monitoring plan: standard ASA. Post Procedure Analgesic Plan Postoperative analgesic plan: parenteral or oral opioids. Informed Consent Anesthetic risks, benefits, alternatives, personnel and consent discussed: yes. Patient / Responsible [employer] agrees to proceed: yes Patient / Surrogate agrees to blood products: Yes Vitals Value Taken Time BP 142/71 03/24/24 1340 Pulse Resp 16 03/24/24 1340 Temp 36.3 ?C (97.4 ?F) 03/24/24 1340 SpO2 99 % 03/24/24 1340 Facility-Administered Medications as of 03/24/2024 Medication Dose Route Frequency - NaCl 0.9% iv infusion 30 mL/hr INTRAVENOUS CONTINUOUS - tetracaine (PF) 0.5 % 2 Drop (OPTICAINE) 2 Drop RIGHT EYE EVERY 5 MINUTES X 3 DOSES - PHENYLephrine 2.5 % 1 Drop (AK-DILATE, PARI-SYNEPHRINE) 1 Drop RIGHT EYE EVERY 5 MINUTES X 3 DOSES - tropicamide 1 % 1 Drop (MYDRIACYL) 1 Drop RIGHT EYE EVERY 5 MINUTES X 3 DOSES - cyclopentolate 1 % 1 Drop (CYCLOGYL) 1 Drop RIGHT EYE Pre-Op PRN - keTORolac 0.5 % 1 Drop (ACULAR) 1 Drop RIGHT EYE q 5 MIN - Povidone-Iodine 5 % 30 mL ophth soln (BETADINE) 30 mL RIGHT EYE ONCE - balanced salts 15 mL (BSS) 15 mL RIGHT EYE ONCE Outpatient Medications as of 03/24/2024 Medication Sig - ALPRAZolam (XANAX) 0.5 mg tablet Take 1 tablet by mouth as needed. - ALLERGY RELIEF, CETIRIZINE, 10 mg tablet Take 10 mg by mouth once daily. I have interviewed and examined the patient. I have reviewed the medical record and/or the pre-anesthesia evaluation, pertinent labs, and test results. This contains updated information obtained within 48 hours of Surgery/Procedure. SIGNATURE: Ariel Dillon II, DO PATIENT NAME: Reba Vasquez DATE: March 24, 2024 TIME: 1:53 PM CSN: [id number] Normal [facility] OPERATIVE NOon 03-24-2024 OPERATIVE NO HNO ID: [id number] Author: REYES WETZEL MD Service: Ophthalmology Author Type: Physician Type: Operative Report Filed: 03/24/2024 15:20 Note Text: OPERATIVE/PROCEDURE REPORT LOG ID: [id number] Surgery/Procedure Date: 03/24/2024 Incision/Procedure Start Time: 3:03 PM Incision Close/Procedure End Time: 3:14 PM Surgeon(s)/Procedurali st(s) and Collection Analyst(s): Surgeons and Role: * Reyes Wetzel MD - Primary Collection Analyst: None. Any nurse listed as assisting or otherwise participating in this case has performed only the duties of a circulating nurse. Anesthesia: Monitored Anesthesia Care Pre-Op/Pre-Procedure Diagnosis: Pre-Op Diagnosis Codes: * Combined forms of age-related cataract of right eye [H25.811] Regular astigmatism, right eye Post-Op/Post-Procedure Diagnosis: Post-Op Diagnosis Codes: * Combined forms of age-related cataract of right eye [H25.811] Regular astigmatism, right eye Procedure(s): Procedure(s) (LRB): PHACOEMULSIFICATION CATARACT IMPLANT INTRAOCULAR LENS W/O ENDOSCOPIC CYCLOPHOTOCOAGULATION (Right) OPHTHALMIC BIOMETRY BY PARTIAL COHERENCE INTERFEROMETRY W/INTRAOCULAR LENS POWER CALCULATION (Right) Procedure Details: The patient was brought to the operating room and placed in the supine position on the operating table in the usual fashion. An IV was in place, as well as EKG, and BP monitoring. Nasal oxygen was administered. A Time Out confirmed that we had the correct patient, correct eye, correct operation, and correct implant. The [employer] Eye Lens verification Policy was meticulously followed as previously approved with both an initial lens verification by myself in the presence of the Nurse Coordinator and the composite technician and a secondary full lens verification as part of the Time Out, with patient identity, laterality, and lens choice confirmed against the source document by myself, the Bedspread Cutter Hand Nurse, and the composite technician. Topical lidocaine gel 2% was placed in a small ribbon in the lower cul-de-sac. Tetracaine drops were placed in the eye, then the patient was positioned seated and with the patient fixing on a distant target, we placed turner at the 3 and 9 o?clock position at the surgical limbus using a purple surgical marker. The patient was then placed supine, where they were prepped and draped in the usual sterile fashion for intraocular surgery. Under the operating microscope an eyelid speculum was inserted and a beveled clear corneal incision was created with a Houston blade then a 2.4 mm keratome. The anterior chamber was reformed with Viscoat, after which the anterior capsule was opened centrally. Using the Utrata forceps a continuous curvilinear capsulorrhexis of approximately 6mm (with a slightly larger rhexis inferiorly) was created. Gentle hydrodissection was accomplished using preservative-free lidocaine on a 27-guage cannula. Using the Alfonso phacoemulsification unit with the Kelman curved tip, the anterior chamber was entered and the nucleus was removed while it was in the bag. The epinuclear ring was dissected into several segments, then removed using the phacoemulsification unit set to the desired aspiration flow rate and ultrasound parameters. Great care was taken not to violate the posterior capsule. The phaco CDE was 53.38.The silicone-tipped I and A instrument was used to remove the cortex and buff off any remaining cataractous material from the posterior capsule. The capsular bag was then reformed with viscoelastic and an Alfonso 22.5 diopter T3 cylindrical power toric lens was inserted through the lips of the wound into the capsular bag (see lens implant information below). The intraocular lens was then rotated to an axis of 102 degrees, using the previously placed scleral ink markings as a guide. The axis determination was dictated by the preoperative vector analysis. Using the I and A instrument, the viscoelastic was removed from the anterior chamber and capsular bag, and the implant was centered. Intracameral Cefuroxime 0.1 cc was injected. The wound was checked and found to be watertight. At the end of the procedure, the cornea wasclear, the anterior chamber was deep and clear, the pupil was round, the implant was centered and at the appropriate rotational axis within the capsular bag, and the posterior capsule was intact. The eyelid speculum was removed and drops of topical steroid, timolol and ketorolac (if no allergy) were administered. A shield was affixed over the eye and the patient was sent to the recovery room, leaving the operating room in excellent condition. Findings: Amblyopia with guarded visual prognosis, right eye. Estimated Blood Loss: 0 ml Specimens: None. I have reviewed the images and report from the Ophthalmic Biometry March 24, 2024 to determine the Intraocular lens Power Calculation for the IOL lens implant. I have interpreted and agree with the calculation of the IOL as listed (more content not included)... Normal [facility] ASCAN ONLY - DIAGNOSTIC OU ( BOTH EYES)on 03-17-2024 [facility] Radiology Study observation (narrative) [facility] HISTORY PHYSICALon HISTORY PHYSICAL HNO ID: [id number] Author: FLORECITA MARQUEZ APRN.CHIEF OPTOMETRY SERVICE Service: ? Author Type: Nurse Practitioner Type: H&P Filed: 03/17/2024 07:37 Note Text: [facility] HISTORY AND PHYSICAL EXAMINATION SERVICE DATE: 03/17/2024 SERVICE TIME: 2:51 PM PRIMARY CARE PHYSICIAN: Donald Pate MD REASON FOR VISIT: Reba Vasquez is a 58 year old female who is scheduled for at the request of Dr. Reyes Wetzel for consultation. My final recommendation will be communicated back to the requesting physician by way of shared medical record or letter. Assessment Generalized anxiety disorder Assessment: stable on medication Denies any suicidal ideation Rosenbaum Activity Status Index: METS: Walk indoors, such as around the house (1.75 METs) Do light work around the house, such as dusting or washing dishes (2.70 METs) Take care of self; that is eating, dressing, bathing, using the toilet (2.75 METs) Walk a block or two on level ground (2.75 METs) Do moderate work around the house, such as vacuuming, sweeping floors, or carrying in groceries (3.50 METs) Do yardwork, such as raking leaves, weeding, or pushing a power mower (4.50 METs) Climb a flight of stairs or walk up a hill (5.50 METs) DASI Score: 23.45 Patient denies any chest pain or undue shortness of breath with the above physical activity. Patient is totally dependent. STOP-Bang Score: Patient over 50 years old Denies snoring loudly Denies feeling tired, fatigued, or sleepy during the daytime Has not been observed to stop breathing or choking/gasping during sleep Denies having high blood pressure BMI less than or equal to 35 kg/m2 Does not have a large neck Non-male patient STOP-Bang Score: 1 [id number] Score: Age: <65 Sex: female CHF history: No Hypertension history: No Stroke/TIA/thromboembo lism history: No Vascular disease history: No Diabetes history: No [id number] Score: 1 ARISCAT Score: Age: 51-80 Preoperative SpO2: >=96% Respiratory infection in the last month: No Preoperative anemia: Yes Surgical incision: peripheral Duration of surgery: <2 hrs Emergency procedure: No ARISCAT Score: 14 ANESTHESIA FINDINGS: Intubation History: No history of difficult intubation. No abnormal airway history Significant Anesthesia Considerations: none Airway History: No history of difficult airway No abnormal airway history I - PHYSICAL EVALUATION AIRWAY Patient intubated: No. Tracheostomy tube not present Mallampati: II. TM distance: >3 FB. Neck ROM: full ROM without neurological symptoms. Mouth opening: adequate. Short neck: no. Thick neck: no Lacy present: no Lip Bite Test: II Microretrognathia/Micr onagthia/Recessed Chin: No DENTAL Dental findings: teeth intact. II - ANESTHESIA PLAN Anesthetic plan additional comments: *PACC/TCI - anesthesia choice. Beta Krysta Monitoring Plan Post Procedure Analgesic Plan Prepared for surgery: This patient is optimally prepared for surgery. CONSULTS: Patient does not require consults for optimization at this time. The Following Tests/Procedures Have Been Initiated: Labs not indicated per PACC protocol, EKG not indicated per PACC protocol Planned Anesthetic: Per anesthesia choice Subjective CHIEF COMPLAINT: Bilateral change of vision HPI: 58 year old bilateral change of vision that has been ongoing for >6 months. Patient states that she has blurred Vision,decreased vision,difficulty with driving,difficulty with reading,difficulty with watching television,dryness,gla re,halos REVIEW OF SYSTEMS: PAIN ASSESSMENT: General: No weight loss, malaise or fevers. Neuro: No history of TIA's, stroke, GENERAL PRODUCTION MANAGER tumor, impaired sensorium, hemiplegia, paraplegia or quadraplegia. No neurological symptoms or problems. Respiratory: No history of current cough or dyspnea, or pneumonia in the past 6 weeks. No history of respiratory/pulmonary symptoms or problems. Cardiovascular: No history of HTN requiring medication, no history of angina, CHF, MA, cardiac surgery or stents. Denies rest pain, gangrene or revascularization/ampu tation for PVD. No history of cardiovascular symptoms or problems. GI: No history of GI symptoms or problems. No history of esophageal varices, recent ascites, or ETOH greater than 2 drinks per day. : No history of dysuria, frequency or incontinence,, stones or chronic kidney disease, No difficulty urinating, nocturia > 1 time per night or hematuria BAND SALVAGER: Negative for abnormal vaginal bleeding, abnormal vaginal discharge. : Denies, No LMP recorded. Patient has had a hysterectomy. Endocrine: No history of diabetes. Has not taken steroids within the past 30 days. No history of endocrinological symptoms or problems. Hematology: No history of bleeding or clotting disorder. Pt is not taking anti-coagulation or platelet medications. No history of hematolo (more content not included)... Normal [facility] IOL BIOMETRY W/ IOL CALC OU (BOTH EYES)on 03-17-2024 [facility] Radiology Study observation (narrative) [facility] Alanine aminotransferase [En zymatic activity/volume] in Serum or PlasmaOrdered By: LOUANN BARRERA on 06-20-2023 ALT [Catalytic activity/Vol] 27 U/L 7-52 [facility] Albumin [Mass/volume] in Ser um or Plasma by Bromocresol green (BCG) dye binding methoOrdered By: LOUANN BARRERA on 06-20-2023 Albumin BCG dye [Mass/Vol] 4.4 g/dL 3.5-5.7 [facility] Alkaline phosphatase [Enzyma tic activity/volume] in Serum or PlasmaOrdered By: LOUANN BARRERA on 06-20-2023 ALP [Catalytic activity/Vol] 124 U/L 34-104 [facility] Aspartate aminotransferase [ Enzymatic activity/volume] in Serum or PlasmaOrdered By: LOUANN BARRERA on 06-20-2023 AST [Catalytic activity/Vol] 22 U/L 13-39 [facility] Basophils Auto (Bld) [#/Vol] Ordered By: LOUANN STONERA on 06-20-2023 Basophils (Bld) [#/Vol] 0.1 10*3/uL 0.0-0.2 [facility] Basophils/100 WBC Auto (Bld) Ordered By: LOUANN BARRERA on 06-20-2023 Basophils/100 WBC (Bld) 0.6 % . F [facility] Bilirubin.total [Mass/volume ] in Serum or PlasmaOrdered By: LOUANN BARRERA on 06-20-2023 Bilirubin [Mass/Vol] 0.6 mg/dL 0.3-1.0 [facility] Calcium [Mass/volume] in Ser um or PlasmaOrdered By: LOUANN BARRERA on 06-20-2023 Calcium [Mass/Vol] 9.9 mg/dL 8.6-10.3 [facility] Carbon dioxide, total [Moles /volume] in Serum or PlasmaOrdered By: LOUANN BARRERA on 06-20-2023 CO2 [Moles/Vol] 31.5 mmol/L 21.0-31.0 [facility] Chloride [Moles/volume] in S sheri or PlasmaOrdered By: LOUANN BIRCH on 06-20-2023 Chloride [Moles/Vol] 103 mmol/L 98-107 [facility] Creatinine [Mass/volume] in Serum or PlasmaOrdered By: LOUANN BARRERA on 06-20-2023 Creatinine [Mass/Vol] 0.46 mg/dL 0.60-1.20 [facility] Eosinophils Auto (Bld) [#/Vo l]Ordered By: LOUANN BARRERA on 06-20-2023 Eosinophils (Bld) [#/Vol] 0.0 10*3/uL 0.0-0.45 [facility] Eosinophils/100 WBC Auto (Bl d)Ordered By: LOUANN BARRERA on 06-20-2023 Eosinophils/100 WBC (Bld) 0.2 % . [facility] Erythrocyte distribution wid th Auto (RBC) [Ratio]Ordered By: LOUANN BARRERA on 06-20-2023 Erythrocyte distribution width (RBC) [Ratio] 12.9 % 11.9-15.3 [facility] Globulin Calc (S) [Mass/Vol] Ordered By: LOUANN BARRERA on 06-20-2023 Globulin (S) [Mass/Vol] 2.9 g/dL F [facility] Glucose [Mass/volume] in Ser um or PlasmaOrdered By: LOUANN BARRERA on 06-20-2023 Glucose [Mass/Vol] 98 mg/dL 70-100 [facility] Comment on above: ADA recommended refe rence rangeRandom Glucose Reference Range is dependent on time and content of last meal. Glucose of more than 200 mg/dL in a nonstressed, ambulatory subject supports the diagnosis of Diabetes Mellitus. Hematocrit Auto (Bld) [Volum e fraction]Ordered By: LOUANN BARRERA on 06-20-2023 Hematocrit (Bld) [Volume fraction] 41.4 % 34.0-46.4 [facility] Hemoglobin [Mass/volume] in BloodOrdered By: LOUANN BARRERA on 06-20-2023 Hemoglobin (Bld) [Mass/Vol] 14.7 g/dL 11.8-15.4 [facility] Leukocytes [#/volume] correc wendy for nucleated erythrocytes in Blood by Automated counOrdered By: LOUANN BARRERA on 06-20-2023 WBC corrected for nucl RBC Auto (Bld) [#/Vol] 11.0 10*3/uL 3.8-11.6 [facility] Lymphocytes Auto (Bld) [#/Vo l]Ordered By: LOUANN BARRERA on 06-20-2023 Lymphocytes (Bld) [#/Vol] 1.4 10*3/uL 1.00-4.8 [facility] Lymphocytes/100 WBC Auto (Bl d)Ordered By: LOUANN BARRERA on 06-20-2023 Lymphocytes/100 WBC (Bld) 12.8 % . [facility] MCH Auto (RBC) [Entitic mass ]Ordered By: LOUANN BARRERA on 06-20-2023 MCH (RBC) [Entitic mass] 32.4 pg 24.7-34.3 [facility] MCHC Auto (RBC) [Mass/Vol]Or dered By: LOUANN BARRERA on 06-20-2023 MCHC (RBC) [Mass/Vol] 35.5 g/dL 32.0-35.0 [facility] MCV Auto (RBC) [Entitic vol] Ordered By: LOUANN BARRERA on 06-20-2023 MCV (RBC) [Entitic vol] 91.2 fL 80-100 [facility] Monocytes Auto (Bld) [#/Vol] Ordered By: LOUANN BARRERA on 06-20-2023 Monocytes (Bld) [#/Vol] 0.7 10*3/uL 0.0-0.8 [facility] Monocytes/100 WBC Auto (Bld) Ordered By: LOUANN BARRERA on 06-20-2023 Monocytes/100 WBC (Bld) 6.6 % . [facility] Neutrophils Auto (Bld) [#/Vo l]Ordered By: LOUANN BARRERA on 06-20-2023 Neutrophils (Bld) [#/Vol] 8.8 10*3/uL 1.8-7.7 [facility] Neutrophils/100 WBC Auto (Bl d)Ordered By: LOUANN BARRERA on 06-20-2023 Neutrophils/100 WBC (Bld) 79.8 % . [facility] No Panel InformationOrdered By: LOUANN BARRERA on 06-20-2023 Estimated GFR (CKD-EPI) > 60.0 mL/Min [facility] Creatinine Clearance (Chem N/A [facility] Nucleated erythrocytes [Pres ence] in Blood by Automated countOrdered By: LOUANN BARRERA on 06-20-2023 Nucleated RBC Auto Ql (Bld) 0.1 /100{WBC} 0-0.5 [facility] Platelet mean volume Auto (B ld) [Entitic vol]Ordered By: LOUANN BARRERA on 06-20-2023 Platelet mean volume (Bld) [Entitic vol] 7.9 fL 6.3-10.7 [facility] Platelets Auto (Bld) [#/Vol] Ordered By: LOUANN BARRERA on 06-20-2023 Platelets (Bld) [#/Vol] 323 10*3/uL 150-450 [facility] Potassium [Moles/volume] in Serum or PlasmaOrdered By: LOUANN BARRERA on 06-20-2023 Potassium [Moles/Vol] 4.4 mmol/L 3.5-5.1 [facility] Protein [Mass/volume] in Ser um or PlasmaOrdered By: LOUANN BARRERA on 06-20-2023 Protein [Mass/Vol] 7.3 g/dL 6.4-8.9 [facility] RBC Auto (Bld) [#/Vol]Ordere d By: LOUANN BARRERA on 06-20-2023 RBC (Bld) [#/Vol] 4.54 10*6/uL 3.60-5.00 [facility] Serum or plasma albumin/glob ulin mass ratioOrdered By: LOUNAN BARRERA on 06-20-2023 Albumin/Globulin [Mass ratio] 1.5 {ratio} [facility] Serum or plasma anion gap de terminationOrdered By: LOUANN BARRERA on 06-20-2023 Anion gap [Moles/Vol] 10.9 mmol/L 6.0-15.0 [facility] Sodium [Moles/volume] in Ser um or PlasmaOrdered By: LOUANN BARRERA on 06-20-2023 Sodium [Moles/Vol] 141 mmol/L 136-145 [facility] Urea nitrogen [Mass/volume] in Serum or PlasmaOrdered By: LOUANN CHRISTOSAPRJUAQUINRA on 06-20-2023 Urea nitrogen [Mass/Vol] 6 mg/dL 7-25 [facility] WBC Auto (Bld) [#/Vol]Ordere d By: LOUANN BARRERA on 06-20-2023 WBC (Bld) [#/Vol] 11.0 10*3/uL 3.8-11.6 [facility] Covid-19 PCR (CVDTBH)on 06-06 SARS-CoV-2 (COVID-19) RNA CHASE+probe Ql (Unsp spec) Detected Critically abnormal NOT DETECTED [facility] Comment on above: Result Comment: This test is not yet approved or cleared by the [place] FDA. When there are no FDA-approved or cleared tests available, and other criteria are met, FDA can make tests available under an emergency access mechanism called an Emergency Use Authorization (EUA). The EUA for this test is supported by the [place] of Health and Human Service's (HHS's) declaration [...] longer be used). Performed By: #### C VDTB #### [facility] [address] [place] [address] Dr. Karen Rangel INFLUENZA A AND B AGon 06-24 [facility] SEE BELOW Normal [facility] Comment on above: Result Comment: Nega tive for Flu A protein angiten. Infection due to Flu A cannot be ruled out. Flu A angiten in the sample may be below the detection limit of the test. Performed By: #### I NFLUAB #### [facility] [address] [place] [address] Dr. [facility] BEL[facility] Normal [facility] Comment on above: Result Comment: Nega tive for Flu B protein antigen. Infection due to Flu B cannot be ruled out. Flu B antigen in the sample may be below the detection limit of the test. Performed By: #### I NFLUAB #### [facility] [address] [place] [address] Dr. Karen Rangel INFLUENZA A AG Negative Normal NEGATIVE SEE COMMENT [facility] Comment on above: Performed By: #### I NFLUAB #### [facility] [address] [place] [address] Dr. Karen Rangel INFLUENZA B AG Negative Normal NEGATIVE SEE COMMENT [facility] Comment on above: Performed By: #### I NFLUAB #### [facility] [address] [place], [place] [address] Dr. Karen Rangel INTERNAL CONTROLS Within Normal Limits Normal Wi thin Normal Limits [facility] Comment on above: Performed By: #### I NFLUAB #### [facility] [address] [place], [place] [address] Dr. Karen Rangel Established Visit (Otolaryng ology)on [...] dizziness. She was previously seen by Dr. Destinee Perla for her condition. The patient is s/p [...] RESPIRATION: Breathing comfortably, no stridor CV: No clubbing/cyanosis/roz a in hands EYES: EOM intact, sclera clear [...] no bleeding or drainage, no lesions ORAL CAVITY/OROPHARYNX/LIPS : Normal mucous membranes, normal floor of mouth/tongue/OP, [...] This note was created using speech recognition meat process worker software/or [employer] meat process worker services. Despite proofreading, several typographical errors might be present that might affect the meaning of the content. Please call with any questions. By signing my name below, I, Abdiel Mathur, attest that this documentation has been prepared under the direction and in the presence of Dr. Hoffman. All medical record entries made by the Kimberliibe were at my direction and personally dictated by me. I have reviewed the chart and agree that the record accurately reflects my personal performance of the history, physical exam, discussion, and plan. Active Problems BMI 29.0-29.9,adult (V85.25) (Z68.29) Conductive hearing loss (389.00) (H90 (more content not included)... Normal [facility] Tobacco Screening.on 022 Fall risk assessment a) [...] BMI 29.0-29.9,adult (V85.25) (Z68.29) Provider Impressions Reba Vasquez is a 56-year-old female with a history [...] This note was created using speech recognition meat process worker software. Despite proofreading, several typographical errors might be present that might affect the meaning of the content. Please call with any questions. Patient Complexity: Low Chief Complaint follow up, BMI 29.07, non-smoker Adult Risk ScreeningAdult Risk Screening_UH: There are no spiritual/cultural practices/values/needs that are [...] more: No History of Present Illness Reba Vasquez is a 56 year-old female here for evaluation of her left ear. She is accompanied by her . Symptoms started of last week and she felt woozy. No change (more content not included)... Normal [facility] Office Visit (Audiology)on 09-19-2021 Follow-up visit [...] Plan: 1) Continue medical follow up with Destinee Perla CNP 2) Consider the use of a hearing aid in the left ear. 3) Re-test hearing annually. Time: 4819-5512 Chief Complaint hearing evaluation Adult Risk ScreeningThere [...] Note: Audiogram. History of Present Illness Reba Vasquez, age 56 years, was seen for a hearing evaluation in a conjunction visit with Destinee Perla CNP. Recall, she has a history of left stapedectomy and left conductive hearing loss. Today, she reports significant concerns for imbalance that came on suddenly when she turned to the left at work on . She reported muffled hearing and otalgia in the left ear only. She noted aural fullness and tinnitus bilaterally. Patient's preferred language: [place] Preferred language of the parent, legal guardian or surrogate decision-maker of this minor or incapacitated patient: [place] No overt signs of domestic violence/neglect/abuse . No referral made to Simulation Software Engineer. Pain not interfering with optimal level of [...] the patient and she was returned to Destinee Perla CNP for completion of the office visit. Signatures Electronically signed by : Inna Villa, ; Sep 19 2021 12:05PM EST (Author) Electronically signed by : Cody Grayson [facility]; Sep 19 2021 12:51PM EST (Author) Normal [facility] Tobacco Screening.on 022 Adult depression screening assessment No [facility] [address] [place] Work Phone: Fall risk assessment a) No falls within the last year [facility] [address] [place] Work Phone: Tobacco use status [facility] b) No M P-Otolaryng ology[place] [address] [place] Work Phone: Established Visit (Otolaryng ology)on 12-07-2020 Established Visit (Otolaryngology) Diagnoses/Problems Conductive hearing loss of left ear with unrestricted hearing of right ear (389.05) (H90.12) Otosclerosis of left ear (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 Dunn's clinic. We are here to assist you through your ENT care at [facility]. Dr. Dunn is an Ear surgeon. This means that he specializes in taking care of patients with complex ear, hearing and balance problems. Dr. Dunn's office number is [phone]. While you may see him at a satellite office ([place]), he has a team committed to help meet your healthcare needs at [facility]. This number is the most direct way to communicate with the office. Tali is Dr. Dunn's social secretary and she answers the office phone [...] in your care. These people may include rod buster helper, speech therapists, vestibular therapists, neurologist, and neurosurgeon. Dr. Dunn will provide these referrals as needed. Please let us know if you would like to request a specific referral. For your convenience, Dr. Dunn sees patients at several [facility] locations including [facility] ([facility]), and [facility] Office at the [facility]. While we try to make your appointments [...] NOSTRIL ON (more content not included)... Normal [facility] Office Visit (Audiology)on 0 12-07-2020 Follow-up [...] Dr. Dunn 2. Retest hearing as directed [id number] Chief Complaint routine hearing test Reference Documentation See scanned note Procedure Note: Audiogram. History of Present Illness Reba Vasquez, age 55 years, was seen today for a hearing test in conjunction with a follow-up visit with Dr. Dunn. 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 Today she reports that her left ear will intermittently seem congested. She denies changes in hearing in her right ear. Patient's preferred language: [place]ese Preferred language of the parent, legal guardian or surrogate decision-maker of this minor or incapacitated patient: Not Applicable No overt signs of domestic violence/neglect/abuse . No referral made to Simulation Software Engineer. Pain not interfering with optimal level of [...] Dec 07 2020 10:24AM EST (Author) Normal [facility] Tobacco Screening.on 021 Fall risk assessment a) No falls within the last year [facility] Work Phone: Tobacco Screening. b) No [facility] Work Phone: History and Physical - Surge ry > [...] Warm and dry, no lesions, no rashes Signatures/Attestation /Certification: Attending AttestationI saw and evaluated the patient. [...] observation patient/other outpatient visits Electronic Signatures: Eric Bailey (Resident)) (Signed 10-Dec-2017 11:08) Authored: History of Present Illness, Allergies, Home Medication Review, Impression/Procedure, Physical Exam, Signatures/Attestation /Certification Shukri Hoffman) (Signed 11-Dec-2017 08:53) Authored: Signatures/Attestation /Certification Co-Signer: History of Present Illness, Allergies, Home Medication Review, Impression/Procedure, Physical Exam, Signatures/Attestation /Certification Last Updated: 11-Dec-2017 08:53 by Shukri Hoffman) References: 1. Data Referenced From Patient Profile - Preop v2 10-Dec-2017 09:51 AM Normal [facility] OPERATIVE REPORTon 8 [place] [address] Patient Name: REBA VASQUEZ : 1965 Date of Service: 12/10/2017 Patient Location: Patient Type: O Surgeon: Shukri Hoffman MD Report Type: Operative Reports PREOPERATIVE DIAGNOSIS: Left conductive hearing loss. POSTOPERATIVE DIAGNOSIS: 1. Left conductive hearing loss. 2. Left otosclerosis. OPERATION/PROCEDURE: Left stapedectomy with CO2 laser. SURGEON: Shukri Hoffman MD PAINTER SUPERVISOR(S): 1. Allen Peralta MD 2. Eric Bailey MD ANESTHESIA: General endotracheal anesthesia. COMPLICATIONS: None. SPECIMENS: None. ESTIMATED BLOOD LOSS: 2 mL. OPERATIVE INDICATIONS: Reba Vasquez is a 52-year-old woman, who is referred [...] placement of a 0.6 x 4.5 mm [employer] Piston prosthesis. There was fixation of the [...] create a Jemma in the footplate. The CartiHeal S2 mini drill was used to carefully drill the stapes footplate to create stapodotomy or small fenestra. Once this was completed, our [employer] 0.6 mm x 4.5 mm Eclipse Piston Prosthesis was then placed into the middle ear space using an alligator. This was finally positioned using a right angle pick. The CO2 laser was then used to crimp the [employer] [place] of the prosthesis over the incus. We [...] TT: 12/11/2017 00:10 AM EST DICTATION NUMBER: [id number] LINDA JOB NUMBER: [id number] CC: Shukri Hoffman MD, Donald Pate, [id number] Edited by Shukri Hoffman 12/23/2017 09:58:40 AM Electronically Signed by Dr. Shukri Hoffman 12/23/2017 09:58:40 AM Normal [facility] Patient Profile - Preop v2on 12-10-2017 Protein mass conc Profile: Initial Info: How to be Addressedlisa Spoken Language PreferredEnglish Are you currently using the Personal Electronic Health Record or [employer]no Are you interested in learning more about [facility] for the management of your healthnot at this time Stated Reason for Admissionleft stapedectomy Primary Contact Name and [id number] Patient Belongingsnone Medications Brought to Hospitalno General Health: Weight in kg81.6 kilogram(s) Weight in qjd360 pound(s) Weight Methodstated Height in cm153.9 centimeter(s) Height in feet5 feet Height in inches0.6 inch(es) Height Methodstated BMI (kg/m2)34.451 square meter Patient or Family Member Reaction to Anesthesiapatient reaction Patient Reaction to Anesthesianausea and vomiting Blood Avoidance/Restrictions none Previous Transfusion Reactionno Health Mgmt: Symptoms/Conditions Managed at Homemusculoskeletal; behavioral health Are You Currently Breastfeedingno Behavioral Health Symptoms/Conditionsanx iety Musculoskeletal Symptoms/Conditionsfib romyalgia Are You no Barriers to Managing Healthnone Relationship/Environ: Lives Withspouse Living Arrangementshouse Resource/Environmental Concernsnone [facility] Anticipated at Transitionnone Substance: Current or [...] instruction; written material Cultural Considerationsnone Developmental Considerationsnone Rastafarian Considerationsnone Other learner availableno [place] RiskPatient location auto qualifies him/her for HIGH RISK. Are there any cultural, spiritual, congregational practices/values/needs that are important for us to [...] 10-Dec-2017 10:04 by Elo New (QUYEN) Normal [facility] Preop Checkliston 12-10-2017 Preop Checklist Preop Checklist: Preop Checklist: ? Arrival [id number] ? Arrival Time10:06 ? Procedure Typeleft ear surgery ? NPO [id number] 21:00 ? ID Band Onyes ? Allergy [...] 10-Dec-2017 10:07 by Elo New (QUYEN) Normal [facility] Vital Signs Date Time Vital Sign Value Performing Clinician Facility 03-17-2024 07:01-0400 Body height 167.6 cm Pacc 1 Work Phone: [facility] 03-17-2024 07:01-0400 Body mass index (BMI) [Ratio] 27.04 kg/m2 Pac 1 Work Phone: [facility] 03-17-2024 07:01-0400 Body temperature 98.01 [degF] Pacc 1 Work Phone: [facility] 03-17-2024 07:01-0400 Body weight 76 kg Pacc 1 Work Phone: [facility] 03-17-2024 07:01-0400 Diastolic blood pressure 82 mm[Hg] Pacc 1 Work Phone: [facility] 03-17-2024 07:01-0400 Heart rate 79 /min Pacc 1 Work Phone: [facility] 03-17-2024 07:01-0400 Respiratory rate 16 /min Pacc 1 Work Phone: [facility] 03-17-2024 07:01-0400 SaO2% (BldA) [Mass fraction] 99 % Pacc 1 Work Phone: [facility] 03-17-2024 07:01-0400 Systolic blood pressure 128 mm[Hg] Pacc 1 Work Phone: [facility] 08-11-2023 10:20-0500 Body mass index (BMI) [Ratio] 28.08 kg/m2 Louann Nataprawira DO Work Phone: [facility] 08-11-2023 10:20-0500 Body weight 78.93 kg Louann Nataprawira DO Work Phone: [facility] 08-11-2023 10:20-0500 Diastolic blood pressure 84 mm[Hg] Louann Nataprawira DO Work Phone: [facility] 08-11-2023 10:20-0500 Systolic blood pressure 142 mm[Hg] Louann Nataprawira DO Work Phone: [facility] 06-23-2023 13:43-0500 Body height 167.6 cm Destinee Minda 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 SERVICE Work Phone: [facility] 06-23-2023 13:43-0500 Body mass index (BMI) [Ratio] 26.95 kg/m2 Destinee Minda 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 SERVICE Work Phone: [facility] 06-23-2023 13:43-0500 Body temperature 97.7 [degF] Destinee Perla 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 SERVICE Work Phone: [facility] 06-23-2023 13:43-0500 Body weight 75.75 kg Destinee Perla 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 SERVICE Work Phone: [facility] 06-23-2023 13:43-0500 Diastolic blood pressure 84 mm[Hg] Destinee Hortonka 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 SERVICE Work Phone: [phone] [place] [address] 06-23-2023 13:43-0500 Heart rate 85 /min Destinee Perla 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 SERVICE Work Phone: [phone] [place] [address] 06-23-2023 13:43-0500 Respiratory rate 16 /min Destinee Hortonka 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 SERVICE Work Phone: [facility] 06-23-2023 13:43-0500 SaO2% (BldA) [Mass fraction] 97 % Destinee Perla 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 SERVICE Work Phone: [facility] 06-23-2023 13:43-0500 Systolic blood pressure 131 mm[Hg] Destinee Perla 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 SERVICE Work Phone: [facility] 03-04-2023 11:30-0400 Body height 167.64 cm Maikol Roca Other [employer] Other 03-04-2023 11:30-0400 Body mass index (BMI) [Ratio] 25.34 kg/m2 Maikol Roca Other [employer] Other 03-04-2023 11:30-0400 Body temperature 98.4 [degF] Maikol Roca Other [employer] Other 03-04-2023 11:30-0400 Body weight 71.22 kg Maikol Roca Other [facility] Other 03-04-2023 11:30-0400 Diastolic blood pressure 78 mm[Hg] Eskrystal Abelino Other [employer] Other 03-04-2023 11:30-0400 SaO2% (BldA) [Mass fraction] 78 % Eskrystal Roca Other [facility] Other 03-04-2023 11:30-0400 Systolic blood pressure 132 mm[Hg] Eskrystal Roca Other [facility] Other 11-14-2021 12:54-0400 Body height 167.64 cm [employer] Work Phone: DN-Npfvocouzopohn-Uo efw-suhl Work Phone: 11-14-2021 12:54-0400 Body mass index (BMI) [Ratio] 28.84 kg/m2 [employer] Work Phone: PY-Etywmjdjcmmhyw-Il [place] Work Phone: 11-14-2021 12:54-0400 Body surface area Derived from formula 1.91 m2 [employer] Work Phone: QK-Stpkvgkckucpyg-Je [place] Work Phone: 11-14-2021 12:54-0400 Body temperature 97.5 [degF] Donald Aden [employer] Work Phone: SJ-Apcmcfqwowusmr-Bg [place] Work Phone: 11-14-2021 12:54-0400 Body weight 81.06 kg Donald Samaniego [employer] Work Phone: XW-Xpbbvluolrdbez-Nm [place] Work Phone: 09-19-2021 10:21-0400 Body height 167.64 cm Donald Ocho [employer] Work Phone: WP-Whqnxptujlktrk-Qi rma [address] [place] Work Phone: 09-19-2021 10:21-0400 Body mass index (BMI) [Ratio] 29.07 kg/m2 Donald Samaniego [employer] Work Phone: VS-Qmgyrxjpzgvyzo-Sg rma [address] [place] Work Phone: 09-19-2021 10:21-0400 Body surface area Derived from formula 1.91 m2 Donald Samaniego [place] Work Phone: TA-Hazhflvsmqwuww-Ks rma [address] [place] Work Phone: 09-19-2021 10:21-0400 Body temperature 96.5 [degF] Donald Samaniego Hoy Work Phone: KA-Etuwnvtgchffsh-Mz rma [address] [place] Work Phone: 09-19-2021 10:21-0400 Body weight 81.71 kg Donald Orellanay Work Phone: JG-Eyoeczxxpwlkne-Ze rma [address] [place] Work Phone: 09-19-2021 10:21-0400 Heart rate 70 /min Donald Samaniego [place]oy Work Phone: WV-Uplqnclsftlzzq-Ra rma [address] [place] Work Phone: 09-19-2021 10:21-0400 Respiratory rate 16 /min Donald Orellanay Work Phone: KJ-Kjzdhbktukozme-Zu rma [address] [place] Work Phone: 09-19-2021 10:21-0400 SaO2% (BldA) [Mass fraction] 99 % Donald Samaniego [place] Work Phone: CS-Eeevguveaacnnd-Ik rma [address] [place] Work Phone: 12-07-2020 10:19-0400 Body height 167.64 cm Donald Samaniego [employer] Work Phone: PD-Azvkxqkbb-Nbybykd e 2460 Work Phone: 12-07-2020 10:0400 Body mass index (BMI) [Ratio] 29.61 kg/m2 Donald Pate Work Phone: EH-Wrdinafwi-Evyfgsw e 2460 Work Phone: 12-07-2020 10:0400 Body surface area Derived from formula 1.93 m2 Donald Pate Work Phone: ID-Otvyeksay-Rufpnwb e 2460 Work Phone: 12-07-2020 10:0400 Body temperature 97.1 [degF] Donald Pate Work Phone: WM-Nxtdhfgwr-Bwtiqqf e 2460 Work Phone: 12-07-2020 10:0400 Body weight 83.2 kg Donald Pate Work Phone: JZ-Etpoqwffj-Dlsgqqi e 2460 Work Phone: 12-07-2020 10:0400 Respiratory rate 16 /min Donald Pate Work Phone: ED-Blaszjapq-Elofgkf e 2460 Work Phone: Encounters Encounter Date Encounter Type Care Provider Facility Start: 03-11-2025 End: 03-11-2025 ambulatory Donald Pate MD Work Phone: [facility] Work Phone: Start: 03-11-2025 End: 03-11-2025 Patient encounter procedure Bradley [facility] Work Phone: Start: 03-02-2025 End: 03-02-2025 ambulatory Edwin SOUSA Facility:[facility] Start: 03-02-2025 End: 03-02-2025 Patient encounter procedure Edwin SOUSA [facility] Start: 03-01-2025 End: 03-01-2025 ambulatory DONALD PATE Facility:[facility] Start: 02-09-2025 End: 02-09-2025 ambulatory Donald Pate [facility] Work Phone: Start: 02-09-2025 End: 02-09-2025 Departed Referred Donald Samaniego MD -LAB Path Spec [facility] Start: 02-04-2025 End: 02-04-2025 ambulatory DONALD Veronique Facility:[facility] Start: 02-01-2025 End: 02-01-2025 ambulatory DONALD Veronique Facility:[facility] Start: 01-27-2025 End: 01-27-2025 ambulatory DONALD PATE Facility:[facility] Start: 08-17-2024 End: 08-17-2024 ambulatory REYES WETZEL Facility:[facility] Start: 08-17-2024 End: 08-17-2024 Patient encounter procedure Reyes Wetzel MD Work Phone: Ophthalmology Comment on above: After-cataract of ri ght eye with vision obscured (Primary Dx); After-cataract of left eye with vision obscured; Pseudophakia of both eyes; Amblyopia of eye, right; Posterior vitreous detachment of right eye Start: 07-21-2024 End: 07-21-2024 ambulatory DONALD PATE [facility] Start: 04-07-2024 End: 04-07-2024 ambulatory REYES WETZEL Facility:[facility] Start: 03-24-2024 End: 03-24-2024 ambulatory REYES WETZEL Facility:[facility] Start: 03-17-2024 Encounter for other preprocedural examination REYES WETZEL [facility] Start: 03-17-2024 End: 03-17-2024 PAT Pac [place] 1 Work Phone: Pre Anesthesia Comment on above: Pre-op evaluation (P rimary Dx); Generalized anxiety disorder Nuclear senile catar act of right eye; Nuclear senile cataract of left eye Start: 03-17-2024 End: 03-17-2024 Preprocedural examination done Pacc [place] 1 Work Phone: [facility] Work Phone: Start: 03-09-2024 End: 03-09-2024 ambulatory REYES WETZEL Facility:[facility] Start: 03-09-2024 End: 03-09-2024 Patient encounter procedure Reyes Wetzel MD Work Phone: Ophthalmology Comment on above: Nuclear senile catar act of right eye (Primary Dx); Nuclear senile cataract of left eye; Regular astigmatism of right eye; Amblyopia of eye, right Start: 01-22-2024 End: 01-22-2024 ambulatory DANVILLE Aden [facility] Start: 09-08-2023 End: 09-08-2023 [facility] Start: 08-28-2023 End: 08-28-2023 ambulatory [facility] Start: 08-14-2023 End: 08-14-2023 ambulatory [facility] Start: 08-11-2023 End: 08-11-2023 ambulatory LOUANN BARRERA Not Available Start: 08-11-2023 End: 08-11-2023 Postop follow up visit related to original px Louann Barrera DO Work Phone: [facility] Comment on above: Follow-up examinatio n after gynecological surgery (Primary Dx); Status post laparoscopic hysterectomy; Status post bilateral salpingo-oophorectomy (BSO) Start: 08-06-2023 End: 08-06-2023 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 Work Phone: [facility] 1 Comment on above: Dizziness and giddin ess (Primary Dx); Nasal drainage Start: 06-20-2023 End: 06-20-2023 ambulatory MD Donald Pate Work Phone: [facility] Work Phone: Start: 06-20-2023 End: 06-20-2023 Patient encounter procedure MD Donald Pate Work Phone: [facility]Electro[facility] Work Phone: Start: 06-17-2023 End: 06-17-2023 ambulatory LOUANN Oconnor NATAPRAWIRA Not Available Start: 05-19-2023 End: 05-19-2023 ambulatory LOUANN Oconnor NATAPRAWIRA Not Available Start: 03-04-2023 End: 03-04-2023 ambulatory Maikol Roca Other [facility] Other Start: 03-04-2023 Office outpatient ne w 20 minutes Maikol Roca [facility] Start: 06-24-2022 End: 06-24-[address] DONALD PATE Facility:[facility] Start: 11-14-2021 Office outpatient vi sit 15 minutes Donald Pate Work Phone: QG-Nbpfmhikydjqsh-Zneal eugenie Work Phone: Start: 09-19-2021 Current tobacco non-user cad cap copd pv dm Donald Pate Work Phone: JH-Rmfhhalepkfvle-Epjfm [address] [place] Work Phone: Start: 09-17-2021 AUDIT Donald Pate Work Phone: XT-Jwjrhyvrziriul-Ihhtx ana Work Phone: Start: 12-07-2020 Follow-up encounter Donald Pate Work Phone: RX-Uppfyrcvn-Msbetyng 2394 Work Phone: Start: 01-05-2019 Patient encounter procedure Joycelyn Means FM-Ajxdrgbyoojhaa-Bfogx ana Work Phone: Start: 11-02-2018 Patient encounter procedure Joycelyn Means ET-Okdhzvxjlytjma-Hzofs ana Work Phone: Start: 02-26-2018 Patient encounter procedure Joycelyn Means CL-Pvsmjyajbdyqwc-Wmbpj ana Work Phone: Start: 01-08-2018 Patient encounter procedure Joycelyn Means CH-Atlpkesotfnpfe-Vlaup ana Work Phone: Start: 10-14-2017 Patient encounter procedure Joycelny Means PC-Rsyigsaztnhysm-Diamb ana Work Phone: Start: 10-06-2017 Patient encounter procedure Joycelyn Means JU-Uxdqogezncdbcb-Ppmlg ana Work Phone: Start: 09-04-2017 Patient encounter procedure Joycelyn Means FG-Ozrizjsbymjyvd-Mqopj ana Work Phone: Preoperative state Donald Pate Work Phone: ZC-Efcunixlm-Zmmqnstd 3369 Work Phone: Procedures Date Procedure Procedure Detail Performing Clinician Start: 02-09-2025 Urine culture Donald Pate MD Work Phone: Start: 08-17-2024 Post-cataract laser surgery Reyes Wetzel MD Work Phone: Start: 08-17-2024 Post-cataract laser surgery Reyes Wetzel MD Work Phone: Start: 03-17-2024 IOL BIOMETRY W/ IOL CALC OU (BOTH EYES) Reyes Wetzel MD Work Phone: Start: 03-17-2024 ASCAN ONLY - DIAGNOSTIC OU (BOTH EYES) Reyes Wetzel MD Work Phone: Start: 05-26-2023 Mammography Destinee Perla 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 Work Phone: Colonoscopy Edwin NILL Endometrial ablation Edwin NILL Extraction of cataract Seamus rodri NILL H/O: hysterectomy Status post laparoscopic hysterectomy Louann Españaaprawi DO Work Phone: History of Uterine Myomectomy Laparoscopic Ablation Joycelyn Means Laparoscopy Edwin NILL Stapedectomy Edwin NILL Vaginal hysterectomy Edwin NILL Plan of Treatment Date Care Activity Detail Author Start: 06-20-2026 Diabetes Screening Diabetes Lita boss [facility] Start: 03-09-2025 End: 08-31-2025 ASCAN ONLY - DIAGNOSTIC OU (BOTH EYES) [facility] ONLY - DIAGNOSTIC OU (BOTH EYES) OPHT Imaging Routine Nuclear senile cataract of right eye Nuclear senile cataract of left eye Expected: 03/09/2025, Expires: 08/31/2025 [facility] Comment on above: Expected: 03/09/2025 , Expires: 08/31/2025 Start: 03-09-2025 End: 08-31-2025 IOL BIOMETRY W/ IOL CALC OU (BOTH EYES) IOL BIOMETRY W/ IOL CALC OU (BOTH EYES) OPHT Imaging Routine Nuclear senile cataract of right eye Nuclear senile cataract of left eye Expected: 03/09/2025, Expires: 08/31/2025 [facility] Comment on above: Expected: 03/09/2025 , Expires: 08/31/2025 Start: 02-09-2025 Bacteria identified in Urine by Culture Urine Culture [facility] Start: 02-09-2025 Urine culture [facility] Start: 05-26-2024 Screening for malign ant neoplasm of breast Mammogram [facility] Start: 05-25-2024 End: 05-25-2024 Patient encounter procedure 05/25/2024 11:15 AM EST Office Visit [facility] [address] [facility] 2 [place] [address] Louann Barrera, DO [address] [place] [address] [facility] Start: 04-07-2024 End: 04-07-2024 Admission to same day surgery center 04/07/2024 12:00 PM EDT - 04/07/2024 12:35 PM EDT Surgery Ambulatory Surgery [address] [place] [address] Reyes Wetzel MD [address] [facility] [place] [address] PHACOEMULSIFICATION CATARACT IMPLANT INTRAOCULAR LENS W/O ENDOSCOPIC CYCLOPHOTOCOAGULATION Ambulatory Surgery Comment on above: PHACOEMULSIFICATION CATARACT IMPLANT INTRAOCULAR LENS W/O ENDOSCOPIC CYCLOPHOTOCOAGULATION Start: 04-07-2024 End: 04-07-2024 Oph bmtry prtl coher intrfrmtry io lens pwr jyoti OPHTHALMIC BIOMETRY BY PARTIAL COHERENCE INTERFEROMETRY W/INTRAOCULAR LENS POWER CALCULATION Combined forms of age-related cataract of left eye 04/07/2024 12:00 PM EDT MANUEL CLARK Start: 04-07-2024 Subsequent hospital visit by physician 04/07/2024 12:00 PM EDT Hospital Encounter Ambulatory Surgery [address] [place] [address] Reyes Wetzel MD [address] [facility] [place] [address] Combined forms of age-related cataract of left eye [H25.812] Ambulatory Surgery Comment on above: Combined forms of ag e-related cataract of left eye [H25.812] Start: 04-07-2024 End: 04-07-2024 Xcapsl ctrc rmvl insj io lens prosth w/o ecp PHACOEMULSIFICATION CATARACT IMPLANT INTRAOCULAR LENS W/O ENDOSCOPIC CYCLOPHOTOCOAGULATION Combined forms of age-related cataract of left eye 04/07/2024 12:00 PM EDT [facility] Start: 04-02-2024 End: 08-24-2025 CORNEAL TOPOGRAPHY ATLAS OU (BOTH EYES) CORNEAL TOPOGRAPHY ATLAS OU (BOTH EYES) OPHT Imaging Routine Nuclear senile cataract of right eye Nuclear senile cataract of left eye Expected: 04/02/2024, Expires: 08/24/2025 [facility] Work Phone: Comment on above: Expected: 04/02/2024 , Expires: 08/24/2025 Start: 04-02-2024 End: 08-24-2025 CORNEAL TOPOGRAPHY PENTACAM OU (BOTH EYES) CORNEAL TOPOGRAPHY PENTACAM OU (BOTH EYES) OPHT Imaging Routine Nuclear senile cataract of right eye Nuclear senile cataract of left eye Expected: 04/02/2024, Expires: 08/24/2025 [facility] Comment on above: Expected: 04/02/2024 , Expires: 08/24/2025 Start: 04-02-2024 End: 08-24-2025 OCT MACULA CIRRUS OU (BOTH EYES) OCT MACULA CIRRUS OU (BOTH EYES) OPHT Imaging Routine Nuclear senile cataract of right eye Nuclear senile cataract of left eye Expected: 04/02/2024, Expires: 08/24/2025 [facility] Comment on above: Expected: 04/02/2024 , Expires: 08/24/2025 Start: 03-24-2024 End: 03-24-2024 Admission to same day surgery center 03/24/2024 1:20 PM EDT - 03/24/2024 1:55 PM EDT Surgery Ambulatory Surgery [address] [place] [address] Reyes Wetzel MD [address] [place] [address] PHACOEMULSIFICATION CATARACT IMPLANT INTRAOCULAR LENS W/O ENDOSCOPIC CYCLOPHOTOCOAGULATION Ambulatory Surgery Comment on above: PHACOEMULSIFICATION CATARACT IMPLANT INTRAOCULAR LENS W/O ENDOSCOPIC CYCLOPHOTOCOAGULATION Start: 03-24-2024 End: 03-24-2024 Oph bmtry prtl coher intrfrmtry io lens pwr jyoti OPHTHALMIC BIOMETRY BY PARTIAL COHERENCE INTERFEROMETRY W/INTRAOCULAR LENS POWER CALCULATION Combined forms of age-related cataract of right eye 03/24/2024 1:20 PM EDT MANUEL CLARK Start: 03-24-2024 Subsequent hospital visit by physician 03/24/2024 1:20 PM EDT Hospital Encounter Ambulatory Surgery [address] [facility] [place] [address] Reyes Wetzel MD [address] [place] [address] Combined forms of age-related cataract of right eye [H25.811] Ambulatory Surgery Comment on above: Combined forms of ag e-related cataract of right eye [H25.811] Start: 03-24-2024 End: 03-24-2024 Xcapsl ctrc rmvl insj io lens prosth w/o ecp PHACOEMULSIFICATION CATARACT IMPLANT INTRAOCULAR LENS W/O ENDOSCOPIC CYCLOPHOTOCOAGULATION Combined forms of age-related cataract of right eye 03/24/2024 1:20 PM EDT MANUEL CLARK Start: 03-07-2024 Covid-19 Vaccine ( season) Covid-19 Vaccine ( season) [facility] Start: 03-07-2024 Covid-19 Vaccine ( season) Covid-19 Vaccine ( season) [facility] Start: 03-07-2024 Influenza vaccination Influenza Vacc ine (#1) [facility] Start: 12-12-2021 FUV, Provider: Shukri Hoffman, Status: Pen, Time: 1:15 PM FUV, Provider: Shukri Hoffman, Status: Pen, Time: 1:15 PM LO-Uvjktxkyd-To [place] [address] Work Phone: Start: 11-14-2021 FUV, Provider: Shukri Hoffman, Status: Pen, Time: 1:00 PM FUV, Provider: Shukri Hoffman, Status: Pen, Time: 1:00 PM [facility] Work Phone: Start: 05-13-2019 Screening for malign ant neoplasm of breast Mammogram Screening [facility] Start: 09-16-2015 Pneumococcal Vaccine : 50+ (1 of 1 - PCV) Pneumococcal Vaccine: 50+ (1 of 1 - PCV) [facility] Start: 09-16-2015 Shingrix Vaccine (1 of 2) Shingrix V accine (1 of 2) [facility] Start: 09-16-2015 Zoster Vaccines (1 of 2) Zoster Vacc jocelin (1 of 2) [facility] Start: 2010 Lipid panel Lipid Screening [facility] Start: 2010 Screening for malign ant neoplasm of colon [facility] Start: 09-16-1987 DTaP/Tdap/Td Vaccine s (1 - Tdap) DTaP/Tdap/Td Vaccines (1 - Tdap) [facility] Start: 1986 Screening for malign ant neoplasm of cervix [facility] Start: 1984 Hepatitis B Vaccine (1 of 3 - 19+ 3-dose series) Hepatitis B Vaccine (1 of 3 - 19+ 3-dose series) [facility] Start: 1984 Urine microalbumin profile DTa P,Tdap,Td Vaccine (1 - Tdap) [facility] Start: 09-16-1983 Anxiety Screening Anxiety Screening [facility] Start: 09-16-1983 Depression Screening Depression Scre ening [facility] Start: 09-16-1983 Diabetes mellitus screening Diabetes Screening [facility] Start: 09-16-1983 Hepatitis C screening Hepatitis C Sc reening [facility] Start: 09-16-1983 HIV screening HIV Screening [facility] Start: 1966 MMR Vaccines (1 of 1 - Standard series) MMR Vaccines (1 of 1 - Standard series) [facility] Start: 03-18-1966 COVID-19 Vaccine (#1) COVID-19 Vacci ne (#1) [facility] Start: 1965 Hepatitis B Vaccines (1 of 3 - 3-dose series) Hepatitis B Vaccines (1 of 3 - 3-dose series) [facility] Start: 1965 HIV screening HIV Screening [facility] Start: 1965 Lipid panel Lipid Panel [facility] Start: 1965 Screening for malign ant neoplasm of colon [facility] Start: 1965 Yearly Adult Physical Yearly Adult P hysical [facility] End: 08-26-2025 CORNEAL TOPOGRAPHY ATLAS OU (BOTH EYES) CORNEAL TOPOGRAPHY ATLAS OU (BOTH EYES) OPHT Imaging Routine Nuclear senile cataract of right eye Nuclear senile cataract of left eye 1 Occurrences starting 03/04/2024 until 08/26/2025 [facility] Comment on above: 1 Occurrences starti ng 03/04/2024 until 08/26/2025 CORNEAL TOPOGRAPHY A TLAS OU (BOTH EYES) CORNEAL TOPOGRAPHY ATLAS OU (BOTH EYES) OPHT Imaging Routine Nuclear senile cataract of right eye Nuclear senile cataract of left eye 03/17/2024 8:31 AM EDT [facility] Work Phone: End: 08-26-2025 CORNEAL TOPOGRAPHY PENTACAM OU (BOTH EYES) CORNEAL TOPOGRAPHY PENTACAM OU (BOTH EYES) OPHT Imaging Routine Nuclear senile cataract of right eye Nuclear senile cataract of left eye 1 Occurrences starting 03/04/2024 until 08/26/2025 [facility] Comment on above: 1 Occurrences starti ng 03/04/2024 until 08/26/2025 CORNEAL TOPOGRAPHY P ENTACAM OU (BOTH EYES) CORNEAL TOPOGRAPHY PENTACAM OU (BOTH EYES) OPHT Imaging Routine Nuclear senile cataract of right eye Nuclear senile cataract of left eye 03/09/2024 8:33 AM EDT [facility] End: 08-26-2025 OCT MACULA CIRRUS OU (BOTH EYES) OCT MACULA CIRRUS OU (BOTH EYES) OPHT Imaging Routine Nuclear senile cataract of right eye Nuclear senile cataract of left eye 1 Occurrences starting 03/04/2024 until 08/26/2025 [facility] Comment on above: 1 Occurrences starti ng 03/04/2024 until 08/26/2025 OCT MACULA CIRRUS OU (BOTH EYES) OCT MACULA CIRRUS OU (BOTH EYES) OPHT Imaging Routine Nuclear senile cataract of right eye Nuclear senile cataract of left eye 03/09/2024 8:46 AM EDT [facility] Oph bmtry prtl coher intrfrmtry io lens pwr jyoti [facility] Xcapsl ctrc rmvl ins j io lens prosth w/o ecp [facility] Work Phone: NEGATED: Highlighted row has been ruled out! Planned Goals not documented [facility] Work Phone: Immunizations Immunization Date Immunization Notes Care Provider Mercedes perez 05-01-2024 influenza virus vaccine, unspecified formulation Edwin SOUSA [facility] [place] 05-31-2023 influenza virus vaccine, unspecified formulation Reyes Wetzel MD Work Phone: [facility] 05-22-2017 influenza virus vaccine, unspecified formulation Donald Pate MD Work Phone: [facility] 05-22-2017 influenza, high dose seasonal, preservative-free Maikol Roca Other [employer] Other Payers Date Payer Category Payer Self-pay 2024 Private Health Insurance [id number] 2018 Unknown 1965 Unknown [id number] 2.16.84 [id number] 1965 Unknown [id number] 2.16.84 [id number] 1965 Unknown [id number] 2.16.84 0.1.940369.3.579.2.1259 1965 Unknown [id number] 2.16.840 .1.332021.3.579.2.1259 1965 Unknown [id number] 2.16.840. [id number] 1965 Unknown [id number] 2.16.840. [id number] 1965 Unknown [id number] 2.16. [id number] 1965 Unknown [id number] 2.16.8 40.1.952459.3.579.2.1286 1965 Unknown [id number] 2.16.8 40.1.331394.3.579.2.6 1965 Unknown [id number] 2.16.8 40.1.761061.3.579.2.1285 1965 Unknown [id number] 2.16.8 40.1.282673.3.579.2.1285 1965 Unknown [id number] 2.16.8 40.1.276360.3.579.2.1285 1965 Unknown [id number] 2.16.8 40.1.545086.3.579.2.727 1965 Unknown [id number] 2.16.8 40.1.704218.3.579.2.718 1965 Unknown [id number] 2.16.8 40.1.958573.3.579.2.718 1965 Unknown [id number] 2.16.8 40.1.441967.3.579.2.718 1965 Unknown [id number] 2.16.8 40.1.910798.3.579.2.718 1959 Unknown [id number] Unknown [id number] 2. [id number] Unknown [id number] 2.16.8 40.1.097745.3.579.2.531 Social History Date Type Detail Facility Start: 06-23-2023 End: 03-17-2024 Former smoker Former smoker [facility] Work Phone: Start: 06-23-2023 End: 03-17-2024 Sex Assigned At [employer] Other Start: 1965 Sex Assigned At Female [facility] Start: 03-04-2023 End: 06-23-2023 Tobacco smoking status NHIS Never smoked tobacco [facility] Start: 06-23-2023 End: 03-09-2024 Tobacco use and exposure Smokeless tobacco non-user [facility] Work Phone: Start: 06-23-2023 Alcohol intake Lifetime non-drinker (finding) [facility] Work Phone: Start: 1965 [facility] Start: 06-13-2023 End: 06-23-2023 Exposure to SARS-CoV-2 (event) Not sure [facility] Start: 06-19-2023 End: 03-02-2025 Tobacco smoking status NHIS Ex-smoker [facility] Start: 07-07-2006 End: 07-07-2008 History of tobacco use Current smoker [facility] Start: 07-07-2006 End: 07-07-2008 History of tobacco use Cigarette Smoker [facility] Start: 08-11-2023 End: 08-17-2024 Alcohol intake Current drinker of alcohol (finding) [facility] Start: 06-19-2023 Tobacco Comment Last smoked : > 10 years [facility] Start: 06-19-2023 Alcohol Comment occasionally; caffeine intake : 1-2 cups per day [facility] Start: 12-16-2018 Alcohol Comment Social [facility] National Score (1-100), lower number is lower risk 86 [facility] [place] Sex Female (finding) [facility] Sexual Orientation [facility] [place] NEGATED: Highlighted row - - [facility] Work Phone: NEGATED: Highlighted rowStart: ELADIAF History of tobacco use Passive smoker [facility] Work Phone: Medical Equipment Procedure Code Equipment Code Equipment Origin al Text Equipment Identifier Dates Darrell, Radha 0.6mm Yoanna X 4.5mm Nitinol Fluoroplastic Case [id number] Start: 12-10-2017 Comment on above: Description: Convert ed from [facility]. Please see archived information for full log information. [id number] Malorie on [facility] - [id number] Start: 03-24-2024 [id number].230 Malorie on [facility] - [id number] Start: 04-07-2024 Functional Status Date Assessment Result Facility NEGATED: Highlighted row Functional performance Functional status health issues are not documented Disease [facility] Work Phone: Mental Status Date Assessment Result Facility NEGATED: Highlighted row Cognitive function [Interpretation] Cognitive status health issues are not documented Disease [facility]Loeftbhs[facility] Work Phone: Clinical Notes 03-04-2023 to 03-02-2025 Reyes Wetzel MD - 08/17/2024 4:25 PM Callie Ku COA - 03/17/2024 8:32 AM EDTPatient Florecita Severino APRN.CNP - 03/17/2024 7:00 AM EDT Note Date & Type Note Facility 03-02-2025 Note General Surgery Offi ce/Clinic Note Chief Complaint consultation for colonoscopy HPI Staff 59 year old female presents on consultation from Dr. Pate for screening colonoscopy. Denies abdominal or rectal pain. No rectal bleeding or change in bowel habits. Denies nausea, vomiting or unexplained weight loss. Patient reports colonoscopy completed 10-15 years ago and reported normal per patient-operative report could not be found. Grandmother and aunt with history of colon cancer. History of Present Illness 59 yo female with h/o fibromyalgia, anxiety/depression, hearing loss, referred for colorectal screening; denies change in bms or blood in stools; abd operations significant for hysterectomy, laparoscopy, and ovarian cystectomy; last colonoscopy reportedly 10-15 years ago, report not available; no asa or NSAID use; no tobacco use; no fmhx of GI malignancy or IBD. Review of Systems PHQ Score Initial Depression Screen Score: 0 SCORE ROS - Provider Constitutional: no fever, no sweats, no weight loss. Eyes: no glasses, no blurred vision, no visual loss. ENMT: no dentures, no hoarseness, no swallowing difficulties, no hearing loss, no ear infection(s), no nose bleeds. Cardiovascular: normal blood pressure, no chest pain, regular heartbeat, no heart murmur. Respiratory: no shortness of breath, no cough, no asthma, no wheezing. Gastrointestinal: no nausea, no vomiting, no diarrhea, no constipation, no blood in stool, no change in bowel habits, no abdominal pain, no hepatitis. Genitourinary: no kidney stones, no urine infection, no dysuria. Musculoskeletal: no pain, no weakness. Skin: no changing moles, no rash, no skin lumps. Neurologic: no seizures, no epilepsy, no headache. Psychiatric: no emotional or psychiatric problem. Heme/Lymph: no bleeding problems, no anemia, no blood clots, no transfusions. Allergy/Immunologic: no swollen lymph nodes/glands, no IV drug abuse. Other: Additional ROS info: Except as noted in the above Review of Systems and in the History of Present Illness, all other systems have been reviewed and are negative or noncontributory. Physical Exam Vitals & Measurements HR: 72(Peripheral) RR: 16 BP: 138/84 HT: 165 cm HT: 65 in WT: 74.9 kg WT: 165.126 lb BMI: 27.51 HEENT: normal conjunctiva, sclera clear, no scleral icterus, EOM intact, PERRLA, oral mucosa moist without lesions. Neck: trachea midline, no mass, symmetric, no thyromegaly or nodules, no adenopathy Respiratory: lungs CTA, respirations non labored. Cardiovascular: regular rate and rhythm, no murmur, no pedal edema or varicosities. Gastrointestinal: soft, non distended, no tenderness, no masses, no palpable hernias, diastasis recti no, no hepatosplenomegaly; normal bs Musculoskeletal: normal gait, digits and nails without infection, nodes, cyanosis, clubbing. Skin: no rashes, no lesions, no ulcers, no subcutaneous nodules, induration. Psychiatric/Neuro: oriented to time, place, person, judgement normal, affect appropriate for age, insight intact, no focal deficits. Tests: review of old records completed , Discussed surgical options, risks, and possible complications with patient. Assessment/Plan 1. Screening for malignant neoplasm of colon (Z12.11: Encounter for screening for malignant neoplasm of colon) plan colonoscopy under anesthesia, informed consent obtained. Follow-up No qualifying data available Problem List/Past Medical History Ongoing Allergic rhinitis Anxiety Bilateral hearing loss BMI 27.0-27.9,adult Depressive disorder Fibromyalgia Former smoker Overweight Screening for malignant neoplasm of colon Historical No qualifying data Procedure/Surgical History Cataract extraction, Colonoscopy, Endometrial ablation, Laparoscopy, Ovarian cystectomy, Stapedectomy, VH - Vaginal hysterectomy. Medications alprazolam 0.5 mg Tab, 0.5 mg= 1 tab(s), Oral, BID, PRN CeleXA 10 mg Tab, 5 mg= 0.5 tab(s), Oral, Daily cetirizine 10 mg Tab, 10 mg= 1 tab(s), Oral, Daily Fish Oil meclizine 25 mg Tab, 25 mg= 1 tab(s), Oral, q6hr, PRN tiZANidine 4 mg Tab, 4 mg= 1 tab(s), Oral, TID, PRN Allergies Bactrim (Rash) erythromycin (Rash) Social History Alcohol Never., 02/27/2025 Substance Abuse Never., 02/27/2025 Tobacco Former smoker, quit more than 30 days ago Tobacco Use:. Never Smokeless Tobacco Use:. Cigarettes, 0.5 per day. Started age 24.0 Years. Stopped age 31 Years., 03/02/2025 Family History Colonic polyp: Mother. Primary malignant neoplasm of colon: Aunt and Grandparent. Suicide: Brother. Immunizations Vaccine Date Status influenza virus vaccine, inactivated 05/01/2024 Recorded [facility] Comment on above: Result Comment: Elec tronically Signed By: LARS SALMERON, Edwin Renee\Date and Time Signed: 03/02/25 14:50 EDT 08-17-2024 Note Date of Procedure 08/17/2024 Harold Protocol Safety Checklist Sign In: A moment to CARE completed, Special equipment verified, Appropriate PPE verified, Patient name, date of , allergies and intended procedure verified. Provider Confirms: Intended patient and procedure match the source document, Consent documented and matches the intended procedure, Correct side/site marked visible. No relevant labs, photos, and/or imaging studies to review. No medications required for procedure. No fire risk. No implants. Pre Laser Meds 1-2 drops Tropicamide 1%. Laser Paramters Power: 1.5mJ. Total Spots: 32. Total Energy: 48mJ. Post Laser Meds None. Post Laser IOP 9 (Intraocular pressure by digital palpation ). Measured at: 4:47 PM. Home Going Prescription None. Sign Out Sign out discussion completed, All instruments, equipment, and/or possible retained foreign bodies accounted for, Post-procedure follow up management communicated. No specimens. Notes No Intraocular lens pits No complications [facility] 08-17-2024 Note Date of Procedure 08/17/2024 Harold Protocol Safety Checklist Sign In: A moment to CARE completed, Special equipment verified, Appropriate PPE verified, Patient name, date of , allergies and intended procedure verified. Provider Confirms: Intended patient and procedure match the source document, Consent documented and matches the intended procedure, Correct side/site marked visible. No relevant labs, photos, and/or imaging studies to review. No medications required for procedure. No fire risk. No implants. Anesthesia None. Pre Laser Meds 1-2 drops Tropicamide 1%. Laser Paramters Power: 1.5mJ. Total Spots: 26. Total Energy: 39mJ. Post Laser Meds None. Post Laser IOP 10 (Intraocular pressure by digital palpation ). Measured at: 4:49 PM. Home Going Prescription None. Sign Out Sign out discussion completed, All instruments, equipment, and/or possible retained foreign bodies accounted for, Post-procedure follow up management communicated. No specimens. Notes No Intraocular lens pits No complications [facility] 08-17-2024 Note HNO ID: [id number] Author: REYES WETZEL MD Service: ? Author Type: Physician Type: Progress Notes Filed: 08/17/2024 16:53 Note Text: ASSESSMENT/PLAN: 1. After-cataract of right eye with vision obscured - ICD9: 366.53, ICD10: H26.491 (primary diagnosis) 2. After-cataract of left eye with vision obscured - ICD9: 366.53, ICD10: H26.492 -Patient was educated on posterior capsular opacity following cataract surgery. The risks, benefits, alternatives, personnel, and possible complications related to yttrium aluminum garnet (YAG) capsulotomy were discussed with the patient. Explained that risks include but are not limited to: increase in intraocular pressure, retinal tears/detachment, dislocation of the intraocular lens, and/or need for further procedures. Retinal detachment warning symptoms were reviewed with patient and she expresses understanding of the need to call and come in if any retinal detachment symptoms occur. Discussed risk of recurrent Posterior capsular opacity with possible need for repeat Yag PC. Discussed the risk of refractive change with the need to update glasses after Yag PC. Patient expresses understanding and elects to proceed with yttrium aluminum garnet (YAG) capsulotomy Both eyes by Dr. Wetzel, which was completed today. 3. Pseudophakia of both eyes - ICD9: V43.1, ICD10: Z96.1 PCIOL OU 2023 by WM; OD toric plano, OS plano non-toric doing well; update glasses as needed with Dr. Plummer 4. Amblyopia of eye, right - ICD9: 368.00, ICD10: H53.001 Longstanding. Limits vision. 5. PVD, right Hemorrhagic PVD OD shortly following cataract surgery - was followed by a retina specialist. Sharma ring on exam; no retina breaks. No residual VH S/s of RD reviewed. Theresa Montague, OD and Reyes Wetzel MD Copy of today's visit note was sent to Dr. Plummer Return to Dr. Plummer within the next 2-4 weeks for vata/refraction or sooner if needed. Reyes Wetzel MD The documentation for this note was completed by Luli Traylor, DUANE acting as a scribe for, and in the presence of, Dr. Reyes Wetzel M.D. 08/17/24 The documentation recorded by the scribe accurately reflects the service I personally performed and the decisions made by me. I have confirmed and edited as necessary the relevant HPI, ophthalmic history, ROS, and the neuro exam findings as obtained by others. I have seen and examined Reba Vasquez. I have discussed the case and the management of this patient's care with the Resident/Fellow, if applicable. I also have reviewed and agree with the assessment and plan as stated above and agree with all of its relevant components. Reyes Wetzel MD [facility] 08-17-2024 History of Present illness Narrative ASSESSMENT/PLAN: 1. After-cataract of right eye with vision obscured - ICD9: 366.53, ICD10: H26.491 (primary diagnosis) 2. After-cataract of left eye with vision obscured - ICD9: 366.53, ICD10: H26.492 -Patient was educated on posterior capsular opacity following cataract surgery. The risks, benefits, alternatives, personnel, and possible complications related to yttrium aluminum garnet (YAG) capsulotomy were discussed with the patient. Explained that risks include but are not limited to: increase in intraocular pressure, retinal tears/detachment, dislocation of the intraocular lens, and/or need for further procedures. Retinal detachment warning symptoms were reviewed with patient and she expresses understanding of the need to call and come in if any retinal detachment symptoms occur. Discussed risk of recurrent Posterior capsular opacity with possible need for repeat Yag PC. Discussed the risk of refractive change with the need to update glasses after Yag PC. Patient expresses understanding and elects to proceed with yttrium aluminum garnet (YAG) capsulotomy Both eyes by Dr. Wetzel, which was completed today. 3. Pseudophakia of both eyes - ICD9: V43.1, ICD10: Z96.1 PCIOL OU 2023 by WM; OD toric plano, OS plano non-toric doing well; update glasses as needed with Dr. Plummer 4. Amblyopia of eye, right - ICD9: 368.00, ICD10: H53.001 Longstanding. Limits vision. 5. PVD, right Hemorrhagic PVD OD shortly following cataract surgery - was followed by a retina specialist. Sharma ring on exam; no retina breaks. No residual VH S/s of RD reviewed. Theresa Montague, OD and Reyes Wetzel MD Copy of today's visit note was sent to Dr. Plummer Return to Dr. Plummer within the next 2-4 weeks for vata/refraction or sooner if needed. Reyes Wetzel MD The documentation for this note was completed by DUANE Chris acting as a scribe for, and in the presence of, Dr. Reyes Wetzel M.D. 08/17/24 The documentation recorded by the scribe accurately reflects the service I personally performed and the decisions made by me. I have confirmed and edited as necessary the relevant HPI, ophthalmic history, ROS, and the neuro exam findings as obtained by others. I have seen and examined Reba Vasquez. I have discussed the case and the management of this patient's care with the Resident/Fellow, if applicable. I also have reviewed and agree with the assessment and plan as stated above and agree with all of its relevant components. Reyes Wetzel MD documented in this encounter [facility] 03-17-2024 Note HNO ID: [id number] Author: CALLIE CRUZ COA Service: ? Author Type: Principal Account Clerk Type: Progress Notes Filed: 03/17/2024 08:33 Note Text: CONFIRM AIM PLANO BOTH EYES. TORIC IOL RIGHT EYE. PATIENT AWARE THAT HE WILL NEED GLASSES FOR NEAR AND INTERMEDIATE. DUANE Muhammad [facility] 03-17-2024 Note Date of Procedure 03/17/2024. Principal Account Clerk Information DUANE Muhammad . Notes Measurements only - see Procedure Record under Scanned Documents for signed results. [facility] 03-17-2024 Note Date of Procedure 03/17/2024. Principal Account Clerk Information DUANE Muhammad . Notes Ascan report in paper chart and scanned to patient chart after post op period. A-SCAN RIGHT EYE: 23.40 A-SCAN LEFT EYE: 23.38 [facility] 03-17-2024 History of Present illness Narrative CONFIRM AIM PLANO BOTH EYES. TORIC IOL RIGHT EYE. PATIENT AWARE THAT HE WILL NEED GLASSES FOR NEAR AND INTERMEDIATE. DUANE Muhammad documented in this encounter [facility] 03-17-2024 Instructions Florecita Marquez APRN.CHIEF OPTOMETRY SERVICE - 03/17/2024 7:26 AM EDT Images from the original note were not included. [facility] PATIENT PREOPERATIVE INSTRUCTIONS Reyes Wetzel MD has scheduled you for your procedure at this surgery center: [facility]: [phone] --[address] [place] [address]. Please read below carefully for your personalized instructions. Arrival Time for Surgery: - The Surgery Center or hospital where you are having surgery will call the afternoon before surgery (or Friday for Friday surgery) with a scheduled arrival time. - If you have not heard by 4 pm, please contact the surgery center above. Please be aware that emergency situations arise, which may delay or change your surgical time. If this happens, we will notify you as soon as possible and regret any inconvenience Dietary Restrictions: - No solid food after midnight. - You may have 12 ounces of clear liquids (water, clear juices such as apple juice or gatorade, carbonated beverages, clear tea, black coffee, jello) until 2 hours before scheduled arrival at facility. - no milk / coffee creamer - no pulp juices Medications: Unless instructed differently below, stay on all of your medications until your surgery. Approved medications to take the morning of surgery with a sip of water: Xanax as needed If you start any new medications after today's visit, please contact the surgeon's office. Blood Thinning Medications: You do not need to hold blood thinners for cataract surgery Important Reminders: - If you are prescribed inhalers for breathing, continue using them. - Candy, mints, and tobacco products are NOT permitted the morning of surgery. - Hearing aids and glasses may be worn the morning of surgery. - NO jewelry, body piercings, makeup, hairpins or contacts are to be worn the day of surgery. - You may wear your partials/dentures, but you may be asked to remove them prior to you're procedure If you develop symptoms such as a fever, cold, or flu, or have other changes to your health within TWO DAYS of scheduled surgery or the morning of surgery, please contact the surgery center above. Personal Belongings: -Please have photo ID and insurance cards. -If you do not have a copy of advance directives on file with us, please bring a copy with you on the day of surgery. - Leave ALL valuables and money at home or with family members. For Outpatient Procedures: - YOU MUST HAVE A RESPONSIBLE SOUP MIXER TAKE YOU HOME. A BRICKLAYER TENDER OR PATTERN CLERK CANNOT BE MADE A RESPONSIBLE SOUP MIXER. - We recommend that a responsible person stays with you overnight to take care of you. - You cannot stay in a hotel alone after outpatient surgery. You will not be permitted to have your surgery, if you do not have someone to take care of you. If you already have an Advance Directive, please fax a copy to [phone] or email to for it to be added to your chart. If you do not have an Advance Directive, you can find the appropriate form and more information at [email or web address]. We recommend that you complete the Advance Directive form found on the website and bring it with you the day of your surgery. It can be witnessed and scanned into your chart that day. Florecita Marquez APRN.CRISTIANE documented in this encounter [facility] 03-17-2024 History and physical note Images from the original note were not included. [facility] HISTORY AND PHYSICAL EXAMINATION SERVICE DATE: 03/17/2024 SERVICE TIME: 2:51 PM PRIMARY CARE PHYSICIAN: Donald Pate MD REASON FOR VISIT: Reba Vasquez is a 58 year old female who is scheduled for at the request of Dr. Reyes Wetzel for consultation. My final recommendation will be communicated back to the requesting physician by way of shared medical record or letter. Assessment Generalized anxiety disorder Assessment: stable on medication Denies any suicidal ideation Rosenbaum Activity Status Index: METS: Walk indoors, such as around the house (1.75 METs) Do light work around the house, such as dusting or washing dishes (2.70 METs) Take care of self; that is eating, dressing, bathing, using the toilet (2.75 METs) Walk a block or two on level ground (2.75 METs) Do moderate work around the house, such as vacuuming, sweeping floors, or carrying in groceries (3.50 METs) Do yardwork, such as raking leaves, weeding, or pushing a power mower (4.50 METs) Climb a flight of stairs or walk up a hill (5.50 METs) DASI Score: 23.45 Patient denies any chest pain or undue shortness of breath with the above physical activity. Patient is totally dependent. STOP-Bang Score: Patient over 50 years old Denies snoring loudly Denies feeling tired, fatigued, or sleepy during the daytime Has not been observed to stop breathing or choking/gasping during sleep Denies having high blood pressure BMI less than or equal to 35 kg/m^2 Does not have a large neck Non-male patient STOP-Bang Score: 1 [id number] Score: Age: <65 Sex: female CHF history: No Hypertension history: No Stroke/TIA/thromboembolism history: No Vascular disease history: No Diabetes history: No [id number] Score: 1 ARISCAT Score: Age: 51-80 Preoperative SpO2: >=96% Respiratory infection in the last month: No Preoperative anemia: Yes Surgical incision: peripheral Duration of surgery: <2 hrs Emergency procedure: No ARISCAT Score: 14 ANESTHESIA FINDINGS: Intubation History: No history of difficult intubation. No abnormal airway history Significant Anesthesia Considerations: none Airway History: No history of difficult airway No abnormal airway history I - PHYSICAL EVALUATION AIRWAY Patient intubated: No. Tracheostomy tube not present Mallampati: II. TM distance: >3 FB. Neck ROM: full ROM without neurological symptoms. Mouth opening: adequate. Short neck: no. Thick neck: no Lacy present: no Lip Bite Test: II Microretrognathia/Micronagthia/Rec essed Chin: No DENTAL Dental findings: teeth intact. II - ANESTHESIA PLAN Anesthetic plan additional comments: *PACC/TCI - anesthesia choice. Beta Krysta Monitoring Plan Post Procedure Analgesic Plan Prepared for surgery: This patient is optimally prepared for surgery. CONSULTS: Patient does not require consults for optimization at this time. The Following Tests/Procedures Have Been Initiated: Labs not indicated per PACC protocol, EKG not indicated per PACC protocol Planned Anesthetic: Per anesthesia choice Subjective CHIEF COMPLAINT: Bilateral change of vision HPI: 58 year old bilateral change of vision that has been ongoing for >6 months. Patient states that she has blurred Vision,decreased vision,difficulty with driving,difficulty with reading,difficulty with watching television,dryness,glare,halos REVIEW OF SYSTEMS: PAIN ASSESSMENT: General: No weight loss, malaise or fevers. Neuro: No history of TIA's, stroke, GENERAL PRODUCTION MANAGER tumor, impaired sensorium, hemiplegia, paraplegia or quadraplegia. No neurological symptoms or problems. Respiratory: No history of current cough or dyspnea, or pneumonia in the past 6 weeks. No history of respiratory/pulmonary symptoms or problems. Cardiovascular: No history of HTN requiring medication, no history of angina, CHF, MA, cardiac surgery or stents. Denies rest pain, gangrene or revascularization/amputation for PVD. No history of cardiovascular symptoms or problems. GI: No history of GI symptoms or problems. No history of esophageal varices, recent ascites, or ETOH greater than 2 drinks per day. : No history of dysuria, frequency or incontinence,, stones or chronic kidney disease, No difficulty urinating, nocturia > 1 time per night or hematuria BAND SALVAGER: Negative for abnormal vaginal bleeding, abnormal vaginal discharge. : Denies, No LMP recorded. Patient has had a hysterectomy. Endocrine: No history of diabetes. Has not taken steroids within the past 30 days. No history of endocrinological symptoms or problems. Hematology: No history of bleeding or clotting disorder. Pt is not taking anti-coagulation or platelet medications. No history of hematological symptoms or problems. Oncology: No history of CA metastasis, chemo within 30 days, or radiotherapy within 90 days. Has not lost 10% of body wt in 6 months. No history of oncological symptoms or problems. Psych: Anxiety, Depression Musculoskeletal: Negative for joint pain or swelling, back pain or muscle pain. Skin: Negative for lesions, rash and itching. 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 PAST MEDICAL HISTORY No date: Anxiety No date: Fibromyalgia PAST SURGICAL HISTORY No date: ABLATION No date: COLONOSCOPY SCREENING 12/2017: PAST SURGICAL HISTORY OF; Left Comment: Lai schlerosis No date: PAST SURGICAL HISTORY OF Comment: Cysts removed from ovaries 06/2023: VAGINAL HYSTERECTOMY FAMILY HISTORY Problem Relation Age of Onset Heart Maternal Grandfather Blindness Paternal Grandmother Hypertension Daughter Social History Tobacco Use Smoking status: Former Current packs/day: 0.00 Average packs/day: 1 pack/day for 2.0 years (2.0 ttl pk-yrs) Types: Cigarettes Start date: 2006 Quit date: 2008 Years since quittin.7 Smokeless tobacco: Never Substance Use Topics Alcohol use: Yes Comment: Social Drug use: Not Currently Prior to Admission medications as of 03/17/24 0724 Medication Sig Last Dose Taking citalopram hydrobromide (CELEXA ORAL) Take by mouth. Taking Yes carboxymethyl/gly/poly80/PF (REFRESH OPTIVE SANTA-3, PF, OPHTHALMIC) Use in eyes. Taking Yes ofloxacin (OCUFLOX) 0.3 % ophthalmic solution 1 Drop four times daily. One drop in the OPERATIVE EYE only four times a day starting the day before surgery Taking Yes ALPRAZolam (XANAX) 0.5 mg tablet Take 1 tablet by mouth as needed. Taking Yes ALLERGY RELIEF, CETIRIZINE, 10 mg tablet Take 10 mg by mouth once daily. Taking Yes No medication comments found. ALLERGIES Allergen Reactions Prednisone Unknown Erythromycin Base Rash Codeine Other: See Comments Sulfamethoxazole-Tr* Unknown Objective PHYSICAL EXAM: VITALS: BP 128/82 Pulse 79 Temp 98 Resp 16 Ht 5' 6 (1.68m) Wt 167 lb 8.8 oz (76.0kg) SpO2 99% BMI 27.06 kg/(m^2). General: Alert and oriented, No acute distress, Healthy appearance Skin: Normal color, no rash, no lesions. Cardiovascular: Normal S1 & S2, no rubs, murmurs or gallops. No JVD. Pulse regular. Lungs: Normal breath sounds, no wheezes or crackles. Abdomen: Soft, non-tender, no rigidity., Positive bowel sounds Extremities: No deformity, no edema or tenderness, no joint swelling or clubbing. Neurological: Normal cognition and motor skills. Gait normal. No weakness or sensory deficit. Diagnostic tests reviewed for today's visit: Lab Value Units Date High Low ABORHD No results within date range. ABSCREEN No results within date range. No results found for: HBA1C No new labs or tests Instructions Given to Patient: Instructions located in the after visit summary. Patient given verbal and written preop instructions and voices comprehension and compliance. SIGNATURE: Florecita Marquez APRN.CRISTIANE PATIENT NAME: Reba Vasquez DATE: 03/17/2024 TIME: 7:29 AM T [facility] 03-17-2024 History and physical note Images from the original note were not included. [facility] HISTORY AND PHYSICAL EXAMINATION SERVICE DATE: 03/17/2024 SERVICE TIME: 2:51 PM PRIMARY CARE PHYSICIAN: Donald Pate MD REASON FOR VISIT: Reba Vasquez is a 58 year old female who is scheduled for at the request of Dr. Reyes Wetzel for consultation. My final recommendation will be communicated back to the requesting physician by way of shared medical record or letter. Assessment Generalized anxiety disorder Assessment: stable on medication Denies any suicidal ideation Rosenbaum Activity Status Index: METS: Walk indoors, such as around the house (1.75 METs) Do light work around the house, such as dusting or washing dishes (2.70 METs) Take care of self; that is eating, dressing, bathing, using the toilet (2.75 METs) Walk a block or two on level ground (2.75 METs) Do moderate work around the house, such as vacuuming, sweeping floors, or carrying in groceries (3.50 METs) Do yardwork, such as raking leaves, weeding, or pushing a power mower (4.50 METs) Climb a flight of stairs or walk up a hill (5.50 METs) DASI Score: 23.45 Patient denies any chest pain or undue shortness of breath with the above physical activity. Patient is totally dependent. STOP-Bang Score: Patient over 50 years old Denies snoring loudly Denies feeling tired, fatigued, or sleepy during the daytime Has not been observed to stop breathing or choking/gasping during sleep Denies having high blood pressure BMI less than or equal to 35 kg/m^2 Does not have a large neck Non-male patient STOP-Bang Score: 1 [id number] Score: Age: <65 Sex: female CHF history: No Hypertension history: No Stroke/TIA/thromboembolism history: No Vascular disease history: No Diabetes history: No [id number] Score: 1 ARISCAT Score: Age: 51-80 Preoperative SpO2: >=96% Respiratory infection in the last month: No Preoperative anemia: Yes Surgical incision: peripheral Duration of surgery: <2 hrs Emergency procedure: No ARISCAT Score: 14 ANESTHESIA FINDINGS: Intubation History: No history of difficult intubation. No abnormal airway history Significant Anesthesia Considerations: none Airway History: No history of difficult airway No abnormal airway history I - PHYSICAL EVALUATION AIRWAY Patient intubated: No. Tracheostomy tube not present Mallampati: II. TM distance: >3 FB. Neck ROM: full ROM without neurological symptoms. Mouth opening: adequate. Short neck: no. Thick neck: no Lacy present: no Lip Bite Test: II Microretrognathia/Micronagthia/Rec essed Chin: No DENTAL Dental findings: teeth intact. II - ANESTHESIA PLAN Anesthetic plan additional comments: *PACC/TCI - anesthesia choice. Beta Krysta Monitoring Plan Post Procedure Analgesic Plan Prepared for surgery: This patient is optimally prepared for surgery. CONSULTS: Patient does not require consults for optimization at this time. The Following Tests/Procedures Have Been Initiated: Labs not indicated per PACC protocol, EKG not indicated per PACC protocol Planned Anesthetic: Per anesthesia choice Subjective CHIEF COMPLAINT: Bilateral change of vision HPI: 58 year old bilateral change of vision that has been ongoing for >6 months. Patient states that she has blurred Vision,decreased vision,difficulty with driving,difficulty with reading,difficulty with watching television,dryness,glare,halos REVIEW OF SYSTEMS: PAIN ASSESSMENT: General: No weight loss, malaise or fevers. Neuro: No history of TIA's, stroke, GENERAL PRODUCTION MANAGER tumor, impaired sensorium, hemiplegia, paraplegia or quadraplegia. No neurological symptoms or problems. Respiratory: No history of current cough or dyspnea, or pneumonia in the past 6 weeks. No history of respiratory/pulmonary symptoms or problems. Cardiovascular: No history of HTN requiring medication, no history of angina, CHF, MA, cardiac surgery or stents. Denies rest pain, gangrene or revascularization/amputation for PVD. No history of cardiovascular symptoms or problems. GI: No history of GI symptoms or problems. No history of esophageal varices, recent ascites, or ETOH greater than 2 drinks per day. : No history of dysuria, frequency or incontinence,, stones or chronic kidney disease, No difficulty urinating, nocturia > 1 time per night or hematuria BAND SALVAGER: Negative for abnormal vaginal bleeding, abnormal vaginal discharge. : Denies, No LMP recorded. Patient has had a hysterectomy. Endocrine: No history of diabetes. Has not taken steroids within the past 30 days. No history of endocrinological symptoms or problems. Hematology: No history of bleeding or clotting disorder. Pt is not taking anti-coagulation or platelet medications. No history of hematological symptoms or problems. Oncology: No history of CA metastasis, chemo within 30 days, or radiotherapy within 90 days. Has not lost 10% of body wt in 6 months. No history of oncological symptoms or problems. Psych: Anxiety, Depression Musculoskeletal: Negative for joint pain or swelling, back pain or muscle pain. Skin: Negative for lesions, rash and itching. 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 PAST MEDICAL HISTORY No date: Anxiety No date: Fibromyalgia PAST SURGICAL HISTORY No date: ABLATION No date: COLONOSCOPY SCREENING 12/2017: PAST SURGICAL HISTORY OF; Left Comment: Lai schlerosis No date: PAST SURGICAL HISTORY OF Comment: Cysts removed from ovaries 06/2023: VAGINAL HYSTERECTOMY FAMILY HISTORY Problem Relation Age of Onset Heart Maternal Grandfather Blindness Paternal Grandmother Hypertension Daughter Social History Tobacco Use Smoking status: Former Current packs/day: 0.00 Average packs/day: 1 pack/day for 2.0 years (2.0 ttl pk-yrs) Types: Cigarettes Start date: 2006 Quit date: 2008 Years since quittin.7 Smokeless tobacco: Never Substance Use Topics Alcohol use: Yes Comment: Social Drug use: Not Currently Prior to Admission medications as of 03/17/24 0724 Medication Sig Last Dose Taking citalopram hydrobromide (CELEXA ORAL) Take by mouth. Taking Yes carboxymethyl/gly/poly80/PF (REFRESH OPTIVE SANTA-3, PF, OPHTHALMIC) Use in eyes. Taking Yes ofloxacin (OCUFLOX) 0.3 % ophthalmic solution 1 Drop four times daily. One drop in the OPERATIVE EYE only four times a day starting the day before surgery Taking Yes ALPRAZolam (XANAX) 0.5 mg tablet Take 1 tablet by mouth as needed. Taking Yes ALLERGY RELIEF, CETIRIZINE, 10 mg tablet Take 10 mg by mouth once daily. Taking Yes No medication comments found. ALLERGIES Allergen Reactions Prednisone Unknown Erythromycin Base Rash Codeine Other: See Comments Sulfamethoxazole-Tr* Unknown Objective PHYSICAL EXAM: VITALS: BP 128/82 Pulse 79 Temp 98 Resp 16 Ht 5' 6 (1.68m) Wt 167 lb 8.8 oz (76.0kg) SpO2 99% BMI 27.06 kg/(m^2). General: Alert and oriented, No acute distress, Healthy appearance Skin: Normal color, no rash, no lesions. Cardiovascular: Normal S1 & S2, no rubs, murmurs or gallops. No JVD. Pulse regular. Lungs: Normal breath sounds, no wheezes or crackles. Abdomen: Soft, non-tender, no rigidity., Positive bowel sounds Extremities: No deformity, no edema or tenderness, no joint swelling or clubbing. Neurological: Normal cognition and motor skills. Gait normal. No weakness or sensory deficit. Diagnostic tests reviewed for today's visit: Lab Value Units Date High Low ABORHD No results within date range. ABSCREEN No results within date range. No results found for: HBA1C No new labs or tests Instructions Given to Patient: Instructions located in the after visit summary. Patient given verbal and written preop instructions and voices comprehension and compliance. SIGNATURE: Florecita Marquez APRN.CNP PATIENT NAME: Reba Vasquez DATE: 03/17/2024 TIME: 7:29 AM documented in this encounter [facility] 03-09-2024 Note HNO ID: [id number] Author: REYES WETZEL MD Service: ? Author Type: Physician Type: Progress Notes Filed: 03/09/2024 09:36 Note Text: ASSESSMENT/PLAN: Nuclear senile cataract of right eye - ICD9: 366.19, ICD10: H25.811 (primary diagnosis) 2. Nuclear senile cataract of left eye - ICD9: 366.19, ICD10: H25.812 3. 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 Reba Vasquez has confirmed that she is no longer able to function adequately on a day-to-day basis because of her current visual condition. Further, it is my medical opinion that the cataract is the primary cause, or at least a significantly contributory cause of her visual dysfunction. With uncomplicated cataract surgery and lens implantation, it is my expectation that her visual function and quality of life will improve, significantly. The risks, benefits, alternatives, personnel and complications of cataract surgery with lens implantation were discussed with Reba Vasquez in detail. she appeared to understand and asked that I proceed with plans for surgery. Offered Phacoemulsification cataract extraction with insertion of intraocular lens by Dr. Wetzel OD / OS. Patient wishes to proceed with surgery. All questions were answered. A-scan to be performed pre-operatively. Referred by Dr. Plummer, Thank you for your kind referral! Allergies: see list - Aim: Pequea OU with toric IOL in OD. Patient understands the need for glasses for all near and intermediate vision including reading and computer work. - Anesthesia: Topical with MAC - Diabetes Mellitus No - Blood thinner use No - Flomax/alpha-krysta? No - Able to lie supine Yes. Please tape forehead. Mild head tremor. - Wants versed Yes. Please administer extra. Patient is very anxious. - Happy for prayer Yes - Warned of IOL-induced photopsias Yes - Advised there is no guarantee of freedom from glasses Yes; -Discussed possible increased sensitivity and starbursting when exposed to flickering lights such as LED and fluorescent lights after cataract surgery, which usually decreases with time. - Discussed toric Intraocular lens not covered by insurance Yes $1400 per eye - Toric candidate: Offered Toric lens if patient qualifies by Ultrasound measurements. Without the toric IOL, patient was told that they will still need to wear glasses to correct residual astigmatism at all distances. Even with toric IOL, we cannot guarantee no residual astigmatism. - Contact lens use No - e-scribed eye drops -Initiate eyelid scrubs twice daily for one week prior to cataract surgery. - Literature regarding cataract and cataract extraction by phacoemulsification offered. - Co-manage with Dr. Plummer. 4. Amblyopia of eye, right - ICD9: 368.00, ICD10: H53.001 - Recommended to patient that she can continue to wear impact resistant glasses full-time after cataract surgery to protect her better seeing Left eye. -Discussed guarded visual prognosis with cataract surgery and the fact that even with a toric IOL, her right eye will not see as well as her left eye. She voices understanding. Soc Hx: very pleasant! She is on sabbatical from work at [employer] due to difficulty driving; Her is a respiratory therapist; offered cataract Surgery OD/OS, which she wants soon, so offered 03/24 for first eye if possible. Copy of today's visit note was sent to Dr. Plummer. Return for PAT, ultrasound, Intraocular lens calculations, and surgery. Reyes Wetzel MD The documentation for this note was completed by DUANE Chris acting as a scribe for, and in the presence of, Dr. Reyes Wetzel M.D. The documentation recorded by the scribe accurately reflects the service I personally performed and the decisions made by me. I have confirmed and edited as necessary the relevant HPI, ophthalmic history, ROS, and the neuro exam findings as obtained by others. I have seen and examined Reba Vasquez. I have discussed the case and the management of this patient's care with the Resident/Fellow, if applicable. I also have reviewed and agree with the assessment and plan as stated above and agree with all of its relevant components. Reyes Wetzel MD 03/09/24 [facility] 03-09-2024 History of Present illness Narrative ASSESSMENT/PLAN: Nuclear senile cataract of right eye - ICD9: 366.19, ICD10: H25.811 (primary diagnosis) 2. Nuclear senile cataract of left eye - ICD9: 366.19, ICD10: H25.812 3. 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 Reba Vasquez has confirmed that she is no longer able to function adequately on a day-to-day basis because of her current visual condition. Further, it is my medical opinion that the cataract is the primary cause, or at least a significantly contributory cause of her visual dysfunction. With uncomplicated cataract surgery and lens implantation, it is my expectation that her visual function and quality of life will improve, significantly. The risks, benefits, alternatives, personnel and complications of cataract surgery with lens implantation were discussed with Reba Vasquez in detail. she appeared to understand and asked that I proceed with plans for surgery. Offered Phacoemulsification cataract extraction with insertion of intraocular lens by Dr. Wetzel OD / OS. Patient wishes to proceed with surgery. All questions were answered. A-scan to be performed pre-operatively. Referred by Dr. Plumemr, Thank you for your kind referral! Allergies: see list - Aim: Pequea OU with toric IOL in OD. Patient understands the need for glasses for all near and intermediate vision including reading and computer work. - Anesthesia: Topical with MAC - Diabetes Mellitus No - Blood thinner use No - Flomax/alpha-krysta? No - Able to lie supine Yes. Please tape forehead. Mild head tremor. - Wants versed Yes. Please administer extra. Patient is very anxious. - Happy for prayer Yes - Warned of IOL-induced photopsias Yes - Advised there is no guarantee of freedom from glasses Yes; -Discussed possible increased sensitivity and starbursting when exposed to flickering lights such as LED and fluorescent lights after cataract surgery, which usually decreases with time. - Discussed toric Intraocular lens not covered by insurance Yes $1400 per eye - Toric candidate: Offered Toric lens if patient qualifies by Ultrasound measurements. Without the toric IOL, patient was told that they will still need to wear glasses to correct residual astigmatism at all distances. Even with toric IOL, we cannot guarantee no residual astigmatism. - Contact lens use No - e-scribed eye drops -Initiate eyelid scrubs twice daily for one week prior to cataract surgery. - Literature regarding cataract and cataract extraction by phacoemulsification offered. - Co-manage with Dr. Plummer. 4. Amblyopia of eye, right - ICD9: 368.00, ICD10: H53.001 - Recommended to patient that she can continue to wear impact resistant glasses full-time after cataract surgery to protect her better seeing Left eye. -Discussed guarded visual prognosis with cataract surgery and the fact that even with a toric IOL, her right eye will not see as well as her left eye. She voices understanding. Soc Hx: very pleasant! She is on sabbatical from work at [employer] due to difficulty driving; Her is a respiratory therapist; offered cataract Surgery OD/OS, which she wants soon, so offered 03/24 for first eye if possible. Copy of today's visit note was sent to Dr. Plummer. Return for PAT, ultrasound, Intraocular lens calculations, and surgery. Reyes Wetzel MD The documentation for this note was completed by Luli Traylor, DUANE acting as a scribe for, and in the presence of, Dr. Reyes Wetzel M.D. The documentation recorded by the scribe accurately reflects the service I personally performed and the decisions made by me. I have confirmed and edited as necessary the relevant HPI, ophthalmic history, ROS, and the neuro exam findings as obtained by others. I have seen and examined Reba Vasquez. I have discussed the case and the management of this patient's care with the Resident/Fellow, if applicable. I also have reviewed and agree with the assessment and plan as stated above and agree with all of its relevant components. Reyes Wetzel MD 03/09/24 documented in this encounter [facility] 08-11-2023 History of Present illness Narrative Subjective Reba Vasquez is a 57 y.o. female Chief Complaint Patient presents with Post-op Visit Patient here for 5 weeks post op. She underwent TLH/BSO at [facility] on 07/04/23 due to pelvic pain, abdominal [...] bilateral salpingo-oophorectomy (BSO) documented in this encounter [facility] 06-23-2023 History of Present illness Narrative Subjective Patient ID: Reba Vasquez is a 57 y.o. female who presents for Follow-up (Sinus drainage/Bilateral ear issues ). HPI INITIAL VISIT WITH MYSELF 09/19/2021: Reba Vasquez is a 56 year-old female here for [...] 06/23/23 2:19 PM documented in this encounter [facility] Work Phone: 03-04-2023 Evaluation note Encounter Date Diagnosis Assessment Notes Feb, Abrasion of left forearm, initial encounter (ICD-10 - S50.812A) Wound healing well. Follow wound care instructions. Cleanse area BID. Small amount of abx ointment topically, and may leave RED unless open and draining. Monitor for sx of infection - redness, warmth, drainage, fever, chills, swelling, pain. F/u immediately if these sx present. Monitor for new or worsening bruising. RTW with restrictions per medco-14. Copies provided to pt. Pt to f/u with [facility] as sched (03/12/23 830AM), sooner for new or worsening sx. Pt understood and agreed to tx plan. [facility] Other Evaluation + Plan note No data available for this section [facility] General Surgery [place] Evaluation noteNo assessment information available [facility] Work Phone: Evaluation note* Diagnosis Dizziness and giddiness- Primary Nasal drainage documented in this encounter [facility] Work Phone: Evaluation note* Diagnosis Follow-up examination after gynecological surgery- Primary Status post laparoscopic hysterectomy Acquired absence of both cervix and uterus Status post bilateral salpingo-oophorectomy (BSO) [facility] Nuclear senile cataract of right eye- Primary Nuclear senile cataract of left eye Regular astigmatism of right eye Regular astigmatism Amblyopia of eye, right [facility] Diagnosis Pre-op evaluation- Primary Preoperative examination, unspecified Generalized anxiety disorder Combined forms of age-related cataract of right eye Other and combined forms of senile cataract Combined forms of age-related cataract of left eye Other and combined forms of senile cataract * Assessment & Plan Note - Florecita Marquez APRN.CNP - 03/15/2024 2:51 PM EDTAssociated Problem(s): Generalized anxiety disorder Assessment: stable on medication Denies any suicidal ideation [facility] Diagnosis Nuclear senile cataract of right eye Nuclear senile cataract of left eye Pre-op evaluation- Primary Preoperative examination, unspecified Generalized anxiety disorder Combined forms of age-related cataract of right eye Other and combined forms of senile cataract Combined forms of age-related cataract of left eye Other and combined forms of senile cataract [facility] Diagnosis Pre-op evaluation- Primary Preoperative examination, unspecified Generalized anxiety disorder After-cataract of right eye with vision obscured- Primary After-cataract of left eye with vision obscured Pseudophakia of both eyes Lens replaced by other means Amblyopia of eye, right Posterior vitreous detachment of right eye Vitreous degeneration documented in this encounter [facility] Diagnosis Onset Date Resolution Status Admit Date Mass of right forearm acute Sep tember 2024 10:04am [facility] Work Phone: History general Narrative - Reported* Type Description Date Medical History fibromyalgia Medical History anxiety/depression Medical History panic disorder Medical History tinnitis Medical History vestibular neuronitis Medical History sinusitis Medical History allergic rhinitis Medical History achilles tendonitis Surgical History pelvic laproscopy, r/o cysts Surgical History ablation, uterine [facility] Other History of Present illness Narrative* Reba Vasquez, age 55 years, was seen today for a hearing test in conjunction with a follow-up visit with Dr. Dunn. 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 Today she reports that her left ear will intermittently seem congested. She denies changes in hearing in her right ear. * Patient's preferred language: [place]ese * Preferred language of the parent, legal guardian or surrogate decision-maker of this minor or incapacitated patient: Not Applicable * No overt signs of domestic violence/neglect/abuse. * No referral made to Simulation Software Engineer. * Pain not interfering with optimal level of function or ability to assess and/or treat. * Pain Scale rank: 0/10 * Pain Scale used: Numeric * No referral made to primary care provider (PCP). * Factors/Barriers influencing patient's ability to complete assessment or learn: none. * Person taught: patient. * Readiness to learn: no barriers. * Results of Teaching/Counseling: verbalize recall / understanding and teaching complete. * There are no spiritual/cultural practices/values/needs that are important to know * Initial Fall Risk Screening: * REBA has not fallen in the last 6 months. Her fall did not result in injury. REBA does not have a fear of falling. She does not need assistance with sitting, standing or walking. Does not need assistance walking in her home. She does not need assistance in an unfamiliar setting. The patient is not u sing an assistive device. * Depression/Suicide Screening: * During the past 2 weeks, the patient has not felt down, depressed or hopeless. * During the past 2 weeks, the patient has not felt little interest or pleasure in doing things. [id number] Work Phone: Hospital Discharge instructions No data available for this section [facility] note No data available for this section [facility] Reason for referral (narrative)No reason for referral [facility] Work Phone: Summary Purpose Family History No [...] pertinent family history: Mother, Father(V49.89, Z78.9) Status:Active Relationship Condition Age at Onset Recorded Date/T kamila grandparent Heart disease Unknown grandparent Malignant neoplasm Unknown grandparent Diabetes mellitus Unknown mother Polyp of colon Unknown Advance Directives No Advanced Directives Records Found Advance Directive Response Recorded Date/ Time Advance Directives No June 11:31am Advance Directive Response Recorded Date/ Time Advance Directives No June 12:31pm Procedure Findings Note Post Operative Note: PreOp D iagnosis: left conductive hearing loss Post- Procedure Diagnosis: same Procedure: 1. left stapedectomy with placement of prosthetic Surgeon: Dalton Resident/Fellow/Other Collection Analyst: paulo bailey Anesthesia: general Estimated Blood Loss (mL): 15 Specimen: no Complications: none Findings: 4.5 x 0.6 mm Eclipse stapes prosthesis Patient Returned To/Condition: pacu / stable Implants: 4.5 x 0.6 mm Eclipse stapes prosthesis Signature/Cosignature/Attestation: Attending AttestationI was present for the entire procedure Electronic Signatures: Eric Bailey (Resident)) (Signed 11-Dec-2017 08:56) Authored: Post Operative Note, Signature/Cosignature/Attestation Shukri Hoffman) (Signed 11-Dec-2017 08:57) Authored: Signature/Cosignature/Attestation Co-Signer: Post Operative Note, Signature/Cosignature/Attestation Last Updated: 11-Dec-2017 08:57 by Shukri Hoffman) Chief Complaint routine hearing test Chief Complaint and Reason for Visit Chief Complaint z01.818 Chief Complaint Admit Date Unknown February 09, 2025 9:5 9am Chief Complaint Admit Date Unknown February 09, 2025 9:[address] PATE RT ARM MASS AND SWELLING March 11, 2025 10:04am Reason for Visit Admit Date Mass of right forearm March 11 10:04am Additional Source Comments INFORMATION SOURCE (unrecogn ized section and content) DATE CREATED AUTHOR 11/25/2018 [facility] DATE CREATED AUTHOR AUTHOR'S ORGANIZ ATION 11/16/2021 [facility] DATE CREATED AUTHOR AUTHOR'S ORGANIZ ATION 06/28/2022 [facility] DATE CREATED AUTHOR AUTHOR'S ORGANIZ ATION 06/24/2023 [facility] DATE CREATED AUTHOR AUTHOR'S ORGANIZ ATION [facility] DATE CREATED AUTHOR AUTHOR'S ORGANIZ ATION 07/24/2024 [facility] DATE CREATED AUTHOR AUTHOR'S ORGANIZ ATION 08/19/2024 [facility] DATE CREATED AUTHOR AUTHOR'S ORGANIZ ATION 02/12/2025 [facility] DATE CREATED AUTHOR AUTHOR'S ORGANIZ ATION 03/04/2025 [facility] DATE CREATED AUTHOR AUTHOR'S ORGANIZ ATION 03/13/2025 [facility] REASON FOR VISIT (unrecogniz ed section and content) Reason Comments Follow-up Sinus drainageBilate ral ear issues Reason Comments Post-op Visit Patient here for 5 w eeks post op. She underwent TLH/BSO at [facility] on 07/04/23 due to pelvic pain, abdominal pain and postmenopausal. Patient states that she is feeling well and denies any bowel or bladder issues. Would like a 1 more week of healing. Wants RTW note starting on the 08/18. Reason Comments Cataract Evaluation Reason Comments Pre-Op Visit Reason Comments Pre-Op Exam h Reason Comments Posterior Capsule Opacification Evaluati on Care Teams (unrecognized sec tion and content) Team Status: Active Member Role Status Dates Donald Pate MD Primary Care Provider Active Team Status: Inactive Member Role Status Dates Louann Barrera DO Attending Provider Active Donald Pate MD Primary Care Provider Active Accountant Budget Relationship Specialty Start Date End Date Donald Pate MD [address] [place] [address] PCP - General 10/06/17 Team Status: Inactive Member Role Status Dates Louann Barrera DO Attending Provider Active Accountant Budget Relationship Specialty Start Date End Date Donald Pate MD [address] [place] [address] PCP - General Family Medicine 05/12/23 Accountant Budget Relationship Specialty Start Date End Date Donald Pate MD [address] [place] [address] PCP - General Family Medicine 03/11/24 Accountant Budget Relationship Specialty Start Date End Date Donald Pate MD [address] [place] [address] PCP - General Family Medicine 03/11/24 Accountant Budget Relationship Specialty Start Date End Date Donald Pate MD [address] [place] [address] PCP - General Family Medicine 03/11/24 Team Status: Inactive Member Role Status Dates Donald Pate MD Attending Provider Active Sta rt: February 09, 2025 End: February 09, 2025 Team Status: Inactive Member Role Status Dates Bradley Cruz DO Attending Provider Active S tart: March 11, 2025 End: March 11, 2025 Donald Pate MD Primary Care Provider Active Start: March 11, 2025 End: March 11, 2025 Goals (unrecognized section and content) Goals may be documented in a n alternate section Source Comments (unrecognize d section and content) In the event this informatio n is protected by the Federal Confidentiality of Alcohol and Drug Abuse Patient Records regulations: The Federal rules restrict any use of the information to criminally investigate or prosecute any alcohol or drug abuse patient.[facility] the event this information is protected by the Federal Confidentiality of Alcohol and Drug Abuse Patient Records regulations: The Federal rules restrict any use of the information to criminally investigate or prosecute any alcohol or drug abuse patient.[facility] Center[facility] the event this information is protected by the Federal Confidentiality of Alcohol and Drug Abuse Patient Records regulations: The Federal rules restrict any use of the information to criminally investigate or prosecute any alcohol or drug abuse patient.[facility] Center[facility] the event this information is protected by the Federal Confidentiality of Alcohol and Drug Abuse Patient Records regulations: The Federal rules restrict any use of the information to criminally investigate or prosecute any alcohol or drug abuse patient.[facility] FOR RECORDS PERTAINING TO PATIENTS WHO ARE [...] BE BASED ON THE PRIMARY CLINICAL RECORDS. [facility] [employer] [facility]. provides no warranty or guarantee of the accuracy or completeness of information in this document.
== END 2025-03-15 08:47 | disposition home or self-care (01) ==
LOC: PST 08:47
PROVIDERS: PCP Family Medicine; Visit Provider Surgery
DX: Z01.818 Encounter for other preprocedural examination (principal); Z12.11 Encounter for screening for malignant neoplasm of colon

== ENCOUNTER 2025-03-23 07:12 | Day surgery (SDC) | payer OTHER, SELFPAY ==
--- NOTE | 2025-03-23 | OP_ITS ---
OPERATION DATE: 03/23/2025 PREOPERATIVE DIAGNOSIS: Colorectal screening. POSTOPERATIVE DIAGNOSIS: Normal colonoscopy to cecum. PROCEDURE: Colonoscopy to cecum. SURGEON: Edwin Cheng M.D. ANESTHESIA: Monitored anesthesia care. ESTIMATED BLOOD LOSS: Zero. INDICATIONS AND CONSENT: Patient is a 59-year-old female who presents for colorectal screening. Indications, risks, benefits, alternatives of proceeding with colonoscopy were explained extensively to the patient, including the risks of bleeding, colon perforation or anesthetic complications. All of her questions were answered. Informed consent was obtained. PROCEDURE: Patient brought to the operating room, placed in the left lateral decubitus position. Monitored anesthesia care was provided. Rectal exam was performed which showed no masses or blood. The scope was inserted into the anal canal. Under direct visualization was advanced. It was advanced to the cecum where cecal markings were clearly identified. Upon withdrawal of the scope, mucosal surfaces were carefully examined. There were no mass lesions or polyps. No inflammatory changes or ulcerations. No significant diverticulosis. The scope was retroflexed in the anal canal. There was no significant hemorrhoidal disease. The scope was then withdrawn. Patient tolerated procedure well, was sent to recovery room in good condition. Follow up screening colonoscopy should be in 10 years. CC: Santiago Obando M.D. MTDIgnacio
--- OUTSIDE RECORDS SUMMARY | 2025-03-23 07:14 | XMS_ITS | Clinical Summary ---
Author Organization [employer] Address [id number] [address] [place] [address] Care Team Providers Care Controlled Atmospheric Furnace Brazer Name Role Phone Donald Obando MD Primary [...] Name:VEENA KENDRICK Date of :1961 (Home) Address: [address] [place] [id number] Payer ID:Not on file Type:Not on file Address: [facility] [address] [id number] Care Teams Controlled Atmospheric Furnace Brazer Relationship Specialty Start Date End Date Donald Obando MD PCP - General Family Medicine 03/11/19
--- OUTSIDE RECORDS SUMMARY | 2025-03-23 07:14 | XMS_ITS | Encounter Summary ---
Author Organization [facility] Address [address] [facility] [place] [address] Care Team Providers Care Tool Clerk Name Role Phone Donald Obando MD Primary Care Provider [phone] Encounter Details Date Type Department Care Team (Late st Contact Info) Description 08/13/2023 Abstract [facility] [address] [facility] [address] [place] [address] Shannan Weiss LPN Social History Tobacco Use [...] on filedocumented in this encounter Care Teams Tool Clerk Relationship Specialty Start Date End Date Donald Obando MD PCP - General Family Medicine 05/12/23 documented as of this encounter
--- OUTSIDE RECORDS SUMMARY | 2025-03-23 07:14 | XMS_ITS | Clinical Summary ---
Author Organization [facility] Address [address] [place] [address] Phone Care Team Providers Care Clerk Rating Name Role Phone Donald Obando MD Primary Care Provider [phone] Allergies Active Allergy Reactions Criticality Noted Date [...] this topic Medical Devices Implanted Type Area Tangled Yarn Spool Straightener Device Identifier Shelf Expiration Date Model / Serial / Lot Radha Ramírez 0.6mm Yoanna X 4.5mm Nitinol Fluoroplastic Case [id number] Implanted:Qty: 1 on 12/10/2017 by Shukri Hoffman MD ENT Implant Left: Ear JUSTEN 10/01/2022 [id number] / / [id number] Description:Converted from [facility]. Please see archived information for full log information. Insurance Care Teams Clerk Rating Relationship Specialty Start Date End Date Donald Obando MD [address] [place] [address] PCP - General 10/06/17
--- OUTSIDE RECORDS SUMMARY | 2025-03-23 07:14 | XMS_ITS | Patient Health Record ---
Author Organization [facility] in [place] Address [address] [place] [address] Care Team Providers Care Feller Operator Name Role Phone Nico Obando Primary Care Provider Allergies Allergen (clinical drug ingredient) Drug/Non Drug Allergy documented on EMR Reaction Allergy Type Onset Date Status Steroids steroids (uncoded) anxiety Allergy A ctive sulfamethoxazole / trimethoprim Bactrim rash Drug Allergy Active erythromycin Erythromycin rash Drug Allergy A ctive levofloxacin levoFLOXacin muscle pains Drug Allergy Active Results Component Value Reference Range Notes UA DIP NONAUTO WO MICRO (810 02) - IN OFFICE Reviewed date:02/09/2025 02:37:15 PM Interpretation: Performing Lab: Notes/Report: COLOR straw CLARITY clear GLUCOSE n BILIRUBIN 1 KETONE 5 SPECIFIC GRAVITY 1.010 BLOOD n PH 5 PROTEIN 15 UROBILINOGEN n NITRITE n LEUKOCYTE ESTERASE 70+ UA RANDOM W or MICROSCOPIC Reviewed date:02/09/2025 02:37:15 PM Interpretation: Performing Lab: Notes/Report: [facility] , Color Urine LT. YELLOW YELLOW Clarity Urine CLEAR CLEAR Specific [place] Urine 1.010 1.005-1.025 pH Urine 7.0 5.0-9.0 Protein Urine NEGATIVE NEG/TRACE mg/dL Glucose Urine UA NEGATIVE NEGATIVE mg/dL Bilirubin Urine NEGATIVE NEGATIVE Ketones Urine NEGATIVE NEGATIVE mg/dL Blood Urine NEGATIVE NEGATIVE Nitrite Urine NEGATIVE NEGATIVE Urobilinogen Urine 0.2 0.2-1.0 EU/dL Leukocyte Esterase Urine NEGATIVE NEGATIVE WBC Urine NONE SEEN NONE SEEN #/HPF RBC Urine NONE SEEN 0-2 #/HPF Bacteria Urine TRACE NONE SEEN #/HPF Mucus Urine NONE SEEN NONE SEEN Squamous Epithelial Cell Urine RARE NONE/RARE #/LPF Crystals Seen? None Seen None Seen #/HPF Cast Seen? NONE SEEN NONE SEEN #/LPF Performing Lab: see note - [facility] UA DIP NONAUTO WO MICRO (810 02) - IN OFFICE Reviewed date:02/09/2025 02:37:15 PM Interpretation: Performing Lab: Notes/Report: COLOR yellow CLARITY clear GLUCOSE n BILIRUBIN n KETONE 5 SPECIFIC GRAVITY 1.010 BLOOD 5-10 PH 6.5 PROTEIN 15 UROBILINOGEN n NITRITE n LEUKOCYTE ESTERASE 15+ Urine Culture - FR Reviewed date:02/13/2025 07:39:45 PM Interpretation: Performing Lab: Notes/Report: [facility] , Urine Culture - [facility] See Below For Report Urine Culture - FR No Growth 2 Days Urine Culture - FR Urine Culture - FR No Growth 2 Days Urine Culture - [facility] Testing performed a [facility] Urine Culture - FR No Growth 2 Days Urine Culture - FR [address] [place] [address] Urine Culture - FR No Growth 2 Days Performing Lab: see note ML - [facility] Reason For Referral Diagnosis 1 Well adult (Z00.00) Referral Organization [facility] Referring Provider First Name Nico Referring Provider Last Name Gisella Referring Provider [facility] omody Referred Provider Edwin Cheng Referred Provider Specialty General Surg sandra Referral Priority Routine Diagnosis 1 Arm mass (R22.30) Referral Organization [facility] Referring Provider First Name Nico Referring Provider Last Name Gisella Referring Provider [facility] moody Referred Provider Bradley Lu Referred Provider Specialty Orthopedic S urgery Referral Priority Routine Medications Medication SIG (Take, Route, Frequency, Duration) Notes Start Date End Date Status Vitamin D (Cholecalciferol) 50 MCG (1999) 1 capsule Orally Once a day; Duration: 90 days 03/10/2025 Active Cetirizine HCl 10 MG 1 tablet Orally Onc e a day; Duration: 30 PRN 12/29/2023 Active tiZANidine HCl 4 MG 1 tablet Orally tid; Duration: 30 days PRN 10/20/2023 Active Meclizine HCl 25 MG 1 tablet as needed O rally Q 6 hours PRN 02/11/2024 Active ALPRAZolam 0.5 MG 1 tablet Orally Twic e a day PRN Active CeleXA 10 MG 0.5 tablet Orally On ce a day Active Cefdinir 300 MG 2 capsule Orally onc e a day; Duration: 10 days 02/11/2025 Active Social History Tobacco Use: Social History [...] Status W/U Status Risk Notes Problem Anemia (785046856) Anemia, unspecified (D64.9) Active confirmed Problem Dysthymia (02995096) Dysthymic disorder (F34.1) Active confirmed Problem Insomnia (361280423) Insomnia, unspecified (G47.00) Active confirmed Problem Cataract (457670940) Unspecified cataract (H26.9) Active confirmed Problem Vestibular neuronitis (740377228) Vestibular neuronitis, bilateral (H81.23) Active confirmed Problem Acute frontal sinusitis (14609686) Acute recurrent frontal sinusitis (J01.11) Active confirmed Problem Fibromyalgia (179594179) Fibromyalgia (M79.7) Active confirmed Problem Tachycardia (5083136) Tachycardia, unspecified (R00.0) Active confirmed Problem Palpitations (09751371) Palpitations (R00.2) Active confirmed Problem Fatigue (51356144) Fatigue (R53.83) Active confirmed Problem Anxiety (73603557) Anxiety (F41.9) Active confirmed Problem Dysuria (16666382) Burning with urination (R30.0) Active confirmed Problem Depression (723301930) Depression (F32.9) Active confirmed Problem Back pain (435222175) Back pain (M54.9) Active confirmed Problem Arthralgia (08301649) Arthralgia (M25.50) Active confirmed Problem Allergic rhinitis (71234802) Allergic rhinitis (J30.9) Active confirmed Problem Acute bronchitis (62809708) Acute bronchitis (J20.9) Active confirmed Problem Well adult (266775975) Well adult (Z00.00) Active confirmed Problem Former smoker (2829612) Former smoker (Z87.891) Active confirmed Problem Depressive disorder (77376094) Depressive disorder (F32.9) Active confirmed Problem Overweight (545150859) Over weight (E66.3) Active confirmed Problem Conductive hearing loss of left ear (disorder) (2827817645) Conductive hearing loss in left ear (H90.12) Active confirmed Problem Dry eye syndrome (88423362) Dry eye syndrome (H04.129) Active confirmed Problem Easy bruising (358547735) Easy bruising (R23.8) Active confirmed Problem Otosclerosis (15487816) Otosclerosis of left ear (H80.92) Active confirmed Problem Pain in pelvis (58518068) Pelvic pain (R10.2) Active confirmed Problem Conductive hearing loss, unilateral, left ear with restricted hearing on the contralateral side (H90.A12) Active confirmed Problem Acute pelvic pain (712188584) Acute pelvic pain (R10.2) Active confirmed Problem Panic disorder (687601762) Panic disorder [episodic paroxysmal anxiety] (F41.0) Active confirmed Vital Signs Blood pressure diastolic 84 mm Hg 02/09/2025 Height 65 in 02/09/2025 Blood pressure systolic 136 mm Hg 02/09/2025 Weight 163.2 lbs 02/09/2025 BMI 27.15 kg/m2 02/09/2025 Encounters Encounter Location Date Provider Diagnosis [facility] [address] [place] [address] 03/09/2025 Nico Orellanay [facility] [address] [place] [address] 03/17/2025 Nico Obando [facility] [address] [place] [address] 02/01/2025 Nico Hoy Arm mass, right R22. 31 and Calcified nodule R22.9 [facility] [address] [place] [address] 02/07/2025 Nico Obando [facility] [address] [place] [address] 02/09/2025 Nico Hoy Arm mass R22.30 [facility] [address] [facility] [address] 02/11/2025 Nico Hoy Pelvic pressure in f emale R10.2 [facility] [address] [facility] [place] [address] 02/24/2025 Nico Hoy Hormone imbalance E3 4.9 [facility] [address] [facility] [place] [address] 03/02/2025 Nico Hoy [facility] [address] [facility] [place] [address] 01/26/2025 Nico Hoy [facility] [address] [facility] [place] [address] 01/27/2025 Nico Hoy High cholesterol E78 .00 and Hyperthyroidism E05.90 [facility] [address] [facility] [place] [address] 02/01/2025 Nico Hoy [facility] [address] [facility] [place] [address] 01/30/2025 Nico Hoy Hyperthyroidism E05. 90 [facility] [address] [facility] [place] [address] 01/26/2025 Nico Hoy Pelvic pain R10.2 ; Burning with urination R30.0 ; Well adult Z00.00 ; Fatigue R53.83 and Mass R22.9 [facility] [address] [facility] [place] [address] 02/09/2025 Nico Hoy Pelvic pressure in f emale R10.2 and Mass R22.9 [facility] [address] [facility] [place] [address] 12/03/2024 Nico Hoy Fatigue R53.83 and Arthralgia M25.50 Assessments Encounter Date Diagnosis (ICD Code) Assessment Notes Treatment Notes Treatment Clinical Notes Section Notes 12/03/2024 Fatigue (ICD-10 - R53.83) 12/03/2024 Arthralgia (ICD-10 - M25.50) 01/26/2025 Pelvic pain (ICD-10 - R10.2) 01/26/2025 Burning with urination (ICD-10 - R30.0) 02/09/2025 Pelvic pressure in female (ICD-10 - R10.2) 02/09/2025 Mass (ICD-10 - R22.9) seting up with Ortho 01/27/2025 High cholesterol (ICD-10 - E78.00) 01/27/2025 Hyperthyroidism (ICD-10 - E05.90) 02/01/2025 Arm mass, right (ICD-10 - R22.31) 02/01/2025 Calcified nodule (ICD-10 - R22.9) 02/09/2025 Arm mass (ICD-10 - R22.30) 02/11/2025 Pelvic pressure in female (ICD-10 - R10.2) 02/24/2025 Hormone imbalance (ICD-10 - E34.9) 01/30/2025 Hyperthyroidism (ICD-10 - E05.90) 01/26/2025 Well adult (ICD-10 - Z00.00) 01/26/2025 Fatigue (ICD-10 - R53.83) 01/26/2025 Mass (ICD-10 - R22.9) Plan Of Treatment Pending Test Test Name Order Date CMP (COMPLETE METABOLIC PANEL) UA (URINALYSIS, COMPLETE) 05/06/2023 UA (URINALYSIS, COMPLETE) 05/20/2023 HEMOGLOBIN A1C (GLYCO) 03/12/2023 HEMOGLOBIN A1C (GLYCO) 01/26/2025 IRON, TOTAL 01/26/2025 IRON, TOTAL 03/12/2023 LIPID PANEL (CHOL/TRIG/HDL/LDL) 03/12/20 23 LIPID PANEL (CHOL/TRIG/HDL/LDL) 01/27/20 25 CBC WITH DIFF 03/12/2023 VITAMIN D, 25 LEVEL (TOTAL) 03/12/2023 VITAMIN D, 25 LEVEL (TOTAL) 01/26/2025 Urinalysis Microscopic 02/09/2025 CORTISOL 02/24/2025 Urine Culture 05/06/2023 RHEUMATOID PANEL 10/20/2023 URINE CULTURE 05/20/2023 PREGNENOLONE 02/24/2025 DHEA Sulfate Lvl 02/24/2025 Insulin Level 01/26/2025 Insulin Level 03/12/2023 25-Hydroxyvitamin D2+D3 (LC) 02/24/2025 TESTOSTERONE, FREE (DIALYSIS) AND TOTAL (LC/MS/MS) 02/24/2025 FSH+LH+Prog+E2 01/26/2025 STOOL OCCULT BLOOD 03/12/2023 BLEEDING TIME 03/12/2023 CULTURE URINE 02/09/2025 GLYCOHEMOGLOBIN A1C 02/12/2024 LIPID PROFILE 01/27/2025 LIVER PROFILE 01/27/2025 PROF 14(COMP METB) 02/12/2024 PROLACTIN 01/26/2025 PROTIME 03/12/2023 PTT 03/12/2023 SED RATE WESTERGREN 10/20/2023 THYROID ANTIBODIES 01/27/2025 URINE MICROSCOPIC ONLY 05/20/2023 THYROID PANEL (T4/TSH/FREE T3) THYROID PANEL (T4/TSH/FREE T3) CT UPPER EXTREMITY RIGHT W IV CONTRAST 0 02/01/2025 CT UPPER EXTREMITY RIGHT W IV CONTRAST 0 01/26/2025 CMP (COMP MET SHAFER) w/eGFR CKD-EPI 2024 CBC WITH DIFF 01/26/2025 Insurance Providers Payer Name Payer Address Payer Phone Subscriber Number Group Number Insured Name Patient Relationship to Insured Coverage Start Date Coverage End Date [facility] [place] [address] [place], [place] [phone] [id number] Joseph Kendrick Spouse - patient is the [...] Depressive disorder F32.9 Surgical History Surgery Date(Month/Year) Stapedectomy 12/10/17 Exp Lap Female Ablation Total Hysterectomy 07/2023 Hospitalization History Reason Date(Month/Year) Anxiety
--- OUTSIDE RECORDS SUMMARY | 2025-03-23 07:14 | XMS_ITS | CCD ---
[facility] Organization [facility] Care Team Providers Care Annual Campaign Manager Name Role Phone Joycelyn Elena Unavailable Unavailable Donald Pate Unavailable Unavailable Denise Atkinson Unavailable Unavailable Donald Pate Unavailable Unavailable Unavailable DR DONALD PTAE Attending Unavailable RIO, DR BENNETT Consulting Unavailable DR DONALD PATE Admitting Unavailable Maikol Roca Unavailable DO Louann Barrera Attending Provider MD Donald Pate Primary Care Provider [phone] Donald Pate MD Primary Care Provider [phone] DESTINEE PERLA Attending Unavailable DONALD PATE Primary Care Unavailable LOUANN BARRERA Attending Unavailable LOUANN BARRERA Attending Unavailable LOUANN BARRERA Attending Unavailable Donald Pate MD Primary Care Provider [phone] Unavailable Primary Care Provider UnavailDonadl Mcdaniel MD Primary Care Provider [phone] ALEJANDRA WOLFE Attending Unavailable ESTEBANY DONALD M Primary Care Unavailable HOY DONALD M Referring Unavailable HOY DONALD M Primary Care Unavailable ESTEBANY DONALD M Referring Unavailable VARGHESE SHARMA Attending Unavailable DONALD PATE Primary Care Unavailable DONALD PATE M Referring Unavailable VARGHESE SHARMA Attending Unavailable ALEJANDRA WOLFE Attending Unavailable ESTEBANYDONALD M Primary Care Unavailable HOY, DONALD M Referring Unavailable ALEJANDRA WOLFE Attending Unavailable DONALD PATE M Primary Care Unavailable ESTEBANYNOEDONALD M Referring Unavailable HOYDONALD M Referring Unavailable [...] Referring Unavailable Donald Pate MD Attending Provider Donald Pate Attending Unavailable Hoy, Donald M Admitting Unavailable Hoy, Donald Primary Care Physician Edwin SOUSA Attending Unavailable Bradley Cruz DO Attending Provider Donald Pate MD Primary Care Provider HOY, DONALD Attending Unavailable HOY, DONALD Primary [...] Sulfamethoxazole / Trimethoprim; Translations: [Bactrim] Drug Allergy HN-Yweflzcfl-X [facility] 2460 Work Phone: (8 sources) Sulfamethoxazole / Trimethoprim; Translations: [Bactrim] Drug Allergy 013 Eruption of skin (disorder) [facility] Repository (6 sources) Erythromycin Derivatives; Translations: [Erythromycin Derivatives] drug allergy -Otolaryngol [facility] Work Phone: (4 sources) Codeine; Translations: [CODEINE] Drug Allergy 013 [facility] Repository (5 sources) Erythromycin; Translations: [ERYTHROMYCIN BASE] Drug Allergy 013 [facility] Repository (3 sources) predniSONE; Translations: [PREDNISONE] Drug Allergy 013 [facility] Repository (1 source) Corticosteroids Propensity to adverse reactions agitation, severe Qwenty [facility] Dailyevent Other (12 sources) Erythromycin; Translations: [ERYTHROMYCIN] Drug Allergy Unknown, Rash, Eruption of skin (disorder) [facility] (8 sources) Sulfamethoxazole / Trimethoprim Drug Allergy Unknown [facility] Other (4 sources) Sulfamethoxazole / Trimethoprim; Translations: [SULFAMETHOXAZOLE-T RIMETHOPRIM] Drug Allergy [facility] Repository (3 sources) Corticosteroids and derivatives; Translations: [corticosteroids] Drug Intolerance [facility] (4 sources) Codeine Drug Allergy Other: See Comments [facility] (4 sources) predniSONE Drug Allergy Unknown [facility] (3 sources) Corticosteroids; Translations: [Corticosteroids (Glucocorticoids)] Allergy to substance agitation, severe [facility] (3 sources) Sulfamethoxazole; Translations: [sulfamethoxazole] Drug Allergy [facility] (3 sources) Trimethoprim; Translations: [trimethoprim] Drug Allergy [facility] (1 source) Erythromycin Drug Allergy [facility] Repository Medications Current Medications Medication Drug Class(es) [...] Name Value Interpretation Reference Range Facility Coding Summaryon 03-15-2025 Coding Summary HTMLBase 64 RohypfxdENx1hWp+PGhlYW Q+IB3UOOLjI31wsKJgdL7e L6AAHMbJAmhhUBYVTIkZIu IifkTnTU6yhBSvBRLz IC8+YT5pIRMxEpuqoJYiy0 B8rZB3M88eug2qMRzfkCP8 ERWhYpPuwgoga4bybAz8CQ cuNmluOyBt CHQetT64KRW1lX51Rz75cS GzxFUtt3rerXr2QxOpENPt NGC9mRwzIEerc6AmDRZeV8 1zqVTay1D9 BVIqjNgmySSnXkSvrVZ1sB 0aFKnkbynry4kywvspSbi2 hy29gOFru0N2qKI4B6Cqjt J0NWNcwTRu DjmppVWYcY8rvizog7crxv luFcXjOGJpCJy2MAx6CGBy tMevFrDtLW04AWS7EFDflm DaH7AdJYDx kTdxVqI1l8K1Zn3SM2YAFt vlX3JZNEODSWnvoVI+PC90 jf50M1HpRqavOph6HADbLD W5sMG2bW6u MRDwKKtrt0K5eHK9W4Ypyu Mnyd7gm6tbFIBtIXofU51e sWDtb6J6EEWxzJC7IJWalG plIdKnkC29 Oyc+IYEwhAevk7IrIwssq1 dji2wenIk2DahiKSDpkkJj xVjdQOW4f9HpAr2lKFDtsO H3fUF6uI7g RxXoJcW7FTxjD140BlUyqV EcGkknH35vH7HtzFY+PHRy Wjx3MPKbcImqHY3xN0SpBO RpbmctbGVm cJhzYN7fMNTezfysICRuoS 4xATEsY8j0QaTxSwW0PYfv Y5IaQTOzhhaaXj44lQ0aCv VqTyB1ZQzz L7FyheW6SMOycYYwHLfjWF V4K75ow4H6KFAkKJGlYYN0 tXL4iV3pnZkmtiejsUTnrF sgdmVydGlj WFxdVTyyJ063KPYydLvkLp NvZGluZyBEYXRlOiAgMDkv MDkvMjAyNTwvdGQ+PHRkIH M0lLddQPVw eNTgFZbkRe6zqFthaAfmWH 3sYOQbcatzFATfpW2tGDTw pQMuwJaxPI9yDHOkcpvfq1 37AgOdMFM5 SJSoiGIwJ2TndR1sIlMcKM MiJCJzN0NnsNUbNCmoK876 TDdtUoP1JDQsjeNxE5EbAA FsaWduOiB0 c3F3Qj5Dk6CoqhscE5GelY OfDfVlUwveBHk2X9XsJkwa dHI+MU07HTMoTA08QCz3RQ T7rDoyYAbw OFJjK7MbxA0sQcRoWJBlCG RkOyc+PHRhYmxlIHdpZHRo JPcvLHJpFaFsmJofJX6aVf 9yZGVyLWNv kQnejNAeTjGoq3eaQXYiPL xqZN4tjMdpN1RpdZZ9FHMw g4r2Yx02V99fG5WtqZX+PG VlvVW3bVK3 jY2xFlGoBuE1JThyR728Lt TsoMRjPvxzc5krm2gmtWz7 LdR0LJNsezZpkJxmFYX1a1 YaAj66G00m IHdpZHRoPSIxNSUiIHZhbG dfht2fcD4mOr4+PGNvbCB3 cUP9sD7dVoNcIuZ8CKbiA4 49InRvcCIv Lobsg3ezf8icyKi8SoEmDT AlxtKkdPxaISC7o2GmJm29 M6RnqLquq1AfDpp0hv76gE Kvn4P4lUU0 P7VfYKJertfncVLtbPeyYR 6lKSTaesxwFXObgS8xCVPz N0t7EiEeBuJ5NSuuE3Kvuh W7QRSvjLLt CNBbsAOVgC3qaimpp7wabk bySuPdJGQoTTp3ZJs7HTGj pAapPzHfMZT1YxW8EZZ7gZ KkyJ8aoZxc dcfrzK2zUve+KRG5lJMgdH WFEU9wEboivKM+PHRkIHN0 vWumSFzrITYcoF4bEJNnK7 r3WcAlXnF4 ZRmpX2YymaK3BBMjeGZiCB DweOAAgH1acdbbb6klftrf HaQcVEEiXQn2AVr8OAErvQ duOiBsZWZ0 UqF1TXT9eGBezG2gdKdyqd kjeW0mFxl+QmlydGggRGF0 ZFq4M4GfAxl3SULuaAolBT 0ncGFkZGlu Pm2ynTdqbGgrHF6eEAZakq vqb161ZzAxr3seWDApjYZs TExyYKI4H61rq0V4QNTqTP RkYLQ0cBT9 qC1xsOhwjtnxjLVxwXsvwm TvpUmhNCynZImiQ014BCEu dWckEqAiHVr2L8DxZfj1CV PhnNpjKT8d eXLxMJaeSk3hkHpbdLfjNN 5dBDEwgdrbt560MdHuq9mp MQGriMKnYZshLFA0S95vz4 W7HHWyQRQr KTM6uPL7xJ0tgVulkwiccU VmdDsgdmVydGljYWwtYWxp R739ZNYxqOjpUkBhhNa6H1 GqEsh3TARm sVygBT6vmPWnFOedWl9pyJ qhyFwpQU4dLEWelzpko832 JbLwm5skMUBrhUAjOPesVE K4G80jv8C3 GUVuIBXcSOB4dCB5pV7vyH lnbjogbGVmdDsgdmVydGlj IWtuRIeuP406REEkfLanOz BhdGllbnQg JOwnLQc3F2YpRpkmqDJ+PC 53RMPtHI56yMAggSAxq1gr dRl8CrGrUINeSIX8pGvzFR srw6WvUZLe B21njPXth5P9BZMhtTmmlD GkQyZdeWO6rT8tXCqsahzu o0regukrFobor0jldy96fB 20O51yFSei ZHRoPSIzMCUiIHZhbGlnbj 0pfJ1fDu7+ZTDfbRW8nLA6 dW0dCQBxVmY6XLitD623Vx RvcCIvPjxj u2fdm0sfeGy3WtH2EVCwdh CovIrbCXU9b6QjLo64V41f IHdpZHRoPSIyMCUiIHZhbG apky1piO1w Ii8+UGClwQP5cBY9hW6aIe EhObU6WUyrS413LyVqhCEf ZkvbG04uG2EicCY+PHRyPj g3FUKujUke RG3lkGJxNPowFm4nCSJ2Rm OnNjPrZGkwV1GqGTTncnmf gwmgfNV5IVCjROOtcA02Gl 9udDogMTBw tKEShE9qwdmcm7oadwgmLx EmPRZgTTa6WBk9KIXdfKrb UbOeMIH3OwS0XUU8xTFbzH 1hbGlnbjog mZ7qT4QoIVRjhkazRx01wU 0lKrXhEzB1PKayGbc+Rk9S TkVZLCBMSVNBIEVMTEVOPC 78IQ69dWWx a2U4jCG5H1HkQNByedexqr ncgXY3WGIuTNHjbZ68dJRt TLvyQj5lp8L9r941DDKfOP HuzC69Xo2c dMinNJHhnLYYtN9dsriyj7 jptwpiBvScFKRiLHy4KIq5 RMUifGuyVpLsZUJ5NrC8TZ R7zKOnvN4y wBiywkqxiM4lZij+MDMvMT BaIPs4JkthaYS+PHRkIHN0 iVtsTJreUJDzsT5qSMDxK5 y7SgRpOpC4 LIquM4PqNGOysyciAw69zC 9eTwIkQcV0RSpaS1MtioA0 BVZswKCrUMdqVBK3S84sb8 V3FYLwSGRi MLF6qSB3dZ2mzZunbjfjcO VmdDsgdmVydGljYWwtYWxp O895RVGxdFxyLnR8XUsiFV MmJQ75BY45 cAFbg4L7hYA6M8RbXZPntr ywuqpooWO4WBUxJYIlzC59 lYTfDMzlOt9dp6K1f161WF UqYFCcvE80 Ob8quMmiNQOupSWKsP6kuq jgs4touvrwQoOqGAIyTRk3 YVb9XHCwwRojBzVqJYT7Bd Q5IGM1sBYp sB9udFdqpfdrtT1lXgl+Rk WSQWiMOJ83ZL82bQLxg7I4 yHM5I3LmKNEkqskyweddnC G3ZQDnZGAr iB25bBTeTFwtFk3yq9I3m7 27MPMkJANnlI49Xa4koOys GHXmjVMMcD7jlrcvc9eumk ogIzAwMDAw RQt9DIr4ZOPauPhtTwLxEU R7OcD8IGN0eZVajG7rhFik zahhvB9wPxv+F5V9A3EhNs wvdHI+PC90 ACOeSE22lICinFWnz9byhD e4BrDfXBYiDGP6xFeaTZux p1CoPKFsF69elHVaz5E5SG NvbGxhcHNl RmEkmDE0uR0gHXuqcgwko4 ojdjhwMwykq3zaks25uC58 V06rJUxiFLQnCJIvLWHtXH UfqPlrza8d xH3bTf9+QEKrbQS6bQR8qG 9bElRnCrO1CFmbM241ZrIq kKUpRcygk7dfq5sphOk3Ca IwJSIgdmFs oRthHUA2f0WwYj32T92gFO dpZHRoPSIyMCUiIHZhbGln sg5hfK2sAr1+FJ9fl1yath 68qI01qMX+ XYWdUUE2zPmpZKzxRSRysV 2jCEzbYbM2SPRfFpRydE26 lVHdCPxlTh6xxCpbwKwpEM 4wNTBpbjtm w057YmJyk8jbUWGzoGCsKS ccEEN9A20dz4Y6VODjWGVn SDY1uLY1pC7hmNrowvaavO VmdDsgdmVy sRzrFMhzHVwcJ123TUUckB ivBrOtbQLeB1pcfgMLNS2e OjwvdGQ+VJAcSUF1bOxeES nkWAJqbP8s OTGnO0s2ZfPgNwQ4KOfvV6 GypgY2KILnqMXsWULtqGZB nL8cqwplg0zxsnwmVaFpCI SvTKn6PRs4 QRLglDvtLwFrBRE0CzF4CO I9eEAotA8pgAcsbqsfdY6u Oyc+RklOOjwvdGQ+PHRkIH N4tXkeFVaa PILpwX5tDOSvK8p3DvRrAz Y0ZBraB4NonlH5OKQvfDUr JPAqyVXRnV2nfignu4jlna ogIzAwMDAw TZr1HAu7YBCcbVvgJjGlDD B9DxF5AMK1dUEebL1cnVjn vhqdoC1zSxt+TVJOOjwvdG Q+PHRkIHN0 vYxzANfjIZExuZ2mFTKwW9 n3YdBgDvK3AIreW0DmsvR1 YENixAFmKLOnrROPnN8gvt lcb3hivzfa BsDnDAHeZWo3DCe6EAFxkP jfIrJzRCY7XnH2XSG1uHIt lB7tjSnjgdxkfQ8fIlx+UG F9CXQ7UB28 YB77L0PuMuoikKMkdUE+PH RhYmxlIHdpZHRoPScxMDAl ObKyyYslYM0xXq8xWKKpWR NvbGxhcHNl OiB (more content not included)... [facility] Coding Queryon 03-11-2025 Coding Query [id number] [facility] Miscellaneous Testing LCon 0 03-09-2025 [facility] [place]. Test Result LC COMMENT Invalid Interpretation Code [facility] Comment on above: Result Comment: Test Ordered: [id number] Pregnenolone, MS Pregnenolone, MS <10 ng/dL ES This test was developed and its performance characteristics determined by [employer]. It has not been cleared or approved by the Food and Drug Administration. Reference Range: Adults: <151 Performed At: [facility] [id number] [place], [place] [id number] [employer] PhD Ph:[phone] Performed At: [facility] [address] [place] [id number] Mariposa Castle MD Ph:[phone] Performed By: #### 1 [id number] ####[facility] ([facility])[address] [place] [address] Coding Summaryon 03-08-2025 Coding Summary HTMLBase 64 TjgguiuuDCf8qSn+PGhlYW Q+ZZ6OAOPfD99rrPEfyG8a R8JTQTaJHznlIXBOJOxHGd OtzlAiCG8yxLJkGPFu IC8+LG9qMQMlHwmirRYfo8 G2wNR5J32ufu3cPTgzuTZ5 QGPeJjQctheqk2srcDt7UU cuNmluOyBt URIetA12IFU9jB93Pj98pP InqQEhq6prqQg4YuYdWDEv IPJ5sIqhFMdms5FqZDLgY7 1mpKUei3E3 EWCpkQnwvGPeGuDqfVX8fS 8jRApftvyev2tpxstgJgw2 co17qARqt0H6vWS6O6Ikkv Z3UQXcnHPj OejyaIKSjG3dimycg2epgt obXnQwQSNeFLj2GVy6RBLr lNfjRbTvMG20UPT0AQNwem XtZ0LeMINr dVanNnJ1q6Q7Tx2GZ7LFQy ciO0KIBKCQLTrulAM+PC90 ch27Z8UiWbggNoz1QGNkQL Z8fAH2vT4f KGCbIOedd3P8aNF6V9Pvsg Pmzw2ae6zoXIPoBTcoE51u bZAeh8V1LTHeuBK3OODttY grNkOddG69 Oyc+TAObzXyrf9RdYxquc3 mbo3iyrTl6DsdfJXKgplFe wAyyMQI7v1MbKf5oSYNfhH J9sEX9lY6z CrXrZrM5UGknO731KpBjjU NjJtkwV52qJ0OdbZA+PHRy Xse1JEYifKkbRX8fM8KmDM RpbmctbGVm mVuoFL7jWJMhccztWZOocR 8rCAOsO3a3LaCzXnS4DIse U3FiOYMhlmkhOz17dT1zHh WcPdM1JGke E7DbipS4VRKonARzEEliGS W8V68lz8P3RJQqVZSuQDM5 sOS3eZ8luQxxtqntdZTwmF sgdmVydGlj KTtqJUaiU688FHFgmUebHo NvZGluZyBEYXRlOiAgMDkv MDIvMjAyNTwvdGQ+PHRkIH C5pNhwWKQt zNTfHKevCh1kkMzilIdzCK 6pSUZffeeeUFPlbZ0nVIKw lEYxyLpiWI8wAUYtpssfy9 02AtHiGGD2 UJRpzCArV7LccR2sFdLrZC YsWKHhD7LpuLWsUNrrJ107 KYkkBcB3EADpiuHlJ7UhLR FsaWduOiB0 k7P8Io4Tu0HgorqzV9NsiD PjPaPxSjlaDHe7F8XaRugj dHI+YJ75TEIcGJ54QJz3DF Z2lKosGQrx GAOyI4CblM6vBlUdYPTqDF RkOyc+PHRhYmxlIHdpZHRo ZDkxYHIwBxSgwEtcSQ2rBt 9yZGVyLWNv iBfudCPvDwSuj7ebUBWqMC krTD6daNiwN4DipYV0NEYw q1k2Qe62Y59zD7HnfIU+PG MkuLC2kIE8 bL8pFiAyQzM5ZQkeV758Ud MnmKXkVribb6rlm4pbgKm5 XcA4TCLxjhEamLmsMHO3i5 AcIw87Z45m IHdpZHRoPSIxNSUiIHZhbG jmao1ggZ6kRl3+PGNvbCB3 mNQ8aI7cYjPvUrO3GDcaQ9 49InRvcCIv Oxdmh3ilt9ednSn8NwCyPG BislHrrYuaLBE8h0VoIy75 T4SalGvpy8EjSeh1yy96hB Zuv9V6tTX0 V5EhKCHjsnbnmBKtaNviFC 6iNNKkfhwyKTFdlO6yPIMq J2g8VsBxYdM0VTcqY7Pfci H3OTItfGVs TOLezOJMdF1mygrmi9wsnt awAuHfFTUbXCk3JOi4WKMn bZdtYdAlCAC9YnX5PCY4mE IvfF6ctEut rsjryF5wMze+NMU8qKPlrM WQWY6mJxwosPR+PHRkIHN0 mZfqAKxvYVXhiN0lSKHiK3 q2KiPfDnD6 IGrrY8LmwyV7TMOzrRWoNC TfhMPGgQ2blllfy4vsdvyk RoEeLAHyLLd8POa9MKZkeV duOiBsZWZ0 ThQ2KOS1mWDuyC9vbXbjim xekU9jVxh+QmlydGggRGF0 ELq1P2ObDej1BFVfoOyhRC 0ncGFkZGlu Vp9ceGxueDqkXB2fLFTjgw nif112GqVjs8tvINRksLTe QOclATD8W11ma4D3DELjOU VfPBR0gKO2 pE3vzLenlivtiGNquHdbwh PgbIsmGZuaAJifJ373AYXk rEoyTkJfNQw3B3YoBvd5GP OpmMmoOI7i yIMmRZlaLl8wlFmcvZkvLC 5gWULqhcmyj901XvNid6zs XAPcaCUhBIpoCUL6L02zr5 R4HNFzLISc HSR0kYM6eM3hrOyxdnhgoY VmdDsgdmVydGljYWwtYWxp I198LNMvlCnpUpWefXo6Q2 DiXmf8AIAz pIifFQ8tnZJyIDoqFr5jeN tuxRksXA2uGZTlgsmzv245 RtAax4fvOZIhtEZcRMafDM G6K31lk1M0 MUVwLSWtIDE8wWQ5gY9nmX lnbjogbGVmdDsgdmVydGlj WOcdRTqdG937RBPfyWszAl BhdGllbnQg NNukBOg2A5UzJseurSJ+PC 47LBQmPE80qWYkoALcf0em uZz6MrDtQCPnDKM9mPzdDU qip1FmJBOz Q33gcSVqv3H2BYVdeOfxrD PuYcIuuXN6gX2aBQlrfnhq o1lydnnsWrydr0ljbp37wB 00Y27yMXrk ZHRoPSIzMCUiIHZhbGlnbj 6eyF4sTi0+SDUxaWH0bLJ1 pO0kPANyGjS6JIzpE759Pz RvcCIvPjxj p9bnb6qpyJo0CuZ6DKZusl XbwOsnXDU5w5TuZz20L31k IHdpZHRoPSIyMCUiIHZhbG lrwa7tiP6q Ii8+OGVnhJK2rWG9rL0sVp FjBtS3QSqwT781KzIqbTLp XydsX10fS8KhiHJ+PHRyPj u6FMHwlYtd SI5rnBUmUZgtLa6pYIJ9Mo MoRrHrLXtjQ4EkSDIznqmu dbroyKQ6GTZnFOJhdT24Ws 9udDogMTBw aRKBvO3txnlxu9dxshcmRr DqPVCuPRf3WSf8OYAuqIpn PoZgMFL4ZpN6NOS8rSWcdC 1hbGlnbjog jF9vU6NkIBSwzvbaVu14hC 3cFzSqMpR4IOgdMcq+Rk9S TkVZLCBMSVNBIEVMTEVOPC 84BM94mIGi o8G3bUL7N5PiRSNujfirns tfkSO7XMVxNYFscD35kKXw KBucFr4ko5D1z812ADOiZX YhdW19Po2s pCjxSJRuhTQPqR3psnuuk7 waymbvZoTeDIHjAUy6XVj2 OFWpiTddZsXqGNP3SzV2OK L8vEGjcZ0s mLddrrptaX6bKos+MDMvMT FaIDu1GonzaAN+PHRkIHN0 qKdwVIehTNSsjZ9lCYSgT7 s8NyDnWmR1 NRfzN8YjWTOndupxLa27dO 7xXyMwCfH7TQmoE6MtvuL7 FSSubWDmNKkyPGY8E25zi4 I8RVHvPNAr CUL7eWV0bG8xhSimnitcqS VmdDsgdmVydGljYWwtYWxp Y192KBBhnQfhGhC9QRqjIC TpXM18VA11 iJPri6S1iDX1M7FdLUEcch hthefqpUV0QHMlGJHuxE53 sYMiAFsnUq2mr9Y6a124WW BeAHYinU24 Fx8kjGkoDFLuePOBlO5gof pbw1ojlzzwZeYrOPEbVNh6 ZXm3TLKpiOjtXfHaYEI5Rx O3JTX1sHXq dL1wdPtrvxwcgF0bAks+Rk UOQLgFEV39CG77bOUmc3H6 jDD8P7ZtUEIkckmvvetklW X6BEEfBGMs cY99nHJmTUqaRd0hg8E0h5 92XVBfYZIxkV45Gm9scRml WSPiaNDWpN4icavkx0bami ogIzAwMDAw OEz3KGz7UDLqsNfaOkJwSB S1BtE2PKN6pRRrzV8ggNgp ktyjpF1dLsg+E9M5V3BpXi wvdHI+PC90 SZWkJJ30yNGazXHdu7tngB l9OtTbXQVtBSK6sItdQHgk f9ReMXNtA11trWUqu4O5WZ NvbGxhcHNl OxRbdFL1tJ5qPGcawjqqr1 fxdwkpKugsg3svut51dG50 C17gRHrdXASyOZPjSMRhYV IwvZfbeh1z cO1yMm9+IACbaUY4zCU9aG 1dHbYdTdC6IUcdS102HsGv xJMuKerln7yey3rkhUd4Vg IwJSIgdmFs xSzkJGX1a0XgIt92F13xRZ dpZHRoPSIyMCUiIHZhbGln hp1crW6bJx8+GI5rd1jzzm 50sM78rFA+ XWTqVDP4vIzgMSmfCDQzoA 1hPQaxVwV4ISWdQkSrxV10 uUMeXJgjKz1whBygrXqtOV 4wNTBpbjtm j250UsFfj6quUUYpeLRwZV jpQAA4K06ap5U2INKuZGRm GTA7cXI1mS3woJfhuczceL VmdDsgdmVy gQtbWLzgZRvzA983XNZglK fcBqMagMFvC5zwduCNAO2i OjwvdGQ+HOMrMRZ1sRrmMK bmJUOphC4h FGHtS8j4CvQsKlP5OEojH9 EuscO3YJFusTTlNPPcoVSS eW5tdzupp7riqewgShUfGF RsBOd2KRh7 CSJssDktApHaZVI4BkP8JE U7yQSxuJ1srStsousxfD6c Oyc+RklOOjwvdGQ+PHRkIH Q5oBzcHVwc ASCjlD0lGZXiD7l1MlUfTy R8CTuwM5HfzrW0KRPfnTDf BRCdwVLAoL0ruhnpg1wjby ogIzAwMDAw FLg6TUj3RNGmeSihDdNdMU V1NwK8JGX8uVGqnM3lgQgj zshdkG0aWed+TVJOOjwvdG Q+PHRkIHN0 wXksRUufXRAqsM3dCWShF0 r1QlCoOwL3HHfnP0WsbsE3 TLVwzXBgYGYstXOFaX3rpi jnh5bqeuhr JkLyXJUwMYe7LRd5JSKbjB agVtVtOWD5WcF4PLH5pFZr xS5eoJzvkijjoU2uVcv+UG A9GFE5CZ94 SM16H8GuVjsjfSDyjPB+PH RhYmxlIHdpZHRoPScxMDAl WtFusTwzUZ3jKi0dDTUxTT NvbGxhcHNl OiB (more content not included)... Normal [facility] [place] [facility] F+T Testo LCon 03-08-2025 Free Testosterone(Direct) <0.2 Invalid Interpretation Code 0.0-4.2 [facility] [place] [facility] Comment on above: Result Comment: Perf ormed At: [facility] [id number] Juan Fink MD Ph:[phone] Performed At: [facility] [id number] [facility] Ph:[phone] Performed By: #### 3 [id number], [id number], [id number] ####[facility] (DEFAULT)[address] [place] [address] Testosterone, Serum LC <3 Low 4-50 [facility] Comment on above: Performed By: #### 3 [id number], [id number] ####[facility] (DEFAULT)[address] [place] [address] Miscellaneous Testing LCon 0 03-05-2025 [facility] [place]. Test Result LC COMMENT Invalid Interpretation Code [facility] Comment on above: Result Comment: Test Ordered: [id number] 25-Hydroxyvitamin D LCMS D2+D3 25-Hydroxy, Vitamin D [...] developed and its performance characteristics determined by [facility]. It has not been cleared or approved by the Food and Drug Administration. Performed At: [facility] [address] [id number] [facility] Ph:[phone] Performed At: [facility] [address] [place] [id number] Mariposa Castle MD Ph:[phone] Performed By: #### 1 [id number] #### [facility] (DEFAULT) [address] [place] [address] Ambulatory Visit Summaryon 0 03-02-2025 Ambulatory Visit Summary Ambulatory Visi t Summary REBA VASQUEZ :1965 Visit Date:03/02/2025 Ambulatory Visit Instructions Your Diagnosis Screening for malignant neoplasm of colon Your Care Team Attending Physician - LARS SALMERON, Edwin Davies Primary Care Physician - Rio SALMERON, Donald This Is Your Medications List omega-3 polyunsaturated [...] signed up for this yet, please contact [employer] at [phone] to get signed up today. Language Information Language assistance services are available as needed. Normal [facility] Cortisol LCon 03-02-2025 Cortisol LC 12.3 ug/dL Invalid Interpretation Code 6.2-19.4 [facility] Comment on above: Result Comment: Sharri uw Note: The reference interval and flagging for this test is for an AM collection. If this is a PM collection please use: Cortisol PM: 2.3-11.9 Performed At: [facility] [address] [id number] [place], [place] [id number] [facility] Ph:[phone] Performed By: #### 3 [id number] ####[facility] (DEFAULT)[address] [place] [address] Dehydroepiandrosterone Sulfa te LCon 03-02-2025 DHEA-Sulfate LC 23.2 ug/dL Low 29.4-220.5 [facility] Comment on above: Result Comment: Perf ormed At: [facility] [address] [id number] [facility] Ph:[phone] Performed By: #### 3 [id number] ####[facility] (DEFAULT)[address] [place] [address] Miscellaneous Testing LCon 0 03-01-2025 Test Code LC 075293 Invalid Interpretation Code [facility] Comment on above: Performed By: #### 1 [id number] #### [facility] (DEFAULT) [address] [place] [address] Test Name LC 25-Hydroxy Vitamin D2+D3 Invalid Interpretation Code [facility] Comment on above: Performed By: #### 1 [id number] #### [facility] (DEFAULT) [address] [place] [address] Test Code LC 481620 Invalid Interpretation Code [facility] Comment on above: Performed By: #### 1 [id number] ####[facility] (DEFAULT)[address] [place] [address] Test Name LC pregnenalone Invalid Interpretation Code [facility] Comment on above: Performed By: #### 1 [id number] ####[facility] (DEFAULT)[address] [place] [address] Provider Orderson 03-01-2025 Provider Orders [id number] Normal [facility] Coding Summaryon 02-09-2025 Coding Summary HTMLBase 64 BpdmtpdxWAe1bVn+PGhlYW Q+HK3DWPXvB83ruLAjkS7x U4NVJFpIBlmyIYIJTEqLZt DdvsWsBL4nrHHcQIWe IC8+SZ9iHZBkKpxirLXyn5 B9uPW3G09aky2cPPnwgIH5 SEXhPhQjsnbgn4qyaPc9GD cuNmluOyBt ANSadA70ANG8vQ92Qs24zL YhkWSue4qoxYq9IkMfKXMq XQF9oOopHDgof6UfJCTjI6 9sgKErn9D6 UPLocUgfrQPgBuLepQI5kS 5qNNcrvkzny9coyresZmw0 ho72lHWhs5A1qKL1W2Smce E1BOJuiVUh LjjiwJRDrI7havlje4vgev gnPpNyXRSbPQo0CTa6VRRn uGqkYlWcUZ66CKA8PDWpys FyJ6FgSLMn rPrrWtA2b0D2Jk5PP5XVLz lsO0LTGFFWJJvmeTY+PC90 jz85S5ElPawlPmp4ZWUkCA C5yTW8hK4n DMUaEKfsf5O2oQK6R6Llqi Wewg9fh5okVPMsNAtuK02f wYVjx5Q6EQHzhAJ5QWNbiT viCvTxeW29 Oyc+JRGfvZhvt8RfXwnqe6 qln8ywvCa6NkfuVPFgkiCe lPcjWGP0w2XwWn1rLIMaoP A0oPT6cI3y CkZeKbX6TKjxQ865KwVszX TkRpbkZ84uC4GnbEZ+PHRy Gjz7XNUirEtgDZ5aE3UoTP RpbmctbGVm fJgfRO4qRZKmvucuXACjfI 6hJNXxE6b7RyPtXnA7RUio T7EcKLHlurdbBa04yY1hPe RyIxA1ESeg G4KxhrB9AYBixFCbDYjtGC U6X38aq6B9KMMnHGHmGYB6 fUD2wM4ptUsbqwkscGUivV sgdmVydGlj LNetYUfnS529BUZimDbmFf NvZGluZyBEYXRlOiAgMDgv MDYvMjAyNTwvdGQ+PHRkIH A4vSduQEBr uEKhDSaiJv3gxFgbtEarGM 8sZSCleuinMRIgiR2tWITr tTWveFcmIX8tJWUzgoipp0 07EdAsATE3 XIEtiFZcJ7FzsD2iJrEyPK XlZVGjM8JpoVKuMNozY094 FJxdQmR0YQRzcsHbI7AfCA FsaWduOiB0 i0P1Gi0Ym9JhwajzI3JxwM DxRzNxJglwKRg5C5YzOntp dHI+VO99RTHpGS50GYe5JZ K6aAwyGAwi VYQyU9ZdlR2rJiSoSEVzZR RkOyc+PHRhYmxlIHdpZHRo KXjqEVWjQyRvnGcuAY1rLc 9yZGVyLWNv rKtboCCxSbPzk7xdLDYaWZ ttAV0jeAltM6HnhBO8AFOs t8y2Dt08Y62kY0LghNW+PG MpoTU7eLK7 sV5aBrVlBoH0MPemX137Mk JoeWStYwsom7hcn2fzuZi8 WcR1NPRulvGhqSuoMYY8i7 DnJw29A83q IHdpZHRoPSIxNSUiIHZhbG diux3yoO8lXx7+PGNvbCB3 mKH6qS3eQzYdLnP1PAtwF4 49InRvcCIv Afxij1bvw6praEp6DkWdIH NsavXjjUrhGEP2n9YoNv86 Z0TurHiwp3HgTmp3tu20eN Vzw9G7kGB7 H0PiUONemuxrbZHsxZatCZ 9vRUKhvppyUASwvY2xNMSr V1y4SzRkSnG0AYniF0Jxgg Z2PFReeAWk WPBofMCImY0oiohym2dgku jbEcSlDVHjQEd9VIo3QHCm kNukZpKaSRF8DrR3CFY9aD HbyI3hxDtd fsrosI8oLlh+PHP3fAWwnS UYTJ5tNvbcaYV+PHRkIHN0 bLkcBYfjTIVlnS2fHCKxM9 w7UuKcPyH0 DVafO5RihcD3OWNipKKvYM RzuHFGhO2sxjxwl0fssfzx IoJpMRRkKDv7BFh0FNCiuR duOiBsZWZ0 ZkU0WEE6dOTpxN7syYkfpk gqvE3iNwe+QmlydGggRGF0 IKv9J6FzBqb4HSNyfKutRX 0ncGFkZGlu Ut8inPxquWrlUP2hACGqmq itx034WbPnm1qkGDWuxLPa KHweTUE0J29sc9O9HOToFY JyVIU9gCP6 hA3juMfqccjexGVgxVxpbx QzaKsfAWouRHidG797UATq oIwmNtJgQIr6M0MfTyt6LQ UllUumPW0p jLFkOLtkHi6rtEgjbNciGH 4gQWOnydplx253KfRbn4fq AWOvqIQlUWmbFKL8P84em0 H1VRTlNNUd HLK4aZT2dC7dzWkezrnpzY VmdDsgdmVydGljYWwtYWxp Z427EVHphJriUkZuoCs2K8 UyOev8WWDb pPhlOU5ncNEvAWgaVf1dsM vkgHpwWB8hLMEomdchn030 DeXft9biRFQchUJmMOelQO U9Q08gz3M1 CPMtYWCrFXT4eGI7fW4swB lnbjogbGVmdDsgdmVydGlj FCsxTUogY858RVIkmBygUi BhdGllbnQg ELojNGv8P8GcYhareOC+PC 40RJSrGC04cOEhbXFoh0gh tMr0AyDsJRMvWIA9iMzmZX izg9YzDVCi P56loCFlf1P2NLQyxUdhcJ AgSeFwaCX1dQ6sUSsnprre i0vwgnucKdqym3facz95fZ 92C79tGLpn ZHRoPSIzMCUiIHZhbGlnbj 1hqP4lPk4+FTUizIM4fTN3 nI8cPHWpLfQ9MMzmQ664Iv RvcCIvPjxj v3eqg0pwzIj9ThK2XJUdpr XumUweOXF6p5RkZm55X01n IHdpZHRoPSIyMCUiIHZhbG wdet4hlR4g Ii8+ELEzqAI3cDG8uX5sAz KzXwH4KRkmD428XwPbvKGw MobaZ48fZ7AieGR+PHRyPj f4WJDqiIzl SS8itNNxZRmeJu0dWMC0En NuTcNpKOvhU8CyTCPgtslu stekaJQ8TONmORGzdH37Yx 9udDogMTBw bXDYsW5nibtnp3uxmxvcWj MgIKUxRSo3ACe5OEChaNav PpVuTDG8VzQ4CWQ8mOEgxD 1hbGlnbjog kB4nT2RgDHVhamazRx57kG 5uJlSfYxR0NGfiXye+Rk9S TkVZLCBMSVNBIEVMTEVOPC 44WK65hNTu o9V2sZW9M8IwTFOchizxav wfjHE0GWOfWLLeiB75aALn TJshZh1os8G1h054XZIkWL ZpnZ82Qz8g kFwuFAReuQTTtT7jsmqjo3 kyepmeAkTcWAWdSSy2CSo2 YBOmeUpzEiRgOBO5YaG8YG E3fREmwB9s aOpqqocrnB6mNoe+MDMvMT NkWOs5WuildTP+PHRkIHN0 fIisSWckPZXowB4fXLAbP5 i1DyTyRqC1 HNwlV4BaEHNdpchyRa52xP 7yFcHrCyR7EVshH7DdviO7 DJYgiKFgXRroIQG3I21mc8 S7EMAeRZQq VKJ5vUR6fR7opJtjvdsgzA VmdDsgdmVydGljYWwtYWxp A366JBIuhPzrGsZ7CUinUL JyNX50XC54 wMNvv9C1fIO5H1GyGVFpdd krumtpxZX7NQIjUZQgzG89 qUBjEQouTv1bw4O3g536ZN DeINPotE24 Te8tmAbyUNBynUJUgS8avs fgj5ntqipfNqUnOBOjCNp4 TCl7IWInnOalAaKqPYI0Ha W1MMN1iZMn pN4kaQbtxfezoF3vUlk+Rk HDREnXQO10TY11eKOwx6X5 vSN5B1UnXECrptxmnzuwdY M1FOHcWTAd xH97vTChRMfiPg2li8L7l7 24DZPhWRNobB76Bj1qcBzl OPExvSEVjL9yobweg8erls ogIzAwMDAw EDi8MYj1PDZzjTvvWxFqVA Y8WiZ6WIE0aUVwrR4ctHbj sbctsN0dBea+Z1G8W0VxHu wvdHI+PC90 OCYlSA70dGTumQZej7cwhK l6FbNxDVCnTPN5dZocFUru p3EzTUIhF24noUKdq1M9XZ NvbGxhcHNl RkWqnMK6rH3hSJcuzwqli9 otklcsOscik3rytj40uI59 D05lVSlnNQUrTCZfNGCtPZ WnzQunuy7q zJ1yXt8+GBAbsJP0bNT8wI 6nAdBoEmZ9MCpiU902BsFn yVBwPulmp7wjv1qcrZt3Wn IwJSIgdmFs aChqIFV7k0KqDd72G64wCP dpZHRoPSIyMCUiIHZhbGln nr8pmK5lCs3+BY2ki6ttet 12fB08yDK+ NVPiXPQ6jPftFGikNMAuvY 6tKJxqKkJ6KTHuJzYdpA16 vXGaUUjcGg0ybBpdtXduMJ 4wNTBpbjtm w809VpVkv2ayLMVynFDfCP eoQAK5X60zw4H8OFVkNIHm ZEE4dQH0mO9vbVysvkukhA VmdDsgdmVy kRutPSqwIHopA237UJCmnH swJpJbhTSxP6tiivTBUX4e OjwvdGQ+GFEiVJZ8nHvcOP veDPJnpD9u FSKhJ2s6XwHlVoE9LOuxJ4 RkhwC1JHWbaAXpDBOehJMZ xH4pqjjxv4jdkxbsEwAmXN TcKOp4MXw8 VRLrxOshUlGdERI4OtQ3CX L5qTYiuT6egFkjmmaudO6p Oyc+RklOOjwvdGQ+PHRkIH H9tQbbBWxm HKYjpI3aMOFlK5l1NmEbKp Q0MYfaA1YjcuG2PJFxiCDj MIPpzANQwZ4mxzhoi8dtjr ogIzAwMDAw CYp7TZl5AWCzvIoyEkNmVN I0PwQ9XRU0hRNxcO0nxDds ehdohG1rEej+TVJOOjwvdG Q+PHRkIHN0 zDcyCExgDKVyjP8uPUZbG4 l0ApKzXwU3AVmhC2YarlH2 XZOrdAMjCWHzfBABaE3yjl crs6ypcswu YsIpKFAjPDk3MSk3NUXzgR jeNvJdRKB0AkP3CZV6eRIf uD4lcBepfutrcV0eRvc+UG A9HUB4BK78 LM81Y1BkXirhaEWmkKA+PH RhYmxlIHdpZHRoPScxMDAl JzDjiKbpQN7cOb3cFHEcEP NvbGxhcHNl OiB (more content not included)... Normal [facility] Urine Cultureon 02-09-2025 Bacteria identified Cx Nom (U) No Growth 2 Days PERFORMED BY: [facility] [place] [address] PATHOLOGIST HEALTH AND HUMAN PERFORMANCE PROFESSOR CARLITOS LAUGHLIN M.D. Normal [facility] Comment on above: Performed By: #### C UU #### [address] Urine cultureOrdered By: Heather Pate on 02-09-2025 Bacteria identified Cx Nom (U) No Growth 2 Days [facility] Coding Summaryon 02-08-2025 Coding Summary HTMLBase 64 MydvuaniRQr8nNb+PGhlYW Q+MD4GKSBdF57ldJBmjW1u R7ZXEGpMUllqROZXIJbPJx OjexBiXX1xaQEaMFLe IC8+VX3xTDYsZwgbmMLfz1 E8jSB7B63cep8iAWzjoDH1 OUHbItDmndnxq6nvzAq8PZ cuNmluOyBt IBVmeH04UKS0pV13Kv60oT IurMVif1ctjAa4HsFaEQMb OMI7uWocGGutw1QoYILoE3 8drZNga9P5 QUCxrPyzhFGhHvHyaHN1xW 5zHBxvcqxhe4mjprszYxt0 pn11yWZpu9I5iGK7L8Bdfc T2KMDzhEQd XwgsoLSDsI5kdqgvi8jxef njOfIoAVJfBMe7HUi9RLPm kRrfQfCvRY20WWW4KRFjve BfQ7QqEDMr zLfwBeU4g7I6Qg2TF0CCNx eqT0RSCTVGMIhlcXX+PC90 px33R2QuLeetCnv4LSThTR O6fKH0wA2h TFJaOYbtj1N5tZF5K3Hcnj Hapu5rh6vjRYVqJGhsB22a cRTvz2M0KGFyiKU3SWLcjA wpZnNjwF28 Oyc+MMKvgPfmg8PuIlhzq3 wzi7kcwSy7QmlfFVFqekLw eAkmRBX6a3EyJy3fPKBegS U0jNZ2qN7d UsAuNwQ4GDfkE664KnHczA SkJfepZ47kY2MedIL+PHRy Gfw0HDKguNxeZC6qM7QuEN RpbmctbGVm qTjaXQ2jIEQeydcvCJQbhE 5bAKWqO7z1TnVgXiG2GGme P6TuQYXimotuWj49qC4tZz MxIhJ7AJoe E7BfjkO9GIVhxXLkDMvhRY C1H72mz3S0AKWqDEQjWII6 tIM2kD6seMgrltufuMQomE sgdmVydGlj IRlqZZmcI093DWZshXleLg NvZGluZyBEYXRlOiAgMDgv MDUvMjAyNTwvdGQ+PHRkIH M1mTmeNCIr hYVcUFvaDv4lvBkgzVvlQN 1mQWYrcmvwDQKmpN7jZFUj qUZhzIqoCD1uKHQkeapuq3 56BgSqEQL0 KNYueLIiL8AduP4cWaUhDR KaRLDwQ5QssLIlRDjiL197 RBcmRoC1UMJlnsIoS8LhAY FsaWduOiB0 v9I4Bv0Qm4GmhwsdD3PmhT NeHmZiNdyaHQw4L7EzAdae dHI+LU84YGCxSN93UNp3HK H8eQfjCWoo BAVrQ8KlrL0jYqXgZLPyZB RkOyc+PHRhYmxlIHdpZHRo PGxuZPXvXjYtwCpmPQ3dHl 9yZGVyLWNv uIrawITxSeDta3ohGJCgNJ imQG3rcWngE7UidXK6EKJj j0x5Zy50O82vW5RubOB+PG OvnFK2nFQ2 aX1sZiHaNiG9CArzL039Go LcoBViWezgv5qyb9cclBy3 GdS7ZZZfcfTjmBigNRF1k7 KaBu32V32t IHdpZHRoPSIxNSUiIHZhbG zfqk3qpC0vMb7+PGNvbCB3 pPA2yO4nYdFoNsS8OOugR0 49InRvcCIv Wzkps4bsi6xpyLe6IwBiOG KxclFepSayIHQ1m1DuPo54 X1AyoRysj2JbKms8ca73iK Dvm6M9pBR2 Q2JrUQAjghncvUUpzDvhXJ 9kKDSlcwvoWEEjkR0dTGAd K1o1BqHlCsW2EAuxH4Bqyt S7TJBpqSDa XACbdPWYrI4idurfo6jzmn xjJqYlRCHvHSi9CLh8QKIw zYduElMgYBS6FcD6YUU8gD YchU9ztGtg njliaL3bQfb+RFU0iZOfbH IYFL7dFodseTN+PHRkIHN0 wOryUWjxNCGelH7hUHAzE5 h9SqWlOlB9 GXbhJ2UieaA8EFVgmYOpAT McyYMWqI4nihwep6qiiixr EkHrKSYwCYj4KJg3VODwlD duOiBsZWZ0 LgS7NTE2lCPlhU8tuKurgq xigH8jHyt+QmlydGggRGF0 MUv7Y5VnJaw5FEHcpZipIN 0ncGFkZGlu Bl7nhQqojZdwRU3pPUSsfl jvy044TxVxj3qdYLPulRNy SCmmYWB3Z00si8T8GLLfQF YcRPK4kRC4 mH4slPzmlucmbGKwzDtbkl CqmDmmOXrqNTsnS733PPRi vWjdTeVkFEm8W3IgJng5QH OazUsyTA6o hKLxBObeZn8szOgqgPtaHA 0rBARfuwvpe017DuScv9hg NEBugQImVXvgCWK7J80qy3 M0UPHrDQSu QKL5uFX7zJ5hoYtyytgksR VmdDsgdmVydGljYWwtYWxp H100AAZzuYkqDxZeeTb8F3 PnRlb3GNWt qVqpCO3lvPBuNUwzXh4ggZ womUusEQ4eTAQqznqye091 EtIck0rrCCByiAVsBXccWF W3O38dh1Z8 XSHiWAUrNBE1cMB6sA7muX lnbjogbGVmdDsgdmVydGlj JTsnYLjsK066ZTJasQicUm BhdGllbnQg YJwiMEo5H4CbVsfbdPY+PC 01UTPdMJ01tIRofSSgf8ew yQx7DkZsOEWcZIX3tVsxHX ynp6WnMPKp U00wuFVvi5J8WIBxxUznlM BxMdZwqZS0dL1uXVfuntql j2immmgcUjocq2qsml05sA 73Z06eKXki ZHRoPSIzMCUiIHZhbGlnbj 4qvO4eZt7+GQOejGX6kYJ9 nE4yMDNdMeT5OCrjL849Mo RvcCIvPjxj f8pmd4tklVb2RwS2XCJitz WppGlsGBQ4o8VuYz39M03j IHdpZHRoPSIyMCUiIHZhbG qfun4ufF7a Ii8+JQRduDJ7kBK9xM4lGe LbHqE5CUlnB835GuOptXHh LwwuE36uP2AdhDQ+PHRyPj c1WLYhdPut GX8scGCfAKzzFl8jPLX0Dt OpJfJwFBxdJ7ZfSDTbkbqc kiovdBT3EKCsCOTedE57Lw 9udDogMTBw wOQDmD5udemma0bmavgzFb SjTGXzTVw3ETi7CQFfnPov QnSuOJL3XfH8BIE5lRCsiL 1hbGlnbjog gT1iY6IiWBDekjhcLv52dV 2vYpFcZeK5QZlvRdk+Rk9S TkVZLCBMSVNBIEVMTEVOPC 95RW93kCDe w2V1dXY7X5CxKOMkmbvjzd fhyWQ8JSGjSVOlbL69uTNp UUmzSv3fj0I6r140KUErZY PksL95Ae9u qLhzRBBuiAFRlF1emppmt4 gynsczKuKnWMGiJAb1RJk8 KOJphRcuSmNnJLJ8YoS5FK J1aWNpxU0l yPfglwpkoH8mKxj+MDMvMT WxAXb1LzlwhZW+PHRkIHN0 nMwjRQebKMXmiU4yIXCmZ7 t2WyDeOwD7 HKozD3DyDQHjnifbTc79pS 4bNkBjCvI3VJnnH0ZvccL5 ITUwbRAdPTshBHJ1X94wa0 Y7HABjMZNa AHC6vFP3uJ4anEdcydlzjY VmdDsgdmVydGljYWwtYWxp A587MEMjcDguKiC7JYemLQ GcQZ57WY48 sBBsj3V1wYE2W2RwMAJjho stdwxttYB9ERJmASLqhP14 eSJnJMqxPj0rn1V7l436SO RqPUQsaT03 Cl4tlRhmACUybGJNjF1gsc idr7fynjskEbBzWKSkLBu4 YPy4WPCbbDdyFqZyRQF8Uk S6XOW5tBUr uN1tjJoogomjgS9jDqr+Rk SWFFlBZZ05ZR92wCIzu3X1 hIA0S1WwIEVhfbkptkgbuZ M9HVAfBQKi lC69aGEhHScsPy6rz0O7w8 57QNUaWAAquO76Gc3iiCdb KWAkkSHCuX1uxiukp2mies ogIzAwMDAw HIj8FYi3GRSjxIxnJeFgHD J7BsW6JBQ0dXCqlH1noOwd ydobjD1xAuh+V8A8S9UfSs wvdHI+PC90 YOJuZX77cSGvaOYvf5vhxX d7MaUgFGLtMLN1wTgtNUoh g2MkILEwU75vzLJaq7V8TJ NvbGxhcHNl PsRxdHX4kL7rTFbwgwcqy5 eyapzhIooft0dlxw82bG33 Y14jPLhzJMIqVGGtTHGnIT EokZpgps2t gR8iSe2+SQKzxKJ9bCO2lV 0yRqOgTjF5PGfsD556IpMa uSLeKzalh4fti6lceFa3Pj IwJSIgdmFs uCuzOVD9x8RyHh73M36uHS dpZHRoPSIyMCUiIHZhbGln lo2diQ2uTd7+XN9ms2tsxc 04rI76vYK+ WTJdHYY6jAdlPQvwQUJukH 9nIMsqYsE9XJCrTdMenA86 zLEmYFioUb6lsMubfNftNN 4wNTBpbjtm j083FwUmx8rcPIFgiEPfRY eyJDB1N87lv0E7LFAdTAXl RSD3vRB9mA6gwCytrkapzT VmdDsgdmVy eQqcVXgdXRgkR691LWHskN vfSvXojWNoS2vjxbBKVI3x OjwvdGQ+DHRuMLE1fTdjOJ ixBLSgzU1x EOHzA7t2LpJxJtT1GLfbN7 JvthS2ROKkgJPnEWKiwUYL xO6utcfbx3pgvjkvYgCjCS ZzTXm0YLn3 ENNiqAcxDtLrVYJ2ZnT8UQ E1vQIvhN5svYtmzrelxK6d Oyc+RklOOjwvdGQ+PHRkIH R7mLvuJCus CVEqoJ8zJBOrZ5o5NfThKy Q2PJmvB2CbpqW8SFWryJRg RQRbeXYJiM2zkguuc5hato ogIzAwMDAw KSx6AUi3JRThfUchFdUpAX I9TyQ8PDH1qNBdaJ5ldIng nqmiiK4xQfm+TVJOOjwvdG Q+PHRkIHN0 bXuiZKjqMQQrfR4rDWZdB3 l0AxDlCqN2RUqkW8MjbqD6 GQPmcWIsEYVypMTTiE9ycm ihg6tibupn YzUvUOVoFQe1MSt3QQMfrO qsPgApDOS1JyT1RGK9lWBy lQ0veKjbzknqcN1xExc+UG W0QSU3KR65 IY19Q3IbFgxdbLCftRS+PH RhYmxlIHdpZHRoPScxMDAl DpQlqRukCB6sAr9qRXDlHD NvbGxhcHNl OiB (more content not included)... [facility] Consent Formson 02-07-2025 Consent Forms [id number] 02 [id number]#1.00 OTGTIFF [facility] CT Upper Extremity w/ Contra st [...] 12:55 Signed (Electronic Signature): Fausto Masters MD 08/04/25 12:57 p Technologist: VENKAT ZIMMER [facility] Coding Summaryon 02-03-2025 Coding Summary HTMLBase 64 XrhunruzAYz0lQc+PGhlYW Q+PB8FPILnL08ybMEuwS4e C9ZFTMrTMitrUVTSZUjTOk HogvUsWU2fqOGkBHLh IC8+TC6wVVKcZurknHPok2 U5hGE8S68nis1iKJhweDX5 GXOqUpLmshsqc0ixiNf6FO cuNmluOyBt VVAwwU73QEA2wX52Id58sY OgwPBcn9kcrKd9VySfPHVz KFF7tKqkVKyyk1LlGETgU9 6juQAtr2J0 QKNsfSiptDRqNuZnoAG6gM 7wTRurhtvrb3afbolzJvp6 rj66xUWiw7N0xOI4Z2Zobq L9FYYzlHNa MmxnbWUMrT6oyuoou2hnfp vyCyGxHCFjFCs1LUa6QWEw uOprThApCJ30TRO7VRDnjf JcB8ClURAj lOvqYsU7u7Y8Nk2DC5BGCj riF2CSBOBXWXxdvKS+PC90 ir68T4WrYytiYky2NVNeBA L3sFF6aA3l RVGjIFgcw4N5dVF6B4Dbmd Iaqr2aj7asFIAaNRjcR48i lVZqx9P5ZTWpsVB6QASdxG dsXzTbzZ16 Oyc+CFQdeBdjw9IcCmixz9 jev3otdXj7MxcrDHRxyaRw xWiqWDW1i2UhKq6wUWOnkK G7aVL5cE9k MvWnOwX7AWvmW238DtGowT ZfRlyuG74zN9SfwGM+PHRy Fip3INOmzFnnDP6kX9ElJS RpbmctbGVm qPiuLS1rKWQypzqgKYTvtI 5rWBPtD2k0OcJqDoZ6CWen B1VlALQjfogfUr73dJ9rYj TcSlJ5RXvz X3NdccT1RADrqDDjFSryIR C6O97ii0I4LRAuNXVcBPN4 hBW1rM2mhKtftdpjfTUhxY sgdmVydGlj YFrdISkmP229NXVcaTsbOe NvZGluZyBEYXRlOiAgMDcv MzEvMjAyNTwvdGQ+PHRkIH K8hJyaNKLq mGWaETrjAe7hhZwgtNhiMM 6qTJKpqvpzGCRdkU6mSYKh rWXsfVsdAJ3wKMShgupss1 91KpDwWXT4 NPKjjHVoY0PlhZ0qHfAbPP ZaFHBxB7TitWUqRFsoW674 BXwfYyG2PAEqfnImH7CrXM FsaWduOiB0 o5X2Er1Lc4ViwjtkM3GxtF JxErIdJjilWIc7U7XeAorn dHI+YC15XAEhCE07AQj6CW L2rKkgEKzv FGSoO9YpzK1uRpCdEMGfHS RkOyc+PHRhYmxlIHdpZHRo ECcnVMSdMgQmhOtjJB4pXl 9yZGVyLWNv rIgrlVFeSkUre7qbFONgDR ioAU7gaWehV0JdcTU5PIEy l4z4Bf27H88sT3VvvEC+PG DioZW0cXH8 tX1dWgLzLzM1RFmmV857Xd MjlIFhWrnhj5wbx1aqoQf0 SvR9CUFlfzKddXhcWJG7z6 WrHr89E13w IHdpZHRoPSIxNSUiIHZhbG pdog7oyW5oNj8+PGNvbCB3 zKX2gD9hKeGiLoU3IBecK4 49InRvcCIv Zoaee9fvd7eunJy9BwUaKT RgvvHnyMvhXIH4q1MeNh95 I1AelMrmw1FvSvv1wl12uZ Xqc6H2wNH7 R6IwYNLaflxywEBteLmuTI 6xDOWkleghFNOzfV7zHXAa H3r4BiPtSnA9USjwO3Bifk S0MSPxiSIy DLIfpBJIbI8kpqtcx3qjox ujSaPnDRMfPNs6OOf0SLEx eVibGpYoXXX7IuK9SKS1gG WoaV6xtXpv ofapvL0vLhj+XRQ1jANagG UNSA7gLhaxsAF+PHRkIHN0 qBwcHKvzTHKrxG4jMOZxR6 k2YiVhUsZ8 LOpeZ7DrrkA3DKLvvWFqJZ XngWBUzF0qmybcn2vbzqtg XsKrEIVuMLs9VHp2TRWgbN duOiBsZWZ0 VkB7XMO4mXUvwN4czVqiux isnI0lAme+QmlydGggRGF0 FBa5F1BsXnu8FEDmjMhlEY 0ncGFkZGlu Cu0woFtjkHxiTY6dWWMkrm bve209CaMcj4mqOLPszYUh MLnzHLO5Z90rw4Q4LWNnWJ PeODB5zBG3 gM8qwRhzjxrotUYqrWmyew FryDjvFUsjKRhfZ221HPYh eEinCwBsDCr1P4ZzJox3RP HtrTyhIW9d aGBoYVnzOr3tySkxaRouPV 0tWTIfhxkqp570OoTdu2ki NFDdrEViMDtyRRQ3V81ag9 Q2LIHaTZSl YWO3wWZ9dT8rsOnemqnwbP VmdDsgdmVydGljYWwtYWxp L773HVJtxEthZzAdyLj6I6 EnVso8XUEd dJzkYW2siYKzCSuxNx9ydA lemHzmXM2vIVVofaimo685 RdPfl4gnKNIvuXHkIZcpZG C2H93hw3R8 UXLhJHOyRFW1jCF3bQ9yhF lnbjogbGVmdDsgdmVydGlj MMqoKJwhV630XNUbiGsnEt BhdGllbnQg GTlgJKp5Y0UzFxcgdKK+PC 37EHOhTD88zAGowCYtu5xz vGz0NhBaNRWiLPF2nUuiMH xco7VlCKKr L09ipQDdl8O1FRNqdWmoqH FzOkItkNQ3oG1rFOuqeedn m7snauyvAtnhv5froc98fI 62M78mBOmn ZHRoPSIzMCUiIHZhbGlnbj 6vaM6xBm8+GDOktOB3bFB8 pN4zTASpTnM2XGtzA480Vz RvcCIvPjxj b6gsu6uvaKt2MnE3VCShaa EfoSjvZUS7v6TbTd16E82j IHdpZHRoPSIyMCUiIHZhbG grsm5sfH5w Ii8+QVTfnJP1pNV0eE6uBz TiPiD8SNgfE949BsErlLUm MiovM42jG0JlqAF+PHRyPj q2GYJgcAbj QO3czUPaJRyaOi5fXWD2Hn SmDjNqVYcvH5BjJIFslzvr miceqVE5XPVvLWVheN13Nh 9udDogMTBw gYIVoZ9blqxvn4ecdjqtEw QtDSWtDFv5ZVm8RIMqgDzw AmNfSDP6WqA4QSL5wKOnoA 1hbGlnbjog bN7cS7VqFHVhcczoMv75gT 8mVwKcRjH2RIaaEtb+Rk9S TkVZLCBMSVNBIEVMTEVOPC 33AE61fUJv d8M8oJM2Z3MqROSinlgygv tcfPR0JWQuDLWrsF31wMXr RTflYv2aq4U4j307ZGIzIY UihW12Ad6x rIzeIWCdeHQRkT0gjttwb5 gbnivvUiJaYOToDZw1KMd2 YEDymOtbPuHzKWM9FpB2EZ Q6iHViaS8m zMfgwugoyI3mBrg+MDMvMT XkYFt5CfxurED+PHRkIHN0 hAetJChvGCHmcA2cCNMzH8 d6NtKoAlI0 CBzvO6ZqHIDgytafQg87eT 7iFoDwVaC4OPrwT2ApefO6 OBAfdVQpGVluBUB6J78iu7 Y7GIQmCJJy DIA9hYX1cJ3mlYryyxyfoO VmdDsgdmVydGljYWwtYWxp P712VMMoeRivRaQ4QZdrKS RuQQ64DE15 bJKml2Y7wFM3Z6SlCCKmlv xvmdxdkNL0KPZsZBAguV83 gRDtTPweXh9dh3G8y942SN YbLSPhnA00 Ww9pbCwlKXDocJWZhC3pft ilb8vmflumXyRtXVBvTEz8 QNp5FENsqDolOiQoNJM3Ei H1FUT7mMLo zY8vdTiltabsyN6iPvh+Rk NNNJpLIY76MU76nSGho4J9 kJF8D1RnZAXvmqkwpbqpvS Y5FPMfGIAb eA91kEXfNHheHk4we4G9t8 05WJCxGYZgtG47Vn8dpDfg AJGboYTSuA9ucxohx0dqen ogIzAwMDAw QNj1LFh0WFUpkVnvJwLeYN V7JvQ8BHU1wFUwkO7umUkp tyzhmR4tJpv+R5K6I4SmQa wvdHI+PC90 XXVdKS66eCBqoHMxn9ahlC b2ItVwRHCiNDC8pQcgSMhk t2PbPTBtB15tcHQab9D0GP NvbGxhcHNl BcTnhHG2aY6dOQrlhvmwi5 grpsfcGzulv1rlon04wT74 A56oKQsnRNNdYPDgEKZpZM MerSdxlr7b kD8bCo7+GDAglIJ2bKM7sV 9lBbNbPhC5LEanI737WhCf vYHmOvavy1yuq0zrfYm4Lq IwJSIgdmFs lRetPQJ3x5ZtGu78P39nYY dpZHRoPSIyMCUiIHZhbGln tp7amT4mGr0+FD4ur6kilb 04xY89xLC+ PCFrFVX5pYdlOVhdHFXcrM 9pIHdoKmK8LXXeEqMxmV45 hBWsIXgiZd2luYfjmGvgSA 4wNTBpbjtm s954AmOoq0jgYWFodLPyXQ ryTSI0Z15mv9Y8CSTqQPAq ZIU0vEG6aD2iyDoesgfwhW VmdDsgdmVy zZfuPLaiDOgeK999YPOduP xxKcMecLXeK3xvwyQQCW7e OjwvdGQ+RMPdABP8mYemWS utMMZmjM7e BDWdC9l6OkJbNzF2MRthF0 XczmC9BVJjjTVbARFzuXXB uT4fpease4ihesqwYyVaXI RzFHw0NUf2 ATFxlZhfPiZjQKL6IpW0EA X9uDCtlE0paSgmgbfmsC5i Oyc+RklOOjwvdGQ+PHRkIH Q3nGkhCWna HNLlsY7sCQHxY5t1VoNjSx Z5RDnnN5AqcxO1LKLzhCWt OSFcpRNYuN9axbqjs4cknk ogIzAwMDAw ELj5WEq5IQButJqtCjOhFV L3LwN9HKT8sJBopN7bqIza zhgaoU1cZls+TVJOOjwvdG Q+PHRkIHN0 uRdfNViyLBHqgM6rGVHdK2 h6PcJrXgT0TFklA5QwjzK9 ZDKcuSNmCRArmIHQfL0nny kix4wjuvsg XbDyOHQuRSs3VWj8DNLkxT ytCgUpPBS1UsJ1ONI1qBDn sW5lsOlmsrlsbU8aHob+UG F2UGK7UQ17 TZ51M0EcAjsmoLFrbQF+PH RhYmxlIHdpZHRoPScxMDAl HgIpyWcjFK1cKf2lLNRxLN NvbGxhcHNl OiB (more content not included)... Normal [facility] Thyroid Antibodies LCon 01-06 Thyroglobulin Antibody LC <1.0 Invalid Interpretation Code 0.0-0.9 [facility] Comment on above: Result Comment: Thyr oglobulin Antibody measured by [employer] It should be noted that the presence of thyroglobulin antibodies may not be pathogenic nor diagnostic, especially at very low levels. The assay closing supervisor has found that four percent of individuals without evidence of thyroid disease or autoimmunity will have positive TgAb levels up to 4 IU/mL. Performed At: [address] [id number] [facility] Ph:[phone] Performed By: #### 1 [id number] ####[facility] (DEFAULT)[address] [place] [address] Thyroid Peroxidase (TPO) Ab LC <9 Invalid Interpretation Code 0-34 [facility] Comment on above: Performed By: #### 1 [id number], [id number], [id number] ####[facility] (DEFAULT)[address] [place] [address] Hepatic Function Panel [facility] 02-01-2025 Albumin [Mass/Vol] 3.9 g/dL Normal 3.5-5.0 [facility] Comment on above: Performed By: #### 1 [id number], [id number], [id number] #### [facility] (DEFAULT) [address] [place] [id number] Albumin/Globulin [Mass ratio] 1.0 {ratio} Low 1.4-2.6 [facility] Comment on above: Performed By: #### 1 [id number], [id number] #### [facility] (DEFAULT) [address] [place] [address] Alk Phos 122 IU/L High 32-91 [facility] Comment on above: Performed By: #### 1 [id number], [id number] #### [facility] (DEFAULT) [address] [place] [address] 70898 ALT [Catalytic activity/Vol] 24.0 U/L Normal 14.0-54.0 [facility] Comment on above: Performed By: #### 1 [id number], [id number], 42775600 #### [facility] (DEFAULT) [address] [place] [address] 35709 AST [Catalytic activity/Vol] 31 U/L Normal 15-41 [facility] Comment on above: Performed By: #### 1 [id number], 7302414687, [id number] #### [facility] (DEFAULT) [address] [place] [address] Bili Direct 0.10 mg/dL Normal 0.10-0.50 [facility] Comment on above: Performed By: #### 1 [id number], [id number], [id number] #### [facility] (DEFAULT) [address] [place] [address] Bili Indirect 0.8 mg/dL Normal 0.2-0.8 [facility] Comment on above: Performed By: #### 1 [id number], 1863115544, 52679783 #### [facility] (DEFAULT) [address] [place] [address] Bili Total 0.9 mg/dL Normal 0.3-1.2 [facility] Comment on above: Performed By: #### 1 [id number], 2293382826, 72579229 #### [facility] (DEFAULT) [address] [place] [address] 24954 Globulin (S) [Mass/Vol] 3.9 g/dL Normal 1.5-4.3 [facility] Comment on above: Performed By: #### 1 [id number], 6511788139, 91516206 #### [facility] (DEFAULT) [address] [place] [address] 61173 Protein [Mass/Vol] 7.8 g/dL Normal 6.5-8.1 [facility] Comment on above: Performed By: #### 1 [id number], 6589088946, 30421431 #### [facility] (DEFAULT) [address] [place] [address] 62416 Lipid Panel Standardon 02-01 Cholesterol [Mass/Vol] 206.0 mg/dL High 66.0-200.0 [facility] Comment on above: Performed By: #### 1 [id number], 4486661655, 51234558 #### [facility] (DEFAULT) [address] [place] [address] 57797 Cholesterol in HDL [Mass/Vol] 43 mg/dL Normal 40-71 [facility] Comment on above: Performed By: #### 1 [id number], 2269339058, 00386857 #### [facility] (DEFAULT) [address] [place] [address] 43614 Cholesterol in LDL [Mass/Vol] 142 mg/dL High 1-100 [facility] Comment on above: Performed By: #### 1 [id number], 4763385633, 11447438 #### [facility] (DEFAULT) [address] [place] [address] 09550 Cholesterol.total/Choles terol in HDL [Mass ratio] 4.7 {ratio} High 0.0-4.5 [facility] Comment on above: Performed By: #### 1 [id number], 7193637037, 13364590 #### [facility] (DEFAULT) [address] [place] [address] 40551 Triglyceride [Mass/Vol] 107.0 mg/dL Normal 0.0-150.0 [facility] Comment on above: Performed By: #### 1 [id number], 8879201352, 71178636 #### [facility] (DEFAULT) [address] [place] [address] 86764 VLDL. 21 mg/dL Normal 5-40 [facility] Comment on above: Performed By: #### 1 [id number], 8654169608, 49102971 #### [facility] (DEFAULT) [address] [place] [address] Provider Orderson 02-01-2025 Provider Orders [id number]#1. 00[facility] Provider Orders [id number]#1. [facility] [id number]#1.00 [facility] Estradiol LCon 01-28-2025 Estradiol LC <5.0 Invalid Interpretation Code [facility] Comment on above: Result Comment: Adul t Female Range Follicular phase 12.5 - 166.0 Ovulation phase 85.8 - 498.0 Luteal phase 43.8 - 211.0 Postmenopausal <6.0 - 54.7 1st trimester 215.0 - >4300.0 Huong ECLIA methodology Performed At: [facility] [id number] [facility] Ph:[id number] Performed By: #### 1 [id number], 43846007, 160040035, 50517801, 7550039, 83396975, 06675257, 7875355, 66370253, 9487641347, 2661073888, 65729006, 2415370, 40274935, 3023033 ####[facility] (DEFAULT)[address] [place] [address] FSH and LH LCon 01-28-2025 FSH LC 62.4 mIU/mL Invalid Interpretation Code [facility] Comment on above: Result Comment: Adul t Female Range Follicular phase 3.5 - 12.5 Ovulation phase 4.7 - 21.5 Luteal phase 1.7 - 7.7 Postmenopausal 25.8 - 134.8 Performed At: [address] [id number] [facility] Ph:[id number] Performed By: #### 1 [id number], 20420692, 564554553, 03242611, 9338541, 32201058, 37308304, 6314476, 43403005, 0936749257, 0951073069, 27035338, 0692801, 11218290, 0518633 ####[facility] (DEFAULT)[address] [place] [address] LH LC 36.0 mIU/mL Invalid Interpretation Code [facility] Comment on above: Result Comment: Adul t Female Range Follicular phase 2.4 - 12.6 Ovulation phase 14.0 - 95.6 Luteal phase 1.0 - 11.4 Postmenopausal 7.7 - 58.5 Performed By: #### 1 [id number], 32164935, 739147711, 33246231, 8808179, 61698754, 22254924, 5618305, 52172862, 6876830881, 1531584928, 72842079, 6001414, 46395369, 7059622 ####[facility] (DEFAULT)[address] [place] [address] 54377 Insulin LCon 01-28-2025 Insulin LC 5.2 uIU/mL Invalid Interpretation Code 2.6-24.9 [facility] Comment on above: Result Comment: Perf ormed At: [facility] [address] [id number] [facility] Ph:[id number] Performed By: #### 1 [id number], 33361919, 555610692, 90469403, 1567681, 92862669, 65507774, 5627255, 51161213, 4608118904, 9693417361, 98503620, 0038731, 04369249, 1710786 ####[facility] (DEFAULT)[address] [place] [address] Progesterone LCon 01-28-2025 Progesterone LC 0.4 ng/mL Invalid Interpretation Code [facility] Comment on above: Result Comment: Foll icular phase 0.1 - 0.9 Luteal phase 1.8 - 23.9 Ovulation phase 0.1 - 12.0 First trimester 11.0 - 44.3 Second trimester 25.4 - 83.3 Third trimester 58.7 - 214.0 Postmenopausal 0.0 - 0.1 Performed At: [facility] [address], [place] [id number] [facility] Ph:[id number] Performed By: #### 1 [id number], 06002165, 756469398, 69509705, 6948695, 50034861, 04063693, 0554827, 65207545, 3735938335, 7707640714, 74867347, 6410721, 68952869, 2393648 ####[facility] (DEFAULT)[address] [place] [address] T3 Free LCon 01-28-2025 Triiodothyronine,Free,Se rum LC 3.3 pg/mL Invalid Interpretation Code 2.0-4.4 [facility] Comment on above: Result Comment: Perf ormed At: [address] [id number] [facility] Ph:[id number] Performed By: #### 1 432378212, 61666639, 595949002, 18864692, 3275124, 70951528, 56201826, 9534627, 28140953, 8971250533, 9560669520, 70080926, 2930676, 30604120, 8503655 ####[facility] (DEFAULT)[address] [place] [address] .Auto Diff 01-27-2025 Auto Sawyer % 12 % Normal - [facility] Comment on above: Performed By: #### 1 [id number], 28405824, 830802164, 06210336, 0951545, 88668459, 96417879, 8805369, 98332110, 0587420622, 2550709662, 90471083, 9047917, 96904679, 3501346 ####[facility] (DEFAULT)[address] [place] [address] Baso Abs# 0.1 x10 Normal 0.0-0.2 [facility] Comment on above: Performed By: #### 1 449970232, 94141023, 172717881, 96568064, 3855051, 64533533, 18000305, 1023922, 40084478, 7990918493, 5787921226, 46048572, 0157174, 57026140, 4745523 ####[facility] (DEFAULT)[address] [place] [address] 44836 Basophils/100 WBC (Bld) 1.0 % Normal 0.2-2.0 [facility] Comment on above: Performed By: #### 1 054464675, 29125317, 590921917, 14590145, 3897248, 31329984, 84780691, 1879274, 49499365, 3392175710, 0103138418, 16480257, 0491726, 55183964, 3562580 ####[facility] (DEFAULT)[address] [place] [address] 33288 Eos Abs# 0.2 x10 Normal 0.0-0.4 [facility] Comment on above: Performed By: #### 1 155667875, 29693122, 392363989, 77786256, 3955321, 46065219, 78388728, 0661789, 77407682, 0031961857, 0247228782, 59828584, 7103357, 61955609, 4917349 ####[facility] (DEFAULT)[address] [place] [address] 69794 Eosinophils/100 WBC (Bld) 3.6 % Normal 0.9-4.0 [facility] Comment on above: Performed By: #### 1 756392825, 52048629, 660618373, 14724218, 8486386, 73878772, 97175783, 3398195, 06556640, 9304106074, 6090079660, 73254637, 7450085, 75742396, 1248708 ####[facility] (DEFAULT)[address] [place] [address] 74265 Lymph Abs# 1.2 x10 Low 1.3-2.9 [facility] Comment on above: Performed By: #### 1 815933914, 17717622, 519218891, 76088226, 0742145, 75312570, 52730412, 5098031, 37163321, 1898821208, 3628358648, 68222880, 4075250, 65320249, 5752090 ####[facility] (DEFAULT)[address] [place] [address] 23907 Lymphocytes/100 WBC (Bld) 18 % Normal 14-48 [facility] Comment on above: Performed By: #### 1 032273485, 88639273, 863514468, 47182549, 0455799, 27614236, 01452437, 6466723, 96467116, 1517587666, 0024240439, 48740502, 5271076, 12467911, 4179092 ####[facility] (DEFAULT)[address] [place] [address] 19441 Sawyer Abs# 0.8 x10 Normal 0.0-0.8 [facility] Comment on above: Performed By: #### 1 864586110, 07967804, 164183546, 60910693, 9226539, 54575879, 49593984, 8198575, 74202419, 8921617064, 5036680826, 63573087, 0895064, 88012439, 1920762 ####[facility] (DEFAULT)[address] [place] [address] 29987 Neut Abs# 4.1 x10 Normal 1.5-9.2 [facility] Comment on above: Performed By: #### 1 315895442, 48172122, 354890936, 72530817, 8745053, 26589051, 75666601, 1944525, 26557730, 0458396056, 5965621654, 06529101, 0345845, 96028459, 5317683 ####[facility] (DEFAULT)[address] [place] [address] 11852 Neutrophils/100 WBC (Bld) 65 % Normal 44-88 [facility] Comment on above: Performed By: #### 1 064637463, 26357475, 496842929, 72278286, 1845846, 65684922, 90038816, 0128745, 31717136, 6283494861, 2365535771, 12187466, 9262060, 51988949, 8636893 ####[facility] (DEFAULT)[address] [place] [address] CBC w/ Auto Diffon 5 Erythrocyte distribution width (RBC) [Ratio] 13.2 % Normal 11.5-15.0 [facility] Comment on above: Performed By: #### 1 105374560, 65905226, 994709596, 58393378, 9061019, 98648512, 98056156, 7980994, 59439840, 0504284966, 3566202075, 65090321, 8638384, 24012234, 9479325 ####[facility] (DEFAULT)[address] [place] [address] Hematocrit (Bld) [Volume fraction] 41.4 % High 33.7-40.4 [facility] Comment on above: Performed By: #### 1 122476140, 69004899, 654750978, 62351450, 8724031, 00165776, 05832413, 0803409, 57572572, 4580048916, 2221148197, 14473263, 0693390, 27487194, 6643060 ####[facility] (DEFAULT)[address] [place] [address] Hemoglobin (Bld) [Mass/Vol] 14.7 g/dL Normal 11.3-15.9 [facility] Comment on above: Performed By: #### 1 [id number], 16853639, 154985573, 92990144, 2205441, 45103897, 96461472, 6424095, 44289246, 1320507133, 7334355977, 20831825, 9447376, 26720983, 0379767 ####[facility] (DEFAULT)[address] [place] [address] Man Diff? Auto Invalid Interpretation Code [facility] Comment on above: Performed By: #### 1 805500487, 04440235, 265110404, 18151099, 8359962, 05709623, 59777584, 4598792, 01176251, 0589872829, 0028751464, 49251071, 8838237, 63134752, 9235955 ####[facility] (DEFAULT)[address] [place] [address] MCH (RBC) [Entitic mass] 32 pg Normal 24-34 [facility] Comment on above: Performed By: #### 1 771309410, 59190476, 413250153, 81432459, 3208080, 97121079, 46995918, 0658469, 20933819, 8982021782, 8395767976, 28247292, 8211761, 16879962, 8418508 ####[facility] (DEFAULT)[address] [place] [address] 53735 MCHC (RBC) [Mass/Vol] 36 g/dL Normal 26-37 [facility] Comment on above: Performed By: #### 1 779190593, 38375948, 939335714, 22578712, 5651096, 11817071, 91309706, 2825410, 82124496, 7820468608, 7595651873, 69525291, 5428481, 29177093, 6991037 ####[facility] (DEFAULT)[address] [place] [address] 34871 MCV (RBC) [Entitic vol] 90 fL Normal 81-100 [facility] Comment on above: Performed By: #### 1 946151808, 70962929, 701536769, 94929047, 8149442, 46092864, 84374805, 5849496, 34510356, 5759159752, 4082618203, 93072674, 3680775, 22914350, 5676362 ####[facility] (DEFAULT)[address] [place] [address] Platelet 293 x10 Normal 138-427 [facility] Comment on above: Performed By: #### 1 626173094, 89933758, 273479023, 28490811, 0888637, 99841247, 44126017, 6996755, 90314961, 5121303375, 5958024443, 97685027, 4815198, 61767752, 4220050 ####[facility] (DEFAULT)[address] [place] [address] 15023 Platelet mean volume (Bld) [Entitic vol] 7.6 fL Normal 6.3-10.2 [facility] Comment on above: Performed By: #### 1 879835485, 65343155, 611961042, 84824806, 2033498, 74730508, 78445705, 2343642, 99276681, 9284297483, 2646772642, 13630300, 0076332, 15430546, 9416616 ####[facility] (DEFAULT)[address] [place] [address] RBC 4.62 x10 Normal 3.70-5.30 [facility] Comment on above: Performed By: #### 1 662915639, 75716436, 880387505, 11558709, 1187128, 42705385, 05574205, 3988328, 35357291, 9388498911, 1357072912, 36944798, 6022335, 16214495, 9612877 ####[facility] (DEFAULT)[address] [place] [address] 78264 WBC 6.4 x10 Normal 3.5-10.5 [facility] Comment on above: Performed By: #### 1 468266173, 21538188, 357518599, 37730543, 8847448, 71391584, 24521982, 8719676, 04149966, 5059400887, 5344398473, 40022336, 6823780, 95122975, 2494532 ####[facility] (DEFAULT)[address] [place] [address] 26821 CMP Standardon 01-27-2025 eGFR Non AA >60 Invalid Interpretation Code [facility] Comment on above: Performed By: #### 1 932503905, 75265388, 705521657, 29294944, 7357216, 78032028, 21374050, 5599211, 80325574, 7747694843, 2520520184, 65289961, 6304452, 76504389, 5697307 ####[facility] (DEFAULT)[address] [place] [address] eGFR AA >60 Invalid Interpretation Code [facility] Comment on above: Performed By: #### 1 085564324, 88418485, 551469916, 77630546, 1849058, 58662045, 79419834, 9064928, 02265118, 5530284583, 0442117504, 22939930, 3138553, 55989286, 8623593 ####[facility] (DEFAULT)[address] [place] [address] Albumin [Mass/Vol] 4.0 g/dL Normal 3.5-5.0 [facility] Comment on above: Performed By: #### 1 743468080, 31902985, 555867447, 46676900, 6871729, 36566963, 77574301, 3923316, 78852538, 0767462882, 4109549417, 38588948, 4885487, 03021065, 5632351 ####[facility] (DEFAULT)[address] [place] [address] Albumin/Globulin [Mass ratio] 1.1 {ratio} Low 1.4-2.6 [facility] Comment on above: Performed By: #### 1 272570581, 27641100, 733635261, 80387435, 7451851, 42143651, 40138720, 6521141, 74598052, 8743135476, 2753655553, 39033594, 7585062, 28945949, 8235369 ####[facility] (DEFAULT)[address] [place] [address] Alk Phos 118 IU/L High 32-91 [facility] Comment on above: Performed By: #### 1 240740693, 55944122, 276343461, 78976814, 5883927, 35488782, 16689401, 2583544, 72575006, 4029791614, 5993216258, 57376852, 2070618, 72114518, 4248491 ####[facility] (DEFAULT)[address] [place] [address] 33803 ALT [Catalytic activity/Vol] 23.0 U/L Normal 14.0-54.0 [facility] Comment on above: Performed By: #### 1 163578561, 94721475, 968479684, 37098563, 1231750, 52954192, 35129745, 7440633, 55956910, 3958642971, 3391249643, 40511711, 9574672, 54093520, 7790972 ####[facility] (DEFAULT)[address] [place] [address] 35195 Anion gap [Moles/Vol] 12.0 mmol/L Normal 5.0-19.0 [facility] Comment on above: Performed By: #### 1 197472731, 26739278, 523784937, 50343927, 0316289, 48384456, 95983595, 8965045, 63570347, 8550046642, 9137513230, 94629063, 7402352, 65863745, 4741848 ####[facility] (DEFAULT)[address] [place] [address] 53036 AST [Catalytic activity/Vol] 31 U/L Normal 15-41 [facility] Comment on above: Performed By: #### 1 937937455, 40985372, 403892478, 03930616, 0921207, 24274195, 31228522, 6867347, 86511737, 1209364241, 2203202741, 51729481, 9369451, 77368148, 2484269 ####[facility] (DEFAULT)[address] [place] [address] 18342 Bili Total 0.8 mg/dL Normal 0.3-1.2 [facility] Comment on above: Performed By: #### 1 976813902, 93372742, 613541738, 21217263, 5777659, 49782401, 83077445, 8194100, 73876754, 4357666139, 7885344734, 79071898, 8918228, 12776975, 1661400 ####[facility] (DEFAULT)[address] [place] [address] 48671 Calcium [Mass/Vol] 9.5 mg/dL Normal 8.9-10.3 [facility] Comment on above: Performed By: #### 1 957301780, 60293026, 455052714, 40189853, 6432204, 11596330, 84719267, 4175892, 71831697, 6447396158, 3804487533, 59855045, 9557423, 26992907, 3754670 ####[facility] (DEFAULT)[address] [place] [address] 69651 Chloride [Moles/Vol] 106 mmol/L Normal 101-111 [facility] Comment on above: Performed By: #### 1 764539458, 98879261, 294922254, 96258011, 3502502, 59155064, 58250728, 8962123, 86502670, 4709959586, 6098017757, 55987621, 5207823, 59386611, 6067259 ####[facility] (DEFAULT)[address] [place] [address] 88556 CO2 [Moles/Vol] 28 mmol/L Normal 21-32 [facility] Comment on above: Performed By: #### 1 669042706, 24145992, 238778588, 18451667, 8146347, 15438254, 93749895, 1013996, 69922884, 3402334137, 9960488326, 10369576, 6975226, 58394824, 7591436 ####[facility] (DEFAULT)[address] [place] [address] 85280 Creatinine [Mass/Vol] 0.63 mg/dL Normal 0.60-1.30 [facility] Comment on above: Performed By: #### 1 615873021, 25824552, 854029658, 63767783, 5271247, 57262001, 49964071, 7081372, 46294041, 5509198657, 1362402539, 84658412, 0626187, 78115623, 5979449 ####[facility] (DEFAULT)[address] [place] [address] Globulin (S) [Mass/Vol] 3.5 g/dL Normal 1.5-4.3 [facility] Comment on above: Performed By: #### 1 779513945, 47110612, 636497543, 53685462, 3110646, 72062900, 67153615, 8066514, 54912009, 6769479800, 0535259916, 25923852, 6133839, 66127691, 2728254 ####[facility] (DEFAULT)[address] [place] [address] Glucose [Mass/Vol] 94.0 mg/dL Normal 74.0-118.0 [facility] Comment on above: Performed By: #### 1 195299850, 79820045, 162842657, 12556007, 3541990, 38178203, 85799205, 2596211, 17427321, 5978638918, 2676120721, 50361725, 7516963, 20179056, 2319277 ####[facility] (DEFAULT)[address] [place] [address] 33176 Osmolality 281 mOsm/L Invalid Interpretation Code [facility] Comment on above: Performed By: #### 1 330725440, 49637302, 019910020, 32898393, 8690476, 81551768, 92770505, 7721480, 00543214, 7186555293, 3161173106, 32928087, 1709422, 92091000, 3052291 ####[facility] (DEFAULT)[address] [place] [address] 19386 Potassium [Moles/Vol] 4.0 mmol/L Normal 3.6-5.1 [facility] Comment on above: Performed By: #### 1 834867229, 25035664, 278527569, 73785886, 7150222, 84831037, 59589640, 0203620, 41894900, 1264558868, 5689912640, 96610852, 6248836, 74520129, 8090737 ####[facility] (DEFAULT)[address] [place] [address] 74739 Protein [Mass/Vol] 7.5 g/dL Normal 6.5-8.1 [facility] Comment on above: Performed By: #### 1 749542856, 92398917, 748792401, 56985474, 0426262, 57556434, 09622314, 2406257, 93943321, 6132458194, 9323431346, 69469636, 9695347, 38326907, 4074981 ####[facility] (DEFAULT)[address] [place] [address] 84174 Sodium [Moles/Vol] 142.0 mmol/L Normal 136.0-144.0 [facility] Comment on above: Performed By: #### 1 094898779, 81084093, 240685227, 98832815, 9379266, 47209407, 58420723, 5859803, 58965815, 0795500049, 6469851426, 91184086, 6858979, 61260046, 4117067 ####[facility] (DEFAULT)[address] [place] [address] 17450 Urea nitrogen [Mass/Vol] 8 mg/dL Normal 8-26 [facility] Comment on above: Performed By: #### 1 138959469, 98013216, 009022645, 70238759, 1316343, 20255274, 04974737, 4960163, 71261176, 4172743969, 1422997202, 36946813, 0970510, 08720226, 4049030 ####[facility] (DEFAULT)[address] [place] [address] 03755 Urea nitrogen/Creatinine [Mass ratio] 12.6 mg/mg Normal 4.6-16.2 [facility] Comment on above: Performed By: #### 1 018850604, 53459829, 325171734, 18684936, 0727804, 00464609, 70171412, 2698986, 08362236, 4934461789, 9694769400, 90180019, 1982798, 37266406, 9563007 ####[facility] (DEFAULT)[address] [place], [place] [address] HgbA1c Standardon 01-27-2025 .Hb 15.0 Invalid Interpretation Code [facility] Comment on above: Performed By: #### 1 268068041, 57294970, 775631856, 43811140, 5179128, 44077699, 31744297, 8520459, 85911519, 3825009117, 3700544645, 59898460, 2027847, 17130325, 8900944 ####[facility] (DEFAULT)[address] [place] [address] .Hgb A1c 0.46 g/dL Invalid Interpretation Code [facility] Comment on above: Performed By: #### 1 105090909, 61457178, 368712203, 22746217, 6786248, 01991203, 79856223, 0329866, 82401873, 0126736825, 8943126695, 06796797, 6756088, 83530023, 5313837 ####[facility] (DEFAULT)[address] [place] [address] 14805 Glucose [Mass/Vol] 94 mg/dL Invalid Interpretation Code [facility] Comment on above: Performed By: #### 1 953601771, 03492197, 200205602, 97527268, 8621604, 67517336, 08122103, 6513046, 97626639, 1067586442, 4290934400, 60086336, 5133153, 85403117, 6307617 ####[facility] (DEFAULT)[address] [place] [address] 14766 HbA1c (Bld) [Mass fraction] 4.9 % Normal 4.6-6.2 [facility] Comment on above: Performed By: #### 1 982870278, 63162668, 451942135, 01715805, 4240637, 21558587, 00416388, 5078892, 12736871, 8983596313, 6866080333, 63314038, 8577812, 02700509, 8049286 ####[facility] (DEFAULT)[address] [place] [address] 97562 Iron Levelon 01-27-2025 Iron [Mass/Vol] 83.0 ug/dL Normal 28.0-170.0 [facility] Comment on above: Performed By: #### 1 022846619, 58367123, 780850515, 99995779, 2146073, 50844142, 63915768, 2951879, 34032731, 9281639402, 3455674299, 35610963, 6091557, 73191317, 9533623 ####[facility] (DEFAULT)[address] [place] [address] 96920 Lipid Panel Standardon 01-27 Cholesterol [Mass/Vol] 221.0 mg/dL High 66.0-200.0 [facility] Comment on above: Performed By: #### 1 955317190, 05460756, 287803220, 98433185, 7589960, 14693127, 75144943, 8220302, 26297068, 6440881397, 7258201333, 62451643, 1344906, 83911708, 0743477 ####[facility] (DEFAULT)[address] [place] [address] 58286 Cholesterol in HDL [Mass/Vol] 44 mg/dL Normal 40-71 [facility] Comment on above: Performed By: #### 1 253802362, 66186781, 087311223, 57628450, 0536032, 31596356, 31240287, 3043653, 10793721, 2181001555, 7114864660, 66389523, 8687684, 04161222, 6137319 ####[facility] (DEFAULT)[address] [place] [address] 22537 Cholesterol in LDL [Mass/Vol] 160 mg/dL High 1-100 [facility] Comment on above: Performed By: #### 1 438288512, 51366025, 340044424, 93875446, 6871509, 23292254, 62322695, 8474780, 84740420, 7062078342, 9682575454, 21938883, 6507520, 67807681, 1752536 ####[facility] (DEFAULT)[address] [place] [address] 03151 Cholesterol.total/Choles terol in HDL [Mass ratio] 5.0 {ratio} High 0.0-4.5 [facility] Comment on above: Performed By: #### 1 575019497, 66825879, 570929687, 97545812, 5797664, 40427781, 76568846, 8368251, 12700205, 7162247517, 4695990268, 09132908, 8210364, 29430847, 6709984 ####[facility] (DEFAULT)[address] [place] [address] 38430 Triglyceride [Mass/Vol] 83.0 mg/dL Normal 0.0-150.0 [facility] Comment on above: Performed By: #### 1 188544764, 06373491, 825852246, 51071476, 8353033, 20608701, 52454495, 7069157, 46192691, 1784877063, 5710637809, 18788675, 1200050, 15846088, 7830251 ####[facility] (DEFAULT)[address] [place] [address] 50545 VLDL. 17 mg/dL Normal 5-40 [facility] Comment on above: Performed By: #### 1 676457423, 26331634, 892971522, 11227939, 4319041, 34868840, 78219610, 7407640, 61528935, 4106116407, 1062607443, 11122096, 2903928, 63066041, 1734266 ####[facility] (DEFAULT)[address] [place] [address] Procalcitoninon 01-27-2025 Procalcitonin 0.070 ng/mL Low 0.500-1.000 [facility] Comment on above: Performed By: #### 1 954119579, 39334831, 344493268, 50603237, 2570096, 50619141, 87544685, 6828989, 23984031, 2344321595, 0203461935, 34428499, 6562917, 29550724, 7823818 ####[facility] (DEFAULT)[address] [place] [address] Provider Orderson 01-27-2025 Provider Orders [id number] Normal [facility] T4, Totalon 01-27-2025 T4 [Mass/Vol] 13.43 ug/dL High 6.09-12.23 [facility] Comment on above: Performed By: #### 1 951965237, 21003097, 353531738, 81277125, 7366171, 28319595, 55248189, 6193563, 23473378, 1790131402, 3854636225, 12780332, 7762703, 33915698, 8815683 ####[facility] (DEFAULT)[address] [place] [address] TSHon 01-27-2025 TSH Qn 1.35 m[IU]/L Normal 0.45-5.33 [facility] Comment on above: Performed By: #### 1 535336627, 88949266, 175180956, 60226325, 6134464, 58097750, 56644720, 9007873, 92330500, 6166261562, 8578887528, 31463233, 0618922, 28178052, 5486235 ####[facility] (DEFAULT)[address] [place] [address] Vit D25 OHon 01-27-2025 Vitamin D 25 OH 40 ng/mL Normal 30-100 [facility] Comment on above: Performed By: #### 1 970359882, 63177962, 862808764, 11904524, 7238616, 62469325, 54589671, 2983412, 00378794, 3636055724, 4967116625, 66757897, 0453493, 54855873, 0412451 ####[facility] (DEFAULT)[address] [place] [address] YAG CAPSULOTOMY OD (RIGHT EY E)on 08-17-2024 [facility] YAG CAPSULOTOMY OS (LEFT EYE )on 08-17-2024 [facility] ANES POSTPROC EVALon 024 ANES POSTPROC EVAL HNO ID: [id number] Author: ARIEL DILLON II, DO Service: Anesthesiology Author Type: Anesthesiologist Type: Anesthesia Postprocedure Evaluation Filed: 04/07/2024 14:45 Note Text: POST ANESTHESIA EVALUATION NOTE : 1965 Procedure Summary Date: 04/07/24 Room / Location: [address] Anesthesia Start: 1357 Anesthesia Stop: 141 Procedures: PHACOEMULSIFICATION CATARACT IMPLANT INTRAOCULAR LENS W/O [...] April 07, 2024 TIME: 2:45 PM CSN: [id number] Normal [facility] ANES PRE-OPon 04-07-2024 ANES PRE-OP HNO ID: [id number] Author: ARIEL DILLON II, DO Service: Anesthesiology Author Type: Anesthesiologist Type: Anesthesia Preprocedure Evaluation Filed: 04/07/2024 13:06 Note Text: ANESTHESIOLOGY DAY OF SURGERY NOTE : 1965 Procedure Information Date/Time: 04/07/24 1300 Procedures: PHACOEMULSIFICATION CATARACT IMPLANT INTRAOCULAR LENS W/O ENDOSCOPIC CYCLOPHOTOCOAGULATION (Left: Eye) OPHTHALMIC BIOMETRY BY PARTIAL COHERENCE INTERFEROMETRY W/INTRAOCULAR LENS POWER CALCULATION (Left: Eye) Location: [address] Surgeons: Reyes Wetzel MD Estimated body [...] and consent discussed: yes. Patient / Responsible Constitution Party agrees to proceed: yes Patient / [...] April 07, 2024 TIME: 1:04 PM CSN: [id number] [facility] OPERATIVE NOon 04-07-2024 OPERATIVE NO HNO ID: [id number] Author: REYES WETZEL MD Service: Ophthalmology Author Type: Physician Type: Operative Report Filed: 04/07/2024 14:19 Note Text: OPERATIVE/PROCEDURE REPORT LOG ID: [id number] Surgery/Procedure Date: 04/07/2024 Incision/Procedure Start Time: 2:07 PM Incision Close/Procedure End Time: 2:15 PM Surgeon(s)/Procedurali st(s) and Green Inspector(s): Surgeons and Role: * Reeys Wetzel MD - Primary Green Inspector: None. Any nurse listed as assisting or [...] presence of the Nurse Coordinator and the alarm technician and a secondary full lens verification as part of the Time Out, with patient identity, laterality, and lens choice confirmed against the source document by myself, the Public Address Servicer Nurse, and the alarm technician. Topical lidocaine gel 2% was placed [...] Using the [employer] phacoemulsification unit with the [employer] curved tip, the anterior chamber was entered [...] Implant Name Type Inv. Item Serial No. Bowling Ball Grader Lot No. LRB No. Used Action Model No. CC60WF.230 [employer] - [id number] Intraocular Lens CC60WF.230 [employer] [id number] [employer] Left 1 Implanted [id number].230 Drains: None. Complications: None. I performed the entire procedure. Comanage with Dr. Plummer; [facility] SIGNATURE: Reyes Wetzel MD PATIENT NAME: Reba Vasquez DATE: April 07, 2024 TIME: 2:18 PM PAGER/CONTACT #: [facility] Coding Summaryon 04-06-2024 Coding Summary HTMLBase 64 BvrsibehNEo2cJp+PGhlYW Q+SL6UYEBnD80hqEQmlP7q L4ZZWHuNVsxbZEOTXGyPSo WgfxOfAK0xaGLaBALa IC8+VN1oYTZlOkndnQVjy3 E8jDD3W34tqz5cIXvcrGH4 LNEcZmWbgciiw2lbeCj8JP cuNmluOyBt IDWraT47VCY4xL53Gi24aL ZpiKQkd5jgaGl6HuUkJSJy ZMS1aMcfAUlek1BnDVCnY9 6prGWha0G2 TMDzrQqwgUHcCrMxqCV6fM 8jCLfukvkxq4jqlconSbn8 qi11cNZyr2C6fUW8N6Qtfg K5UXFsbJAa VbhubVEUgX8gebmku7asrr brGpAuBOMsFEq0IPs1RGLk rUthCqIyAE63JJE9ZSSlzi CyR5TdBTFd cCrwItP0i7S4Th2AC4KHWm zeB1KLYSPKOQpwkZI+PC90 iy49M6QtGbrtWjf4GOJfXS Y8aDR3fP9f LTQfUCkcr3N7nSZ9Q6Ggmx Mrnp0aa2aaGSWuCXzrT75y cRNla0B3NWVflLX2UDSdrR gzEwNbbL23 Oyc+EMYrrYwzn6YlPinak2 wre7drpVv2CzqhOGRlrjKv mLjzVAJ1i0GaDv0oQUJdqI X9oCK0yC9n CqOcCnE8WXsgU322GxUikP DdBloiF74pR1ZdtNT+PHRy Uib1EPXxyWwcLA6tC7YbOO RpbmctbGVm yObeOX5oJXUnjupcPFGhoL 3rFNWuF8c9TbXzTwU3WWjw A2MgDKTljianZn33hB0vXw NeVuX4ZDcv J8LwkrX8TJAwqKItUVlnFF I9F11ge3Q2LKQuEXNxZCZ6 bZP8fJ5ijGmskzzdgAWeiT sgdmVydGlj NEnwLXtcE399ZIYpiDebHf NvZGluZyBEYXRlOiAgMTAv MDEvMjAyNDwvdGQ+PHRkIH H7dIsvWXAw uPGvYBkcMn4opTksaGmqUD 5xBHFbqygzRTKvpX9iXJGl fUDzdNcpYG6wWLTiyrsqc0 58XjFzPDV2 INAkpZOuI8AosO3kYdFfSL BuEPSdM5LpsSInWWtzW113 RGttYlQ5APTgblMqL9UbXI FsaWduOiB0 w0V9Fj9Nf2HbxzouL6NopP WvOrJnXfjuTCe9X0RwArpf dHI+JG10FCJxJH51RTv4RM L0bDwuDRya CLRbO6DyrK8nHcByNTGjXD RkOyc+PHRhYmxlIHdpZHRo LEwsKHChPoBujUknDS2bJg 9yZGVyLWNv iLxsfQEsWjLxi3crJEIsBN erTF6ceXpyH4QmbSQ1OECt t9x8Vf18Z31zM5KapXO+PG DrmCY9nGX3 fG4eQnBvGzE2YBviY296Kl QmoOToPytln1vap3lenKi3 ThE5LOHyyjRmlNcaXVG0r7 BeWp67D51e IHdpZHRoPSIxNSUiIHZhbG dzqg0xwB6zNq1+PGNvbCB3 uKV3pU9vYxWpYiN7RAeiS7 49InRvcCIv Fehko5rpm1qumIa6WuThXD AeahXlkJvvQOR7l2YpRk07 P7OalLzud8RgFdb2xp99jZ Olh1O7mCR7 S6OpAVMvvlmsiDKinAnrKU 5hANCagygtWTNtdT7cFPPz I2p7VrLjFsN3TScmW9Vfrl I0MKKwaEZw OSOvgNMIeM5jdwbwx1rinf pzVkAsWLLwIGj0PZo2KYUh xRppPlFqZMK9KwT9JKZ7lT MirT9uxHgl ejxvcO1vXge+CST2bULsrQ JYDH6pZahpcPT+PHRkIHN0 wYgoBMilCHOysI6qOMHoH9 t5FlFoJlM8 FCvvN6TdasW3OMIdgTTrIE DecWWCkE1dqrnxk6oobmuu UjUgMZNlRBm2KCb9JXUmsJ duOiBsZWZ0 BaB0EIU1iVYmxD3opTdouw wgdE8gTqh+QmlydGggRGF0 OBp8A2KaZos6QCRkuWaqDX 0ncGFkZGlu Hi2kqUzlbLckFN3hOJQsae pgt105AsDfw1inCXEwgJRj KEjnNMP6T32yn7T3MFZrNY YfSEG2oYN6 xB6nwIwvsjjutPCmzJiwrr WiuRayATekCPltX778MSKz aNotNjIcVVw0C8JhTwv4UY PqhDenPZ5r oJUzYTpxDw2fdSndoZjlWH 6wJFYawuzag876InCls5kg GRTarCAjRTveQRE6U79lt8 O7SPOlMIJn CJC0rCJ3kQ6fvSelkepiwQ VmdDsgdmVydGljYWwtYWxp L275OYZnrHqoHqHamJc1M9 FgRbp3GARw qQttZC2lbUQkYYgyIk0dgS rdxTktFG3gLIAimvbsq312 BnSua3guXDOanSKeHGbkPY S0R16vr8A4 FDNnWBKqAPQ6hSL1wL9vvL lnbjogbGVmdDsgdmVydGlj ASfkMChoS981OPGutHkdJb BhdGllbnQg NKqaTDo0O7KkXpvvsOR+PC 98KGCyRY53qXVacYIdv2uj fZd1CjXsWNNpBDE3kUqwXN wzd0CoMKLc K67bnDIwf2I5KHRgzTggmQ SoTtDheVR5xM7lRPnezway q7tiorasXsuiw9oxfu04kY 07J18vWZtk ZHRoPSIzMCUiIHZhbGlnbj 3rmV3tHl3+WRWctJY3rAK9 xV0fLIUwXoN1SKonT039Cq RvcCIvPjxj e7air2ghxTo2HxI5NAYexe ApfMbeOPI5i5AcJe15I20m IHdpZHRoPSIyMCUiIHZhbG bnsu3hcC0d Ii8+ZLGpmGV1hYO6eW0rHv JmQhR9HTnzT782GdCufLFu AylsJ72tT1JjtHY+PHRyPj g5RSWimFha QL2cwPMaZWhnEe7dAPP3Lu YzGaTpXCazM9BsNBHnwrhi tcopkUO8UJEqHPCdrQ25Jh 9udDogMTBw mCTIuI6iugxal8wvhotvJn UdDAZxVNd7IRu7YQYjkBkh JmTtQHD2KwG5MIN9tLSabL 1hbGlnbjog nB3bW0SiTUFalqlvTq73cE 3mCiJhKrT8GQdjCta+Rk9S TkVZLCBMSVNBIEVMTEVOPC 52EW15oJEh b9F7uOZ8M8LjHFMftplcze htkRG8QYNsCSAdtY94eXTl EGbtVx4ba0D4l906HCHtEV OgqH25Wr0d zPjgIDHggYCUiV1pjvawc7 fryocwOmVnOSMqDFs9MWc1 ZRLbiXbsStGoVGW7YtZ2VW S4rRMqnC8u qAqthdqdtB5jIit+MDMvMT QdTRd0SckxkYQ+PHRkIHN0 jVioRRmsOWRexJ4oZKZsG7 h2LhBpXnA3 QCioL6FjEJUuribzTk17uW 6cOyKgSsV2ETscD4FfuvC5 DIOllUUdSGehHZJ9B81ys9 P7WDGzEXYb RSV5gQZ9lT4diKquthwmaF VmdDsgdmVydGljYWwtYWxp B362HSWhxOskLqQ2PEmiJY JvKH43BL10 rZFza6Q0iVL3D3RgOMEsnz iaucybsSW3HATmRAKmvR05 eNOdGOmbEw1bx1J2b781ID AvDREgsP20 Eb0ejFprKUUylIMIsL0ojm sps9swqlpiLcLiZEPuAVu3 XBq5ASFfbKagEuHrAOS3Ws Q0TJJ8vNPq tD3hpJxhwjzatY3gQjt+Rk BNFJxAHS82UH78iURoo3G6 mGC2H6LaLZUfoousckltzL Z8OJDjKZJi fN49dNTgBYgsOh9wr5N4l9 85PVXoWVOpfM12Nl7tiItu VGFpyWBLfS8hlqvzk4tgkp ogIzAwMDAw QBe4VSj9FLOlgAkpFaKaUU N4NcD8QJK8vWGxbK7xaOdh kfaxzS4iPbc+S9G4J3WrCc wvdHI+PC90 MNEfEE49nFVxtGVym9zprS b8BjTlKCUhRND8tOqlPApr u8UhRDHhS52arFEwa0R1KF NvbGxhcHNl TiFfaNL3lM9mOXvjwncga6 gliqleXosjs8nkxi70zN81 Y52cSKxnRJDzMHJrDCFgSH FenJmbyp7t aJ2lUy5+MAJhvDX8cJS2eW 4iNmGkFrC3FYfcI638FsTn mEOxGgfsa4qrd1owaAh7Cu IwJSIgdmFs fMsxNQS8w4VnKm89X49kQR dpZHRoPSIyMCUiIHZhbGln bi2hwC6kUz8+EB8tk5qyov 71fP88zWL+ VSQaSPQ3qQziXMacAIKxxY 3iYMzbJlS7YOAwLjEvbB38 iYNuOMxbPn7kdIsjpGzkAL 4wNTBpbjtm h372WyLjk8gwHOKyrQSjPY rcLFK2A06kd0C6RQWqYPLe AHO6mLW9xU7bqZyhfabfcR VmdDsgdmVy cIwzKWdkSIgrK514FSHtuM seTeIhuCBeU7bbfaVLNS1p OjwvdGQ+EPCbJOQ8xQylPE eeRRZipF4x ERThN2u1KaRnZjG4TTzhD7 HoxfM9OWEaqQCaULDzvCGL qF1gdnmvu3obqjjlPdNgKE MzPLm5NAd7 KCXaeIveKsVzXOB6FyG8PE R8kFTerC9dbMgwnxnajG0b Oyc+RklOOjwvdGQ+PHRkIH M6nCzgLSvy RGZkgR8wEGFzV6n7DyWeMo X0RYlfA0XshnD9NPMgeFFl TDGpySATrN9ialift7ysqz ogIzAwMDAw MFr6NOd2HKOqrLkvVfPwJJ A2QmR9QHM6sBElbT8doQyc wajomE7dXri+TVJOOjwvdG Q+PHRkIHN0 fRmgIFvwSWFmkD5cSTBpY1 i6NeKzSaX2YUhrB6KzfaH3 VEJjbJXwFPPmjJQXtI6bxt kes2yiejcz GzNeWRCoCLl9YYg5RCMklF lcSpDhTUU8OwN8OIY1jNEd nF2gzYutdncohE6eBsl+UG [id number]+PH RhYmxlIHdpZHRoPScxMDAl ZvGhfYvmWP1iMc9mMJDtNI NvbGxhcHNl OiB (more content not included)... [facility] ANES POSTPROC EVALon 024 ANES POSTPROC EVAL HNO ID: [id number] Author: ARIEL DILLON II, DO Service: Anesthesiology Author Type: Anesthesiologist Type: Anesthesia Postprocedure Evaluation Filed: 03/24/2024 15:42 Note Text: POST ANESTHESIA EVALUATION NOTE : 1965 Procedure Summary Date: 03/24/24 Room / Location: [address] Anesthesia Start: 1455 Anesthesia Stop: 1518 Procedures: [...] March 24, 2024 TIME: 3:42 PM CSN: [id number] [facility] ANES PRE-OPon 03-24-2024 ANES PRE-OP HNO ID: [id number] Author: ARIEL DILLON II, DO Service: Anesthesiology Author Type: Anesthesiologist Type: Anesthesia Preprocedure Evaluation Filed: 03/24/2024 13:54 Note Text: ANESTHESIOLOGY DAY OF SURGERY NOTE : 1965 Procedure Information Date/Time: 03/24/24 1355 Procedures: PHACOEMULSIFICATION CATARACT IMPLANT INTRAOCULAR LENS W/O ENDOSCOPIC CYCLOPHOTOCOAGULATION (Right: Eye) OPHTHALMIC BIOMETRY BY PARTIAL COHERENCE INTERFEROMETRY W/INTRAOCULAR LENS POWER CALCULATION (Right: Eye) Location: [address] Surgeons: Reyes Wetzel MD Estimated body [...] and consent discussed: yes. Patient / Responsible Constitution Party agrees to proceed: yes Patient / [...] March 24, 2024 TIME: 1:53 PM CSN: [id number] Normal [facility] OPERATIVE NOon 03-24-2024 OPERATIVE NO HNO ID: [id number] Author: REYES WETZEL MD Service: Ophthalmology Author Type: Physician Type: Operative Report Filed: 03/24/2024 15:20 Note Text: OPERATIVE/PROCEDURE REPORT LOG ID: [id number] Surgery/Procedure Date: 03/24/2024 Incision/Procedure Start Time: 3:03 PM Incision Close/Procedure End Time: 3:14 PM Surgeon(s)/Procedurali st(s) and Green Inspector(s): Surgeons and Role: * Reyes Wetzel MD - Primary Green Inspector: None. Any nurse listed as assisting or [...] eye, correct operation, and correct implant. The [facility] Lens verification Policy was meticulously followed as previously approved with both an initial lens verification by myself in the presence of the Nurse Coordinator and the alarm technician and a secondary full lens verification as part of the Time Out, with patient identity, laterality, and lens choice confirmed against the source document by myself, the Public Address Servicer Nurse, and the alarm technician. Topical lidocaine gel 2% was placed [...] clear corneal incision was created with a Smithshire blade then a 2.4 mm keratome. The [...] as listed (more content not included)... Normal [facility] ASCAN ONLY - DIAGNOSTIC OU ( BOTH EYES)on 03-17-2024 [facility] Radiology Study observation (narrative) [facility] HISTORY PHYSICALon HISTORY PHYSICAL HNO ID: [id number] Author: FLORECITA MARQUEZ APRN.WAREHOUSE MAN Service: ? Author Type: Nurse Practitioner Type: [...] large neck Non-male patient STOP-Bang Score: 1 [id number] Score: Age: <65 Sex: female CHF history: No Hypertension history: No Stroke/TIA/thromboembo lism history: No Vascular disease history: No Diabetes history: No [id number] Score: 1 ARISCAT Score: Age: 51-80 Preoperative [...] fevers. 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 No neurological symptoms or problems. Respiratory: No history of current cough or dyspnea, or pneumonia in the past 6 weeks. No history of respiratory/pulmonary symptoms or problems. Cardiovascular: No history of HTN requiring medication, no history of angina, CHF, [place], cardiac surgery or stents. 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 Normal [facility] IOL BIOMETRY W/ IOL CALC OU (BOTH EYES)on 03-17-2024 [facility] Radiology Study observation (narrative) [facility] Alanine aminotransferase [En zymatic activity/volume] in Serum or PlasmaOrdered By: LOUANN BARRERA on 06-20-2023 ALT [Catalytic activity/Vol] 27 U/L [facility] Albumin [Mass/volume] in Ser um or Plasma by Bromocresol green (BCG) dye binding methoOrdered By: LOUANN BARRERA on 06-20-2023 Albumin BCG dye [Mass/Vol] 4.4 g/dL 3.5-5.7 [facility] Alkaline phosphatase [Enzyma tic activity/volume] in Serum or PlasmaOrdered By: LOUANN BARRERA on 06-20-2023 ALP [Catalytic activity/Vol] 124 U/L 34-104 [facility] Aspartate aminotransferase [ Enzymatic activity/volume] in Serum or PlasmaOrdered By: LOUANN BARRERA on 06-20-2023 AST [Catalytic activity/Vol] 22 U/L 13-39 [facility] Basophils Auto (Bld) [#/Vol] Ordered By: LOUANN BARRERA on 06-20-2023 Basophils (Bld) [#/Vol] 0.1 10*3/uL 0.0-0.2 [facility] Basophils/100 WBC Auto (Bld) Ordered By: LOUANN BARRERA on 06-20-2023 Basophils/100 WBC (Bld) 0.6 % . [facility] Bilirubin.total [Mass/volume ] in Serum or PlasmaOrdered By: LOUANN BARRERA 06-20-2023 Bilirubin [Mass/Vol] 0.6 mg/dL 0.3-1.0 [facility] Calcium [Mass/volume] in Ser um or PlasmaOrdered By: LOUANN BARRERA 06-20-2023 Calcium [Mass/Vol] 9.9 mg/dL 8.6-10.3 [facility] Carbon dioxide, total [Moles /volume] in Serum or PlasmaOrdered By: LOUANN BARRERA 06-20-2023 CO2 [Moles/Vol] 31.5 mmol/L 21.0-31.0 [facility] Chloride [Moles/volume] in S sheri or PlasmaOrdered By: LOUANN BARRERA 06-20-2023 Chloride [Moles/Vol] 103 mmol/L 98-107 [facility] Creatinine [Mass/volume] in Serum or PlasmaOrdered By: LOUANN BARRERA 06-20-2023 Creatinine [Mass/Vol] 0.46 mg/dL 0.60-1.20 [facility] Eosinophils Auto (Bld) [#/Vo l]Ordered By: LOUANN BARRERA on 06-20-2023 Eosinophils (Bld) [#/Vol] 0.0 10*3/uL 0.0-0.45 [facility] Eosinophils/100 WBC Auto (Bl d)Ordered By: LOUANN BARRERA on 06-20-2023 Eosinophils/100 WBC (Bld) 0.2 % . [facility] Erythrocyte distribution wid th Auto (RBC) [Ratio]Ordered By: LOUANN BARRERA on 06-20-2023 Erythrocyte distribution width (RBC) [Ratio] 12.9 % 11.9-15.3 [facility] Globulin Calc (S) [Mass/Vol] Ordered By: LOUANN BARRERA 06-20-2023 Globulin (S) [Mass/Vol] 2.9 g/dL [facility] Glucose [Mass/volume] in Ser um or PlasmaOrdered By: LOUANN BARRERA on 06-20-2023 Glucose [Mass/Vol] 98 mg/dL 70-100 [facility] Comment on above: ADA recommended refe rence rangeRandom Glucose Reference Range is dependent on time and content of last meal. Glucose of more than 200 mg/dL in a nonstressed, ambulatory subject supports the diagnosis of Diabetes Mellitus. Hematocrit Auto (Bld) [Volum e fraction]Ordered By: LOUANN BARRERA on 06-20-2023 Hematocrit (Bld) [Volume fraction] 41.4 % 34.0-46.4 [facility] Hemoglobin [Mass/volume] in BloodOrdered By: LOUANN BARRERA on 06-20-2023 Hemoglobin (Bld) [Mass/Vol] 14.7 g/dL 11.8-15.4 [facility] Leukocytes [#/volume] correc wendy for nucleated erythrocytes in Blood by Automated counOrdered By: LOUANN BARRERA on 06-20-2023 WBC corrected for nucl RBC Auto (Bld) [#/Vol] 11.0 10*3/uL 3.8-11.6 [facility] Lymphocytes Auto (Bld) [#/Vo l]Ordered By: LOUANN BARRERA on 06-20-2023 Lymphocytes (Bld) [#/Vol] 1.4 10*3/uL 1.00-4.8 [facility] Lymphocytes/100 WBC Auto (Bl d)Ordered By: LUOANN BARRERA on 06-20-2023 Lymphocytes/100 WBC (Bld) 12.8 % . [facility] MCH Auto (RBC) [Entitic mass ]Ordered By: LOUANN BARRERA on 06-20-2023 MCH (RBC) [Entitic mass] 32.4 pg 24.7-34.3 [facility] MCHC Auto (RBC) [Mass/Vol]Or dered By: LOUANN BARRERA on 06-20-2023 MCHC (RBC) [Mass/Vol] 35.5 g/dL 32.0-35.0 [facility] MCV Auto (RBC) [Entitic vol] Ordered By: LOUANN BARRERA on 06-20-2023 MCV (RBC) [Entitic vol] 91.2 fL 80-100 [facility] Monocytes Auto (Bld) [#/Vol] Ordered By: LOUANN BARRERA on 06-20-2023 Monocytes (Bld) [#/Vol] 0.7 10*3/uL 0.0-0.8 [facility] Monocytes/100 WBC Auto (Bld) Ordered By: LOUANN BARRERA on 06-20-2023 Monocytes/100 WBC (Bld) 6.6 % . [facility] Neutrophils Auto (Bld) [#/Vo l]Ordered By: LOUANN BARRERA on 06-20-2023 Neutrophils (Bld) [#/Vol] 8.8 10*3/uL 1.8-7.7 [facility] Neutrophils/100 WBC Auto (Bl d)Ordered By: LOUANN BARRERA on 06-20-2023 Neutrophils/100 WBC (Bld) 79.8 % . [facility] No Panel InformationOrdered By: LOUANN BARRERA on 06-20-2023 Estimated GFR (CKD-EPI) > 60.0 mL/Min [facility] Creatinine Clearance (Chem N/A [facility] Nucleated erythrocytes [Pres ence] in Blood by Automated countOrdered By: LOUANN BARRERA on 06-20-2023 Nucleated RBC Auto Ql (Bld) 0.1 /100{WBC} 0-0.5 [facility] Platelet mean volume Auto (B ld) [Entitic vol]Ordered By: LOUANN BARRERA on 06-20-2023 Platelet mean volume (Bld) [Entitic vol] 7.9 fL 6.3-10.7 [facility] Platelets Auto (Bld) [#/Vol] Ordered By: LOUANN BARRERA on 06-20-2023 Platelets (Bld) [#/Vol] 323 10*3/uL 150-450 [facility] Potassium [Moles/volume] in Serum or PlasmaOrdered By: LOUANN BARRERA on 06-20-2023 Potassium [Moles/Vol] 4.4 mmol/L 3.5-5.1 [facility] Protein [Mass/volume] in Ser um or PlasmaOrdered By: LOUANN BARRERA on 06-20-2023 Protein [Mass/Vol] 7.3 g/dL 6.4-8.9 [facility] RBC Auto (Bld) [#/Vol]Ordere d By: LOUANN BARRERA on 06-20-2023 RBC (Bld) [#/Vol] 4.54 10*6/uL 3.60-5.00 [facility] Serum or plasma albumin/glob ulin mass ratioOrdered By: LOUANN BARRERA on 06-20-2023 Albumin/Globulin [Mass ratio] 1.5 {ratio} [facility] Serum or plasma anion gap de terminationOrdered By: LOUANN BERTHARA on 06-20-2023 Anion gap [Moles/Vol] 10.9 mmol/L 6.0-15.0 [facility] Sodium [Moles/volume] in Ser um or PlasmaOrdered By: LOUANN NATAPRJUAQUINRA on 06-20-2023 Sodium [Moles/Vol] 141 mmol/L 136-145 [facility] Urea nitrogen [Mass/volume] in Serum or PlasmaOrdered By: LOUANN NATAPRJUAQUINRA on 06-20-2023 Urea nitrogen [Mass/Vol] 6 mg/dL 7-25 [facility] WBC Auto (Bld) [#/Vol]Ordere d By: LOUANN BARRERA on 06-20-2023 WBC (Bld) [#/Vol] 11.0 10*3/uL 3.8-11.6 [facility] Covid-19 PCR ([facility])on 06-06 SARS-CoV-2 (COVID-19) RNA CHASE+probe Ql (Unsp spec) Detected Critically abnormal NOT DETECTED [facility] Comment on above: Result Comment: This test is not yet approved or cleared by the [place] FDA. When there are no FDA-approved or cleared tests available, and other criteria are met, FDA can make tests available under an emergency access mechanism called an Emergency Use Authorization (EUA). The EUA for this test is supported by the [place] Driver of Health and Human Service's (HHS's) declaration [...] used). Performed By: #### C VDTBH #### [facility] [address] [place] [address] Dr. Karen Rangel INFLUENZA A AND B AGon 06-24 [facility] SEE BELOW Normal [facility] Comment on above: Result Comment: Nega tive for Flu A protein angiten. Infection due to Flu A cannot be ruled out. Flu A angiten in the sample may be below the detection limit of the test. Performed By: #### I NFLUAB #### [facility] [address] [place] [address] Dr. [facility] SEE BELOW Normal [facility] Comment on above: Result Comment: Nega tive for Flu B protein antigen. Infection due to Flu B cannot be ruled out. Flu B antigen in the sample may be below the detection limit of the test. Performed By: #### I NFLUAB #### [facility] [address] [address] [address] Karen Rangel INFLUENZA A AG Negative Normal NEGATIVE SEE COMMENT [facility] Comment on above: Performed By: #### I NFLUAB #### [facility] [address] [address] [address] Karen Rangel INFLUENZA B AG Negative Normal NEGATIVE SEE COMMENT [facility] Comment on above: Performed By: #### I NFLUAB #### [facility] [address] [address] [address] Karen Rangel INTERNAL CONTROLS Within Normal Limits Normal Wi thin Normal Limits [facility] Comment on above: Performed By: #### I NFLUAB #### [facility] [address] [address] [address] Karen Rangel Established Visit (Otolaryng ology)on [...] This note was created using speech recognition therapy aide software/or [employer] therapy aide services. Despite proofreading, several typographical errors might [...] (389.00) (H90 (more content not included)... Normal [facility] Tobacco Screening.on 022 Fall risk assessment a) [...] This note was created using speech recognition therapy aide software. Despite proofreading, several typographical errors might [...] No change (more content not included)... Normal [facility] Office Visit (Audiology)on 09-19-2021 Follow-up visit [...] left ear. 3) Re-test hearing annually. Time: 4514-6352 Chief Complaint hearing evaluation Adult Risk ScreeningThere [...] fullness and tinnitus bilaterally. Patient's preferred language: Tanzanian Preferred language of the parent, legal guardian or surrogate decision-maker of this minor or incapacitated patient: Tanzanian No overt signs of domestic violence/neglect/abuse . No referral made to Broke Handler. Pain not interfering with optimal level of [...] (Author) Electronically signed by : Cody Grayson [facility]; Sep 19 2021 12:51PM EST (Author) Normal [facility] Tobacco Screening.on 022 Adult depression screening assessment No [facility]tol[facility] [address] [place] Work Phone: Fall risk assessment a) No falls within the last year [facility] [address] [place] Work Phone: Tobacco use status [facility] b) No M P-Otolaryng ology[place] [address] [place] Work Phone: Established Visit (Otolaryng ology)on 12-07-2020 Established Visit (Otolaryngology) Diagnoses/Problems Conductive hearing loss of left ear with unrestricted hearing of right ear (389.05) (H90.12) Otosclerosis of left ear (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 Dunn's clinic. We are here to assist you through your ENT care at [facility]. Dr. Dunn is an Ear surgeon. This means that he specializes in taking care of patients with complex ear, hearing and balance problems. Dr. Dunn's office number is [phone]. While you may see him at a satellite office ([place]), he has a team committed to help meet your healthcare needs at [facility]'s main [place]. This number is the most direct way to communicate with the office. Tali is Dr. Dunn's secretary book keeper and she answers the office phone from [...] in your care. These people may include bell tier, speech therapists, vestibular therapists, neurologist, and neurosurgeon. Dr. Dunn will provide these referrals as needed. Please let us know if you would like to request a specific referral. For your convenience, Dr. Dunn sees patients at several [facility] locations including [place] [facility] ([facility]), and [facility] Office at the [facility] of [facility]. While we try to make your appointments [...] Follow up hearing loss History of Present IllnessThis is a 55 yr old who is [...] NOSTRIL ON (more content not included)... Normal [facility] Office Visit (Audiology)on 0 12-07-2020 Follow-up [...] Dr. Dunn 2. Retest hearing as directed [id number] Chief Complaint routine hearing test Reference Documentation [...] in her right ear. Patient's preferred language: Tanzanian Preferred language of the parent, legal guardian or surrogate decision-maker of this minor or incapacitated patient: Not Applicable No overt signs of domestic violence/neglect/abuse . No referral made to Broke Handler. Pain not interfering with optimal level of [...] Dec 07 2020 10:24AM EST (Author) Normal [facility] Tobacco Screening.on 021 Fall risk assessment a) No falls within the last year [facility]-Audiology -[employer] Work Phone: Tobacco Screening. b) No [facility]-Aud iology -[employer] Work Phone: History and Physical - Surge [...] - Preop v2 10-Dec-2017 09:51 AM Normal [facility] OPERATIVE REPORTon 8 [place] [address] Patient Name: REBA VASQUEZ : 1965 Date of Service: 12/10/2017 Patient Location: Patient Type: O Surgeon: Shukri Hoffman MD Report Type: Operative Reports PREOPERATIVE DIAGNOSIS: Left conductive hearing loss. POSTOPERATIVE DIAGNOSIS: 1. Left conductive hearing loss. 2. Left otosclerosis. OPERATION/PROCEDURE: Left stapedectomy with CO2 laser. SURGEON: Shukri Hoffman MD CORK INSULATOR HELPER(S): 1. Allen Peralta MD 2. Eric Bailey [...] placement of a 0.6 x 4.5 mm [employer] Piston prosthesis. There was fixation of the [...] create a Jemma in the footplate. The [place] S2 mini drill was used to carefully drill the stapes footplate to create stapodotomy or small fenestra. Once this was completed, our [employer] 0.6 mm x 4.5 mm Eclipse Piston Prosthesis was then placed into the middle ear space using an alligator. This was finally positioned using a right angle pick. The CO2 laser was then used to crimp the Nitin[employer]'s [place] of the prosthesis over the incus. We [...] extubation, apparently tolerating the procedure well. Allen Peralta, III, for Shukri Hoffman MD EST TT: 12/11/2017 00:10 AM EST DICTATION NUMBER: [id number] LINDA JOB NUMBER: [id number] CC: Shukri Hoffman MD, Donald Pate, [id number] Edited by Shukri Hoffman 12/23/2017 09:58:40 AM Electronically Signed by Dr. Shukri Hoffman 12/23/2017 09:58:40 AM Normal [facility] Patient Profile - Preop v2on 12-10-2017 Protein mass conc Profile: Initial Info: How to be Addressedlisa Spoken Language PreferredEnglish Are you currently using the Personal Electronic Health Record or [facility]no Are you interested in learning more about [facility] for the management of your healthnot at this time Stated Reason for Admissionleft stapedectomy Primary Contact Name and [id number] Patient Belongingsnone Medications Brought to Hospitalno General Health: Weight in kg81.6 kilogram(s) Weight in bfo328 pound(s) Weight Methodstated Height in cm153.9 centimeter(s) [...] Withspouse Living Arrangementshouse Resource/Environmental Concernsnone [facility] Anticipated at Transitionnone Substance: Current [...] instruction; written material Cultural Considerationsnone Developmental Considerationsnone Mandaeism Considerationsnone Other learner availableno Falls RiskPatient location auto qualifies him/her for HIGH RISK. Are there any cultural, spiritual, hoahaoism practices/values/needs that are important for us to [...] 10-Dec-2017 10:04 by Elo New (QUYEN) Normal [facility] Preop Checkliston 12-10-2017 Preop Checklist Preop Checklist: Preop Checklist: ? Arrival [id number] ? Arrival Time10:06 ? Procedure Typeleft ear surgery ? NPO [id number] 21:00 ? ID Band Onyes ? Allergy [...] 10-Dec-2017 10:07 by Elo New (QUYEN) Normal [facility] Vital Signs Date Time Vital Sign Value Performing Clinician Facility 03-17-2024 07:01-0400 Body height 167.6 cm Pacc 1 Work Phone: [facility] 03-17-2024 07:01-0400 Body mass index (BMI) [Ratio] 27.04 kg/m2 Pacc 1 Work Phone: [facility] 03-17-2024 07:01-0400 Body temperature 98.01 [degF] Pacc 1 Work Phone: [facility] 03-17-2024 07:01-0400 Body weight 76 kg Pacc 1 Work Phone: [facility] 03-17-2024 07:01-0400 Diastolic blood pressure 82 mm[Hg] Pacc 1 Work Phone: [facility] 03-17-2024 07:01-0400 Heart rate 79 /min Pacc 1 Work Phone: [facility] 03-17-2024 07:01-0400 Respiratory rate 16 /min Pacc 1 Work Phone: [facility] 03-17-2024 07:01-0400 SaO2% (BldA) [Mass fraction] 99 % Pacc 1 Work Phone: [facility] 03-17-2024 07:01-0400 Systolic blood pressure 128 mm[Hg] Pacc 1 Work Phone: [facility] 08-11-2023 10:20-0500 Body mass index (BMI) [Ratio] 28.08 kg/m2 Louann Nataprawira DO Work Phone: [facility] 08-11-2023 10:20-0500 Body weight 78.93 kg Louann Nataprawira DO Work Phone: [facility] 08-11-2023 10:20-0500 Diastolic blood pressure 84 mm[Hg] Louann Nataprawira DO Work Phone: [facility] 08-11-2023 10:20-0500 Systolic blood pressure 142 mm[Hg] Louann Nataprawira DO Work Phone: [facility] 06-23-2023 13:43-0500 Body height 167.6 cm Destinee Perla [employer] SUPERVISOR-WAREHOUSE MAN Work Phone: [facility] 06-23-2023 13:43-0500 Body mass index (BMI) [Ratio] 26.95 kg/m2 Destinee Partyka [employer] SUPERVISOR-WAREHOUSE MAN Work Phone: [facility] 06-23-2023 13:43-0500 Body temperature 97.7 [degF] Destinee Hortonka [employer] SUPERVISOR-WAREHOUSE MAN Work Phone: [phone] [place] [address] 06-23-2023 13:43-0500 Body weight 75.75 kg Destinee Hortonka [employer] SUPERVISOR-WAREHOUSE MAN Work Phone: [phone] [place] [address] 06-23-2023 13:43-0500 Diastolic blood pressure 84 mm[Hg] Destinee Partyka [employer] SUPERVISOR-WAREHOUSE MAN Work Phone: [facility] 06-23-2023 13:43-0500 Heart rate 85 /min Destinee Hortonka [employer] SUPERVISOR-WAREHOUSE MAN Work Phone: [facility] 06-23-2023 13:43-0500 Respiratory rate 16 /min Destinee Hortonka [employer] SUPERVISOR-WAREHOUSE MAN Work Phone: [facility] 06-23-2023 13:43-0500 SaO2% (BldA) [Mass fraction] 97 % Destinee Hortonka [employer] SUPERVISOR-WAREHOUSE MAN Work Phone: [facility] 06-23-2023 13:43-0500 Systolic blood pressure 131 mm[Hg] Destinee Partyka [employer] SUPERVISOR-WAREHOUSE MAN Work Phone: [facility] 03-04-2023 11:30-0400 Body height 167.64 cm Maikol Roca Other [employer] Other 03-04-2023 11:30-0400 Body mass index (BMI) [Ratio] 25.34 kg/m2 Maikol Roca Other [employer] Other 03-04-2023 11:30-0400 Body temperature 98.4 [degF] Maikol Abelino Other [employer] Other 03-04-2023 11:30-0400 Body weight 71.22 kg Maikol Abelino Other [employer] Other 03-04-2023 11:30-0400 Diastolic blood pressure 78 mm[Hg] Eskrystla oRca Other [employer] Other 03-04-2023 11:30-0400 SaO2% (BldA) [Mass fraction] 78 % Maikol Abelino Other [employer] Other 03-04-2023 11:30-0400 Systolic blood pressure 132 mm[Hg] Eskrystal Roca Other [employer] Other 11-14-2021 12:54-0400 Body height 167.64 cm Donald Aden [employer] Work Phone: [facility]unrdv[facility] [place] Work Phone: 11-14-2021 12:54-0400 Body mass index (BMI) [Ratio] 28.84 kg/m2 Donald Aden [employer] Work Phone: BX-Spamlgdytwstsn-Pn [employer] Work Phone: 11-14-2021 12:54-0400 Body surface area Derived from formula 1.91 m2 Donald Aden [employer] Work Phone: HG-Llwfwuhnagvogu-Le [employer] Work Phone: 11-14-2021 12:54-0400 Body temperature 97.5 [degF] Donald Samaniego [employer] Work Phone: [place]-Wzqeaueeedjins-Di [employer] Work Phone: 11-14-2021 12:54-0400 Body weight 81.06 kg Donald Samaniego [employer] Work Phone: JW-Essnmrwwdsbynn-Br [place] Work Phone: 09-19-2021 10:21-0400 Body height 167.64 cm Donald Orellanay Work Phone: NN-Fjcwikgpvlhhve-Kr rma 205 [place] Work Phone: 09-19-2021 10:21-0400 Body mass index (BMI) [Ratio] 29.07 kg/m2 Donald Samaniego Hoy Work Phone: ZD-Cfyopnnrzpysxs-Pv rma 205 [place] Work Phone: 09-19-2021 10:21-0400 Body surface area Derived from formula 1.91 m2 Donald Orellanay Work Phone: HH-Ygcddyejymxcro-Pa rma 205 [place] Work Phone: 09-19-2021 10:21-0400 Body temperature 96.5 [degF] Donald Samaniego Hoy Work Phone: XD-Dbhetjqesztntc-Pf rma 205 [place] Work Phone: 09-19-2021 10:21-0400 Body weight 81.71 kg Donald Orellanay Work Phone: RY-Tvzxkkcqqjaipc-Ks rma 205 [place] Work Phone: 09-19-2021 10:21-0400 Heart rate 70 /min Donald Samaniego Hoy Work Phone: XI-Ykhrxyvrzuzzzx-Rx rma 205 [place] Work Phone: 09-19-2021 10:21-0400 Respiratory rate 16 /min Donald Samaniego Hoy Work Phone: YZ-Crrxlotxigwaqj-Zj rma 205 [place] Work Phone: 09-19-2021 10:21-0400 SaO2% (BldA) [Mass fraction] 99 % Donald Pate Work Phone: TG-Pdsvmcqiuztfol-Hr rma 205 [place] Work Phone: 12-07-2020 10:190400 Body height 167.64 cm Donald Pate Work Phone: IB-Xgousvvuu-Vzkdcia e 2460 Work Phone: 12-07-2020 10:19-0400 Body mass index (BMI) [Ratio] 29.61 kg/m2 Donald Pate Work Phone: DG-Htdmogvov-Oqayzwy e 2460 Work Phone: 12-07-2020 10:0400 Body surface area Derived from formula 1.93 m2 Donald Pate Work Phone: KB-Gigeqcrwv-Wvykans e 2460 Work Phone: 12-07-2020 10:190400 Body temperature 97.1 [degF] Donald Pate Work Phone: EK-Wvvnwspqx-Ysgvlus e 2460 Work Phone: 12-07-2020 10:0400 Body weight 83.2 kg Donald Pate Work Phone: RS-Adzyichom-Npxacsp e 2460 Work Phone: 12-07-2020 10:0400 Respiratory rate 16 /min Donald Pate Work Phone: TE-Xcjzdystj-Vyjqavd e 2460 Work Phone: Encounters Encounter Date Encounter Type Care Provider Facility Start: 03-11-2025 End: 03-11-2025 ambulatory Donald Pate MD Work Phone: [facility] Work Phone: Start: 03-11-2025 End: 03-11-2025 Patient encounter procedure Bradley Cruz DO -[facility] Work Phone: Start: 03-02-2025 End: 03-02-2025 ambulatory Edwin SOUSA Facility:[facility] Start: 03-02-2025 End: 03-02-2025 Patient encounter procedure Edwin SOUSA [facility] General Surgery [place] Start: 03-01-2025 End: 03-01-2025 ambulatory DONALD PATE Facility:[facility] Start: 02-09-2025 End: 02-09-2025 ambulatory Donald M Estebanignacio [facility] Work Phone: Start: 02-09-2025 End: 02-09-2025 Departed Referred Donald Samaniego MD -LAB Path [facility] Start: 02-04-2025 End: 02-04-2025 ambulatory DONALD PATE Facility:[facility] Start: 02-01-2025 End: 02-01-2025 ambulatory DONADL PATE Facility:[facility] Start: 01-27-2025 End: 01-27-2025 ambulatory DONALD PATE Facility:[facility] Start: 08-17-2024 End: 08-17-2024 ambulatory REYES WETZEL Facility:[facility] Start: 08-17-2024 End: 08-17-2024 Patient encounter procedure Reyes Wetzel MD Work Phone: Ophthalmology Comment on above: After-cataract of ri ght eye with vision obscured (Primary Dx); After-cataract of left eye with vision obscured; Pseudophakia of both eyes; Amblyopia of eye, right; Posterior vitreous detachment of right eye Start: 07-21-2024 End: 07-21-2024 ambulatory DONALD ORELLANAIgnacio [facility] Start: 04-07-2024 End: 04-07-2024 ambulatory REYES WETZEL Facility:[facility] Start: 03-24-2024 End: 03-24-2024 ambulatory REYES WETZEL Facility:[facility] Start: 03-17-2024 Encounter for other preprocedural examination REYES WETZEL [facility] Start: 03-17-2024 End: 03-17-2024 PAT [facility] [place] Work Phone: Pre Anesthesia Comment on above: Pre-op evaluation (P rimary Dx); Generalized anxiety disorder Nuclear senile catar act of right eye; Nuclear senile cataract of left eye Start: 03-17-2024 End: 03-17-2024 Preprocedural examination done Pac [place] Work Phone: [facility] Work Phone: Start: 03-09-2024 End: 03-09-2024 ambulatory REYES WETZEL Facility:[facility] Start: 03-09-2024 End: 03-09-2024 Patient encounter procedure Reyes Wetzel MD Work Phone: Ophthalmology Comment on above: Nuclear senile catar act of right eye (Primary Dx); Nuclear senile cataract of left eye; Regular astigmatism of right eye; Amblyopia of eye, right Start: 01-22-2024 End: 01-22-2024 ambulatory [facility] Start: 09-08-2023 End: 09-08-2023 [facility] Start: 08-28-2023 End: 08-28-2023 [facility] Start: 08-14-2023 End: 08-14-2023 [facility] Start: 08-11-2023 End: 08-11-2023 ambulatory LOUANN BARRERA Not Available Start: 08-11-2023 End: 08-11-2023 Postop follow up visit related to original px Louann Barrera DO Work Phone: [facility] Comment on above: Follow-up examinatio n after gynecological surgery (Primary Dx); Status post laparoscopic hysterectomy; Status post bilateral salpingo-oophorectomy (BSO) Start: 08-06-2023 End: 08-06-2023 ambulatory [facility] Start: 07-04-2023 End: 07-04-2023 ambulatory MD Donald Pate Work Phone: [facility] Work Phone: Start: 07-04-2023 End: 07-04-2023 Departed Referred MD Donald Pate Work Phone: [facility] [place] Work Phone: Start: 06-23-2023 End: 06-23-2023 ambulatory DESTINEEALISSON PERLA [facility] Start: 06-23-2023 End: 06-23-2023 Office outpatient visit 15 minutes Destinee Perla [employer] SUPERVISOR-WAREHOUSE MAN Work Phone: [facility] [place] [facility] Comment on above: Dizziness and giddin ess (Primary Dx); Nasal drainage Start: 06-20-2023 End: 06-20-2023 ambulatory MD Donald Pate Work Phone: [facility] Work Phone: Start: 06-20-2023 End: 06-20-2023 Patient encounter procedure MD Donald Pate Work Phone: [facility] Work Phone: Start: 06-17-2023 End: 06-17-2023 ambulatory LOUANN Oconnor NATAPRAWIRA Not Available Start: 05-19-2023 End: 05-19-2023 ambulatory LOUANN Oconnor NATAPRAWIRA Not Available Start: 03-04-2023 End: 03-04-2023 ambulatory Maikol Roca Other [facility] Other Start: 03-04-2023 Office outpatient ne w 20 minutes Maikol Roca [facility] Start: 06-24-2022 End: 06-24-[address] DONALD PATE Facility:[facility] Start: 11-14-2021 Office outpatient vi sit 15 minutes Donald Pate Work Phone: AX-Vpvgkaeaekseyg-Ddsge eugenie Work Phone: Start: 09-19-2021 Current tobacco non-user cad cap copd pv dm Donald Pate Work Phone: ZB-Mbfajqkevbmawd-Qpsws 205 [place] Work Phone: Start: 09-17-2021 AUDIT Donald Pate Work Phone: HT-Vggthtwulgikrk-Umzey ana Work Phone: Start: 12-07-2020 Follow-up encounter Donald Pate Work Phone: HC-Cgzejuhwf-Hhsyuvcq 2460 Work Phone: Start: 01-05-2019 Patient encounter procedure Joycelyn Means EW-Wikmnqinbyssnn-Izdfw ana Work Phone: Start: 11-02-2018 Patient encounter procedure Joycelyn Means LE-Xtwcnwlrprnlni-Xclzm ana Work Phone: Start: 02-26-2018 Patient encounter procedure Joycelyn Means UC-Gxqlmdxzctzulb-Webas ana Work Phone: Start: 01-08-2018 Patient encounter procedure Joycelyn Means BH-Znrzqcrcpkewlz-Wctqd ana Work Phone: Start: 10-14-2017 Patient encounter procedure Joycelyn Means ZF-Jyzbgyvnuqjgrt-Cucmy ana Work Phone: Start: 10-06-2017 Patient encounter procedure Joycelyn Means BA-Vfumayrkhksdhd-Diffs ana Work Phone: Start: 09-04-2017 Patient encounter procedure Joycelyn Means WR-Bhcycvszqfmhvc-Logpb ana Work Phone: Preoperative state Donald Samaniego Rio Work Phone: UB-Wmlwuvzus-Opfltood 2460 Work Phone: Procedures Date Procedure Procedure Detail [...] Work Phone: Start: 05-26-2023 Mammography Destinee Perla [employer] SUPERVISOR-WAREHOUSE MAN Work Phone: Colonoscopy Edwin NILL Endometrial ablation Edwin NILL Extraction of cataract Seamus rodri NILL H/O: hysterectomy Status post laparoscopic hysterectomy Louann Anastasia Barrera DO Work Phone: History of Uterine Myomectomy Laparoscopic Ablation Joycelyn Means Laparoscopy Edwin NILL Stapedectomy Edwin NILL Vaginal hysterectomy Edwin NILL Plan of Treatment Date Care Activity Detail Author Start: 06-20-2026 Diabetes Screening Diabetes Screenin g [facility] Start: 03-09-2025 End: 08-31-2025 ASCAN ONLY - DIAGNOSTIC OU (BOTH EYES) ASCAN ONLY - DIAGNOSTIC OU (BOTH EYES) OPHT Imaging Routine Nuclear senile cataract of right eye Nuclear senile cataract of left eye Expected: 03/09/2025, Expires: 08/31/2025 [facility] Comment on above: Expected: 03/09/2025 , Expires: 08/31/2025 Start: 03-09-2025 End: 08-31-2025 IOL BIOMETRY W/ IOL CALC OU (BOTH EYES) IOL BIOMETRY W/ IOL CALC OU (BOTH EYES) OPHT Imaging Routine Nuclear senile cataract of right eye Nuclear senile cataract of left eye Expected: 03/09/2025, Expires: 08/31/2025 [facility] Comment on above: Expected: 03/09/2025 , Expires: 08/31/2025 Start: 02-09-2025 Bacteria identified in Urine by Culture Urine Culture [facility] Start: 02-09-2025 Urine culture [facility] Start: 05-26-2024 Screening for malign ant neoplasm of breast Mammogram [facility] Start: 05-25-2024 End: 05-25-2024 Patient encounter procedure 05/25/2024 11:15 AM EST Office Visit [facility] [address] BETO D [facility] [place] [id number] Louann Barrera, DO [address] [place] [address] [facility] Start: 04-07-2024 End: 04-07-2024 Admission to same day surgery center 04/07/2024 12:00 PM EDT - 04/07/2024 12:35 PM EDT Surgery Ambulatory Surgery [address] [place] [address] Reyes Wetzel MD [address] [place] [address] PHACOEMULSIFICATION CATARACT IMPLANT INTRAOCULAR LENS W/O ENDOSCOPIC [...] PM EDT Hospital Encounter Ambulatory Surgery [address] [place] [address] Reyes Wetzel MD [address] [place] [address] Combined forms of age-related cataract of left eye [H25.812] Ambulatory Surgery Comment on above: Combined forms of ag e-related cataract of left eye [H25.812] Start: 04-07-2024 End: 04-07-2024 Xcapsl ctrc rmvl insj io lens prosth w/o ecp PHACOEMULSIFICATION CATARACT IMPLANT INTRAOCULAR LENS W/O ENDOSCOPIC CYCLOPHOTOCOAGULATION Combined forms of age-related cataract of left eye 04/07/2024 12:00 PM EDT [facility] Start: 04-02-2024 End: 08-24-2025 CORNEAL TOPOGRAPHY ATLAS OU (BOTH EYES) CORNEAL TOPOGRAPHY ATLAS OU (BOTH EYES) OPHT Imaging Routine Nuclear senile cataract of right eye Nuclear senile cataract of left eye Expected: 04/02/2024, Expires: 08/24/2025 [facility] Work Phone: Comment on above: Expected: 04/02/2024 , Expires: 08/24/2025 Start: 04-02-2024 End: 08-24-2025 CORNEAL TOPOGRAPHY PENTACAM OU (BOTH EYES) CORNEAL TOPOGRAPHY PENTACAM OU (BOTH EYES) OPHT Imaging Routine Nuclear senile cataract of right eye Nuclear senile cataract of left eye Expected: 04/02/2024, Expires: 08/24/2025 [facility] Comment on above: Expected: 04/02/2024 , Expires: 08/24/2025 Start: 04-02-2024 End: 08-24-2025 OCT MACULA CIRRUS OU (BOTH EYES) OCT MACULA CIRRUS OU (BOTH EYES) OPHT Imaging Routine Nuclear senile cataract of right eye Nuclear senile cataract of left eye Expected: 04/02/2024, Expires: 08/24/2025 [facility] Comment on above: Expected: 04/02/2024 , Expires: 08/24/2025 Start: 03-24-2024 End: 03-24-2024 Admission to same day surgery center 03/24/2024 1:20 PM EDT - 03/24/2024 1:55 PM EDT Surgery Ambulatory Surgery [address] [place] [address] Reyes Wetzel MD [address] [place] [address] [phone] (Work) [phone] (Fax) PHACOEMULSIFICATION CATARACT IMPLANT INTRAOCULAR LENS W/O ENDOSCOPIC [...] PM EDT Hospital Encounter Ambulatory Surgery [address] [place] [address] Reyes Wetzel MD [address] [place] [address] Combined forms of age-related cataract of right [...] Vaccine ( season) Covid-19 Vaccine ( season) [facility] Start: 03-07-2024 Covid-19 Vaccine ( season) Covid-19 Vaccine ( season) [facility] Start: 03-07-2024 Influenza vaccination Influenza Vacc ine (#1) [facility] Start: 12-12-2021 FUV, Provider: Shukri Hoffman, Status: Pen, Time: 1:15 PM FUV, Provider: Shukri Hoffman, Status: Pen, Time: 1:15 PM GF-Vtsfwpoeg-Tf [place] [address] Work Phone: Start: 11-14-2021 FUV, Provider: Shukri Hoffman, Status: Pen, Time: 1:00 PM FUV, Provider: Shukri Hoffman, Status: Pen, Time: 1:00 PM MG-Otolaryngolo gy-[place] Work Phone: Start: 05-13-2019 Screening for malign ant neoplasm of breast Mammogram Screening [facility] Start: 09-16-2015 Pneumococcal Vaccine : 50+ (1 of 1 - PCV) Pneumococcal Vaccine: 50+ (1 of 1 - PCV) [facility] Start: 09-16-2015 Shingrix Vaccine (1 of 2) Shingrix V accine (1 of 2) [facility] Start: 09-16-2015 Zoster Vaccines (1 of 2) Zoster Vacc jocelin (1 of 2) [facility] Start: 2010 Lipid panel Lipid Screening [facility] Start: 2010 Screening for malign ant neoplasm of colon [facility] Start: 09-16-1987 DTaP/Tdap/Td Vaccine s (1 - Tdap) DTaP/Tdap/Td Vaccines (1 - Tdap) [facility] Start: 1986 Screening for malign ant neoplasm of cervix [facility] Start: 1984 Hepatitis B Vaccine (1 of 3 - 19+ 3-dose series) Hepatitis B Vaccine (1 of 3 - 19+ 3-dose series) [facility] Start: 1984 Urine microalbumin profile DTa P,Tdap,Td Vaccine (1 - Tdap) [facility] Start: 09-16-1983 Anxiety Screening Anxiety Screening [facility] Start: 09-16-1983 Depression Screening Depression Scre ening [facility] Start: 09-16-1983 Diabetes mellitus screening Diabetes Screening [facility] Start: 09-16-1983 Hepatitis C screening Hepatitis C Sc reening [facility] Start: 09-16-1983 HIV screening HIV Screening [facility] Start: 1966 MMR Vaccines (1 of 1 - Standard series) MMR Vaccines (1 of 1 - Standard series) [facility] Start: 03-18-1966 COVID-19 Vaccine (#1) COVID-19 Vacci ne (#1) [facility] Start: 1965 Hepatitis B Vaccines (1 of 3 - 3-dose series) Hepatitis B Vaccines (1 of 3 - 3-dose series) [facility] Start: 1965 HIV screening HIV Screening [facility] Start: 1965 Lipid panel Lipid Panel [facility] Start: 1965 Screening for malign ant neoplasm of colon [facility] Start: 1965 Yearly Adult Physical Yearly Adult P hysical [facility] End: 08-26-2025 CORNEAL TOPOGRAPHY ATLAS OU (BOTH EYES) CORNEAL TOPOGRAPHY ATLAS OU (BOTH EYES) OPHT Imaging Routine Nuclear senile cataract of right eye Nuclear senile cataract of left eye 1 Occurrences starting 03/04/2024 until 08/26/2025 [facility] Comment on above: 1 Occurrences starti ng 03/04/2024 until 08/26/2025 CORNEAL TOPOGRAPHY A TLAS OU (BOTH EYES) CORNEAL TOPOGRAPHY ATLAS OU (BOTH EYES) OPHT Imaging Routine Nuclear senile cataract of right eye Nuclear senile cataract of left eye 03/17/2024 8:31 AM EDT [facility] Work Phone: End: 08-26-2025 CORNEAL TOPOGRAPHY PENTACAM OU (BOTH EYES) CORNEAL TOPOGRAPHY PENTACAM OU (BOTH EYES) OPHT Imaging Routine Nuclear senile cataract of right eye Nuclear senile cataract of left eye 1 Occurrences starting 03/04/2024 until 08/26/2025 [facility] Comment on above: 1 Occurrences starti ng 03/04/2024 until 08/26/2025 CORNEAL TOPOGRAPHY P ENTACAM OU (BOTH EYES) CORNEAL TOPOGRAPHY PENTACAM OU (BOTH EYES) OPHT Imaging Routine Nuclear senile cataract of right eye Nuclear senile cataract of left eye 03/09/2024 8:33 AM EDT [facility] End: 08-26-2025 OCT MACULA CIRRUS OU (BOTH EYES) OCT MACULA CIRRUS OU (BOTH EYES) OPHT Imaging Routine Nuclear senile cataract of right eye Nuclear senile cataract of left eye 1 Occurrences starting 03/04/2024 until 08/26/2025 [facility] Comment on above: 1 Occurrences starti ng 03/04/2024 until 08/26/2025 OCT MACULA CIRRUS OU (BOTH EYES) OCT MACULA CIRRUS OU (BOTH EYES) OPHT Imaging Routine Nuclear senile cataract of right eye Nuclear senile cataract of left eye 03/09/2024 8:46 AM EDT [facility] Oph bmtry prtl coher intrfrmtry io lens pwr jyoti [facility] Xcapsl ctrc rmvl ins j io lens prosth w/o ecp [facility] MG-Otolaryngolo gy-[place] Work Phone: NEGATED: Highlighted row has been ruled out! Planned Goals not documented MG-Otolaryngolo gy-Lety Work Phone: Immunizations Immunization Date Immunization Notes Care Provider Fa chris 05-01-2024 influenza virus vaccine, unspecified formulation Edwin SOUSA [facility] [place] 05-31-2023 influenza virus vaccine, unspecified formulation Reyes Wetzel MD Work Phone: [facility] 05-22-2017 influenza virus vaccine, unspecified formulation Donald Pate MD Work Phone: [facility] 05-22-2017 influenza, high dose seasonal, preservative-free Maikol Roca Other [facility] Other Payers Date Payer Category Payer Self-pay 2024 Private Health Insurance [id number] 2018 Unknown 1965 Unknown [id number] 1965 Unknown [id number] 2.16.84 [id number] 1965 Unknown [id number] 2.16.84 0.1.744608.3.579.2.1259 1965 Unknown [id number] 2.16.840 .1.919626.3.579.2.1259 1965 Unknown [id number] 2.16.840. 1.597351.3.579.2.1259 1965 Unknown [id number] 2.16.840. 1.299176.3.579.2.9 1965 Unknown [id number] 2.16. [id number] 1965 Unknown [id number] 2.16.8 40.1.402177.3.579.2.1285 1965 Unknown [id number] 2.16.8 40.1.655225.3.579.2.1285 1965 Unknown [id number] 2.16.8 40.1.097243.3.579.2.1285 1965 Unknown [id number] 2.16.8 40.1.380149.3.579.2.1285 1965 Unknown [id number] 2.16.8 40.1.036490.3.579.2.1285 1965 Unknown [id number] 2.16.8 40.1.749498.3.579.2.727 1965 Unknown [id number] 2.16.8 40.1.002477.3.579.2.8 1965 Unknown [id number] 2.16.8 40.1.672368.3.579.2.8 1965 Unknown [id number] 2.16.8 40.1.566031.3.579.2.8 1965 Unknown [id number] 2.16.8 40.1.322134.3.579.2.718 1959 Unknown [id number] Unknown [id number] 2. [id number] Unknown [id number] 2.16.8 [id number] Social History Date Type Detail Facility Start: 06-23-2023 End: 03-17-2024 Former smoker Former smoker DB-Dxmtceygv-Ncasnpq e 2460 Work Phone: Start: 06-23-2023 End: 03-17-2024 Sex Assigned At [facility] Other Start: 1965 Sex Assigned At Female F [facility] Start: 03-04-2023 End: 06-23-2023 Tobacco smoking status NHIS Never smoked tobacco [facility] Start: 06-23-2023 End: 03-09-2024 Tobacco use and exposure Smokeless tobacco non-user [facility] Work Phone: Start: 06-23-2023 Alcohol intake Lifetime non-drinker (finding) [facility] Work Phone: Start: 1965 Sex Assigned At Not on file U [facility] Work Phone: Start: 06-13-2023 End: 06-23-2023 Exposure to SARS-CoV-2 (event) Not sure [facility] Start: 06-19-2023 End: 03-02-2025 Tobacco smoking status VTIS Ex-smoker [facility] Start: 07-07-2006 End: 07-07-2008 History of tobacco use Current smoker [facility] Start: 07-07-2006 End: 07-07-2008 History of tobacco use Cigarette Smoker [facility] Start: 08-11-2023 End: 08-17-2024 Alcohol intake Current drinker of alcohol (finding) [facility] Start: 06-19-2023 Tobacco Comment Last smoked : > 10 years [facility] Start: 06-19-2023 Alcohol Comment occasionally; caffeine intake : 1-2 cups per day [facility] Start: 12-16-2018 Alcohol Comment Social [facility] National Score (1-100), lower number is lower risk 86 [facility] [place] Sex Female (finding) [facility] Sexual Orientation [facility] General Surgery [place] NEGATED: Highlighted row - - MQ-Kjofsojtvmcesc-Kh [facility] Work Phone: NEGATED: Highlighted rowStart: ELADIAF History of tobacco use Passive smoker [facility] Work Phone: Medical Equipment Procedure Code Equipment Code Equipment Origin al Text Equipment Identifier Dates Radha Ramírez 0.6mm Yoanna X 4.5mm Nitinol Fluoroplastic Case [id number] Start: 12-10-2017 Comment on above: Description: Convert ed from [facility]. Please see archived information for full log information. [id number] Malorie on [facility] - [id number] Start: 03-24-2024 [id number] Malorie on [facility] - [id number] Start: 04-07-2024 Functional Status Date Assessment Result Facility NEGATED: Highlighted row Functional performance Functional status health issues are not documented Disease EZ-Xxxzlkpywdfbby-I [facility] Work Phone: Mental Status Date Assessment Result Facility NEGATED: Highlighted row Cognitive function [Interpretation] Cognitive status health issues are not documented Disease AB-Fgkstoepfnxwsg-P [facility] Work Phone: Clinical Notes 03-04-2023 to 03-02-2025 Reyes Wetzel MD - 08/17/2024 4:25 PM Callie Ku COA - 03/17/2024 8:32 AM EDTPatient InstructionsFlorecita Marquez, ANGELA.WAREHOUSE MAN - 03/17/2024 7:00 AM EDT Note Date [...] Status influenza virus vaccine, inactivated 05/01/2024 Recorded [facility] Comment on above: Result Comment: Elec tronically Signed By: LARS SALMERON, Edwin Renee\Date and Time Signed: 03/02/25 14:50 EDT 08-17-2024 Note Date of Procedure 08/17/2024 [place] Protocol Safety Checklist Sign In: A moment [...] Notes No Intraocular lens pits No complications [facility] 08-17-2024 Note Date of Procedure 08/17/2024 [place] Protocol Safety Checklist Sign In: A moment [...] Notes No Intraocular lens pits No complications [facility] 08-17-2024 Note HNO ID: [id number] Author: REYES WEZTEL MD Service: ? Author Type: Physician Type: [...] of its relevant components. Reyes Wetzel MD [facility] 08-17-2024 History of Present illness Narrative ASSESSMENT/PLAN: [...] well; update glasses as needed with Dr. Pulmmer 4. Amblyopia of eye, right - ICD9: [...] Reyes Wetzel MD documented in this encounter [facility] 03-17-2024 Note HNO ID: [id number] Author: CALLIE CRUZ COA Service: ? Author Type: Chief Catalyst Operator Type: Progress Notes Filed: 03/17/2024 08:33 Note Text: CONFIRM AIM PLANO BOTH EYES. TORIC IOL RIGHT EYE. PATIENT AWARE THAT HE WILL NEED GLASSES FOR NEAR AND INTERMEDIATE. DUANE Muhammad [facility] 03-17-2024 Note Date of Procedure 03/17/2024. Chief Catalyst Operator Information DUANE Muhammad . Notes Measurements only - see Procedure Record under Scanned Documents for signed results. [facility] 03-17-2024 Note Date of Procedure 03/17/2024. Chief Catalyst Operator Information DUANE Muhammad . Notes Ascan report in paper chart and scanned to patient chart after post op period. A-SCAN RIGHT EYE: 23.40 A-SCAN LEFT EYE: 23.38 [facility] 03-17-2024 History of Present illness Narrative CONFIRM AIM PLANO BOTH EYES. TORIC IOL RIGHT EYE. PATIENT AWARE THAT HE WILL NEED GLASSES FOR NEAR AND INTERMEDIATE. DUANE Muhammad documented in this encounter [facility] 03-17-2024 Instructions Florecita Marquez APRN.CRISTIANE - 03/17/2024 7:26 AM EDT Images from the original note were not included. [facility] PATIENT PREOPERATIVE INSTRUCTIONS Reyes Wetzel MD has scheduled you for your procedure at this surgery center: [facility]: [phone] --[address] [place] [address]. Please read below carefully for your personalized [...] Procedures: - YOU MUST HAVE A RESPONSIBLE SPECIALTY PERSON TAKE YOU HOME. A TREE CARE FOREMAN OR INTERNATIONAL ORGANIZER CANNOT BE MADE A RESPONSIBLE SPECIALTY PERSON. - We recommend that a responsible person stays with you overnight to take care of you. - You cannot stay in a hotel alone after outpatient surgery. You will not be permitted to have your surgery, if you do not have someone to take care of you. If you already have an Advance Directive, please fax a copy to [phone] or email to for it to be [...] Florecita Marquez APRN.CRISTIANE documented in this encounter [facility] 03-17-2024 History and physical note Images from [...] large neck Non-male patient STOP-Bang Score: 1 [id number] Score: Age: <65 Sex: female CHF history: No Hypertension history: No Stroke/TIA/thromboembolism history: No Vascular disease history: No Diabetes history: No [id number] Score: 1 ARISCAT Score: Age: 51-80 Preoperative [...] fevers. 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 No neurological symptoms or problems. Respiratory: No history of current cough or dyspnea, or pneumonia in the past 6 weeks. No history of respiratory/pulmonary symptoms or problems. Cardiovascular: No history of HTN requiring medication, no history of angina, CHF, [place], cardiac surgery or stents. Denies rest pain, [...] > 1 time per night or hematuria ORACLE ERP DEVELOPER: Negative for abnormal vaginal bleeding, abnormal vaginal [...] Covid Immunization Dates Overdue - Covid-19 Vaccine (2022- season) Never done No completion, postpone, frequency [...] Reba Vasquez DATE: 03/17/2024 TIME: 7:29 AM [facility] 03-17-2024 History and physical note Images from [...] large neck Non-male patient STOP-Bang Score: 1 [id number] Score: Age: <65 Sex: female CHF history: No Hypertension history: No Stroke/TIA/thromboembolism history: No Vascular disease history: No Diabetes history: No [id number] Score: 1 ARISCAT Score: Age: 51-80 Preoperative [...] fevers. 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 No neurological symptoms or problems. Respiratory: No history of current cough or dyspnea, or pneumonia in the past 6 weeks. No history of respiratory/pulmonary symptoms or problems. Cardiovascular: No history of HTN requiring medication, no history of angina, CHF, NJ, cardiac surgery or stents. Denies rest pain, [...] > 1 time per night or hematuria ORACLE ERP DEVELOPER: Negative for abnormal vaginal bleeding, abnormal vaginal [...] TIME: 7:29 AM documented in this encounter [facility] 03-09-2024 Note HNO ID: [id number] Author: REYES WETZEL MD Service: ? Author [...] kind referral! Allergies: see list - Aim: [place] OU with toric IOL in OD. Patient [...] its relevant components. Reyes Wetzel MD 03/09/24 [facility] 03-09-2024 History of Present illness Narrative ASSESSMENT/PLAN: [...] kind referral! Allergies: see list - Aim: [place] OU with toric IOL in OD. Patient [...] Wetzel MD 03/09/24 documented in this encounter [facility] 08-11-2023 History of Present illness Narrative Subjective Reba Vasquez is a 57 y.o. female Chief Complaint Patient presents with Post-op Visit Patient here for 5 weeks post op. She underwent TLH/BSO at [facility] on 07/04/23 due to pelvic pain, abdominal [...] bilateral salpingo-oophorectomy (BSO) documented in this encounter [facility] 06-23-2023 History of Present illness Narrative Subjective [...] 06/23/23 2:19 PM documented in this encounter [facility] Work Phone: 03-04-2023 Evaluation note Encounter [...] provided to pt. Pt to f/u with [facility] as sched (03/12/23 830AM), sooner for new or worsening sx. Pt understood and agreed to tx plan. [facility] Other Evaluation + Plan note No data available for this section [facility] [place] Evaluation noteNo assessment information available [facility] Work Phone: Evaluation note* Diagnosis Dizziness and giddiness- Primary Nasal drainage documented in this encounter [facility] Work Phone: Evaluation note* Diagnosis Follow-up examination after gynecological surgery- Primary Status post laparoscopic hysterectomy Acquired absence of both cervix and uterus Status post bilateral salpingo-oophorectomy (BSO) [facility] Nuclear senile cataract of right eye- Primary Nuclear senile cataract of left eye Regular astigmatism of right eye Regular astigmatism Amblyopia of eye, right [facility] Pre-op evaluation- Primary Preoperative examination, [...] any suicidal ideation documented in this encounter [facility] note* Diagnosis Nuclear senile cataract of right eye Nuclear senile cataract of left eye Pre-op evaluation- Primary Preoperative examination, unspecified Generalized anxiety disorder Combined forms of age-related cataract of right eye Other and combined forms of senile cataract Combined forms of age-related cataract of left eye Other and combined forms of senile cataract documented in this encounter [facility] note* Diagnosis Pre-op evaluation- Primary Preoperative examination, unspecified Generalized anxiety disorder After-cataract of right eye with vision obscured- Primary After-cataract of left eye with vision obscured Pseudophakia of both eyes Lens replaced by other means Amblyopia of eye, right Posterior vitreous detachment of right eye Vitreous degeneration documented in this encounter [facility] note* Diagnosis Onset Date Resolution Status Admit Date Mass of right forearm acute Sep 2024 10:04am [facility] Work Phone: [facility]bp[facility] general Narrative - Reported* Type Description Date Medical History fibromyalgia Medical History anxiety/depression Medical History panic disorder Medical History tinnitis Medical History vestibular neuronitis Medical History sinusitis Medical History allergic rhinitis Medical History achilles tendonitis Surgical History pelvic laproscopy, r/o cysts Surgical History ablation, [facility] Other History of Present illness Narrative* Reba Vasquez, age 55 years, was seen today for a hearing test in conjunction with a follow-up visit with Dr. Dunn. 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 Today she reports that her left ear will intermittently seem congested. She denies changes in hearing in her right ear. * Patient's preferred language: Tanzanian * Preferred language of the parent, legal guardian or surrogate decision-maker of this minor or incapacitated patient: Not Applicable * No overt signs of domestic violence/neglect/abuse. * No referral made to [facility]. * Pain not interfering with optimal level [...] little interest or pleasure in doing things. [id number] Work Phone: Hospital Discharge instructions No data available for this section [facility] [place] Progress note No data available for this section [facility] [place] Reason for referral (narrative)No reason for referral information [facility] Work Phone: Summary Purpose Family History [...] with placement of prosthetic Surgeon: Dalton Resident/Fellow/Other Green Inspector: paulo bailey Anesthesia: general Estimated Blood Loss [...] section and content) DATE CREATED AUTHOR 11/25/2018 [facility] DATE CREATED AUTHOR AUTHOR'S ORGANIZ ATION 11/16/2021 Palmer Hargreaves DATE CREATED AUTHOR AUTHOR'S ORGANIZ ATION 06/28/2022 [facility] DATE CREATED AUTHOR AUTHOR'S ORGANIZ ATION 06/24/2023 [facility] DATE CREATED AUTHOR AUTHOR'S ORGANIZ ATION 08/11/2023 [facility] DATE CREATED AUTHOR AUTHOR'S ORGANIZ ATION 07/24/2024 [facility] DATE CREATED AUTHOR AUTHOR'S ORGANIZ ATION 08/19/2024 [facility] DATE CREATED AUTHOR AUTHOR'S ORGANIZ ATION 02/12/2025 [facility] DATE CREATED AUTHOR AUTHOR'S ORGANIZ ATION 03/04/2025 [facility] DATE CREATED AUTHOR AUTHOR'S ORGANIZ ATION 03/17/2025 [facility] REASON FOR VISIT (unrecogniz ed section and content) Reason Comments Follow-up Sinus drainageBilate ral ear issues Reason Comments Post-op Visit Patient here for 5 w eeks post op. She underwent TLH/BSO at [facility] on 07/04/23 due to pelvic pain, abdominal [...] Donald Pate MD Primary Care Provider Active Annual Campaign Manager Relationship Specialty Start Date End Date Donald Pate MD [address] [place] [address] PCP - General 10/06/17 Team Status: Inactive Member Role Status Dates Louann Barrera DO Attending Provider Active Annual Campaign Manager Relationship Specialty Start Date End Date Donald Pate MD [address] [place] [address] PCP - General Family Medicine 05/12/23 Annual Campaign Manager Relationship Specialty Start Date End Date Donald Pate MD [address] [place] [address] PCP - General Family Medicine 03/11/24 Annual Campaign Manager Relationship Specialty Start Date End Date Donald Pate MD [address] [place] [address] PCP - General Family Medicine 03/11/24 Annual Campaign Manager Relationship Specialty Start Date End Date Donald Pate MD [address] [place] [address] PCP - General Family Medicine 03/11/24 Team [...] or prosecute any alcohol or drug abuse patient.[facility] the event this information is protected by the Federal Confidentiality of Alcohol and Drug Abuse Patient Records regulations: The Federal rules restrict any use of the information to criminally investigate or prosecute any alcohol or drug abuse patient.[facility] the event this information is protected by the Federal Confidentiality of Alcohol and Drug Abuse Patient Records regulations: The Federal rules restrict any use of the information to criminally investigate or prosecute any alcohol or drug abuse patient.[facility] the event this information is protected by the Federal Confidentiality of Alcohol and Drug Abuse Patient Records regulations: The Federal rules restrict any use of the information to criminally investigate or prosecute any alcohol or drug abuse patient.[facility] FOR RECORDS PERTAINING TO PATIENTS WHO ARE [...] BE BASED ON THE PRIMARY CLINICAL RECORDS. [facility] [employer] [facility]. provides no warranty or guarantee of the accuracy or completeness of information in this document.
--- OUTSIDE RECORDS SUMMARY | 2025-03-23 07:14 | XMS_ITS | Encounter Summary ---
Author Organization [facility] Address [address] [place] [address] Phone Care Team Providers Care Building Attendant Name Role Phone Donald Obando MD Primary Care Provider [phone] Encounter Details Date Type Department Care Team ([facility] st Contact Info) Description 07/23/2017 Orders Only [facility] [address] [place] [address] Conversion, Onbase Social History Tobacco Use Types [...] on filedocumented in this encounter Care Teams Building Attendant Relationship Specialty Start Date End Date Donald Obando MD [address] [facility] [place] [address] PCP - General 10/06/17 documented as of this encounter
--- OUTSIDE RECORDS SUMMARY | 2025-03-23 07:14 | XMS_ITS | Encounter Summary ---
Author Organization [facility] Address [address] [place] [address] Care Team Providers Care Content Curator Name Role Phone Donald Obando MD Primary Care Provider [phone] Encounter Details Date Type Department Care Team (Late st Contact Info) Description 05/22/2023 Orders Only [facility] [address] [place] [address] Nataliia Sapp MA Social History Tobacco Use [...] on filedocumented in this encounter Care Teams Content Curator Relationship Specialty Start Date End Date Donald Obando MD PCP - General Family Medicine 05/12/23 documented as of this encounter
--- OUTSIDE RECORDS SUMMARY | 2025-03-23 07:14 | XMS_ITS | Clinical Summary ---
Author Organization [facility] Address [address] [place] [address] Care Team Providers Care Air Conditioner Installer Helper Name Role Phone Donald Obando MD Primary Care Provider [phone] Allergies Active Allergy Reactions Criticality Noted Date [...] on file Insurance [employer] Care Teams Air Conditioner Installer Helper Relationship Specialty Start Date End Date Donald Obando MD PCP - General Family Medicine 05/12/23
--- OUTSIDE RECORDS SUMMARY | 2025-03-23 07:15 | XMS_ITS | Encounter Summary ---
Author Organization [facility] Address [address] [place] [address] Care Team Providers Care Stripper Machine Operator Name Role Phone Donald Obando MD Primary Care Provider [phone] Encounter Details Date Type Department Care Team (Late st Contact Info) Description 07/09/2023 Abstract [facility] [address] [place] [id number] Louann Barrera, DO [address] [address] Social History Tobacco Use Types [...] on filedocumented in this encounter Care Teams Stripper Machine Operator Relationship Specialty Start Date End Date Donald Obando MD PCP - General Family Medicine 05/12/23 documented as of this encounter
--- OUTSIDE RECORDS SUMMARY | 2025-03-23 07:15 | XMS_ITS | Clinical Summary ---
Author Organization [facility] Address [address] [place] [address] Care Team Providers Care Pantomimist Name Role Phone Santiago Obando MD Primary Care Provider [phone] Allergies Active Allergy Reactions Criticality Noted Date [...] is lower risk 8 03/17/2024 Data from: https://[email or web address] Last address used for calculation [address] [...] 06/20/2026 06/20/2023 Medical Devices Implanted Type Area Administrator Device Identifier Shelf Expiration Date Model / Serial / Lot [id number] [employer] - [id number] Implanted:Qty : 1 on 03/24/2024 at [facility] Intraocular Lens Right: Eye [employer] [facility] 12/08/2026 [id number] 5 / [id number] / [id number] [employer] - [id number] Implanted:Qty : 1 on 04/07/2024 by Jenny Wetzel MD at [facility] Intraocular Lens Left: Eye [employer] 06/15/2027 [id number] 0 / [id number] / Insurance [facility] PPO Care Teams Pantomimist Relationship Specialty Start Date End Date Santiago Obando MD [address] [facility] [place] [address] PCP - General Family Medicine 03/11/24
[2025-03-23 07:29] VITALS: BP 141/81; PULSE 104; TEMP 36.6; O2SAT 97; BMI 25.7
[2025-03-23 09:07] VITALS: BP 105/65; PULSE 75; TEMP 36.6; O2SAT 95
[2025-03-23 09:22] VITALS: BP 126/68; PULSE 72; O2SAT 95
[2025-03-23 09:37] VITALS: BP 122/74; PULSE 77; O2SAT 95
== END 2025-03-23 09:37 | disposition home or self-care (01) ==
LOC: SURGOUT 07:13
PROVIDERS: PCP Family Medicine; Visit Provider Surgery
PROC: (CPT 812; principal; 2025-03-23 08:20)
DX: Z12.11 Encounter for screening for malignant neoplasm of colon (principal); Z80.0 Family history of malignant neoplasm of digestive organs; M79.7 Fibromyalgia; F41.9 Anxiety disorder, unspecified; F32.A Depression, unspecified; H91.90 Unspecified hearing loss, unspecified ear; Z90.710 Acquired absence of both cervix and uterus; Z87.891 Personal history of nicotine dependence; J30.2 Other seasonal allergic rhinitis
CPT/HCPCS: 45378; J2250; J2704